=== PATIENT | female | born 1965 | race Caucasian/White ===

== ENCOUNTER 2020-09-15 15:57 | Outpatient (RCR) | payer OTHER, SELFPAY ==
[2015-06-03 16:15] VITALS: BMI 35.7
== END 2020-10-20 23:59 ==
LOC: IMMUN 15:57
PROVIDERS: PCP Internal Medicine; Visit Provider Family Medicine
DX: Z23 Encounter for immunization (principal)
CPT/HCPCS: 0001A; 0002A; 91300

== ENCOUNTER 2024-02-15 23:28 | Outpatient (CLI) | payer OTHER, SELFPAY ==
[2024-02-15 23:29] VITALS: BP 160/114; PULSE 80; RESP 16; TEMP 36.9; O2SAT 97; BMI 35.3
--- OUTSIDE RECORDS SUMMARY | 2024-02-16 00:12 | XMS RPT_ITS | CCD ---
Author Organization [facility] Care Team Providers Care Onsite Case Manager Name Role Phone Marcellus JORDAN, Fer Primary Care Provider GANTA, FER Primary Care Unavailable OLDER, ROCHELLE Referring Unavailable Fer Donohue MD Primary Care Provider SHAHEED ESTRADA Attending Unavailable GANTA, FER Primary Care Unavailable OLDER, ROCHELLE Referring Unavailable NATALIE, SHAHEED Attending Unavailable OLDER, ROCHELLE Referring Unavailable GANTA, FER Primary Care Unavailable GANTA, FER Primary Care Unavailable JENNIFER MURPHY Referring Unavailable GANTA, FER Primary Care Unavailable OLDER, ROCHELLE Referring Unavailable NATALIE, SHAHEED Attending Unavailable OLDER, ROCHELLE Referring Unavailable GANTA, FER Primary Care Unavailable NATALIE, SHAHEED Attending Unavailable GANTA, FER Primary Care Unavailable OLDER, ROCHELLE Referring Unavailable NATALIE, SHAHEED Attending Unavailable GANTA, FER Primary Care Unavailable OLDER, ROCHELLE Referring Unavailable GANTA, FER Primary Care Unavailable OLDER, ROCHELLE Attending Unavailable GANTA, FER Primary Care Unavailable OLDER, ROCHELLE Referring Unavailable GANTA, FER Primary Care Unavailable MARIANO HERNANDEZ Attending Unavailable GANTA, FER Primary Care Unavailable OLDER, ROCHELLE Attending Unavailable OLDER, ROCHELLE Attending Unavailable GANTA, FER Primary Care Unavailable GANTA, FER Primary Care Unavailable GANTA, FER Referring Unavailable GANTA, FER Primary Care Unavailable OLDER, ROCHELLE Referring Unavailable GANTA, FER Primary Care Unavailable OLDER, ROCHELLE Referring Unavailable GANTA, FER Primary Care Unavailable OLDER, ROCHELLE Attending Unavailable SELF Referring Unavailable MEHUL WORKMAN Attending Unavailable GANTA, FER Primary Care Unavailable MEHUL WORKMAN Referring Unavailable GANTA, FER Primary Care Unavailable NATALIE, SHAHEED Attending Unavailable GANTA, FER Primary Care Unavailable OLDER, ROCHELLE Referring Unavailable OLDER, ROCHELLE Referring Unavailable NATALIE, SHAHEED Attending Unavailable GANTA, FER Primary Care Unavailable Allergies Allergy Classification Reported Allergen(s) Allergy Type Date of Onset Reaction(s) Facility POISON ABIGAIL EXTRACT (1 source) POISON ABIGAIL EXTRACT Drug Allergy 0 Rash [facility] (20 sources) POISON ABIGAIL EXTRACT; Translations: [POISON ABIGAIL] Drug Allergy 0 Rash [facility] (20 sources) environmental [Other] Propensity to adverse reactions 6 [facility] Work Phone: (11 sources) Ethinyl Estradiol / Levonorgestrel; Translations: [LEVONORGESTREL-E THINYL ESTRAD] Drug Allergy 4 Intolerance [facility] (1 source) OTHER; Translations: [OTHER] Propensity to adverse reactions (disorder) 6 [place] Medications Current Medications Medication Drug Class(es) Dates Sig (Normalized) Sig (Original) acetaminophen 325 mg oral tablet (20 sources) take 2 tablets by mouth every four hours as needed acetaminophen (TYLENOL) 325 mg tablet Take 650 mg by mouth every 4 hours as needed. Active Comment on above: Take 650 mg by mouth every 4 hours as needed. cholecalciferol 1.25 mg oral capsule (20 sources) Vitamin D Start: 05-08-2021 End: 07-12-2023 take 1 capsule by mouth every week cholecalciferol, Vitamin D3, (VITAMIN D3) 1,250 mcg (50,000 unit) cap capsule Indications: Vitamin D deficiency Take 1 capsule by mouth one time a week. 12 capsule 3 07/12/2023 Active Comment on above: Take 1 capsule by [facility] one time a week. clobetasol propionate 0.0005 mg/mg topical ointment (12 sources) Corticosteroid Start: 12-03-2023 clobetasol (TEMOVATE) 0.05 % ointment APPLY TO AFFECTED AREA 2 TIMES WEEKLY FOR MAINTENANCE, CAN INCREASE USE UP TO DAILY WHEN FLARED 12/03/2023 Active diclofenac potassium 50 mg oral tablet (3 sources) Nonsteroidal Anti-inflammatory Drug Start: 02-12-2024 take 1 tablet by mouth twice daily at mealtime diclofenac potassium (CATAFLAM) 50 mg tablet Take 1 tablet by mouth two times a day. Take with food. 30 tablet 02/12/2024 Active fluconazole 200 mg oral tablet (12 sources) Azole Antifungal Start: 12-03-2023 take 2 tablets by mouth once daily, then take 2 tablets by mouth every week fluconazole (DIFLUCAN) 200 mg tablet TAKE 2 TABLETS BY MOUTH DAILY FOR 3 DAYS THEN TAKE 2 TABLETS ONCE A WEEK FOR 3 WEEKS. 12/03/2023 Active levothyroxine sodium 0.1 mg oral tablet (20 sources) l-Thyroxine Start: 01-09-2021 End: 11-13-2023 take 1 tablet by mouth once daily levothyroxine (SYNTHROID) 100 mcg tablet Indications: Acquired hypothyroidism Take 1 tablet by mouth once daily. 90 tablet 3 07/12/2023 Active Comment on above: Take 1 tablet by jose roberto th once daily. lidocaine 40 mg/ml / menthol 10 mg/ml topical solution (20 sources) Antiarrhythmic, Amide Local Anesthetic lidocaine-menthol 4-1 % lqro Apply to affected area. Active Comment on above: Apply to affected ar ea. losartan potassium 25 mg oral tablet (20 sources) Angiotensin 2 Receptor Dustin Start: 01-09-2021 End: 07-11-2024 take 1 tablet by mouth once daily losartan (COZAAR) 25 mg tablet Indications: Essential hypertension Take 1 tablet by mouth once daily. 90 tablet 3 07/12/2023 07/11/2024 Active Comment on above: Take 1 tablet by jose roberto once daily. omeprazole 20 mg delayed release oral capsule (19 sources) Proton Pump Inhibitor Start: 11-13-2023 End: 12-19-2023 take 1 capsule by mouth once daily before breakfast omeprazole (PRILOSEC) 20 mg capsule Take 1 capsule by mouth daily before breakfast. 1/2 hr before meal. 90 capsule 1 12/19/2023 Active triamcinolone acetonide 0.001 mg/mg topical ointment (20 sources) Corticosteroid Start: 10-07-2023 triamcinolone acetonide (KENALOG) 0.1 % ointment Apply to affected area 1-2 times per week. 80 g 2 10/07/2023 Active Start: 03-19-2023 End: 10-05-2023 triamcinolone acetonide (NGOC ALOG) 0.1 % ointment Apply to affected area 1-2 times per week. 80 g 2 06/25/2023 10/05/2023 Discontinued Start: 09-06-2022 triamcinolone acetonide (KENALOG) 0.1 % ointment Apply to affected area 1-2 times per week. 80 g 2 09/06/2022 Active Start: 09-14-2021 End: 09-06-2022 triamcinolone acetonide (NGOC ALOG) 0.1 % ointment Use every 1-2 days to affected area. Over the next month decreased to 2-3 times per week. 80 g 1 09/14/2021 09/06/2022 Discontinued Start: 08-08-2021 End: 09-14-2021 triamcinolone acetonide (NGOC ALOG) 0.1 % ointment Apply to affected area 2 times daily for 2 weeks. Then use daily. 80 g 1 08/08/2021 09/14/2021 Discontinued Comment on above: Apply to affected ar ea 2 times daily for 2 weeks. Then use daily. Use every 1-2 days t o affected area. Over the next month decreased to 2-3 times per week. Apply to affected ar ea 1-2 times per week. vitamin b12 1 mg oral tablet (19 sources) Vitamin B12 take 1 tablet by mouth once daily cyanocobalamin (VITAMIN B-12) 1,000 mcg tab Take 1,000 mcg by mouth once daily. Active Completed/Discontinued Medications Medication Drug Class(es) Dates Sig (Normalized) Sig (Original) hydrocortisone 10 mg/ml topical cream (12 sources) Corticosteroid End: 09-14-2021 hydrocortisone 1 % cream Apply to affected area twice daily. 09/14/2021 Discontinued Comment on above: Apply to affected ar ea twice daily. Lactobac no.41/Bifidobact no.7 (PROBIOTIC-10 ORAL) (20 sources) End: 11-13-2023 Lactobac no.41/Bifidobact no.7 (PROBIOTIC-10 ORAL) Take by mouth. 11/13/2023 Discontinued End: 11-13-2023 Lactobac no.41/Bifidobact no .7 (PROBIOTIC-10 ORAL) Take by mouth. 0 11/13/2023 Discontinued Lactobac no.41/B ifidobact no.7 (PROBIOTIC-10 ORAL) Take by mouth. 0 Active Comment on above: Take by mouth. lansoprazole 30 mg delayed release oral capsule (20 sources) Proton Pump Inhibitor Start: End: take 1 capsule by mouth once daily before breakfast lansoprazole (PREVACID) 30 mg capsule Indications: Gastroesophageal reflux disease without esophagitis Take 1 capsule by mouth daily before breakfast. 90 capsule 1 02/19/2018 07/12/2023 Discontinued Comment on above: Take 1 capsule by mo moh daily before breakfast. meloxicam 15 mg oral tablet (17 sources) Nonsteroidal Anti-inflammatory Drug Start: End: take 1 tablet by mouth once daily meloxicam (MOBIC) 15 mg tablet Take 1 tablet by mouth once daily. 30 tablet 1 09/04/2021 07/12/2023 Discontinued Comment on above: Take 1 tablet by jose roberto once daily. naproxen 500 mg oral tablet (7 sources) Nonsteroidal Anti-inflammatory Drug Start: End: take 1 tablet by mouth twice daily as needed for pain naproxen (NAPROSYN) 500 mg tablet Indications: DDD (degenerative disc disease), lumbar , Cervical spondylosis without myelopathy Take 1 tablet by mouth two times a day as needed (for pain/inflammation). Take with food. 15 tablet 1 11/13/2023 12/19/2023 Discontinued nystatin 100 unt/mg topical powder (9 sources) Polyene Antifungal Start: End: nystatin (MYCOSTATIN) powder Apply 1 application to affected area four times daily. For 10-14 days. 60 g 4 11/19/2022 11/13/2023 Discontinued Comment on above: Apply 1 application to affected area four times daily. For 10- 14 days. turmeric root extract 500 mg cap (8 sources) End: turmeric root extract 500 mg cap Take by mouth. 12/19/2023 Discontinued turmeric root ex tract 500 mg cap Take by mouth. 0 Active Problems Active Problems Problem Classification Problem Date Documented Date Episodic/Chronic Conditions associated with dizziness or vertigo (1 source) Disorder of inner ear; Translations: [Unspecified disorder of vestibular function, unspecified ear] 07-12-2023 Episodic Esophageal disorders (20 sources) Gastroesophageal reflux disease; Translations: [Gastro-esophageal reflux disease without esophagitis] Onset: 03-27-2007 Resolved: 02-19-2018 09-07-2015 Chronic Essential hypertension (20 sources) Essential hypertension; Translations: [Essential (primary) hypertension] Onset: 09-07-2015 Resolved: 09-16-2015 09-07-2015 Chronic Headache; including migraine (1 source) Headache; Translations: [Headaches] 11-13-2023 Episodic Nonmalignant breast conditions (1 source) Breast finding ; Translations: [Dense breasts] 10-04-2023 Episodic Nutritional deficiencies (20 sources) Vitamin D deficiency; Translations: [Vitamin D deficiency, unspecified] Onset: 02-19-2012 02-19-2012 Chronic Osteoarthritis (20 sources) Arthritis; Translations: [Unspecified osteoarthritis, unspecified site] Onset: 02-26-2016 02-26-2016 Chronic Other acquired deformities (1 source) Retrolisthesis; Translations: [Spondylolisthesis, site unspecified] Episodic Other connective tissue disease (1 source) Impingement syndrome of left shoulder region; Translations: [Impingement syndrome of left shoulder] Episodic Other connective tissue disease (1 source) Impingement syndrome of right shoulder region; Translations: [Impingement syndrome of right shoulder] Episodic Other female genital disorders (2 sources) Atrophic vulva; Translations: [Atrophy of vulva] Episodic Other inflammatory condition of skin (2 sources) Pruritus of vulva; Translations: [Pruritus vulvae] Episodic Other inflammatory condition of skin (1 source) Lichen planus; Translations: [Lichen planus, unspecified] Episodic Other inflammatory condition of skin (1 source) Erosive lichen planus of vulva; Translations: [Other lichen planus] 10-16-2023 Episodic Other lower respiratory disease (3 sources) Dyspnea on exertion; Translations: [Other forms of dyspnea] 11-13-2023 Episodic Other nervous system disorders (20 sources) Meralgia paresthetica of right leg; Translations: [Meralgia paresthetica, right lower limb] Onset: 11-16-2021 Chronic Other nervous system disorders (1 source) Numbness of lower limb ; Translations: [Anesthesia of skin] Episodic Other nervous system disorders (1 source) Paresthesia; Translations: [Paresthesia of skin] 07-12-2023 Episodic Other nervous system disorders (1 source) Tremor; Translations: [Tremor, unspecified] 07-12-2023 Episodic Other non-traumatic joint disorders (3 sources) Shoulder pain; Translations: [Pain in right shoulder] Episodic Other non-traumatic joint disorders (1 source) Chronic pain of left upper limb; Translations: [Pain in left shoulder] Episodic Other non-traumatic joint disorders (3 sources) Pain in left knee; Translations: [Pain in joint, lower leg] Onset: 02-12-2024 02-12-2024 Episodic Other screening for suspected conditions (not mental disorders or infectious disease) (19 sources) Patient encounter status; Translations: [Encounter for screening mammogram for malignant neoplasm of breast] Onset: 10-04-2023 Episodic Spondylosis; intervertebral disc disorders; other back problems (20 sources) Displacement of lumbar intervertebral disc without myelopathy; Translations: [Other intervertebral disc displacement, lumbar region] Onset: 11-16-2021 03-25-2006 Chronic Spondylosis; intervertebral disc disorders; other back problems (20 sources) Lumbago with sciatica; Translations: [Lumbago with sciatica, right side] Onset: 04-12-2010 Resolved: 02-19-2018 Episodic Thyroid disorders (20 sources) Sheryl thyroiditis; Translations: [Autoimmune thyroiditis] Onset: 03-27-2007 03-27-2007 Chronic Unclassified (1 source) Dense breasts; Translations: [Dense breasts] Onset: 10-04-2023 Past or Other Problems Problem Classification Problem Date Documented Da te Episodic/Chronic Nonspecific chest pain (20 sources) Chest pain; Translations: [Chest pain, unspecified] Onset: 03-27-2007 Resolved: 02-19-2018 02-19-2018 Episodic Other aftercare (1 source) Other skilled nursing (current) drug therapy; Translations: [Medication management] Onset: 07-09-2023 Episodic Other connective tissue disease (20 sources) Fibromyalgia; Translations: [Fibromyalgia] Onset: 07-24-2016 07-24-2016 Episodic Other connective tissue disease (20 sources) Bursitis; Translations: [Other bursitis, not elsewhere classified, unspecified site] Onset: 06-15-2014 Resolved: 02-19-2018 02-19-2018 Episodic Other lower respiratory disease (2 sources) Other forms of dyspnea; Translations: [Dyspnea on exertion] Onset: 11-13-2023 Episodic Other nervous system disorders (1 source) Paresthesia of skin; Translations: [Tingling] Onset: 07-17-2023 Episodic Other non-traumatic joint disorders (20 sources) Arthralgia of the pelvic region and thigh; Translations: [Pain in unspecified hip] Onset: 06-15-2014 Resolved: 02-19-2018 02-19-2018 Episodic Residual codes; unclassified (20 sources) Family history of ischemic heart disease; Translations: [Family history of ischemic heart disease and other diseases of the circulatory system] Onset: 07-09-2015 07-09-2015 Episodic Results Test Name Value Interpretation Reference Range Facility OV 02-12-2024 CNOV Office Visit (INTMWS ) JAMAAL MICHAEL ([id number]) 1965 F Date Time Provider Department 02/12/24 11:20 AM ROCHELLE ALCANTAR During your visit today, we recorded the following information about you: Pulse Respiration Blood pressure Weight 84/minute 16/minute 136/78 95.3 kg Rochelle Alcantar APRN.CNP 02/12/2024 12:08 PM Signed CC: Patient presents with: Knee Pain: L knee pain x several weeks HPI Jamaal Michael is a 58 year old female who presents today for left knee pain. Started with an ache 6 weeks ago suddenly after she fell asleep in a recliner with her feet elevated. When she tries to straighten and lift her left leg her knee and calf feel heavy. Over the last few weeks is having a tightness sensation to her LLE and the sensation like the calf muscle and thigh will cramp but doesn't happen. Once or twice while she was turning/twisting her knee felt weak but resolved once she straightened it out. Denies recent surgeries, long trips, edema, redness, injuries, point tenderness, or decreased ROM. Does have history of fibromyalgia and joint pain so experiences tenderness and pain generally throughout body. Also working with pain management on lower back and bilateral hip pain. 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 REVIEW OF SYSTEMS See HPI PAST MEDICAL HISTORY Diagnosis Date Chronic lymphocytic thyroiditis Hashimotos Displacement of lumbar intervertebral disc without myelopathy Environmental allergies Fibromyalgia Generalized osteoarthrosis, unspecified site GERD (gastroesophageal reflux disease) Hypertension Irregular menstrual cycle Irregular Periods Left shoulder pain 2013 past hx frozen shoulder Plantar fasciitis in Right Foot Tendinitis in Left Leg PAST SURGICAL HISTORY Procedure Laterality Date COLONOSCOPY FLX DX W/COLLJ SPEC WHEN PFRMD 10/12/2015 Colonoscopy mac ESOPHAGOGASTRODUODENOSCOPY TRANSORAL DIAGNOSTIC 10/12/2015 EGD mac PAST SURGICAL HISTORY OF Right 04/22/1975 manipulation dislocation arm, post sledding accident PAST SURGICAL HISTORY OF 04/22/1975 exploratory surgery for persistant UTI ALLERGIES Poison Abigail and Seasonale [Levonorgestrel-Ethinyl Estrad] MEDICATIONS clobetasol (TEMOVATE) 0.05 % ointment APPLY TO AFFECTED AREA 2 TIMES WEEKLY FOR MAINTENANCE, CAN INCREASE USE UP TO DAILY WHEN FLARED fluconazole (DIFLUCAN) 200 mg tablet TAKE 2 TABLETS BY MOUTH DAILY FOR 3 DAYS THEN TAKE 2 TABLETS ONCE A WEEK FOR 3 WEEKS. omeprazole (PRILOSEC) 20 mg capsule Take 1 capsule by mouth daily before breakfast. 1/2 hr before meal. cyanocobalamin (VITAMIN B-12) 1,000 mcg tab Take 1,000 mcg by mouth once daily. triamcinolone acetonide (KENALOG) 0.1 % ointment Apply to affected area 1-2 times per week. losartan (COZAAR) 25 mg tablet Take 1 tablet by mouth once daily. levothyroxine (SYNTHROID) 100 mcg tablet Take 1 tablet by mouth once daily. cholecalciferol, Vitamin D3, (VITAMIN D3) 1,250 mcg (50,000 unit) cap capsule Take 1 capsule by mouth one time a week. cholecalciferol, Vitamin D3, (VITAMIN D3) 1,250 mcg (50,000 unit) cap capsule Take 1 capsule by mouth one time a week. lidocaine-menthol 4-1 % lqro Apply to affected area. acetaminophen (TYLENOL) 325 mg tablet Take 650 mg by mouth every 4 hours as needed. FAMILY HISTORY Problem Relation Age of Onset Cancer Mother bladder, thyroid Heart Mother Two Cardiac Bypasses Kidney Disease Mother Hearing Loss Mother Osteoporosis Mother other (gout) Mother Diabetes Father Prostate cancer Prostate Cancer Father Cancer Father Skin Cancer Heart Father Breast Cancer Sister Diabetes Sister 2 sisters with diabetes type II and 2 sisters with hypertension Hypertension Sister Stroke Sister Heart Paternal Grandmother Hypertension Paternal Grandmother Cancer Paternal Grandfather prostate Diabetes Paternal Grandfather Thyroid Maternal Aunt Stroke Maternal Aunt other (bipolar) Other maternal great uncle other (other) Other Other Sleep Disorder No Family History Social History Tobacco Use Smoking status: Never Smokeless tobacco: Never Vaping Use Vaping status: Never Used Substance Use Topics Alcohol use: No Drug use: No PHYSICAL EXAM BP 136/78 Pulse 84 Resp 16 Wt 95.3 kg (210 lb) LMP 08/17/2016 (Approximate) SpO2 98% BMI 34.95 kg/m? General Appearance: well appearing, in no acute distress, alert Eyes: conjunctiva pink and moist, no icterus, sclera white, non-injected Musculoskeletal: Left knee- normal to inspection. Tenderness:none. Flexion:Limitation: neither knee flexes completely but at baseline, Pain:reports tightness; Extension:Limitation:No, Pain:No. Laxity: No Lower extremities: Muscle strength- 5/5 lower, bilaterally. Reflexes intact and equal bilaterally. Pul (more content not included)... [facility] CNTHERAPYon 02-05-2024 CNTHERAPY OT/PT/Speech Visit ( PTWS) JAMAAL MICHAEL ([id number]) 1965 F Date Time Provider Department 02/05/24 2:15 PM SHAHEED ESTRADA PTWS Date Time Provider Department Center 02/05/2024 2:15 PM [id number], COLIN PTWS Frankie Romo Reason for Visit: PT Discharge [752] Primary Visit Diagnosis:Cervical spondylosis without myelopathy [M47.812] Allergies As of Date: 02/05/2024 Noted Allergy Reaction POISON ABIGAIL 08/24/2009 2 - Rash SEAS[place]ALE (LEVONORGESTREL-ETHINYL*12/26 5 - Intolerance Date Reviewed: 12/27/2023 Reviewed by: Lakhwinder Parks OCCA - Fully Assessed Prescriptions as of 02/05/2024 - clobetasol (TEMOVATE) 0.05 % ointment APPLY TO AFFECTED AREA 2 TIMES WEEKLY FOR MAINTENANCE, CAN INCREASE USE UP TO DAILY WHEN FLARED - fluconazole (DIFLUCAN) 200 mg tablet TAKE 2 TABLETS BY MOUTH DAILY FOR 3 DAYS THEN TAKE 2 TABLETS ONCE A WEEK FOR 3 WEEKS. - omeprazole (PRILOSEC) 20 mg capsule Take 1 capsule by mouth daily before breakfast. 1/2 hr before meal. - cyanocobalamin (VITAMIN B-12) 1,000 mcg tab Take 1,000 mcg by mouth once daily. - triamcinolone acetonide (KENALOG) 0.1 % ointment Apply to affected area 1-2 times per week. - losartan (COZAAR) 25 mg tablet Take 1 tablet by mouth once daily. - levothyroxine (SYNTHROID) 100 mcg tablet Take 1 tablet by mouth once daily. - cholecalciferol, Vitamin D3, (VITAMIN D3) 1,250 mcg (50,000 unit) cap capsule Take 1 capsule by mouth one time a week. - cholecalciferol, Vitamin D3, (VITAMIN D3) 1,250 mcg (50,000 unit) cap capsule Take 1 capsule by mouth one time a week. - lidocaine-menthol 4-1 % lqro Apply to affected area. - acetaminophen (TYLENOL) 325 mg tablet Take 650 mg by mouth every 4 hours as needed. Normal [facility] CNTHERAPYon 01-29-2024 CNTHERAPY OT/PT/Speech Visit ( PTWS) JAMAAL MICHAEL ([id number]) 1965 F Date Time Provider Department 01/29/24 2:15 PM SHAHEED ESTRADA PTWS Date Time Provider Department Center 01/29/2024 2:15 PM [id number], COLIN PTWS Frankie Krish Reason for Visit: Physical Therapy [503] Primary Visit Diagnosis:Cervical spondylosis without myelopathy [M47.812] Allergies As of Date: 01/29/2024 Noted Allergy Reaction POISON ABIGAIL 08/24/2009 2 - Rash SE[place] (LEVONORGESTREL-ETHINYL*12/26 5 - Intolerance Date Reviewed: 12/27/2023 Reviewed by: Lakhwinder Parks OCCA - Fully Assessed Prescriptions as of 01/29/2024 - clobetasol (TEMOVATE) 0.05 % ointment APPLY TO AFFECTED AREA 2 TIMES WEEKLY FOR MAINTENANCE, CAN INCREASE USE UP TO DAILY WHEN FLARED - fluconazole (DIFLUCAN) 200 mg tablet TAKE 2 TABLETS BY MOUTH DAILY FOR 3 DAYS THEN TAKE 2 TABLETS ONCE A WEEK FOR 3 WEEKS. - omeprazole (PRILOSEC) 20 mg capsule Take 1 capsule by mouth daily before breakfast. 1/2 hr before meal. - cyanocobalamin (VITAMIN B-12) 1,000 mcg tab Take 1,000 mcg by mouth once daily. - triamcinolone acetonide (KENALOG) 0.1 % ointment Apply to affected area 1-2 times per week. - losartan (COZAAR) 25 mg tablet Take 1 tablet by mouth once daily. - levothyroxine (SYNTHROID) 100 mcg tablet Take 1 tablet by mouth once daily. - cholecalciferol, Vitamin D3, (VITAMIN D3) 1,250 mcg (50,000 unit) cap capsule Take 1 capsule by mouth one time a week. - cholecalciferol, Vitamin D3, (VITAMIN D3) 1,250 mcg (50,000 unit) cap capsule Take 1 capsule by mouth one time a week. - lidocaine-menthol 4-1 % lqro Apply to affected area. - acetaminophen (TYLENOL) 325 mg tablet Take 650 mg by mouth every 4 hours as needed. 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 Author Type: Physical Therapist Type: Therapy (PT/OT/Speech/Resp) Filed: 01/29/2024 14:34 Note Text: Program_ID:[id number] Access Code: [email or web address] URL: [email or web address] Date: 01-29-2024 Prepared By: Shaheed Estrada Program Notes Exercises - Supine Piriformis Stretch with Foot on Ground - 2-3 x daily - 5-7 x weekly - 2-3 sets - reps [facility] CNTHERAPYon 01-22-2024 CNTHERAPY OT/PT/Speech Visit ( PTWS) JAMAAL MICHAEL ([id number]) 1965 F Date Time Provider Department 01/22/24 2:15 PM SHAHEED ESTRADA PTWS Date Time Provider Department Center 01/22/2024 2:15 PM [id number], COLIN PTWS Frankie Romo Reason for Visit: Physical Therapy [503] Primary Visit Diagnosis:Degeneration of intervertebral disc of lumbar region, unspecified whether pain present [M51.369] Other Visit Diagnosis:Cervical spondylosis without myelopathy [M47.812] Allergies As of Date: 01/22/2024 Noted Allergy Reaction POISON ABIGAIL 08/24/2009 2 - Rash SEASONALE (LEVONORGESTREL-ETHINYL*12/26 5 - Intolerance Date Reviewed: 12/27/2023 Reviewed by: Lakhwinder Parks OCCA - Fully Assessed Prescriptions as of 01/29/2024 - clobetasol (TEMOVATE) 0.05 % ointment APPLY TO AFFECTED AREA 2 TIMES WEEKLY FOR MAINTENANCE, CAN INCREASE USE UP TO DAILY WHEN FLARED - fluconazole (DIFLUCAN) 200 mg tablet TAKE 2 TABLETS BY MOUTH DAILY FOR 3 DAYS THEN TAKE 2 TABLETS ONCE A WEEK FOR 3 WEEKS. - omeprazole (PRILOSEC) 20 mg capsule Take 1 capsule by mouth daily before breakfast. 1/2 hr before meal. - cyanocobalamin (VITAMIN B-12) 1,000 mcg tab Take 1,000 mcg by mouth once daily. - triamcinolone acetonide (KENALOG) 0.1 % ointment Apply to affected area 1-2 times per week. - losartan (COZAAR) 25 mg tablet Take 1 tablet by mouth once daily. - levothyroxine (SYNTHROID) 100 mcg tablet Take 1 tablet by mouth once daily. - cholecalciferol, Vitamin D3, (VITAMIN D3) 1,250 mcg (50,000 unit) cap capsule Take 1 capsule by mouth one time a week. - cholecalciferol, Vitamin D3, (VITAMIN D3) 1,250 mcg (50,000 unit) cap capsule Take 1 capsule by mouth one time a week. - lidocaine-menthol 4-1 % lqro Apply to affected area. - acetaminophen (TYLENOL) 325 mg tablet Take 650 mg by mouth every 4 hours as needed. [facility] CNTHERAPYon 01-15-2024 CNTHERAPY OT/PT/Speech Visit ( PTWS) JAMAAL MICHAEL ([id number]) 1965 F Date Time Provider Department 01/15/24 2:15 PM SHAHEED ESTRADA PTWS Date Time Provider Department Center 01/15/2024 2:15 PM [id number], COLIN PTWS Frankie Romo Reason for Visit: Physical Therapy [503] Primary Visit Diagnosis:DDD (degenerative disc disease), lumbar [M51.36] Other Visit Diagnosis:Cervical spondylosis without myelopathy [M47.812] Allergies As of Date: 01/15/2024 Noted Allergy Reaction POISON ABIGAIL 08/24/2009 2 - Rash SEASONALE (LEVONORGESTREL-ETHINYL*12/26 5 - Intolerance Date Reviewed: 12/27/2023 Reviewed by: Lakhwinder Parks OCCA - Fully Assessed Prescriptions as of 01/15/2024 - clobetasol (TEMOVATE) 0.05 % ointment APPLY TO AFFECTED AREA 2 TIMES WEEKLY FOR MAINTENANCE, CAN INCREASE USE UP TO DAILY WHEN FLARED - fluconazole (DIFLUCAN) 200 mg tablet TAKE 2 TABLETS BY MOUTH DAILY FOR 3 DAYS THEN TAKE 2 TABLETS ONCE A WEEK FOR 3 WEEKS. - omeprazole (PRILOSEC) 20 mg capsule Take 1 capsule by mouth daily before breakfast. 1/2 hr before meal. - cyanocobalamin (VITAMIN B-12) 1,000 mcg tab Take 1,000 mcg by mouth once daily. - triamcinolone acetonide (KENALOG) 0.1 % ointment Apply to affected area 1-2 times per week. - losartan (COZAAR) 25 mg tablet Take 1 tablet by mouth once daily. - levothyroxine (SYNTHROID) 100 mcg tablet Take 1 tablet by mouth once daily. - cholecalciferol, Vitamin D3, (VITAMIN D3) 1,250 mcg (50,000 unit) cap capsule Take 1 capsule by mouth one time a week. - cholecalciferol, Vitamin D3, (VITAMIN D3) 1,250 mcg (50,000 unit) cap capsule Take 1 capsule by mouth one time a week. - lidocaine-menthol 4-1 % lqro Apply to affected area. - acetaminophen (TYLENOL) 325 mg tablet Take 650 mg by mouth every 4 hours as needed. Billboard Poster Helper: Addendum Therapy (PT/OT/Speech/Resp) ID: [id number] 01/15/2024 2:34 PM Author: SHAHEED ESTRADA Signed by SHAHEED ESTRADA PT on 01/15/2024 at 2:34 PM * * * This document replaces document [id number] * * * Document text: Program_ID:[id number] Access Code: [email or web address] URL: [email or web address] Date: 01-15-2024 Prepared By: Shaheed Estrada Program Notes Exercises - Seated Passive Cervical Retraction - 2 x daily - 5-7 x weekly - 2 sets - 10 reps - Seated Scapular Retraction - 2 x daily - 5-7 x weekly - 2 sets - 10 reps - Shoulder External Rotation and Scapular Retraction - 2 x daily - 7 x weekly - 2 sets - 10 reps - Standing Cervical Rotation AROM with Overpressure - 2 x daily - 7 x weekly - 2-3 sets - 10 reps - Standing Cervical Sidebending AROM - 2 x daily - 7 x weekly - 2-3 sets - 10 reps - Shoulder External Rotation and Scapular Retraction with Resistance - 2 x daily - 7 x weekly - 2-3 sets - 8-10 reps - Standing Shoulder Row with Anchored Resistance - 2 x daily - 7 x weekly - 2-3 sets - 8-12 reps [facility] THERAPY NTon 01-15-2024 THERAPY NT HNO ID: [id number] Author: SHAHEED ESTRADA, PT Service: ? Author Type: Physical Therapist Type: Therapy (PT/OT/Speech/Resp) Filed: 01/15/2024 14:34 Note Text: Program_ID:[id number] Access Code: [email or web address] URL: [email or web address] Date: 01-15-2024 Prepared By: Shaheed Estrada Program Notes Exercises - Seated Passive Cervical Retraction - 2 x daily - 5-7 x weekly - 2 sets - 10 reps - Seated Scapular Retraction - 2 x daily - 5-7 x weekly - 2 sets - 10 reps - Shoulder External Rotation and Scapular Retraction - 2 x daily - 7 x weekly - 2 sets - 10 reps - Standing Cervical Rotation AROM with Overpressure - 2 x daily - 7 x weekly - 2-3 sets - 10 reps - Standing Cervical Sidebending AROM - 2 x daily - 7 x weekly - 2-3 sets - 10 reps - Shoulder External Rotation and Scapular Retraction with Resistance - 2 x daily - 7 x weekly - 2-3 sets - 8-10 reps - Standing Shoulder Row with Anchored Resistance - 2 x daily - 7 x weekly - 2-3 sets - 8-12 reps Normal [facility] CNTHERAPYon 12-30-2023 CNTHERAPY OT/PT/Speech Visit ( PTWS) JAMAAL MICHAEL ([id number]) 1965 F Date Time Provider Department 12/30/23 4:30 PM SHAHEED ESTRADA PTWS Date Time Provider Department Center 12/30/2023 4:30 PM [id number], COLIN PTWS Frankie Romo Reason for Visit: Physical Therapy [503] Primary Visit Diagnosis:DDD (degenerative disc disease), lumbar [M51.36] Other Visit Diagnosis:Cervical spondylosis without myelopathy [M47.812] Allergies As of Date: 12/30/2023 Noted Allergy Reaction POISON ABIGAIL 08/24/2009 2 - Rash SEASONALE (LEVONORGESTREL-ETHINYL*12/26 5 - Intolerance Date Reviewed: 12/27/2023 Reviewed by: Lakhwinder Parks OCCA - Fully Assessed Prescriptions as of 12/30/2023 - clobetasol (TEMOVATE) 0.05 % ointment APPLY TO AFFECTED AREA 2 TIMES WEEKLY FOR MAINTENANCE, CAN INCREASE USE UP TO DAILY WHEN FLARED - fluconazole (DIFLUCAN) 200 mg tablet TAKE 2 TABLETS BY MOUTH DAILY FOR 3 DAYS THEN TAKE 2 TABLETS ONCE A WEEK FOR 3 WEEKS. - omeprazole (PRILOSEC) 20 mg capsule Take 1 capsule by mouth daily before breakfast. 1/2 hr before meal. - cyanocobalamin (VITAMIN B-12) 1,000 mcg tab Take 1,000 mcg by mouth once daily. - triamcinolone acetonide (KENALOG) 0.1 % ointment Apply to affected area 1-2 times per week. - losartan (COZAAR) 25 mg tablet Take 1 tablet by mouth once daily. - levothyroxine (SYNTHROID) 100 mcg tablet Take 1 tablet by mouth once daily. - cholecalciferol, Vitamin D3, (VITAMIN D3) 1,250 mcg (50,000 unit) cap capsule Take 1 capsule by mouth one time a week. - cholecalciferol, Vitamin D3, (VITAMIN D3) 1,250 mcg (50,000 unit) cap capsule Take 1 capsule by mouth one time a week. - lidocaine-menthol 4-1 % lqro Apply to affected area. - acetaminophen (TYLENOL) 325 mg tablet Take 650 mg by mouth every 4 hours as needed. Billboard Poster Helper: Therapy (PT/OT/Speech/Resp) ID: [id number] 12/30/2023 5:09 PM Author: SHAHEED ESTRADA Signed by SHAHEED ESTRADA PT on 12/30/2023 at 5:09 PM Document text: Program_ID:[id number] Access Code: [email or web address] URL: [email or web address] Date: 12-30-2023 Prepared By: Shaheed Estrada Program Notes Exercises - Seated Passive Cervical Retraction - 2 x daily - 5-7 x weekly - 2 sets - 10 reps - Seated Scapular Retraction - 2 x daily - 5-7 x weekly - 2 sets - 10 reps - Shoulder External Rotation and Scapular Retraction - 2 x daily - 7 x weekly - 2 sets - 10 reps - Standing Cervical Rotation AROM with Overpressure - 2 x daily - 7 x weekly - 2-3 sets - 10 reps - Standing Cervical Sidebending AROM - 2 x daily - 7 x weekly - 2-3 sets - 10 reps Therapy (PT/OT/Speech/Resp) ID: [id number] 12/30/2023 5:07 PM Author: SHAHEED ESTRADA Signed by SHAHEED ESTRADA PT on 12/30/2023 at 5:07 PM Document text: Program_ID:[id number] Access Code: [email or web address] URL: [email or web address] Date: 12-30-2023 Prepared By: Shaheed Estrada Program Notes Exercises - Hooklying Single Knee to Chest Stretch - 2 x daily - 7 x weekly - 3 sets - reps - Supine Double Knee to Chest - 2 x daily - 7 x weekly - 3 sets - reps - Cat Cow - 2 x daily - 7 x weekly - 2 sets - 8-12 reps - Supine Bridge - 2 x daily - 7 x weekly - 2 sets - 8-12 reps [facility] THERAPY NTon 12-30-2023 THERAPY NT HNO ID: [id number] Author: SHAHEED ESTRADA PT Service: ? Author Type: Physical Therapist Type: Therapy (PT/OT/Speech/Resp) Filed: 12/30/2023 17:09 Note Text: Program_ID:[id number] Access Code: [email or web address] URL: [email or web address] Date: 12-30-2023 Prepared By: Shaheed Estrada Program Notes Exercises - Seated Passive Cervical Retraction - 2 x daily - 5-7 x weekly - 2 sets - 10 reps - Seated Scapular Retraction - 2 x daily - 5-7 x weekly - 2 sets - 10 reps - Shoulder External Rotation and Scapular Retraction - 2 x daily - 7 x weekly - 2 sets - 10 reps - Standing Cervical Rotation AROM with Overpressure - 2 x daily - 7 x weekly - 2-3 sets - 10 reps - Standing Cervical Sidebending AROM - 2 x daily - 7 x weekly - 2-3 sets - 10 reps [facility] THERAPY NT HNO ID: [id number] Author: SHAHEED ESTRADA PT Service: ? Author Type: Physical Therapist Type: Therapy (PT/OT/Speech/Resp) Filed: 12/30/2023 17:07 Note Text: Program_ID:[id number] Access Code: [email or web address] URL: [email or web address] Date: 12-30-2023 Prepared By: Shaheed Estrada Program Notes Exercises - Hooklying Single Knee to Chest Stretch - 2 x daily - 7 x weekly - 3 sets - reps - Supine Double Knee to Chest - 2 x daily - 7 x weekly - 3 sets - reps - Cat Cow - 2 x daily - 7 x weekly - 2 sets - 8-12 reps - Supine Bridge - 2 x daily - 7 x weekly - 2 sets - 8-12 reps Normal [facility] CNOVon 12-27-2023 CNOV Office Visit (SPMEST ) JAMAAL MICHAEL ([id number]) 1965 F Date Time Provider Department 12/27/23 9:40 AM MEHUL WORKMAN SPMEST During your visit today, we recorded the following information about you: Weight Height 94.8 kg 1.651 m Mehul Workman DO 12/27/2023 11:04 AM Signed Follow-up Visit [facility] December 27, 2023 CC: Cervicalgia, lumbar spine pain SUBJECTIVE: Patient returns today last being seen in October 2021. At that time was dealing with low back issues as well as some leg pain. Her belief was that she might have some symptoms consistent with coleman algia paresthetica. In general prior imaging without significant findings. Continues to deal with pain in the lumbar spine and neck. Sees rheumatology has been diagnosed with fibromyalgia. Does also have some underlying rheumatologic inflammatory disease without a clear diagnosis. Has dealt with visual changes potentially related to uveitis. Patient describes a multitude of symptoms. Popping cracking in her low back as one of her greater concerns. Wondering if this is concerning or dangerous or going to make her worse. Has recently started physical therapy has 4 more weeks of PT. Describes pain largely at the level of the belt line and below across both sides. Does deal with some vague leg symptoms, however, the majority of her symptoms are low back. This pain will radiate at about the sacral level also out to the level of the lateral hips. Cervical spine pain complaints and cracking as well denies any severe upper limb pain or paresthesias. Since last visit: She continues to deny bowel/bladder incontinence, denies fever, + night pain, denies unintentional weight loss, denies clumsiness of hands or dropping things but does experience some numbness and tingling in her fingers intermittently, denies clumsiness of feet, tripping or falling. Denies any constitutional or myelopathic symptomatology. No interval change in PMHX, PSHX, Allergies, FamHx or ROS. PMH:PAST MEDICAL HISTORY No date: Chronic lymphocytic thyroiditis Comment: Hashimotos No date: Displacement of lumbar intervertebral disc without myelopathy No date: Environmental allergies No date: Fibromyalgia No date: Generalized osteoarthrosis, unspecified site No date: GERD (gastroesophageal reflux disease) No date: Hypertension No date: Irregular menstrual cycle Comment: Irregular Periods 2013: Left shoulder pain Comment: past hx frozen shoulder No date: Plantar fasciitis Comment: in Right Foot No date: Tendinitis Comment: in Left Leg PSH:PAST SURGICAL HISTORY 10/12/2015: COLONOSCOPY FLX DX W/COLLJ SPEC WHEN PFRMD Comment: Colonoscopy mac 10/12/2015: ESOPHAGOGASTRODUODENOSCOPY TRANSORAL DIAGNOSTIC Comment: EGD mac 04/22/1975: PAST SURGICAL HISTORY OF; Right Comment: manipulation dislocation arm, post sledding accident 04/22/1975: PAST SURGICAL HISTORY OF Comment: exploratory surgery for persistant UTI Social history: Social History Tobacco Use Smoking status: Never Smokeless tobacco: Never Vaping Use Vaping status: Never Used Substance Use Topics Alcohol use: No Drug use: No Fam history: FAMILY HISTORY Problem Relation Age of Onset Cancer Mother bladder, thyroid Heart Mother Two Cardiac Bypasses Kidney Disease Mother Hearing Loss Mother Osteoporosis Mother other (gout) Mother Diabetes Father Prostate cancer Prostate Cancer Father Cancer Father Skin Cancer Heart Father Breast Cancer Sister Diabetes Sister 2 sisters with diabetes type II and 2 sisters with hypertension Hypertension Sister Stroke Sister Heart Paternal Grandmother Hypertension Paternal Grandmother Cancer Paternal Grandfather prostate Diabetes Paternal Grandfather Thyroid Maternal Aunt Stroke Maternal Aunt other (bipolar) Other maternal great uncle other (other) Other Other Sleep Disorder No Family History Reviewed and updated with patient. ALLERGIES: Poison Abigail and Seasonale [Levonorgestrel-Ethinyl Estrad] DATA REVIEW: I personally viewed patient's prior lumbar and cervical x-rays. Minimal degenerative disc changes and degenerative facet joint arthropathy and cervical spine straightening normal cervical lordosis. In the lumbar spine evidence of minimal degenerative disc changes well. MRI from many years ago degenerative disc changes and mild disc desiccation at the L4-L5 and L5-S1 levels. OBJECTIVE: Vital Signs: Ht 165.1 cm (5' 5 ) Wt 94.8 kg (209 lb) LMP 08/17/2016 (Approximate) BMI 34.78 kg/m? ASSESSMENT: General:Patient in no apparent distress, afebrile, well appearing Lungs:No labored breathing, symetric chest excursion, no tachypnia Heart:No lower limb edema, pulses palpable and symetric dorsalis pedis and radial, no cyanosis Abdominal:Non distended abdomen Neuro:Strength intact bilatera (more content not included)... [facility] XR CERVICAL 4V AP/LAT/OBLon 12-27-2023 XR CERVICAL 4V AP/LAT/OBL * * *Final Report* * * DATE OF EXAM: Dec 27 2023 11:08AM STX 5311 - XR CERVICAL 4V AP/LAT/OBL / PROCEDURE REASON: Cervical spondylosis without myelopathy * * * * Physician Interpretation * * * * PROCEDURE: Cervical spine INDICATION: Cervical spondylosis without myelopathy .chronic neck pain TECHNIQUE: XR CERVICAL 4V AP/LAT/OBL COMPARISON: 01/09/2021 FINDINGS: Normal alignment without acute fracture or subluxation. Stable mild C5-6 and C6-7 degenerative disc disease. No significant foraminal narrowing or facet arthrosis. Prevertebral soft tissues are within normal limits. IMPRESSION: Stable mild spondylosis. Rocket Engine Tester: [facility] Transcribe Date/Time: Dec 29 2023 9:11P Dictated by : JEFFREY LEBLANC MD This examination was interpreted and the report reviewed and electronically signed by: JEFFREY LEBLANC MD on Dec 29 2023 9:12PM EST [id number] [facility] XR PELVIS 1V APon 12-27-2023 XR PELVIS 1V AP * * *Final Report* * * DATE OF EXAM: Dec 27 2023 11:08AM STX 5239 - XR PELVIS 1V AP / PROCEDURE REASON: Inflammatory arthritis * * * * Physician Interpretation * * * * HISTORY: Inflammatory arthritis TECHNIQUE: XR PELVIS 1V AP FINDINGS/ IMPRESSION: Small metallic markers project over the sacroiliac joints. No concerning erosive changes are identified on this study or abnormal sclerosis. Pelvic enthesophytes. If there is ongoing concern for sacroiliitis an MRI would be more sensitive. Rocket Engine Tester: [facility] Transcribe Date/Time: Dec 29 2023 9:04P Dictated by : JOSE SWENSON MD This examination was interpreted and the report reviewed and electronically signed by: JOSE SWENSON MD on Dec 29 2023 9:06PM EST [id number] [facility] CNTHERAPYon 12-20-2023 CNTHERAPY OT/PT/Speech Visit ( PTWS) ALECJAMAAL L ([id number]) 1965 F Date Time Provider Department 12/20/23 10:00 AM SHAHEED ESTRADA PTWS Date Time Provider Department Center 12/20/2023 10:00 AM [id number], COLIN PTWS [place] Reason for Visit: Physical Therapy [503] Primary Visit Diagnosis:DDD (degenerative disc disease), lumbar [M51.36] Other Visit Diagnosis:Cervical spondylosis without myelopathy [M47.812] Allergies As of Date: 12/20/2023 Noted Allergy Reaction POISON ABIGAIL 08/24/2009 2 - Rash Date Reviewed: 12/19/2023 Reviewed by: Merlene Medina MA - Fully Assessed Prescriptions as of 12/20/2023 - clobetasol (TEMOVATE) 0.05 % ointment APPLY TO AFFECTED AREA 2 TIMES WEEKLY FOR MAINTENANCE, CAN INCREASE USE UP TO DAILY WHEN FLARED - fluconazole (DIFLUCAN) 200 mg tablet TAKE 2 TABLETS BY MOUTH DAILY FOR 3 DAYS THEN TAKE 2 TABLETS ONCE A WEEK FOR 3 WEEKS. - omeprazole (PRILOSEC) 20 mg capsule Take 1 capsule by mouth daily before breakfast. 1/2 hr before meal. - cyanocobalamin (VITAMIN B-12) 1,000 mcg tab Take 1,000 mcg by mouth once daily. - triamcinolone acetonide (KENALOG) 0.1 % ointment Apply to affected area 1-2 times per week. - losartan (COZAAR) 25 mg tablet Take 1 tablet by mouth once daily. - levothyroxine (SYNTHROID) 100 mcg tablet Take 1 tablet by mouth once daily. - cholecalciferol, Vitamin D3, (VITAMIN D3) 1,250 mcg (50,000 unit) cap capsule Take 1 capsule by mouth one time a week. - cholecalciferol, Vitamin D3, (VITAMIN D3) 1,250 mcg (50,000 unit) cap capsule Take 1 capsule by mouth one time a week. - lidocaine-menthol 4-1 % lqro Apply to affected area. - acetaminophen (TYLENOL) 325 mg tablet Take 650 mg by mouth every 4 hours as needed. [facility] CNOVon 12-19-2023 CNOV Office Visit (INTMWS ) JAMAAL MICHAEL ([id number]) 1965 F Date Time Provider Department 12/19/23 2:20 PM ROCHELLE ALCANTAR INTZOHAIB During your visit today, we recorded the following information about you: Pulse Respiration Blood pressure Weight 88/minute 16/minute 126/78 94.8 kg Rochelle Alcantar APRN.[facility] 12/19/2023 3:10 PM Signed CC: Patient presents with: Recheck: 4 week follow up HPI Jamaal Michael is a 58 year old female who presents today for chest ache: and shortness of breath with heavy exertion. ECHO unremarkable outside of grade 1 diastolic dysfunction. Stress test negative. Did have SOB during the test but per patient it was at the end with heavy exertion and was not so severe she was unable to talk. Blood work normal. Did see some improvement with the chest pain with starting the omeprazole but has this on hold right now due to taking diflucan as ordered by her hoop maker helper machine. EKG showed possible inferior [place] age undetermined which has been present on other EKGs years ago without concern. REVIEW OF SYSTEMS General: no fevers, no chills, no night sweats, no recurrent infections, no change in appetite, no change in energy, and no significant changes in weight Respiratory: no cough, no wheezing, no shortness of breath, no hemoptysis Cardiovascular: no chest pain, no chest pressure, no palpitations, and no swelling PAST MEDICAL HISTORY No date: Chronic lymphocytic thyroiditis Comment: Hashimotos No date: Displacement of lumbar intervertebral disc without myelopathy No date: Environmental allergies No date: Fibromyalgia No date: Generalized osteoarthrosis, unspecified site No date: GERD (gastroesophageal reflux disease) No date: Hypertension No date: Irregular menstrual cycle Comment: Irregular Periods 2013: Left shoulder pain Comment: past hx frozen shoulder No date: Plantar fasciitis Comment: in Right Foot No date: Tendinitis Comment: in Left Leg PAST SURGICAL HISTORY 10/12/2015: COLONOSCOPY FLX DX W/COLLJ SPEC WHEN PFRMD Comment: Colonoscopy mac 10/12/2015: ESOPHAGOGASTRODUODENOSCOPY TRANSORAL DIAG[place]IC [place] [facility] [place] PAST SURGICAL HISTORY OF; Right Comment: manipulation dislocation arm, post sledding accident 04/22/1975: PAST SURGICAL HISTORY OF Comment: exploratory surgery for persistant UTI ALLERGIES Poison Abigail MEDICATIONS clobetasol (TEMOVATE) 0.05 % ointment APPLY TO AFFECTED AREA 2 TIMES WEEKLY FOR MAINTENANCE, CAN INCREASE USE UP TO DAILY WHEN FLARED fluconazole (DIFLUCAN) 200 mg tablet TAKE 2 TABLETS BY MOUTH DAILY FOR 3 DAYS THEN TAKE 2 TABLETS ONCE A WEEK FOR 3 WEEKS. omeprazole (PRILOSEC) 20 mg capsule Take 1 capsule by mouth daily before breakfast. 1/2 hr before meal. naproxen (NAPROSYN) 500 mg tablet Take 1 tablet by mouth two times a day as needed (for pain/inflammation). Take with food. cyanocobalamin (VITAMIN B-12) 1,000 mcg tab Take 1,000 mcg by mouth once daily. turmeric root extract 500 mg cap Take by mouth. triamcinolone acetonide (KENALOG) 0.1 % ointment Apply to affected area 1-2 times per week. losartan (COZAAR) 25 mg tablet Take 1 tablet by mouth once daily. levothyroxine (SYNTHROID) 100 mcg tablet Take 1 tablet by mouth once daily. cholecalciferol, Vitamin D3, (VITAMIN D3) 1,250 mcg (50,000 unit) cap capsule Take 1 capsule by mouth one time a week. cholecalciferol, Vitamin D3, (VITAMIN D3) 1,250 mcg (50,000 unit) cap capsule Take 1 capsule by mouth one time a week. lidocaine-menthol 4-1 % lqro Apply to affected area. acetaminophen (TYLENOL) 325 mg tablet Take 650 mg by mouth every 4 hours as needed. FAMILY HISTORY Problem Relation Age of Onset Cancer Mother bladder, thyroid Heart Mother Two Cardiac Bypasses Kidney Disease Mother Hearing Loss Mother Osteoporosis Mother other (gout) Mother Diabetes Father Prostate cancer Prostate Cancer Father Cancer Father Skin Cancer Heart Father Breast Cancer Sister Diabetes Sister 2 sisters with diabetes type II and 2 sisters with hypertension Hypertension Sister Stroke Sister Heart Paternal Grandmother Hypertension Paternal Grandmother Cancer Paternal Grandfather prostate Diabetes Paternal Grandfather Thyroid Maternal Aunt Stroke Maternal Aunt other (bipolar) Other maternal great uncle other (other) Other Other Sleep Disorder No Family History Social History Tobacco Use Smoking status: Never Smokeless tobacco: Never Vaping Use Vaping status: Never Used Substance Use Topics Alcohol use: No Drug use: No PHYSICAL EXAM BP 126/78 Pulse 88 Resp 16 Wt 94.8 kg (209 lb) LMP 08/17/2016 (Approximate) SpO2 98% BMI 34.25 kg/m? General Appearance: well appearing, in no acute distress, alert Eyes: conjunctiva pink and moist, no icterus, sclera white, non-injected Lungs: Lungs clear to auscultation. No wheezing, r (more content not included)... [facility] ECHOon 12-10-2023 Echocardiography Echocardiography Rep ort: Transthoracic Echo [facility] Date of service: 12/10/2023 2:50:51 PM THERAPY TEACHER Ordering physician: ROCHELLE ALCANTAR Indication: Abnormal ECG Technologist: Paige Crawford [facility] Interpreting physician: Sabi Alex MD PATIENT: Name: MRS. JAMAAL MICHAEL : 1965 Age: 58 years Gender: F History of hypertension. Primary rhythm: sinus. Height: 166.40 cm BSA: 2.09 m Weight: 94.80 kg BMI: 34.2 kg/m Heart rate 81 bpm Technically difficult exam due to body habitus. Color Doppler was utilized to interrogate the cardiac valves assessed and spectral Doppler was utilized to determine the flow velocities and pressure gradients reported in this exam. Myocardial strain analysis was performed in this exam to aid in the assessment of cardiac function. MEASUREMENTS: Value Indexed Normal Max aortic dimension 3.5 cm Ao < 3.8 Left atrial volume 54 ml (biplane A-L) 26 ml/m Robin <= 34 LV ID (diastole) 4.7 cm (2D) 2.23 cm/m LV ID (systole) 3.0 cm (2D) 1.42 cm/m IVS, leaflet tips 0.9 cm (2D) Posterior wall thickness 1.1 cm (2D) Left ventricular mass 165 g (2D) 79 g/m Global peak long strain -18.8 % LV stroke volume 61 ml (2D 4-ch.) LV end diastolic volume 110 ml (2D 4-ch.) 52.5 ml/m 29<=EDVi<62 LV end systolic volume 49 ml (2D 4-ch.) 23.4 ml/m Ejection Fraction 55 % (2D 4-ch.) EF > 54 FINDINGS: LEFT VENTRICLE The left ventricle is normal in size. Left ventricular systolic function is normal. Global LV myocardial strain is normal. Grade I left ventricular diastolic dysfunction. Mitral annular lateral E/e': 5.5. Mitral annular septal E/e': 7.8. Wall Motion: All scored segments are normal. RIGHT VENTRICLE The right ventricle is normal in size. Right ventricular systolic function is normal. RV systolic tissue Doppler velocity is 11.0 cm/s. Tricuspid annular displacement is 2.0 cm. Estimated right atrial pressure is 3 mmHg (although IVC not seen). LEFT ATRIUM The left atrial cavity is normal in size. RIGHT ATRIUM The right atrial cavity is normal in size. Inferior Vena Cava: The inferior vena cava appears normal measuring 1.7 cm. MITRAL VALVE The mitral valve leaflets are structurally normal. There is no mitral valve regurgitation. The pressure half time is 61 msec. The peak mitral E/A ratio is 0.68. The average mitral E/e' ratio is 6.7. The mitral flow deceleration time is 210 msec. TRICUSPID VALVE The tricuspid valve leaflets are structurally normal. There is no tricuspid valve regurgitation. AORTIC VALVE The aortic valve cusps are structurally normal. There is no aortic valve regurgitation. Tricuspid aortic valve. The peak gradient is 5 mmHg (peak velocity = 113.9 cm/s). PULMONIC VALVE The pulmonic valve cusps are structurally normal. There is trace (trace - 1+) pulmonic valve regurgitation. AORTA The visualized aorta is normal in size. Measurements - Mid ascending aorta 3.5 cm. PERICARDIUM There is no pericardial effusion. There is an epicardial fat pad. CONCLUSIONS: - Technically difficult exam due to body habitus. - Exam indication: Abnormal ECG - The left ventricle is normal in size. Left ventricular systolic function is normal. EF = 55 5% (2D 4-ch.) Grade I left ventricular diastolic dysfunction. - The right ventricle is normal in size. Right ventricular systolic function is normal. - There are no significant valvular abnormalities. - Exam was compared with the prior CC echocardiographic exam performed on 07/04/2015 (Stress). There is no significant change. * * * Final * * * [facility] Image : [id number] oDynamicsSISUID Normal [facility] CNTHERAPYon 12-05-2023 CNTHERAPY OT/PT/Speech Visit ( PTWS) JAMAAL MICHAEL ([id number]) 1965 F Date Time Provider Department 12/05/23 3:45 PM SHAHEED ESTRADA PTWS Date Time Provider Department Center 12/05/2023 3:45 PM [id number], COL[facility] PTWS Frankie Romo Reason for Visit: PT Eval [747] Primary Visit Diagnosis:DDD (degenerative disc disease), lumbar [M51.36] Other Visit Diagnosis:Cervical spondylosis without myelopathy [M47.812] Allergies As of Date: 12/05/2023 Noted Allergy Reaction POISON ABIGAIL 08/24/2009 2 - Rash Date Reviewed: 11/13/2023 Reviewed by: Merlene Medina MA - Fully Assessed Prescriptions as of 12/06/2023 - omeprazole (PRILOSEC) 20 mg capsule Take 1 capsule by mouth daily before breakfast. 1/2 hr before meal. - naproxen (NAPROSYN) 500 mg tablet Take 1 tablet by mouth two times a day as needed (for pain/inflammation). Take with food. - cyanocobalamin (VITAMIN B-12) 1,000 mcg tab Take 1,000 mcg by mouth once daily. - turmeric root extract 500 mg cap Take by mouth. - triamcinolone acetonide (KENALOG) 0.1 % ointment Apply to affected area 1-2 times per week. - losartan (COZAAR) 25 mg tablet Take 1 tablet by mouth once daily. - levothyroxine (SYNTHROID) 100 mcg tablet Take 1 tablet by mouth once daily. - cholecalciferol, Vitamin D3, (VITAMIN D3) 1,250 mcg (50,000 unit) cap capsule Take 1 capsule by mouth one time a week. - cholecalciferol, Vitamin D3, (VITAMIN D3) 1,250 mcg (50,000 unit) cap capsule Take 1 capsule by mouth one time a week. - lidocaine-menthol 4-1 % lqro Apply to affected area. - acetaminophen (TYLENOL) 325 mg tablet Take 650 mg by mouth every 4 hours as needed. Billboard Poster Helper: Therapy (PT/OT/Speech/Resp) ID: [id number] 12/05/2023 4:29 PM Author: SHAHEED ESTRADA Signed by SHAHEED ESTRADA PT on 12/05/2023 at 4:29 PM Document text: Program_ID:[id number] Access Code: [email or web address] URL: [email or web address] Date: 12-05-2023 Prepared By: Shaheed Estrada Program Notes Exercises - Hooklying Single Knee to Chest Stretch - 2 x daily - 7 x weekly - 3 sets - reps - Supine Double Knee to Chest - 2 x daily - 7 x weekly - 3 sets - reps - Cat Cow - 2 x daily - 7 x weekly - 2 sets - 8-12 reps Therapy (PT/OT/Speech/Resp) ID: [id number] 12/05/2023 4:28 PM Author: SHAHEED ESTRADA Signed by SHAHEED ESTRADA PT on 12/05/2023 at 4:28 PM Document text: Program_ID:[id number] Access Code: [email or web address] URL: [email or web address] Date: 12-05-2023 Prepared By: Shaheed Estrada Program Notes Exercises - Seated Passive Cervical Retraction - 2 x daily - 5-7 x weekly - 2 sets - 10 reps - Seated Scapular Retraction - 2 x daily - 5-7 x weekly - 2 sets - 10 reps - Shoulder External Rotation and Scapular Retraction - 2 x daily - 7 x weekly - 2 sets - 10 reps Normal [facility] THERAPY NTon 12-05-2023 THERAPY NT HNO ID: [id number] Author: SHAHEED ESTRADA, PT Service: ? Author Type: Physical Therapist Type: Therapy (PT/OT/Speech/Resp) Filed: 12/05/2023 16:29 Note Text: Program_ID:[id number] Access Code: [email or web address] URL: [email or web address] Date: 12-05-2023 Prepared By: Shaheed Estrada Program Notes Exercises - Hooklying Single Knee to Chest Stretch - 2 x daily - 7 x weekly - 3 sets - reps - Supine Double Knee to Chest - 2 x daily - 7 x weekly - 3 sets - reps - Cat Cow - 2 x daily - 7 x weekly - 2 sets - 8-12 reps Normal [facility] THERAPY NT HNO ID: [id number] Author: SHAHEED ESTRADA, PT Service: ? Author Type: Physical Therapist Type: Therapy (PT/OT/Speech/Resp) Filed: 12/05/2023 16:28 Note Text: Program_ID:[id number] Access Code: [email or web address] URL: [email or web address] Date: 12-05-2023 Prepared By: Shaheed Estrada Program Notes Exercises - Seated Passive Cervical Retraction - 2 x daily - 5-7 x weekly - 2 sets - 10 reps - Seated Scapular Retraction - 2 x daily - 5-7 x weekly - 2 sets - 10 reps - Shoulder External Rotation and Scapular Retraction - 2 x daily - 7 x weekly - 2 sets - 10 reps Normal [facility] EXERCISE STRESS ECG (WITHOUT IMAGING)on 11-26-2023 Stress Hoop Expander Report: Exercise Stress ECG (without Imaging) [facility] Date of service: 11/26/2023 8:49:37 AM Supervising physician: Mira Walter MD PATIENT: Name: MRS. JAMAAL MICHAEL Age: 58 years Gender: F The supervising physician was in the department and immediately available. Final Stress ECG Report: Exercise Stress ECG (without Imaging) [facility] Date of service: 11/26/2023 8:49:37 AM Ordering physician: ROCHELLE ALCANTAR communications specialist: Marielos Pimentel Agile Project Manager: Gayla Lamar Interpreting physician: Shirley Aquino MD Patient name: MRS. JAMAAL MICHAEL Age: 58 years Gender: F Indication: Chest pressure / Chest tightness, Dyspnea on exertion and Abnormal resting ECG Stress ECG Conclusion: Conclusion: Normal Stress ECG Summary: The patient's resting heart rate was 68 bpm and blood pressure was 154/82 mmHg. The patient exercised according to the Kaveh protocol. The estimated end-exercise MET level achieved using the FRIEND equation was 7.9, which is within the 50th to 75th percentile for age and sex. The estimated end-exercise MET level achieved using the previous ACSM equation was 9.6. The test was terminated due to end of protocol and the total exercise time was 8 minutes and 30 seconds. Other symptoms during the test included SOB. The maximum heart rate was 150 bpm, which is 93% of the predicted heart rate for age. Peak blood pressure was 188/90 mmHg. The double product achieved was 8[address]. Medications: Last Used PRILOSEC NAPROXEN COZAAR LEVOTHYROXINE Resting ECG: Normal Sinus Rhythm Symptoms at rest: No symptoms Exercise Protocol: Kaveh Stress Exercise Table: +-----+ +--------+- ---------+---+---+---+----+-- --+ Stage Speed (MPH) Grade(%) Time (min) HR SYS BASSEM RPE METS +-----+ +--------+- ---------+---+---+---+----+-- --+ 1 1.7 10.0 3.0 127 172 86 13.0 4.2 +-----+ +--------+- ---------+---+---+---+----+-- --+ 2 2.5 12.0 6.0 130 180 92 14.0 6.1 +-----+ +--------+- ---------+---+---+---+----+-- --+ +-----+ +---------+ +---+---+---+----+- ---+ Speed (MPH) Grade (%) Time (min) HR SYS BASSEM RPE METS +-----+ +---------+ +---+---+---+----+- ---+ Final 3.4 14.0 8.50 150 188 90 17.0 7.9 +-----+ +---------+ +---+---+---+----+- ---+ Recovery Table: +------+ +---+---+-- -+ Stage Time (min) HR SYS BASSEM +------+ +---+---+-- -+ 1 1.0 129 178 86 +------+ +---+---+-- -+ 2 2.0 103 164 82 +------+ +---+---+-- -+ 3 3.0 97 152 84 +------+ +---+---+-- -+ 4 5.0 97 142 80 +------+ +---+---+-- -+ Stress Observations: Resting HR: 68 bpm Peak HR: 150 bpm (93% MPHR) Resting BP: 154 / 82 mmHg Peak BP: 188 / 90 mmHg Total Exercise Time: 8 minutes 30 seconds METS achieved: 10.10 Chronotropic response index (CRI): 0.88 Heart rate recovery (HRR): 21 bpm Rate Pressure Product (RPP): 15751 Ibrahim Treadmill Score: 8.5 Stress Exercise Observations: Reason for test termination: end of protocol, Symptoms during test: Other symptoms during the test included SOB, Heart rate response: Normal CRI (>0.8 Not on B Dustin) and Normal HRR (>12 or >[address]/EC), Blood pressure response: Normal BP response, ST segment and T wave changes: No ST changes, Ibrahim Treadmill Score: Normal Ibrahim Treadmill Score (>=5) and Arrhythmias: No arrhythmias IMPORTANT NOTE REGARDING ESTIMATED MET VALUES: Effective 02/07/2020, the reference equation for determining estimated MET values for [facility] stress tests changed. Comparison of test results before and after that date may show a change in estimated MET values for peak/max exercise despite a test duration that is similar in length. The validity of the new FRIEND equation for exercise METS is endorsed by the [place] [employer]. Carrillo P, Destiney LA, Jennifer R, Fabian J, Glen J. New Generalized Equation for Predicting Maximal Oxygen Uptake (from the Fitness Registry and the Importance of Exercise National Database). The [place] Journal of Cardiology. 2017;120(4):688-692). Final See Link below for Image [facility] EXERCISE STRESS ECG (WITHOUT IMAGING) Stress Hoop Expander Report: Exercise Stress ECG (without Imaging) [facility] Date of service: 11/26/2023 8:49:37 AM Supervising physician: Mira Walter MD PATIENT: Name: MRS. JAMAAL MICHAEL Age: 58 years Gender: F The supervising physician was in the department and immediately available. Final Stress ECG Report: Exercise Stress ECG (without Imaging) [facility] Date of service: 11/26/2023 8:49:37 AM Ordering physician: ROCHELLE ALCANTAR communications specialist: Marielos Pimentel Agile Project Manager: Gayla Lamar Interpreting physician: Shirley Aquino MD Patient name: MRS. JAMAAL MICHAEL Age: 58 years Gender: F Indication: Chest pressure / Chest tightness, Dyspnea on exertion and Abnormal resting ECG Stress ECG Conclusion: Conclusion: Normal Stress ECG Summary: The patient's resting heart rate was 68 bpm and blood pressure was 154/82 mmHg. The patient exercised according to the Kaveh protocol. The estimated end-exercise MET level achieved using the FRIEND equation was 7.9, which is within the 50th to 75th percentile for age and sex. The estimated end-exercise MET level achieved using the previous ACSM equation was 9.6. The test was terminated due to end of protocol and the total exercise time was 8 minutes and 30 seconds. Other symptoms during the test included SOB. The maximum heart rate was 150 bpm, which is 93% of the predicted heart rate for age. Peak blood pressure was 188/90 mmHg. The double product achieved was 62[address]. Medications: Last Used PRILOSEC NAPROXEN COZAAR LEVOTHYROXINE Resting ECG: Normal Sinus Rhythm Symptoms at rest: No symptoms Exercise Protocol: Kaveh Stress Exercise Table: +-----+ +--------+- ---------+---+---+---+----+-- --+ Stage Speed (MPH) Grade(%) Time (min) HR SYS BASSEM RPE METS +-----+ +--------+- ---------+---+---+---+----+-- --+ 1 1.7 10.0 3.0 127 172 86 13.0 4.2 +-----+ +--------+- ---------+---+---+---+----+-- --+ 2 2.5 12.0 6.0 130 180 92 14.0 6.1 +-----+ +--------+- ---------+---+---+---+----+-- --+ +-----+ +---------+ +---+---+---+----+- ---+ Speed (MPH) Grade (%) Time (min) HR SYS BASSEM RPE METS +-----+ +---------+ +---+---+---+----+- ---+ Final 3.4 14.0 8.50 150 188 90 17.0 7.9 +-----+ +---------+ +---+---+---+----+- ---+ Recovery Table: +------+ +---+---+-- -+ Stage Time (min) HR SYS BASSEM +------+ +---+---+-- -+ 1 1.0 129 178 86 +------+ +---+---+-- -+ 2 2.0 103 164 82 +------+ +---+---+-- -+ 3 3.0 97 152 84 +------+ +---+---+-- -+ 4 5.0 97 142 80 +------+ +---+---+-- -+ Stress Observations: Resting HR: 68 bpm Peak HR: 150 bpm (93% MPHR) Resting BP: 154 / 82 mmHg Peak BP: 188 / 90 mmHg Total Exercise Time: 8 minutes 30 seconds METS achieved: 10.10 Chronotropic response index (CRI): 0.88 Heart rate recovery (HRR): 21 bpm Rate Pressure Product (RPP): 60444 Ibrahim Treadmill Score: 8.5 Stress Exercise Observations: Reason for test termination: end of protocol, Symptoms during test: Other symptoms during the test included SOB, Heart rate response: Normal CRI (>0.8 Not on B Dustin) and Normal HRR (>12 or >[address]/EC), Blood pressure response: Normal BP response, ST segment and T wave changes: No ST changes, Ibrahim Treadmill Score: Normal Ibrahim Treadmill Score (>=5) and Arrhythmias: No arrhythmias IMPORTANT NOTE REGARDING ESTIMATED MET VALUES: Effective 02/07/2020, the reference equation for determining estimated MET values for [facility] stress tests changed. Comparison of test results before and after that date may show a change in estimated MET values for peak/max exercise despite a test duration that is similar in length. The validity of the new FRIEND equation for exercise METS is endorsed by the [place] [employer]. Carrillo P, Destiney LA, Jennifer R, Fabian J, Glen J. New Generalized Equation for Predicting Maximal Oxygen Uptake (from the Fitness Registry and the Importance of Exercise National Database). The [place] Journal of Cardiology. 2017;120(4):688-692). Final [facility] Image : [id number] [email or web address] See Link below for Image Normal [facility] 11-25-2023 [facility] Telephone (CDLBME) JAMAAL MICHAEL ([id number]) 1965 F Date Time Provider Department 11/25/23 GAYLA LAMAR During your visit today, we recorded the following information about you: Gayla Lamar RN 11/25/2023 1:38 PM Signed Left message regarding reminder for stress test tomorrow and given instructions. Allergies As of Date: 11/25/2023 Noted Allergy Reaction POISON ABIGAIL 08/24/2009 2 - Rash Date Reviewed: 11/13/2023 Reviewed by: Merlene Medina MA - Fully Assessed Reason for Visit: Reminder Call [[id number]] Prescriptions as of 11/25/2023 - omeprazole (PRILOSEC) 20 mg capsule Take 1 capsule by mouth daily before breakfast. 1/2 hr before meal. - naproxen (NAPROSYN) 500 mg tablet Take 1 tablet by mouth two times a day as needed (for pain/inflammation). Take with food. - cyanocobalamin (VITAMIN B-12) 1,000 mcg tab Take 1,000 mcg by mouth once daily. - turmeric root extract 500 mg cap Take by mouth. - triamcinolone acetonide (KENALOG) 0.1 % ointment Apply to affected area 1-2 times per week. - losartan (COZAAR) 25 mg tablet Take 1 tablet by mouth once daily. - levothyroxine (SYNTHROID) 100 mcg tablet Take 1 tablet by mouth once daily. - cholecalciferol, Vitamin D3, (VITAMIN D3) 1,250 mcg (50,000 unit) cap capsule Take 1 capsule by mouth one time a week. - cholecalciferol, Vitamin D3, (VITAMIN D3) 1,250 mcg (50,000 unit) cap capsule Take 1 capsule by mouth one time a week. - lidocaine-menthol 4-1 % lqro Apply to affected area. - acetaminophen (TYLENOL) 325 mg tablet Take 650 mg by mouth every 4 hours as needed. Problem List As Of Date 11/25/2023 Noted Resolved LUMBAR DISC DISPLACEMENT [M51.26] Chest pain, unspecified [R07.9] 03/27/2007 02/19/2018 CHR LYMPHOCYT THYROIDIT [E06.3] 03/27/2007 Esophageal reflux [K21.9] 03/27/2007 02/19/2018 Backache, unspecified [M54.9] 04/12/2010 02/19/2018 Hypothyroid [E03.9] 02/18/2012 Vitamin d deficiency [E55.9] 02/19/2012 Other bursitis disorders [M71.50] 06/15/2014 02/19/2018 Pain in joint, pelvic region and thigh [M25.559]06/15/2014 02/19/2018 Family history of ischemic heart disease (IHD) *07/09/2015 GERD (gastroesophageal reflux disease) [K21.9] Hypertension [I10] 09/16/2015 Essential hypertension [I10] 09/07/2015 Inflammatory arthritis [M19.90] 02/26/2016 Fibromyalgia [M79.7] 07/24/2016 DDD (degenerative disc disease), lumbar [M51.36]11/16/2021 Right-sided low back pain with right-sided scia*11/16/2021 Kissing spine of lumbar region [M48.26] 11/16/2021 Meralgia paresthetica of right side [G57.11] 11/16/2021 Cervical spondylosis without myelopathy [M47.81*11/16/2021 Encounter Status:Closed by GAYLA LAMAR on 11/25/23 [facility] Basic metabolic 2000 panelon 11-13-2023 Anion gap [Moles/Vol] 8 mmol/L Normal 8-15 [facility] Comment on above: Order Comment: Speci men Type: BLOOD SPECIMENOrdering Facility: [facility] Address: [address] [place] [id number] Performed By: #### 2 4321-2, 3015-06, ####[facility] LABIA [id number] [place] [address] [place] Calcium [Mass/Vol] 10.0 mg/dL Normal 8.5-10.2 [facility] Comment on above: Order Comment: Speci men Type: BLOOD SPECIMENOrdering Facility: [facility] Address: [address] [place] [address] Performed By: #### 2 4321-2, 3, ####[facility] LABCLIA [id number] [address] [address] [place] Chloride [Moles/Vol] 106 mmol/L Normal 98-107 [facility] Comment on above: Order Comment: Speci men Type: BLOOD SPECIMENOrdering Facility: [facility] Address: [address] [place] [address] Performed By: #### 2 4321-2, 3, ####[facility] LABCLIA [id number] [address] [address] [place] CO2 [Moles/Vol] 25 mmol/L Normal 22-30 [facility] Comment on above: Order Comment: Speci men Type: BLOOD SPECIMENOrdering Facility: [facility] Address: [address] [place] [address] Performed By: #### 2 4321-2, 3, ####[facility] LABCLIA [id number] [place] [address] [place] Creatinine [Mass/Vol] 0.87 mg/dL Normal 0.58-0.96 [facility] Comment on above: Order Comment: Speci men Type: BLOOD SPECIMENOrdering Facility: [facility] Address: [address] [place] [address] Performed By: #### 2 4321-2, 3, ####[facility] LABCLIA [id number] [place] [address] [place] Creatinine and Glomerular filtration rate.predicted panel (S/P/Bld) 77 mL/min/1.73m??? Normal >=60 [facility] Comment on above: Order Comment: Speci men Type: BLOOD SPECIMENOrdering Facility: [facility] Address: [address] [place] [address] Result Comment: Bethany mated Glomerular Filtration Rate (eGFR) is calculated using the 2020 CKD-EPI creatinine equation. This equation utilizes serum creatinine, sex, and age as parameters. The creatinine assay has traceable calibration to isotope dilution-mass spectrometry. Refer to KDIGO guidelines for clinical interpretation. In patients with unstable renal function, e.g. those with acute kidney injury, the eGFR may not accurately reflect actual GFR. Performed By: #### 2 4321-2, 6-3, ####[facility] LABCLIA [id number] [address] [address] [place] Glucose [Mass/Vol] 95 mg/dL Normal 74-99 [facility] Comment on above: Order Comment: Speci men Type: BLOOD SPECIMENOrdering Facility: [facility] Address: [address] [place], [place] [id number] Result Comment: The [place] Diabetes Association (ADA) provides guidance for cutoff values for fasting glucose and random glucose. The ADA defines fasting as no caloric intake for at least 8 hours. Fasting plasma glucose results between 100 to 125 mg/dL indicate increased risk for diabetes (prediabetes). Fasting plasma glucose results greater than or equal to 126 mg/dL meet the criteria for diagnosis of diabetes. In the absence of unequivocal hyperglycemia, results should be confirmed by repeat testing. In a patient with classic symptoms of hyperglycemia or hyperglycemic crisis, random plasma glucose results greater than or equal to 200 mg/dL meet the criteria for diagnosis of diabetes. Reference: Standards of Medical Care in Diabetes 2016, [place] Diabetes Association. Diabetes Care. 2016.39(Suppl 1). Performed By: #### 2 4321-2, 3015-3, ####[facility] LABCLIA [id number] [address] [address] [place] Potassium [Moles/Vol] 4.6 mmol/L Normal 3.7-5.1 [facility] Comment on above: Order Comment: Speci men Type: BLOOD SPECIMENOrdering Facility: [facility] Address: [address] [place] [address] Performed By: #### 2 4321-2, 3015-3, ####[facility] LABIA [id number] [address] [address] [place] Sodium [Moles/Vol] 139 mmol/L Normal 136-144 [facility] Comment on above: Order Comment: Speci men Type: BLOOD SPECIMENOrdering Facility: [facility] Address: [address] [place] [address] Performed By: #### 2 4321-2, 6-3, ####[facility] LABCLIA [id number] [address] [address] [place] Urea nitrogen [Mass/Vol] 15 mg/dL Normal 7-21 [facility] Comment on above: Order Comment: Speci men Type: BLOOD SPECIMENOrdering Facility: [facility] Address: [address] [place] [id number] Performed By: #### 2 4321-2, 6-3, ####[facility] LABCLIA [id number] [place] [id number] [place] CBC W Auto Differential pane l (Bld)on 11-13-2023 Basophils (Bld) [#/Vol] 0.06 10*3/uL [facility] Basophils/100 WBC (Bld) 0.8 % [facility] Differential cell count method Nom (Bld) Auto [facility] Eosinophils (Bld) [#/Vol] 0.21 10*3/uL [facility] Eosinophils/100 WBC (Bld) 2.7 % [facility] Erythrocyte distribution width (RBC) [Ratio] 12.1 % 11.5 - 15.0 % [facility] Hematocrit (Bld) [Volume fraction] 41.7 % 36.0 - 46.0 % [facility] Hemoglobin (Bld) [Mass/Vol] 14.6 g/dL 11.5 - 15.5 g/dL [facility] Immature granulocytes (Bld) [#/Vol] [facility] Immature granulocytes/100 WBC (Bld) 0.3 % [facility] Lymphocytes (Bld) [#/Vol] 1.74 10*3/uL [facility] [facility] Lymphocytes/100 WBC (Bld) 22.1 % [facility] MCH (RBC) [Entitic mass] 32.6 pg 26.0 - 34.0 pg [facility] MCHC (RBC) [Mass/Vol] 35.0 g/dL 30.5 - 36.0 g/dL [facility] MCV (RBC) [Entitic vol] 93.1 fL 80.0 - 100.0 fL [facility] Monocytes (Bld) [#/Vol] 0.72 10*3/uL NINF [facility] Monocytes/100 WBC (Bld) 9.1 % [facility] Neutrophils (Bld) [#/Vol] 5.13 10*3/uL [facility] Neutrophils/100 WBC (Bld) 65.0 % [facility] Nucleated RBC (Bld) [#/Vol] NINF [facility] Nucleated RBC/100 WBC (Bld) [Ratio] 0.0 % /100 WBC [facility] Platelet mean volume (Bld) [Entitic vol] 10.4 fL 9.0 - 12.7 fL [facility] Platelets (Bld) [#/Vol] 265 10*3/uL [facility] RBC (Bld) [#/Vol] 4.48 10*6/uL 3.90 - 5.2 0 m/uL [facility] WBC (Bld) [#/Vol] 7.88 10*3/uL [facility] Basophils (Bld) [#/Vol] 0.06 10*3/uL Normal <0.11 [facility] Comment on above: Order Comment: Speci men Type: BLOOD SPECIMENOrdering Facility: [facility] Address: [address] [place] [address] Performed By: #### 5 7021-8 ####[facility] LABIA [id number] [place] [address] [place] Basophils/100 WBC (Bld) 0.8 % Normal [facility] Comment on above: Order Comment: Speci men Type: BLOOD SPECIMENOrdering Facility: [facility] Address: [address] [place] [address] Performed By: #### 5 7021-8 ####[facility] LABIA [id number] [place] [address] [place] Differential cell count method Nom (Bld) Auto Normal [facility] Comment on above: Order Comment: Speci men Type: BLOOD SPECIMENOrdering Facility: [facility] Address: [address] [place] [address] Performed By: #### 5 7021-8 ####[facility] LABCLIA [id number] [place] [address] [place] Eosinophils (Bld) [#/Vol] 0.21 10*3/uL Normal <0.46 [facility] Comment on above: Order Comment: Speci men Type: BLOOD SPECIMENOrdering Facility: [facility] Address: [address] [place] [address] Performed By: #### 5 7021-8 ####[facility] LABCLIA [id number] [place] [address] [place] Eosinophils/100 WBC (Bld) 2.7 % Normal [facility] Comment on above: Order Comment: Speci men Type: BLOOD SPECIMENOrdering Facility: [facility] Address: [address] [place] [address] Performed By: #### 5 7021-8 ####[facility] LABCLIA [id number] [place] [address] [place] Erythrocyte distribution width (RBC) [Ratio] 12.1 % Normal 11.5-15.0 [facility] Comment on above: Order Comment: Speci men Type: BLOOD SPECIMENOrdering Facility: [facility] Address: [address] [place] [address] Performed By: #### 5 7021-8 ####[facility] LABCLIA [id number] [place] [address] [place] Hematocrit (Bld) [Volume fraction] 41.7 % Normal 36.0-46.0 [facility] Comment on above: Order Comment: Speci men Type: BLOOD SPECIMENOrdering Facility: [facility] Address: [address] [place] [address] Performed By: #### 5 7021-8 ####[facility] LABCLIA [id number] [place] [address] [place] Hemoglobin (Bld) [Mass/Vol] 14.6 g/dL Normal 11.5-15.5 [facility] Comment on above: Order Comment: Speci men Type: BLOOD SPECIMENOrdering Facility: [facility] Address: [address] [place] [address] Performed By: #### 5 7021-8 ####[facility] LABCLIA [id number] [place] [address] [place] Immature granulocytes (Bld) [#/Vol] 10*3/uL Normal <0.10 [facility] Comment on above: Order Comment: Speci men Type: BLOOD SPECIMENOrdering Facility: [facility] Address: [address] [place] [address] Performed By: #### 5 7021-8 ####[facility] LABCLIA [id number] [place] [address] [place] Immature granulocytes/100 WBC (Bld) 0.3 % Normal [facility] Comment on above: Order Comment: Speci men Type: BLOOD SPECIMENOrdering Facility: [facility] Address: [address] [place] [address] Performed By: #### 5 7021-8 ####[facility] LABCLIA [id number] [place] [address] [place] Lymphocytes (Bld) [#/Vol] 1.74 10*3/uL Normal 1.00-4.00 [facility] Comment on above: Order Comment: Speci men Type: BLOOD SPECIMENOrdering Facility: [facility] Address: [address] [place] [address] Performed By: #### 5 7021-8 ####[facility] LABCLIA [id number] [place] [address] [place] Lymphocytes/100 WBC (Bld) 22.1 % Normal [facility] Comment on above: Order Comment: Speci men Type: BLOOD SPECIMENOrdering Facility: [facility] Address: [address] [place] [address] Performed By: #### 5 7021-8 ####[facility] LABIA [id number] [place] [address] [place] MCH (RBC) [Entitic mass] 32.6 pg Normal 26.0-34.0 [facility] Comment on above: Order Comment: Speci men Type: BLOOD SPECIMENOrdering Facility: [facility] Address: [address] [place] [address] Performed By: #### 5 7021-8 ####[facility] LABIA [id number] [place] [address] [place] MCHC (RBC) [Mass/Vol] 35.0 g/dL Normal 30.5-36.0 [facility] Comment on above: Order Comment: Speci men Type: BLOOD SPECIMENOrdering Facility: [facility] Address: [address] [place] [address] Performed By: #### 5 7021-8 ####[facility] [id number] [place] [address] [place] MCV (RBC) [Entitic vol] 93.1 fL Normal 80.0-100.0 [facility] Comment on above: Order Comment: Speci men Type: BLOOD SPECIMENOrdering Facility: [facility] Address: [address] [place] [address] Performed By: #### 5 7021-8 ####[facility] LABIA [id number] [place] [address] [place] Monocytes (Bld) [#/Vol] 0.72 10*3/uL Normal <0.87 [facility] Comment on above: Order Comment: Speci men Type: BLOOD SPECIMENOrdering Facility: [facility] Address: [address] [place] [address] Performed By: #### 5 7021-8 ####[facility] [id number] [place] [address] [place] Monocytes/100 WBC (Bld) 9.1 % Normal [facility] Comment on above: Order Comment: Speci men Type: BLOOD SPECIMENOrdering Facility: [facility] Address: [address] [place] [address] Performed By: #### 5 7021-8 ####[facility] LABCLIA [id number] [place] [address] [place] Neutrophils (Bld) [#/Vol] 5.13 10*3/uL Normal 1.45-7.50 [facility] Comment on above: Order Comment: Speci men Type: BLOOD SPECIMENOrdering Facility: [facility] Address: [address] [place] [address] Performed By: #### 5 7021-8 ####[facility] LABCLIA [id number] [place] [address] [place] Neutrophils/100 WBC (Bld) 65.0 % Normal [facility] Comment on above: Order Comment: Speci men Type: BLOOD SPECIMENOrdering Facility: [facility] Address: [address] [place] [address] Performed By: #### 5 7021-8 ####[facility] LABCLIA [id number] [place] [address] [place] Nucleated RBC (Bld) [#/Vol] 10*3/uL Normal <0.01 [facility] Comment on above: Order Comment: Speci men Type: BLOOD SPECIMENOrdering Facility: [facility] Address: [address] [place] [address] Performed By: #### 5 7021-8 ####[facility] LABCLIA [id number] [place] [address] [place] Nucleated RBC/100 WBC (Bld) [Ratio] 0.0 /100 WBC Normal [facility] Comment on above: Order Comment: Speci men Type: BLOOD SPECIMENOrdering Facility: [facility] Address: [address] [place] [address] Performed By: #### 5 7021-8 ####[facility] LABCLIA [id number] [place] [address] [place] Platelet mean volume (Bld) [Entitic vol] 10.4 fL Normal 9.0-12.7 [facility] Comment on above: Order Comment: Speci men Type: BLOOD SPECIMENOrdering Facility: [facility] Address: [address] [place] [address] Performed By: #### 5 7021-8 ####[facility] LABCLIA [id number] [place] [address] [place] Platelets (Bld) [#/Vol] 265 10*3/uL Normal 150-400 [facility] Comment on above: Order Comment: Speci men Type: BLOOD SPECIMENOrdering Facility: [facility] Address: [address] [place] [address] Performed By: #### 5 7021-8 ####[facility] LABCLIA [id number] [place] [address] [place] RBC (Bld) [#/Vol] 4.48 10*6/uL Normal 3.90-5.20 [facility] Comment on above: Order Comment: Speci men Type: BLOOD SPECIMENOrdering Facility: [facility] Address: [address] [place] [address] Performed By: #### 5 7021-8 ####[facility] LABCLIA [id number] [place] [address] [place] WBC (Bld) [#/Vol] 7.88 10*3/uL Normal 3.70-11.00 [facility] Comment on above: Order Comment: Speci men Type: BLOOD SPECIMENOrdering Facility: [facility] Address: [address] [place] [address] Performed By: #### 5 7021-8 ####[facility] LABCLIA [id number] [address] [address] [place] CNOVon 11-13-2023 CNOV Office Visit (INTMWS ) JAMAAL MICHAEL ([id number]) 1965 F Date Time Provider Department 11/13/23 2:40 PM ROCHELLE ALCANTAR INTZOHAIB During your visit today, we recorded the following information about you: Pulse Respiration Blood pressure Weight 80/minute 16/minute 138/86 94.8 kg Rochelle Alcantar APRN.PRODUCTION COST ESTIMATOR 11/13/2023 3:14 PM Signed CC: Patient presents with: Recheck: 3 month follow up HPI Jamaal Michael is a 58 year old female who presents today for routine follow up but with concerns. HTN: Ms. Michael indicates that she is feeling well and denies any symptoms referable to elevated blood pressure. Specifically denies palpitations, and peripheral edema. Patient denies any side effects of her medication(s) and is compliant with their regimen. She does check BP's away from this office with average BP's in the 110s-120s/70s range. Jamaal works out in the yard regularly. She watches her diet for sodium, low fat and low cholesterol most of the time. Last 3 Encounter BP Readings: Date: BP: 11/13/2023 138/86 10/16/2023 138/82 07/12/2023 136/79[BP Adrianne[ Does get a chest ache that occurs randomly but has been noticed after exerting herself for hours. And has been short of breath with this as well. Denies any illnesses, fever, chills, cough, or wheezing. Has chronic neck and back pain from known degeneration and stenosis along with fibromyalgia and arthritis. Has noticed a grinding sensation to her lower back and popping noise along with an intermittent stiff sensation. Has noticed increase in her neck pain and trying to resolve with new pillows but noticing an increase in headaches as well. Headaches can be present even without the neck pain. Was seeing pain mgmt for the back and neck pain but not been seen in a few years. Would like to see pain mgmt again. Also has not done physical therapy in a few years as well. Can have intermittent numbness to arms with the neck pain and headaches. It flares up. Trying heat ice and home exercises without improvement. Sparingly uses aleve which helps but upsets her GERD. Deneis any weakness, falls, injuries, syncope, or confusion. REVIEW OF SYSTEMS See HPI PAST MEDICAL HISTORY Diagnosis Date Chronic lymphocytic thyroiditis Hashimotos Displacement of lumbar intervertebral disc without myelopathy Environmental allergies Fibromyalgia Generalized osteoarthrosis, unspecified site GERD (gastroesophageal reflux disease) Hypertension Irregular menstrual cycle Irregular Periods Left shoulder pain 2013 past hx frozen shoulder Plantar fasciitis in Right Foot Tendinitis in Left Leg PAST SURGICAL HISTORY Procedure Laterality Date COLONOSCOPY FLX DX W/COLLJ SPEC WHEN PFRMD 10/12/2015 Colonoscopy mac ESOPHAGOGASTRODUODENOSCOPY TRANSORAL DIAGNOSTIC 10/12/2015 EGD mac PAST SURGICAL HISTORY OF Right 04/22/1975 manipulation dislocation arm, post sledding accident PAST SURGICAL HISTORY OF 04/22/1975 exploratory surgery for persistant UTI ALLERGIES Poison Abigail MEDICATIONS cyanocobalamin (VITAMIN B-12) 1,000 mcg tab Take 1,000 mcg by mouth once daily. turmeric root extract 500 mg cap Take by mouth. triamcinolone acetonide (KENALOG) 0.1 % ointment Apply to affected area 1-2 times per week. losartan (COZAAR) 25 mg tablet Take 1 tablet by mouth once daily. levothyroxine (SYNTHROID) 100 mcg tablet Take 1 tablet by mouth once daily. cholecalciferol, Vitamin D3, (VITAMIN D3) 1,250 mcg (50,000 unit) cap capsule Take 1 capsule by mouth one time a week. cholecalciferol, Vitamin D3, (VITAMIN D3) 1,250 mcg (50,000 unit) cap capsule Take 1 capsule by mouth one time a week. lidocaine-menthol 4-1 % lqro Apply to affected area. acetaminophen (TYLENOL) 325 mg tablet Take 650 mg by mouth every 4 hours as needed. FAMILY HISTORY Problem Relation Age of Onset Cancer Mother bladder, thyroid Heart Mother Two Cardiac Bypasses Kidney Disease Mother Hearing Loss Mother Osteoporosis Mother other (gout) Mother Diabetes Father Prostate cancer Prostate Cancer Father Cancer Father Skin Cancer Heart Father Breast Cancer Sister Diabetes Sister 2 sisters with diabetes type II and 2 sisters with hypertension Hypertension Sister Stroke Sister Heart Paternal Grandmother Hypertension Paternal Grandmother Cancer Paternal Grandfather prostate Diabetes Paternal Grandfather Thyroid Maternal Aunt Stroke Maternal Aunt other (bipolar) Other maternal great uncle other (other) Other Other Sleep Disorder No Family History Social History Tobacco Use Smoking status: Never Smokeless tobacco: Never Vaping Use Vaping Use: Never used Substance Use Topics Alcohol use: No Drug use: No PHYSICAL EXAM BP 138/86 Pulse 80 Resp 16 Wt 94.8 kg (209 lb) LMP 08/17/2016 (Approximate) SpO2 98% BMI 34.25 kg/m? General Appearance: (more content not included)... Normal [facility] MUH24ly 11-13-2023 ECG01 Ventricular Rate : 8 1 BPM Atrial Rate : 81 BPM P-R Interval : 194 ms QRS Duration : 84 ms Q-T Interval : 400 ms QTC Calculation(Bazett) : 464 ms Calculated P [place] : 38 degrees Calculated R [place] : 19 degrees Calculated T [place] : 24 degrees NORMAL SINUS RHYTHM POSSIBLE INFERIOR MYOCARDIAL INFARCTION , AGE UNDETERMINED ABNORMAL ECG Confirmed by ANDRIY GUTIERREZ DO ([id number]) on 11/14/2023 5:17:14 PM NAME : JAMAAL MICHAEL PID : [id number] : 1965 Gender : Female Race : ORD : Procedure Date : Nov 13 2023 13:43:39 Edit Date : Nov 14 2023 17:17:20 Diagnosis: NORMAL SINUS RHYTHM POSSIBLE INFERIOR MYOCARDIAL INFARCTION , AGE UNDETERMINED ABNORMAL ECG Confirmed by ANDRIY GUTIERREZ DO ([id number]) on 11/14/2023 5:17:14 PM Test Reason : Location : [facility] : [facility] Overread By : ANDRIY GUTIERREZ DO Edited By : ANDRIY GUTIERREZ DO Referred By : ROCHELLE ALCANTAR Acquired by : , Normal [facility] ECG01 Ventricular Rate : 8 1 BPM Atrial Rate : 81 BPM P-R Interval : 194 ms QRS Duration : 84 ms Q-T Interval : 400 ms QTC Calculation(Bazett) : 464 ms Calculated P [place] : 38 degrees Calculated R [place] : 19 degrees Calculated T [place] : 24 degrees NORMAL SINUS RHYTHM POSSIBLE INFERIOR MYOCARDIAL INFARCTION , AGE UNDETERMINED ABNORMAL ECG Confirmed by ANDRIY GUTIERREZ DO ([id number]) on 11/14/2023 5:17:10 PM NAME : JAMAAL MICHAEL PID : [id number] : 1965 Gender : Female Race : ORD : Procedure Date : Nov 13 2023 13:43:39 Edit Date : Nov 14 2023 17:17:12 Diagnosis: NORMAL SINUS RHYTHM POSSIBLE INFERIOR MYOCARDIAL INFARCTION , AGE UNDETERMINED ABNORMAL ECG Confirmed by ANDRIY GUTIERREZ DO ([id number]) on 11/14/2023 5:17:10 PM Test Reason : Location : 185 : [facility] Overread By : NADRIY GUTIERREZ DO Edited By : ANDRIY GUTIERREZ DO Referred By : ROCHELLE LACANTAR Acquired by : , Normal [facility] Magnesium SerPl-mCncon 11-12 Magnesium [Mass/Vol] 2.1 mg/dL Normal 1.7-2.3 [facility] Comment on above: Order Comment: Hudson doherty Type: BLOOD SPECIMENOrdering Facility: [facility] Address: [address] [place] [address] Performed By: #### 2 4321-2, 3016-3, 13719-7 ####[facility] LABIA [id number] [place] [address] [place] TSH SerPl-aCncon 11-13-2023 TSH Qn 1.220 m[IU]/L Normal 0.270-4.200 [facility] Comment on above: Order Comment: Hudson doherty Type: BLOOD SPECIMENOrdering Facility: [facility] Address: [address] [place] [address] Performed By: #### 2 4321-2, 3016-3, ####[facility] LABIA [id number] [place] [id number] [place] CNOVon 10-16-2023 CNOV Office Visit (OBGYWM ) JAMAAL MICHAEL ([id number]) 1965 F Date Time Provider Department 10/16/23 10:30 AM MARIANO HERNANDEZ During your visit today, we recorded the following information about you: Blood pressure Weight Height 138/82 96.2 kg 1.664 m Mariano Hernandez MD 10/16/2023 11:37 AM Signed Fixing Machine Operator offered: Patient accepts, visit chaperoned by Jamaal is a 58 year old who presents for an annual gynecologic exam with complaints of vulvar lesions/lichen planus?. Postmenopausal: Yes since age 52 HRT use: No. Last Pap: 08/08/2021 abnormal, ASCUS HPV: 08/03/2021 negative History of abnormal pap: Yes Last mammogram: 2023 normal History of abnormal mammogram: No Sexually active: Yes Last sexual contact: 2 weeks Pain with intercourse: No OB History T1 L1 SAB2 IAB0 Ectopic0 Multiple0 Live Births0 Comment: 1 adopted son and 1 biological daughter Resource Manager History LMP: 08/17/2016 (Approximate), Postmenopausal Age at Menarche: Age at First : Age at Menopause: Resource Manager History Comments: Sexual Activity: Yes; Male Contraception: Vasectomy PAST MEDICAL HISTORY Diagnosis Date Chronic lymphocytic thyroiditis Hashimotos Displacement of lumbar intervertebral disc without myelopathy Environmental allergies Fibromyalgia Generalized osteoarthrosis, unspecified site GERD (gastroesophageal reflux disease) Hypertension Irregular menstrual cycle Irregular Periods Left shoulder pain 2014 past hx frozen shoulder Plantar fasciitis in Right Foot Tendinitis in Left Leg PAST SURGICAL HISTORY Procedure Laterality Date COLONOSCOPY FLX DX W/COLLJ SPEC WHEN PFRMD 10/12/2015 Colonoscopy mac ESOPHAGOGASTRODUODENOSCOPY TRANSORAL DIAGNOSTIC 10/12/2015 EGD mac PAST SURGICAL HISTORY OF Right 04/22/1975 manipulation dislocation arm, post sledding accident PAST SURGICAL HISTORY OF 04/22/1975 exploratory surgery for persistant UTI FAMILY HISTORY Problem Relation Age of Onset Cancer Mother bladder, thyroid Heart Mother Two Cardiac Bypasses Kidney Disease Mother Hearing Loss Mother Osteoporosis Mother other (gout) Mother Diabetes Father Prostate cancer Prostate Cancer Father Cancer Father Skin Cancer Heart Father Breast Cancer Sister Diabetes Sister 2 sisters with diabetes type II and 2 sisters with hypertension Hypertension Sister Stroke Sister Heart Paternal Grandmother Hypertension Paternal Grandmother Cancer Paternal Grandfather prostate Diabetes Paternal Grandfather Thyroid Maternal Aunt Stroke Maternal Aunt other (bipolar) Other maternal great uncle other (other) Other Other Sleep Disorder No Family History SOCIAL HISTORY Social History Tobacco Use Smoking status: Never Smokeless tobacco: Never Vaping Use Vaping Use: Never used Substance Use Topics Alcohol use: No Drug use: No REVIEW OF SYSTEMS Abdomen: No abdominal pain, nausea, vomiting, diarrhea, or constipation. No bloating, early satiety, indigestion, or increased flatulence. Bladder: No dysuria, gross hematuria, urinary frequency, urinary urgency, or incontinence Breast: No breast lumps, nipple d/c, overlying skin changes, redness or skin retraction Allergies and current medication updated:Yes EXAM: Ht 5' 5.5 (1.66m) Wt 212 lb (96.2kg) LMP 08/17/2016 BMI 34.73 kg/(m2). GENERAL: pleasant, female in no apparent distress HEENT: Normocephalic, atraumatic, mucus membranes moist, and no lesions NECK: Supple, full range of motion, no adenopathy, and thyroid normal DERMATOLOGY: Normal, without lesions, non-icteric, and non-hirsute BREAST: soft, non-tender, symmetric, no dominant mass, normal nipple-areolar complex, no lymphadenopathy, and no nipple discharge CHEST: Normal inspiratory effort ABDOMEN: soft, non-tender, and no masses PELVIC: normal Bartholin's glands, urethra, [place]'s glands, no cervical lesions, good vaginal support, physiologic discharge present, normal appearing perineal body and perianal region, vulvar lesion covering vulva, mons and inner thighs BIMANUAL: uterus normal size, shape and consistency, no adnexal masses, and non-tender RECTOVAGINAL: deferred. NEURO: alert and oriented x3,exam grossly non-focal EXTREMITIES: normal ASSESSMENT/PLAN: 1) Health maintenance: Pap done with HPV. 2) Lichen planus?? resonds to topical steroids ; needs derm referral to Dr. Giovanny Hernandez MD Allergies As of Date: 10/16/2023 Noted Allergy Reaction POISON ABIGAIL 08/24/2009 2 - Rash Date Reviewed: 10/16/2023 Reviewed by: Chica Tobias MA - Fully Assessed Reason for Visit: Yearly Exam [187] Primary Visit Diagnosis:Encounter for gynecological examination (general) (routine) without abnormal findings [Z01.419] Other Visit Diagnoses:Encounter for screening for brandon (more content not included)... Normal [facility] HIGH RISK HUMAN PAPILLOMA JER (HPV), PCR FOR DETECTION AND GENOTYPINGon 10-16-2023 HPV 16 Ag Ql (Unsp spec) Not detected Normal Not detected [facility] Comment on above: Order Comment: Speci men Type: FLUID SPECIMENOrdering Facility: [facility] Address: [address] [place] [address] Performed By: #### H PVHRT, [id number] ####[facility] LABCLIA [id number] [place] [address] [place] HPV 18 Ag Ql (Unsp spec) Not detected Normal Not detected [facility] Comment on above: Order Comment: Speci men Type: FLUID SPECIMENOrdering Facility: [facility] Address: [address] [place] [address] Performed By: #### H PVHRT, [id number] ####[facility] LABCLIA [id number] [place] [address] [place] HPV 31+33+35+39+45+51+5 2+56+58+59+66+68 DNA FELICITAS+probe Ql (Cvx) Not detected Normal Not detected [facility] Comment on above: Order Comment: Speci men Type: FLUID SPECIMENOrdering Facility: [facility] Address: [address] [place] [address] Result Comment: High Risk HPV Other Type includes HPV types 31, 33, 35, 39, 45, 51, 52, 56, 58, 59, 66 and 68. Performed By: #### H PVHRT, [id number] ####[facility] LABCLIA [id number] [place] [address] [place] PAP TESTon 10-16-2023 [facility] Satisfactory for interpretation. Normal [facility] Comment on above: Order Comment: Speci men Type: FLUID SPECIMENOrdering Facility: [facility] Address: [address] [place] [address] Performed By: #### H PVHRT, [id number] ####[facility] LABCLIA [id number] [place] [address] [place] CASE REPORT Normal [facility] Comment on above: Order Comment: Speci men Type: FLUID SPECIMENOrdering Facility: [facility] Address: [address] [place] [address] Result Comment: Gyne cologic Cytology Report Case: [id number] Authorizing Provider: Mariano Hernandez MD Collected: 10/16/2023 11:58 AM Ordering Location: OB/Gynecology Received: 10/16/2023 12:55 PM First Screen: Gmitro, Lalo, CT, ASCP Rescreen: Clapacs, Bernadette Specimen: Pap Test, ThinPrep, Cervix Performed By: #### H PVHRT, [id number] ####[facility] LABCLIA [id number] [place] [address] [place] CLINICAL HISTORY, CYTOLOGY, FIBER OPTIC ASSEMBLY WORKER Routine Exam Normal [facility] Comment on above: Order Comment: Speci men Type: FLUID SPECIMENOrdering Facility: [facility] Address: [address] [place] [address] Result Comment: Prev ious ASCUS No Menses, Other (Specify) postmenopausal Performed By: #### H PVHRT, [id number] ####[facility] LABCLIA [id number] [place] [address] [place] FINAL PERFORMING LAB Normal [facility] Comment on above: Order Comment: Speci men Type: FLUID SPECIMENOrdering Facility: [facility] Address: [address] [place] [address] Result Comment: Tech nical component, box truck washer screening performed at [facility], [address] [place] [address] CLIA# [id number] Diagnostic interpretation performed at [facility], [address] [place] [address] CLIA# [id number] Manager Transmission: hBavin Quinteros M.D. Performed By: #### H PVHRT, [id number] ####[facility] LABCLIA [id number] [address] [address] [place] HPV REFLEX Yes HPV Normal [facility] Comment on above: Order Comment: Speci men Type: FLUID SPECIMENOrdering Facility: [facility] Address: [address] [place] [address] Performed By: #### H PVHRT, [id number] ####[facility] LABCLIA [id number] [address] [address] [place] INTERPRETATION, CYTOLOGY, FIBER OPTIC ASSEMBLY WORKER Normal [facility] Comment on above: Order Comment: Speci men Type: FLUID SPECIMENOrdering Facility: [facility] Address: [address] [place] [address] Result Comment: Nega tive for intraepithelial lesion or malignancy. Performed By: #### H PVHRT, [id number] ####[facility] LABCLIA [id number] [place] [address] [place] LMP Normal [facility] Comment on above: Order Comment: Speci men Type: FLUID SPECIMENOrdering Facility: [facility] Address: [address] [place] [address] Performed By: #### H PVHRT, [id number] ####[facility] LABCLIA [id number] [address] [address] [place] PAP DISCLAIMER COMMENT The Pap Smear is a screening test for cervical cancer. False negative results occur with all screening tests, emphasizing the need for rescreening at recommended intervals, and clinical correlation. Normal [facility] Comment on above: Order Comment: Speci men Type: FLUID SPECIMENOrdering Facility: [facility] Address: [address] [place] [address] Performed By: #### H PVHRT, [id number] ####[facility] LABCLIA [id number] [address] PAP DRIVER STARTING GATE COMMENT This specimen has be en analyzed by the ThinPrep Imaging System, an automated imaging and review system, which assists the laboratory in evaluating cells on ThinPrep Pap tests. Following automated imaging, selected qiu from every slide are reviewed by a box truck washer. Normal [facility] Comment on above: Order Comment: Speci men Type: FLUID SPECIMENOrdering Facility: [facility] Address: [address] [place] [address] [place] [address] Performed By: #### H PVHRT, [id number] ####[facility] LABCLIA [id number] [address] 10-07-2023 [facility] HNO ID: [id number] Author: COORDINATOR, MAMMOGRAPHY, ? Service: ? Author Type: Physician Type: Letter Filed: 10/07/2023 14:05 Note Text: October 07, 2023 PID: [id number] Jamaal Michael [address] [place] [address] Dear Ms. Michael, We are pleased to inform you that the results of your recent breast imaging exam on 10/04/2023 are normal. Early detection of cancer is very important. We also understand recommendations regarding breast cancer screening are controversial. Please discuss with your primary care provider which strategy is best for you and whether a mammogram is right for you. Your imaging studies and report will be kept on file at [facility] as part of your permanent medical record and are available for your continuing care. Thank you for allowing us to help in meeting your health care needs. Sincerely, Dr. Gonzalez Interpreting Radiologist [facility] (Normal over 40) Normal [facility] ANA SCREENING W TOMOon 10-03 ANA SCREENING W GUNNER * * *Final Report* * * DATE OF EXAM: Oct 04 2023 2:44PM [id number] - ANA SCREENING W GUNNER / PROCEDURE REASON: multiple diagnoses * * * * Physician Interpretation * * * * RESULT: #[id number] - ANA SCREENING W GUNNER BILATERAL DIGITAL SCREENING MAMMOGRAM TOMOSYNTHESIS WITH CAD: 10/04/2023 HISTORY: Multiple Diagnoses / Screening Mammogram-Patient reports NO symptoms. /priors available for comparison. RESULT: TECHNIQUE: The study was acquired using full field digital technology and interpreted from soft copy. Digital Breast Tomosynthesis (DBT) images were obtained and used to assist in the interpretation of this examination. Current study was also evaluated with a Computer Aided Detection (CAD). Comparison is made to exams dated: 09/04/2022 mammogram, 07/21/2021 mammogram, 04/10/2019 mammogram, and 02/28/2018 mammogram - [facility]. There are scattered areas of fibroglandular density. No significant masses, calcifications, or other findings are seen in either breast. There has been no significant interval change. IMPRESSION: NEGATIVE There is no mammographic evidence of malignancy. A 1 year screening mammogram is recommended. Libra soria/lea:10/07/2023 14:05:58 Motor Vehicle Salesperson(s): Rocío Abraham, [facility] letter sent: Normal over 40 Mammogram BI-RADS: 1 Negative Multiple national specialty organizations have released breast cancer screening guidelines for women at average risk for developing breast cancer - guidelines that are based on both evidence and opinion, yet differ on when to start and how often to screen for breast cancer. With representation from Breast Imaging, Internal Medicine, Women's Health, Family Medicine, and Medical/Surgical Oncology, the [facility] has carefully reviewed the data and reached the following consensus: 1) All women should engage in shared decision-making with their providers to decide when to start and how often to screen; 2) All women should have the opportunity to start screening mammography at age 40; 3) For women ages 45-55, we recommend annual screening mammograms; 4) For women ages 55 and over, we support both the transition from an annual to a biennial interval if this aligns more with patient's values and preferences, or continuation with annual screening; 5) All women should discuss with their providers when to stop screening mammograms. Rocket Engine Tester: Lea Transcribe Date/Time: Oct 04 2023 2:25P Dictated by: LIBRA GONZALEZ MD This examination was interpreted and the report reviewed and electronically signed by: LIBRA GONZALEZ MD on Oct 07 2023 2:05PM EST [id number] Normal [facility] 25(OH)D3 [facility] 25-hydroxyvitamin D3 [Mass/Vol] 70.8 ng/mL Normal 31.0-80.0 [facility] Comment on above: Order Comment: Speci men Type: BLOOD SPECIMENOrdering Facility: [facility] Address: [address] [place] [address] Result Comment: Clas sification of 25 [place] Vitamin D status: Deficiency/Insufficiency: < or = 30 ng/ml. Sufficiency/Optimal Levels: 31-80 ng/mL Toxicity: > 100 ng/mL. Test performed by chemiluminescent immunoassay. Performed By: #### 1 989-3 ####[facility] LABCLIA [id number] [place] [address] [place] Hepatic function 2000 panelo n 07-17-2023 Albumin [Mass/Vol] 4.4 g/dL Normal 3.9-4.9 [facility] Comment on above: Order Comment: Speci men Type: BLOOD SPECIMENOrdering Facility: [facility] Address: [address] [place] [address] Performed By: #### 2 4325-3 ####[facility] [id number] [place] [address] [place] [facility] LABCLIA [id number] [place] [address] [place] ALP [Catalytic activity/Vol] 75 U/L Normal 34-123 [facility] Comment on above: Order Comment: Speci men Type: BLOOD SPECIMENOrdering Facility: [facility] Address: [address] [place] [address] Performed By: #### 2 4325-3 ####[facility] [id number] [place] [address] [place] [facility] LAB[facility] [id number] [place] [address] [place] ALT [Catalytic activity/Vol] 33 U/L Normal 7-38 [facility] Comment on above: Order Comment: Speci men Type: BLOOD SPECIMENOrdering Facility: [facility] Address: [address] [place] [address] Performed By: #### 2 4325-3 ####[facility] MILLTOWNCLIA [id number] [address] OF [facility] LABCLIA [id number] [place] [address] [place] AST [Catalytic activity/Vol] 18 U/L Normal 13-35 [facility] Comment on above: Order Comment: Speci men Type: BLOOD SPECIMENOrdering Facility: [facility] Address: [address] [place] [address] Performed By: #### 2 4325-3 ####[facility] [id number] [address] STATES OF [facility] LABCLIA [id number] [place] [address] [place] Bilirubin [Mass/Vol] 0.6 mg/dL Normal 0.2-1.3 [facility] Comment on above: Order Comment: Speci men Type: BLOOD SPECIMENOrdering Facility: [facility] Address: [address] [place] [address] Performed By: #### 2 4325-3 ####[facility]IA [id number] [address] STATES OF [facility] LABCLIA [id number] [place] [address] [place] Bilirubin.conjugate d [Mass/Vol] mg/dL Normal <0.2 [facility] Comment on above: Order Comment: Speci men Type: BLOOD SPECIMENOrdering Facility: [facility] Address: [address] [place] [address] Performed By: #### 2 4325-3 ####[facility] MILLTOWNCLIA [id number] [address] LABCLIA [id number] [place] [address] [place] Protein [Mass/Vol] 8.0 g/dL Normal 6.3-8.0 [facility] Comment on above: Order Comment: Speci men Type: BLOOD SPECIMENOrdering Facility: [facility] Address: [address] [place] [address] Performed By: #### 2 4325-3 ####[facility] [id number] [address] LABCLIA [id number] [place] [address] [place] Lipid 1996 panelon 4 Cholesterol [Mass/Vol] 179 mg/dL Normal <200 [facility] Comment on above: Order Comment: Speci men Type: BLOOD SPECIMENOrdering Facility: [facility] Address: [address] [place] [address] Result Comment: <200 mg/dL, Desirable 200-239 mg/dL, Borderline high >239 mg/dL, High Performed By: #### 2 132-9 ####[facility] LABCLIA [id number] [place] [address] [place]#### 62213-0 ####[facility] LABCLIA [id number] [address] [id number] [address] [place] Cholesterol in HDL [Mass/Vol] 52 mg/dL Normal >39 [facility] Comment on above: Order Comment: Speci men Type: BLOOD SPECIMENOrdering Facility: [facility] Address: [address] [place] [address] Result Comment: 40-5 9 mg/dL, Acceptable >59 mg/dL, High: Negative risk factor for coronary heart disease <40 mg/dL, Low: Positive risk factor for coronary heart disease Performed By: #### 2 132-9 ####[facility] LABCLIA [id number] [place] [address] [place]#### 93392-4 ####[facility] LABCLIA [id number] [place] [address] [place] [facility] [id number] [place] [address] [place] Cholesterol in LDL [Mass/Vol] 106 mg/dL High <100 [facility] Comment on above: Order Comment: Speci men Type: BLOOD SPECIMENOrdering Facility: [facility] Address: [address] [place] [address] Result Comment: <100 mg/dL, Optimal 100-129 mg/dL, Near optimal/above optimal 130-159 mg/dL, Borderline high 160-189 mg/dL, High >189 mg/dL, Very high Secondary prevention optimal LDL Cholesterol levels are recommended to be < 70 mg/dL Performed By: #### 2 132-9 ####[facility] LABCLIA [id number] [place] [address] [place]#### 66436-0 ####[facility] LABCLIA [id number] [place] [id number] [place] [facility] [id number] [place] [address] [place] Cholesterol in LDL/Cholesterol in HDL [Mass ratio] 2.04 {ratio} Normal <2.54 [facility] Comment on above: Order Comment: Speci men Type: BLOOD SPECIMENOrdering Facility: [facility] Address: [address] [place] [address] Result Comment: Refe rence: 1. National Cholesterol Education Program ATP III Guideline At-A-Glance Quick Desk Reference: National Heart, Lung, and Blood Esko. National Institutes of Health. 2001: NIH Publication No. 01-3305. 2. An International Atherosclerosis Society position paper: global recommendations for the management of dyslipidemia: executive summary, Atherosclerosis. 2014: 232(2):410-413. Performed By: #### 2 132-9 ####[facility] LABCLIA [id number] [address] [place]#### 35874-9 ####[facility] LABCLIA [id number] [address] [id number] [place] [address] [place] Cholesterol in VLDL [Mass/Vol] 21 mg/dL Normal <30 [facility] Comment on above: Order Comment: Speci men Type: BLOOD SPECIMENOrdering Facility: [facility] Address: [address] [place] [address] Performed By: #### 2 132-9 ####[facility] LABCLIA [id number] [address] [place]#### 19157-1 ####[facility] LABCLIA [id number] [address] [id number] [address] [place] Cholesterol non HDL [Mass/Vol] 127 mg/dL Normal <130 [facility] Comment on above: Order Comment: Speci men Type: BLOOD SPECIMENOrdering Facility: [facility] Address: [address] [place] [address] Result Comment: <130 mg/dL, Optimal 130-159 mg/dL, Near optimal/above optimal 160-189 mg/dL, Borderline high 190-219 mg/dL, High >219 mg/dL, Very high Secondary prevention optimal non HDL Cholesterol levels are recommended to be <100 mg/dL Performed By: #### 2 132-9 ####[facility] LABCLIA [id number] [place] [address] [place]#### 41772-4 ####[facility] LABCLIA [id number] [place] [id number] [facility] [id number] [place] [address] [place] Cholesterol.total/C holesterol in HDL [Mass ratio] 3.44 {ratio} Normal <5.10 [facility] Comment on above: Order Comment: Speci men Type: BLOOD SPECIMENOrdering Facility: [facility] Address: [address] [place] [address] Performed By: #### 2 132-9 ####[facility] LABCLIA [id number] [place] [address] [place]#### 42331-5 ####[facility] LABCLIA [id number] [id number] [place] [address] [place] FASTING TIME 12 hrs Normal [facility] Comment on above: Order Comment: Speci men Type: BLOOD SPECIMENOrdering Facility: [facility] Address: [address] [place], [place] [address] Performed By: #### 2 132-9 ####[facility] LABCLIA [id number] [place] [address] [place]#### 46435-6 ####[facility] LABCLIA [id number] [place] [address] [place] [facility] [id number] [place] [address] [place] Triglyceride [Mass/Vol] 107 mg/dL Normal <150 [facility] Comment on above: Order Comment: Speci men Type: BLOOD SPECIMENOrdering Facility: [facility] Address: [address] [place] [address] Result Comment: <150 mg/dL, Normal 150-199 mg/dL, Borderline high 200-499 mg/dL, High >499 mg/dL, Very high Performed By: #### 2 132-9 ####[facility] LABCLIA [id number] [place] [address] [place]#### 28777-9 ####[facility] LABCLIA [id number] [address] [id number] [place] [address] [place] Vit B12 [facility] 024 Cobalamin (Vitamin B12) [Mass/Vol] 375 pg/mL Normal 232-1245 [facility] Comment on above: Order Comment: Speci men Type: BLOOD SPECIMENOrdering Facility: [facility] Address: [address] [place] [address] Performed By: #### 2 132-9 ####[facility] LABCLIA [id number] [place] [address] [place]#### 04528-8 ####[facility] LABCLIA [id number] [address] [id number] [address] [place] CNOVon 07-12-2023 CNOV Office Visit (INTMWS ) JAMAAL MICHAEL ([id number]) 1965 F Date Time Provider Department 07/12/23 7:40 AM ROCHELLE ALCANTAR During your visit today, we recorded the following information about you: Pulse Respiration Blood pressure Weight 74/minute 16/minute 136/79 98 kg Height 1.643 m Rochelle Alcantar APRN.[facility] 07/12/2023 11:21 AM Signed CC: Patient presents with: Physical: Annual Physical HPI Jamaal Michael is a 58 year old female who presents today for annual physical exam. Exercise: stays active with walking and getting 8-10,000 steps. Diet: Watches diet for salt (salty snacks, added salt, processed frozen/canned foods), sugary/sweet snacks, unhealthy fats: Yes Caffeine: 1 cup a day Water intake: 50-65 ounces HTN: Ms. Michael indicates that she is feeling well and denies any symptoms referable to elevated blood pressure. Specifically denies headache, chest pain, palpitations, dyspnea, and peripheral edema. Patient denies any side effects of her medication(s) and is compliant with their regimen. She does not check BP's generally. Last 3 Encounter BP Readings: Date: BP: 07/12/2023 142/90 - 136/79 09/06/2022 110/74 03/16/2022 112/62 Hypothyroidism: Takes medication as ordered. Denies any abnormal changes in weight or energy. Random sensations like she is on a wave or gliding. Last episode was last year and got nauseated. Lasts for 1-3 days. Occasional right hand tremor when using her right arm. 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 No longer doing her neck exercises regularly. Denies syncope, edema, numbness, or known injury. REVIEW OF SYSTEMS General: no fevers, no chills, no night sweats, no recurrent infections, no change in appetite, no change in energy, and no significant changes in weight Respiratory: no cough, no wheezing, no shortness of breath, no hemoptysis Cardiovascular: no chest pain, no chest pressure, no palpitations, and no swelling GI: No nausea, vomiting, or diarrhea Endocrine: no fatigue, no polyuria, no polyphagia, and no polydipsia Neurologic: No headache, numbness, memory loss, syncope. PAST MEDICAL HISTORY Diagnosis Date Chronic lymphocytic thyroiditis Hashimotos Displacement of lumbar intervertebral disc without myelopathy Environmental allergies Fibromyalgia Generalized osteoarthrosis, unspecified site GERD (gastroesophageal reflux disease) Hypertension Irregular menstrual cycle Irregular Periods Left shoulder pain 2013 past hx frozen shoulder Plantar fasciitis in Right Foot Tendinitis in Left Leg PAST SURGICAL HISTORY Procedure Laterality Date COLONOSCOPY FLX DX W/COLLJ SPEC WHEN PFRMD 10/12/2015 Colonoscopy mac ESOPHAGOGASTRODUODENOSCOPY TRANSORAL DIAGNOSTIC 10/12/2015 EGD mac PAST SURGICAL HISTORY OF Right 04/22/1975 manipulation dislocation arm, post sledding accident PAST SURGICAL HISTORY OF 04/22/1975 exploratory surgery for persistant UTI ALLERGIES Poison Abigail MEDICATIONS triamcinolone acetonide (KENALOG) 0.1 % ointment Apply to affected area 1-2 times per week. levothyroxine (SYNTHROID) 100 mcg tablet Take 1 tablet by mouth once daily. losartan (COZAAR) 25 mg tablet Take 1 tablet by mouth once daily. cholecalciferol, Vitamin D3, (VITAMIN D3) 1,250 mcg (50,000 unit) cap capsule Take 1 capsule by mouth one time a week. losartan (COZAAR) 25 mg tablet Take 1 tablet by mouth once daily. levothyroxine (SYNTHROID) 100 mcg tablet Take 1 tablet by mouth once daily. cholecalciferol, Vitamin D3, (VITAMIN D3) 1,250 mcg (50,000 unit) cap capsule Take 1 capsule by mouth one time a week. nystatin (MYCOSTATIN) powder Apply 1 application to affected area four times daily. For 10-14 days. Lactobac no.41/Bifidobact no.7 (PROBIOTIC-10 ORAL) Take by mouth. lidocaine-menthol 4-1 % lqro Apply to affected area. acetaminophen (TYLENOL) 325 mg tablet Take 650 mg by mouth every 4 hours as needed. FAMILY HISTORY Problem Relation Age of Onset Cancer Mother bladder, thyroid Heart Mother Two Cardiac Bypasses Kidney Disease Mother Hearing Loss Mother Osteoporosis Mother other (gout) Mother Diabetes Father Prostate cancer Prostate Cancer Father Cancer Father Skin Cancer Heart Father Breast Cancer Sister Diabetes Sister 2 sisters with diabetes type II and 2 sisters with hypertension Hypertension Sister Stroke Sister Heart Paternal Grandmother Hypertension Paternal Grandmother Cancer Paternal Grandfather prostate Diabetes Paternal Grandfather Thyroid Maternal Aunt Stroke Maternal Aunt other (bipolar) Other maternal great uncle other (other) Other Other Sleep Disorder No Family History Social History Tobacco Use Smoking status: Never Smokeless tobacco: Never Vaping Use Vaping Use: Never used Substance Use (more content not included)... Normal [facility] Basic metabolic 2000 panelon 07-09-2023 Anion gap [Moles/Vol] 8 mmol/L Low -18 [facility] Comment on above: Order Comment: Speci men Type: BLOOD SPECIMENOrdering Facility: [facility] Address: [address] [place] [address] Performed By: #### 2 4321-2 ####[facility] [id number] [place] [address] [place] Calcium [Mass/Vol] 9.7 mg/dL Normal 8.5-10.2 [facility] Comment on above: Order Comment: Speci men Type: BLOOD SPECIMENOrdering Facility: [facility] Address: [address] [place] [address] Performed By: #### 2 4321-2 ####[facility] [id number] [place] [address] [place] Chloride [Moles/Vol] 108 mmol/L High 97-105 [facility] Comment on above: Order Comment: Speci men Type: BLOOD SPECIMENOrdering Facility: [facility] Address: [address] [place] [address] Performed By: #### 2 4321-2 ####[facility] [id number] [place] [address] [place] CO2 [Moles/Vol] 25 mmol/L Normal 22-30 [facility] Comment on above: Order Comment: Speci men Type: BLOOD SPECIMENOrdering Facility: [facility] Address: [address] [place] [address] Performed By: #### 2 4321-2 ####[facility] [id number] [place] [address] [place] Creatinine [Mass/Vol] 0.74 mg/dL Normal 0.58-0.96 [facility] Comment on above: Order Comment: Spectobi men Type: BLOOD SPECIMENOrdering Facility: [facility] Address: [address] [place], [place] [address] [address] Performed By: #### 2 4321-2 ####[facility] [id number] [place] [address] [place] Creatinine and Glomerular filtration rate.predicted panel (S/P/Bld) 94 mL/min/1.73m??? Normal >=60 [facility] Comment on above: Order Comment: Hudson doherty Type: BLOOD SPECIMENOrdering Facility: [facility] Address: [address] [place] [address] Result Comment: Bethany mated Glomerular Filtration Rate (eGFR) is calculated using the 2020 CKD-EPI creatinine equation. This equation utilizes serum creatinine, sex, and age as parameters. The creatinine assay has traceable calibration to isotope dilution-mass spectrometry. Refer to KDIGO guidelines for clinical interpretation. In patients with unstable renal function, e.g. those with acute kidney injury, the eGFR may not accurately reflect actual GFR. Performed By: #### 2 4321-2 ####[facility] [id number] [place] [address] [place] Glucose [Mass/Vol] 97 mg/dL Normal 74-99 [facility] Comment on above: Order Comment: Hudson doherty Type: BLOOD SPECIMENOrdering Facility: [facility] Address: [address] [place] [address] Result Comment: The [place] Diabetes Association (ADA) provides guidance for cutoff values for fasting glucose and random glucose. The ADA defines fasting as no caloric intake for at least 8 hours. Fasting plasma glucose results between 100 to 125 mg/dL indicate increased risk for diabetes (prediabetes). Fasting plasma glucose results greater than or equal to 126 mg/dL meet the criteria for diagnosis of diabetes. In the absence of unequivocal hyperglycemia, results should be confirmed by repeat testing. In a patient with classic symptoms of hyperglycemia or hyperglycemic crisis, random plasma glucose results greater than or equal to 200 mg/dL meet the criteria for diagnosis of diabetes. Reference: Standards of Medical Care in Diabetes 2016, [place] Diabetes Association. Diabetes Care. 2016.39(Suppl 1). Performed By: #### 2 4321-2 ####[facility] [id number] [place] [address] [place] Potassium [Moles/Vol] 3.9 mmol/L Normal 3.7-5.1 [facility] Comment on above: Order Comment: Hudson doherty Type: BLOOD SPECIMENOrdering Facility: [facility] Address: [address] [place] [address] Performed By: #### 2 4321-2 ####[facility] Manuel [id number] [place] [address] [place] Sodium [Moles/Vol] 141 mmol/L Normal 136-144 [facility] Comment on above: Order Comment: Hudson doherty Type: BLOOD SPECIMENOrdering Facility: [facility] Address: [address] [place] [address] Performed By: #### 2 4321-2 ####[facility] Manuel [id number] [place] [address] [place] Urea nitrogen [Mass/Vol] 14 mg/dL Normal 7-21 [facility] Comment on above: Order Comment: Hudson men Type: BLOOD SPECIMENOrdering Facility: [facility] Address: [address] [place] [address] Performed By: #### 2 4321-2 ####[facility] [id number] [place] [address] [place] HbA1c (Bld)on 07-09-2023 Average glucose Estimated from glycated hemoglobin (Bld) [Mass/Vol] 103 mg/dL Normal [facility] Comment on above: Order Comment: Hudson doherty Type: BLOOD SPECIMENOrdering Facility: [facility] Address: [address] [place] [address] Result Comment: eAG: (Estimated average glucose) is a calculated value from HgbA1c and is energy conservation representative of the average blood glucose level in the last 2-3 month period. Performed By: #### 5 5454-3 ####[facility] LABCLIA [id number] [place] [address] [place] [facility] HbA1c (Bld) [Mass fraction] 5.2 % Normal 4.3-5.6 [facility] Comment on above: Order Comment: Hudson doherty Type: BLOOD SPECIMENOrdering Facility: [facility] Address: [address] [place] [address] Result Comment: [place] Diabetes Association guidelines indicate that patients with HgbA1c in the range 5.7-6.4% are at increased risk for development of diabetes, and intervention by lifestyle modification may be beneficial. HgbA1c greater or equal to 6.5% is considered diagnostic of diabetes. Performed By: #### 5 5454-3 ####[facility] LABIA [id number] [place] [address] [place] TSH SerPl-aCncon 07-09-2023 TSH Qn 2.070 m[IU]/L Normal 0.270-4.200 [facility] Comment on above: Order Comment: Hudson doherty Type: BLOOD SPECIMENOrdering Facility: [facility] Address: [address] [place] [address] Performed By: #### 3 016-3 ####[facility] LABIA [id number] [place] [address] [place] ANA SCREENING W TOMOon 09-04 [facility] No Panel Informationon 09-04 [facility] ANA SCREENING W TOMOon 07-21 [facility] No Panel Informationon 09-20 -2021 Radiology Study observation (narrative) [facility] XR Cervical spine AP and Lat eralon 01-09-2021 IMPRESSION: No acute osseous abnormality. Mild degenerative changes, as described. Rocket Engine Tester: [facility] Transcribe Date/Time: Jan 09 2021 2:45P Dictated by : GAGAN MA MD This examination was interpreted and the report reviewed and electronically signed by: GAGAN MA MD on Jan 09 2021 2:47PM [facility] [[email or web address]] DIVISION OF RADIOLOGY * * *Final Report* * * DATE OF EXAM: Jan 09 2021 2:43PM WOX 5308 - XR CERVICAL 2V AP/LAT / PROCEDURE REASON: Cervicalgia * * * * Physician Interpretation * * * * EXAMINATION / TECHNIQUE: XR CERVICAL 2V AP/LAT PATIENT/TECHNOLOGIST PROVIDED HISTORY: pain for years in both lumbar and cervical, notice a lump right side C7 area about 9 months ago, no inj pain all across lower lumbar into upper buttocks on both sides no inj CLINICAL INFORMATION ( PROVIDED BY ORDERING CLINICIAN) : Cervicalgia COMPARISON: None RESULT: Counting reference: Craniocervical junction. Anatomic Variants: None. No acute cervical spine fracture or traumatic subluxation. C1-C2 articulation is intact. Cervical vertebrae demonstrate normal height and alignment. Mild degenerative changes in the cervical spine with mild disc height loss at C5-C6 and C6-C7 with small osteophytes along the disc margins and endplate degenerative changes. Minimal uncovertebral arthropathy at C5-C6 and C6-C7 and mild altered level facet arthropathy. Prevertebral soft tissues are within normal limits. DIVISION OF RADIOLOGY Provider, Jimmie mcgregor Esko - 01/09/2021 * * *Final Report* * * DATE OF EXAM: Jan 09 2021 2:43PM WOX 5308 - XR CERVICAL 2V AP/LAT / PROCEDURE REASON: Cervicalgia * * * * Physician Interpretation * * * * EXAMINATION / TECHNIQUE: XR CERVICAL 2V AP/LAT PATIENT/TECHNOLOGIST PROVIDED HISTORY: pain for years in both lumbar and cervical, notice a lump right side C7 area about 9 months ago, no inj pain all across lower lumbar into upper buttocks on both sides no inj CLINICAL INFORMATION ( PROVIDED BY ORDERING CLINICIAN) : Cervicalgia COMPARISON: None RESULT: Counting reference: Craniocervical junction. Anatomic Variants: None. No acute cervical spine fracture or traumatic subluxation. C1-C2 articulation is intact. Cervical vertebrae demonstrate normal height and alignment. Mild degenerative changes in the cervical spine with mild disc height loss at C5-C6 and C6-C7 with small osteophytes along the disc margins and endplate degenerative changes. Minimal uncovertebral arthropathy at C5-C6 and C6-C7 and mild altered level facet arthropathy. Prevertebral soft tissues are within normal limits. IMPRESSION IMPRESSION: No acute osseous abnormality. Mild degenerative changes, as described. Rocket Engine Tester: [facility] Transcribe Date/Time: Jan 09 2021 2:45P Dictated by : GAGAN MA MD This examination was interpreted and the report reviewed and electronically signed by: GAGAN MA MD on Jan 09 2021 2:47PM EST [facility] XR Cervical spine AP and Lat eralOrdered By: [facility] Provider on 01-09-2021 [facility] XR Lumbar spine 3 Viewson IMPRESSION: Lumbar s pine degenerative changes as described above. Rocket Engine Tester: [facility] Transcribe Date/Time: Jan 09 2021 2:48P Dictated by : RUBEN PIMENTEL MD This examination was interpreted and the report reviewed and electronically signed by: RUBEN PIMENTEL MD on Jan 09 2021 2:50PM [facility] [[email or web address]] DIVISION OF RADIOLOGY * * *Final Report* * * DATE OF EXAM: Jan 09 2021 2:43PM WOX 5228 - XR LUMBAR 3V AP/LAT/L5-S1 / PROCEDURE REASON: multiple diagnoses * * * * Physician Interpretation * * * * EXAM TITLE: XR LUMBAR 3V AP/LAT/L5-S1 EXAM DATE/TIME: 01/09/2021 2:43 PM COMPARISON: None. CLINICAL INDICATION/HISTORY: Low back pain. TECHNIQUE: AP, lateral and cone down lateral views of the lumbar spine are presented. FINDINGS: There are five mhf-trh-pvvgndb lumbar vertebrae. No acute fractures seen. There appears be minimal L3 on L4 retrolisthesis. L1-2 and L2-3 mild disc space narrowing cannot be excluded. There is moderate osteophyte formation, with facet arthrosis in the lower lumbar spine. Kissing spine seen on lateral view. DIVISION OF RADIOLOGY Provider, Jimmie Roberts - 01/09/2021 * * *Final Report* * * DATE OF EXAM: Jan 09 2021 2:43PM WOX 5228 - XR LUMBAR 3V AP/LAT/L5-S1 / PROCEDURE REASON: multiple diagnoses * * * * Physician Interpretation * * * * EXAM TITLE: XR LUMBAR 3V AP/LAT/L5-S1 EXAM DATE/TIME: 01/09/2021 2:43 PM COMPARISON: None. CLINICAL INDICATION/HISTORY: Low back pain. TECHNIQUE: AP, lateral and cone down lateral views of the lumbar spine are presented. FINDINGS: There are five wmi-erb-lhijbih lumbar vertebrae. No acute fractures seen. There appears be minimal L3 on L4 retrolisthesis. L1-2 and L2-3 mild disc space narrowing cannot be excluded. There is moderate osteophyte formation, with facet arthrosis in the lower lumbar spine. Kissing spine seen on lateral view. IMPRESSION IMPRESSION: Lumbar spine degenerative changes as described above. Rocket Engine Tester: JOY Transcribe Date/Time: Jan 09 2021 2:48P Dictated by : RUBEN PIMENTEL MD This examination was interpreted and the report reviewed and electronically signed by: RUBEN PIMENTEL MD on Jan 09 2021 2:50PM [facility] Vital Signs Date Time Vital Sign Value Performing Clinician Teodora lowry 02-12-2024 11:15-0400 Body mass index (BMI) [Ratio] 34.95 kg/m2 JulN.PRODUCTION COST ESTIMATOR Work Phone: [facility] 02-12-2024 11:15-0400 Body weight 95.25 kg JulN.PRODUCTION COST ESTIMATOR Work Phone: [facility] 02-12-2024 11:15-0400 Diastolic blood pressure 78 mm[Hg] AIR CONDITIONING MECHANIC.PRODUCTION COST ESTIMATOR Work Phone: [facility] 02-12-2024 11:15-0400 Heart rate 84 /min AIR CONDITIONING MECHANIC.PRODUCTION COST ESTIMATOR Work Phone: [facility] 02-12-2024 11:15-0400 Respiratory rate 16 /min AIR CONDITIONING MECHANIC.PRODUCTION COST ESTIMATOR Work Phone: [facility] 02-12-2024 11:15-0400 SaO2% (BldA) [Mass fraction] 98 % Rochelle Older AIR CONDITIONING MECHANIC.PRODUCTION COST ESTIMATOR Work Phone: [facility] 02-12-2024 11:15-0400 Systolic blood pressure 136 mm[Hg] Rochelle Older AIR CONDITIONING MECHANIC.PRODUCTION COST ESTIMATOR Work Phone: [facility] 12-27-2023 09:59-0400 Body height 165.1 cm Mehul Workman DO Work Phone: [facility] 12-27-2023 09:59-0400 Body mass index (BMI) [Ratio] 34.78 kg/m2 Mehul Workman DO Work Phone: [facility] 12-27-2023 09:59-0400 Body weight 94.8 kg Mehul Workman DO Work Phone: [facility] 12-19-2023 14:13-0400 Body mass index (BMI) [Ratio] 34.25 kg/m2 Rochelle Older AIR CONDITIONING MECHANIC.PRODUCTION COST ESTIMATOR Work Phone: [facility] 12-19-2023 14:13-0400 Body weight 94.8 kg Rochelle Older AIR CONDITIONING MECHANIC.PRODUCTION COST ESTIMATOR Work Phone: [facility] 12-19-2023 14:13-0400 Diastolic blood pressure 78 mm[Hg] Rochelle Older AIR CONDITIONING MECHANIC.PRODUCTION COST ESTIMATOR Work Phone: [facility] 12-19-2023 14:13-0400 Heart rate 88 /min Rochelle Older AIR CONDITIONING MECHANIC.PRODUCTION COST ESTIMATOR Work Phone: [facility] 12-19-2023 14:13-0400 Respiratory rate 16 /min Rochelle Older AIR CONDITIONING MECHANIC.PRODUCTION COST ESTIMATOR Work Phone: [facility] 12-19-2023 14:13-0400 SaO2% (BldA) [Mass fraction] 98 % Rochelle Older AIR CONDITIONING MECHANIC.PRODUCTION COST ESTIMATOR Work Phone: [facility] 12-19-2023 14:13-0400 Systolic blood pressure 126 mm[Hg] Rochelle Older AIR CONDITIONING MECHANIC.PRODUCTION COST ESTIMATOR Work Phone: [facility] 11-13-2023 14:19-0400 Body mass index (BMI) [Ratio] 34.25 kg/m2 Rochelle Older AIR CONDITIONING MECHANIC.PRODUCTION COST ESTIMATOR Work Phone: [facility] 11-13-2023 14:19-0400 Body weight 94.8 kg Rochelle Older AIR CONDITIONING MECHANIC.PRODUCTION COST ESTIMATOR Work Phone: [facility] 11-13-2023 14:19-0400 Diastolic blood pressure 86 mm[Hg] Rochelle Older AIR CONDITIONING MECHANIC.PRODUCTION COST ESTIMATOR Work Phone: [facility] 11-13-2023 14:19-0400 Heart rate 80 /min Rochelle Older AIR CONDITIONING MECHANIC.PRODUCTION COST ESTIMATOR Work Phone: [facility] 11-13-2023 14:19-0400 Respiratory rate 16 /min Rochelle Older AIR CONDITIONING MECHANIC.PRODUCTION COST ESTIMATOR Work Phone: [facility] 11-13-2023 14:19-0400 SaO2% (BldA) [Mass fraction] 98 % Rochelle Older AIR CONDITIONING MECHANIC.PRODUCTION COST ESTIMATOR Work Phone: [facility] 11-13-2023 14:19-0400 Systolic blood pressure 138 mm[Hg] Rochelle Older AIR CONDITIONING MECHANIC.PRODUCTION COST ESTIMATOR Work Phone: [facility] 10-16-2023 [id number] Body height 166.4 cm Mariano Hernandez MD Work Phone: [facility] 10-16-2023 10:28-0400 Body mass index (BMI) [Ratio] 34.74 kg/m2 Mariano Hernandez MD Work Phone: [facility] 10-16-2023 [id number] Body weight 96.16 kg Mariano Hernandez MD Work Phone: [facility] 10-16-2023 10:28-0400 Diastolic blood pressure 82 mm[Hg] Mariano Hernandez MD Work Phone: [facility] 10-16-2023 10:28-0400 Systolic blood pressure 138 mm[Hg] Mairano Hernandez MD Work Phone: [facility] 07-12-2023 08:36-0400 Diastolic blood pressure 79 mm[Hg] Rochelle Older AIR CONDITIONING MECHANIC.PRODUCTION COST ESTIMATOR Work Phone: [facility] 07-12-2023 08:36-0400 Systolic blood pressure 136 mm[Hg] Rochelle Older AIR CONDITIONING MECHANIC.PRODUCTION COST ESTIMATOR Work Phone: [facility] 07-12-2023 07:47-0400 Body height 164.3 cm Rochelle Older AIR CONDITIONING MECHANIC.PRODUCTION COST ESTIMATOR Work Phone: [facility] 07-12-2023 07:47-0400 Body weight 97.98 kg Rochelle Older AIR CONDITIONING MECHANIC.PRODUCTION COST ESTIMATOR Work Phone: [facility] 07-12-2023 07:47-0400 Heart rate 74 /min Rochelle Older AIR CONDITIONING MECHANIC.PRODUCTION COST ESTIMATOR Work Phone: [facility] 07-12-2023 07:47-0400 Respiratory rate 16 /min Rochelle Older AIR CONDITIONING MECHANIC.PRODUCTION COST ESTIMATOR Work Phone: [facility] 07-12-2023 07:47-0400 SaO2% (BldA) [Mass fraction] 99 % Rochelle Older AIR CONDITIONING MECHANIC.PRODUCTION COST ESTIMATOR Work Phone: [facility] 03-16-2022 08:45-0500 Body height 165.1 cm Fer Donohue MD Work Phone: [facility] 03-16-2022 08:45-0500 Body temperature 97.59 [degF] Fer Donohue MD Work Phone: [facility] 03-16-2022 08:45-0500 Body weight 96.16 kg Fer Donohue MD Work Phone: [facility] 03-16-2022 08:45-0500 Diastolic blood pressure 62 mm[Hg] Fer Donohue MD Work Phone: [facility] 03-16-2022 08:45-0500 Heart rate 72 /min Fer Donohue MD Work Phone: [facility] 03-16-2022 08:45-0500 Respiratory rate 12 /min Fer Donohue MD Work Phone: [facility] 03-16-2022 08:45-0500 SaO2% (BldA) [Mass fraction] 98 % Fer Donohue MD Work Phone: [facility] 03-16-2022 08:45-0500 Systolic blood pressure 112 mm[Hg] Fer Donohue MD Work Phone: [facility] 10-27-2021 08:07-0400 Body height 165.1 cm Mehul Workman DO Work Phone: [facility] 10-27-2021 08:07-0400 Body weight 98.88 kg Mehul Francisry DO Work Phone: [facility] 10-27-2021 08:07-0400 Respiratory rate 12 /min Mehul Francisry DO Work Phone: [facility] 09-14-2021 10:38-0400 Body weight 99.7 kg Jennifer Murphy MD Work Phone: [facility] 09-14-2021 10:38-0400 Diastolic blood pressure 72 mm[Hg] Jennifer Murphy MD Work Phone: [facility] 09-14-2021 10:38-0400 Systolic blood pressure 104 mm[Hg] Jennifer Murphy MD Work Phone: [facility] 09-04-2021 09:03-0400 Body height 165.1 cm Rojas Degroot MD Work Phone: [facility] 09-04-2021 09:03-0400 Body weight 95.25 kg Rojas Degroot MD Work Phone: [facility] 08-03-2021 15:03-0400 Body weight 98.88 kg Jennifer Murphy MD Work Phone: [facility] 08-03-2021 15:03-0400 Diastolic blood pressure 80 mm[Hg] Jennifer Murphy MD Work Phone: [facility] 08-03-2021 15:03-0400 Systolic blood pressure 112 mm[Hg] Jennifer Murphy MD Work Phone: [facility] 07-27-2021 15:20-0400 Body height 165.1 cm Jennifer Murphy MD Work Phone: [facility] 07-27-2021 15:20-0400 Body weight 99.61 kg Jennifer Murphy MD Work Phone: [facility] 07-27-2021 15:20-0400 Diastolic blood pressure 80 mm[Hg] Jennifer Murphy MD Work Phone: [facility] 07-27-2021 15:20-0400 Systolic blood pressure 124 mm[Hg] Jennifer Murphy MD Work Phone: [facility] Encounters Encounter Date Encounter Type Care Provider Facility Start: 02-13-2024 End: 02-13-2024 Orders Only Mehul Dhara Nathanael DO Work Phone: [facility] Comment on above: Cervical spondylosis without myelopathy (Primary Dx); Degeneration of intervertebral disc of lumbar region with discogenic back pain and lower extremity pain; Cervicalgia; Low back pain with sciatica, sciatica laterality unspecified, unspecified back pain laterality, unspecified chronicity Start: 02-12-2024 End: 02-12-2024 Subsequent hospital visit by physician [facility] Frankie Work Phone: Radiology Comment on above: Acute pain of left k nee [M25.562] Start: 02-12-2024 End: 02-12-2024 ambulatory ROCHELLE ALCANTAR Facility:[facility] Start: 02-12-2024 End: 02-12-2024 Patient encounter procedure Rochelle Alcantar APRN.PRODUCTION COST ESTIMATOR Work Phone: Internal Medicine [place] Comment on above: Acute pain of left k nee (Primary Dx) Start: 02-05-2024 End: 02-05-2024 ambulatory Shaheed Natalie PT Work Phone: [facility] Comment on above: Cervical spondylosis without myelopathy (Primary Dx) Start: 01-29-2024 End: 01-29-2024 ambulatory Shaheed Natalie PT Work Phone: [facility] Comment on above: Cervical spondylosis without myelopathy (Primary Dx) Start: 01-22-2024 End: 01-22-2024 ambulatory Shaheed Naatlie PT Work Phone: [facility] Comment on above: Degeneration of inte rvertebral disc of lumbar region, unspecified whether pain present (Primary Dx); Cervical spondylosis without myelopathy Start: 01-15-2024 End: 01-15-2024 ambulatory Shaheed Estrada PT Work Phone: [facility] Comment on above: DDD (degenerative di sc disease), lumbar (Primary Dx); Cervical spondylosis without myelopathy Start: 12-30-2023 End: 12-30-2023 ambulatory Shaheed Estrada PT Work Phone: [facility] Comment on above: DDD (degenerative di sc disease), lumbar (Primary Dx); Cervical spondylosis without myelopathy Start: 12-27-2023 End: 12-27-2023 Subsequent hospital visit by physician [facility] Work Phone: Radiology Comment on above: Cervical spondylosis without myelopathy [M47.812] Start: 12-27-2023 End: 12-27-2023 ambulatory MEHUL WORKMAN Facility:[facility] Start: 12-27-2023 End: 12-27-2023 Patient encounter procedure Mehul Workman DO Work Phone: [facility] Comment on above: Kissing spine of lum bar region (Primary Dx); Inflammatory arthritis; Cervical spondylosis without myelopathy; Fibromyalgia Start: 12-20-2023 End: 12-20-2023 ambulatory Shaheed Estrada PT Work Phone: [facility] Comment on above: DDD (degenerative di sc disease), lumbar (Primary Dx); Cervical spondylosis without myelopathy Start: 12-19-2023 End: 12-19-2023 Patient encounter procedure Rochelle Alcantar APRN.PRODUCTION COST ESTIMATOR Work Phone: Internal Medicine [place] Comment on above: Chest pain, unspecif ied type (Primary Dx); Dyspnea on exertion; Gastroesophageal reflux disease without esophagitis Start: 12-19-2023 End: 12-19-2023 ambulatory [facility] Facility:[facility] Start: 12-10-2023 End: 12-10-2023 [facility] Start: 12-06-2023 Refill Rochelle Alcantar APRN, .CNP Work Phone: Internal Medicine [place] Comment on above: Med Change Request Start: 12-05-2023 End: 12-05-2023 ambulatory Shaheed Natalie PT Work Phone: [facility] Comment on above: DDD (degenerative di sc disease), lumbar (Primary Dx); Cervical spondylosis without myelopathy Start: 11-26-2023 [facility] Facility:[facility] Start: 11-26-2023 Patient encounter procedure Mariano Hernandez MD Work Phone: OB/Gynecology Comment on above: Referral to Dermatol ogist Start: 11-26-2023 End: 11-26-2023 Subsequent hospital visit by physician [facility] Work Phone: Cardiology Lab Comment on above: Chest pain, unspecif ied type [R07.9] Start: 11-25-2023 Telephone encounter Gayla sosa RN Cardiology Lab Comment on above: Reminder Call Start: 11-13-2023 End: 11-13-2023 [facility] Start: 11-13-2023 End: 11-13-2023 Patient encounter procedure Rochelle Alcantar APRN.CNP Work Phone: Internal Medicine [place] Comment on above: Chest pain, unspecif ied type (Primary Dx); Dyspnea on exertion; Abnormal EKG; DDD (degenerative disc disease), lumbar; Cervical spondylosis without myelopathy; Essential hypertension; Headaches Start: 10-16-2023 End: 10-16-2023 [facility] Start: 10-16-2023 End: 10-16-2023 Patient encounter procedure Mariano Hernandez MD Work Phone: OB/Gynecology Comment on above: Encounter for gyneco logical examination (general) (routine) without abnormal findings (Primary Dx); Encounter for screening for human papillomavirus (HPV); Pap smear for cervical cancer screening; Encounter for screening mammogram for breast cancer; Erosive lichen planus of vulva Start: 10-16-2023 End: 10-16-2023 Patient encounter status Mariano Hernandez MD Work Phone: [facility] Start: 10-07-2023 Documentation procedure Mammog frederic Coordinator [facility] Department Start: 10-07-2023 Letter encounter Mammography Coordinator [facility] Start: 10-05-2023 Refill Jennifer Hernandes Work Phone: OB/Gynecology Comment on above: Refill Request Start: 10-04-2023 End: 10-04-2023 ambulatory [facility] Facility:[facility] Start: 10-04-2023 End: 10-04-2023 Subsequent hospital visit by physician Screen Mammo [facility] Mammogram Comment on above: Encounter for screen ing mammogram for malignant neoplasm of breast [Z12.31] Start: 07-17-2023 End: 07-17-2023 [facility] Facility:[facility] Start: 07-17-2023 Patient encounter procedure SHAHEED ESTRADA [facility] Start: 07-12-2023 End: 07-12-2023 [facility] Facility:[facility] Start: 07-12-2023 End: 07-12-2023 Patient encounter procedure Rochelle Alcantar APRN.CNP Work Phone: [facility] [place] Comment on above: Annual physical exam (Primary Dx); Essential hypertension; Acquired hypothyroidism; Vitamin D deficiency; Tingling; Disorder of vestibular function, unspecified laterality; Tremor; Encounter for immunization Start: 07-09-2023 End: 07-09-2023 [facility] Facility:[facility] Start: 06-25-2023 Refill Fer Hernandes Work Phone: [facility] [place] Comment on above: Refill Request Start: 11-17-2022 Refill Jennifer Hernandes Work Phone: OB/Gynecology Comment on above: Refill Request Start: 09-04-2022 End: 09-04-2022 Subsequent hospital visit by physician Screen Mammo [facility] Mammogram Comment on above: Encounter for screen ing mammogram for breast cancer [Z12.31] Start: 08-22-2022 ambulatory Fer Hernandes Work Phone: Internal Medicine [facility] Start: 03-16-2022 End: 03-16-2022 Patient encounter procedure Fer Donohue MD Work Phone: [facility] Comment on above: Essential hypertensi on (Primary Dx); Acquired hypothyroidism; Vitamin D deficiency; Screening for HIV (human immunodeficiency virus); DDD (degenerative disc disease), lumbar Start: 02-06-2022 ambulatory Fer Hernandes Work Phone: Internal [facility] Start: 12-19-2021 End: 12-19-2021 ambulatory Vickgeraldine Lieberman [facility] Comment on above: DDD (degenerative di sc disease), lumbar (Primary Dx); Right-sided low back pain with right-sided sciatica, unspecified chronicity; Kissing spine of lumbar region; Meralgia paresthetica of right side; Cervical spondylosis without myelopathy Start: 11-30-2021 End: 11-30-2021 ambulatory Vickgeraldine Lieberman [facility] Comment on above: DDD (degenerative di sc disease), lumbar (Primary Dx); Right-sided low back pain with right-sided sciatica, unspecified chronicity; Kissing spine of lumbar region; Meralgia paresthetica of right side; Cervical spondylosis without myelopathy Start: 11-28-2021 End: 11-28-2021 ambulatory Vickgeraldine Lieberman [facility] Comment on above: DDD (degenerative di sc disease), lumbar (Primary Dx); Right-sided low back pain with right-sided sciatica, unspecified chronicity; Kissing spine of lumbar region; Meralgia paresthetica of right side; Cervical spondylosis without myelopathy Start: 11-24-2021 End: 11-24-2021 ambulatory Vickgeraldine Lieberman [facility] Comment on above: DDD (degenerative di sc disease), lumbar (Primary Dx); Right-sided low back pain with right-sided sciatica, unspecified chronicity; Kissing spine of lumbar region; Meralgia paresthetica of right side; Cervical spondylosis without myelopathy Start: 11-16-2021 End: 11-16-2021 ambulatory Vickgeraldine Lieberman [facility] Comment on above: DDD (degenerative di sc disease), lumbar; Right-sided low back pain with right-sided sciatica, unspecified chronicity; Kissing spine of lumbar region; Meralgia paresthetica of right side; Cervical spondylosis without myelopathy Start: 10-27-2021 End: 10-27-2021 Patient encounter procedure Mheul Workman DO Work Phone: [facility] Comment on above: Meralgia paresthetic a of right side (Primary Dx); Retrolisthesis of vertebrae; DDD (degenerative disc disease), lumbar; Thigh numbness; Right-sided low back pain with right-sided sciatica, unspecified chronicity; Kissing spine of lumbar region; Cervical spondylosis without myelopathy Start: 09-14-2021 End: 09-14-2021 Patient encounter procedure Jennifer Murphy MD Work Phone: OB/Gynecology Comment on above: Lichen planus (Prima ry Dx) Start: 09-04-2021 End: 09-04-2021 Patient encounter procedure Rojas Degroot MD Work Phone: Orthopaedics Comment on above: Impingement syndrome of left shoulder (Primary Dx); Chronic left shoulder pain; Impingement syndrome of right shoulder; Chronic pain of both shoulders Start: 09-04-2021 End: 09-04-2021 Subsequent hospital visit by physician Noé [facility] [place] Austin Work Phone: Radiology Comment on above: Bilateral shoulder p ain, unspecified chronicity [M25.511, M25.512] Start: 09-01-2021 ambulatory Fer Hernandes Work Phone: [facility] [place] Start: 09-01-2021 Patient encounter procedure Fer Donohue MD Work Phone: Internal [facility] [place] Comment on above: Referral for Spine [facility] Start: 08-29-2021 Orders Only Rojas Degroot MD Work Phone: Orthopaedics Comment on above: Bilateral shoulder p ain, unspecified chronicity (Primary Dx) Start: 08-08-2021 Telephone encounter Jennifer blake MD Work Phone: OB/Gynecology Comment on above: Results Start: 08-03-2021 End: 08-03-2021 Patient encounter procedure Jennifer Murphy MD Work Phone: OB/Gynecology Comment on above: Vulvar itching (Prim liss Dx); Vulvar atrophy Start: 07-27-2021 End: 07-27-2021 Patient encounter procedure Jennifer Murphy MD Work Phone: OB/Gynecology Comment on above: Encounter for gyneco logical examination without abnormal finding (Primary Dx); Encounter for screening mammogram for malignant neoplasm of breast; Dense breasts; Encounter for screening for malignant neoplasm of cervix; Special screening examination for human papillomavirus (HPV); Vulvar atrophy; Vulvar itching Start: 07-27-2021 End: 07-27-2021 Patient encounter status Jennifer Murphy MD Work Phone: OB/Gynecology Start: 07-26-2021 ambulatory No Pcp [employer] Start: 07-21-2021 Documentation procedure Mammog frederic Coordinator [facility] Start: 07-21-2021 Letter encounter Mammography Coordinator [facility] Department Start: 07-21-2021 End: 07-21-2021 Subsequent hospital visit by physician Screen Mammo [facility] Mamm[facility] Comment on above: Encounter for screen ing mammogram for breast cancer [Z12.31] Start: 01-09-2021 End: 01-09-2021 Subsequent hospital visit by physician Xr [facility] [place] Work Phone: Radiology Comment on above: Cervicalgia [M54.2] Procedures Date Procedure Procedure Detail Performing Clinician Start: 11-26-2023 Cv strs tst xers&/or rx cont ecg trcg only Rochelle Older AIR CONDITIONING MECHANIC.PRODUCTION COST ESTIMATOR Work Phone: Start: 07-17-2023 Lipid 1996 panel - S yancy or Plasma Screen Wstr Start: 09-04-2022 End: 09-04-2022 Mammography Bulk Order Provider Start: 10-21-2021 Adult depression scr eening assessment Mehul Workman DO Work Phone: Start: 09-04-2021 Radex shoulder compl ete minimum 2 views Rojsa Degroot MD Work Phone: Start: 07-21-2021 ANA SCREENING W [place] Bu lk Order Provider Start: 07-21-2021 Mammography Screen Wst r Start: 06-27-2021 Adult depression scr eening assessment Screen Wstr Start: 01-09-2021 Radex spine cervical 2 or 3 views Pat Yeung NICOLE.MILLWRIGHT HELPER Work Phone: Start: 01-07-2021 Lipid 1996 panel - S yancy or Plasma Screen Wstr Start: 10-12-2015 Colonoscopy Screen Wst r Plan of Treatment Date Care Activity Detail Author Start: 07-11-2033 Urine microalbumin profile DTaP,Tdap,Td Vaccine (3 - Td or Tdap) [facility] Start: 07-16-2028 Lipid panel Lipid Screening [facility] Start: 11-12-2026 Diabetes Screening Diabetes Screening [facility] Start: 07-27-2026 HPV TESTING HPV TESTING [facility] Start: 07-27-2026 PAP TESTING PAP TESTING [facility] Start: 07-27-2026 Screening for malignant neoplasm of cervix [facility] Start: 07-08-2026 Diabetes Screening Diabetes Screening [facility] Start: 01-07-2026 Lipid 1996 panel - Serum or Plasma Lipid Screening [facility] Start: 01-07-2026 Lipid panel Lipid Screening [facility] Start: 01-07-2026 LIPID SCREEN LIPID SCREEN [facility] Start: 10-11-2025 Colonoscopy COLONOSCOPY [facility] Start: 10-11-2025 COLORECTAL CANCER SCREENING COLORECTAL CANCER SCREENING [facility] Start: 10-11-2025 Screening for malignant neoplasm of colon [facility] Start: 03-07-2025 DIABETES SCREEN DIABETES SCREEN [facility] Start: 03-07-2025 Diabetes Screening Diabetes Screening [facility] Start: 02-11-2025 Annual PCP Team Chronic Disease Visit Annual PCP Team Chronic Disease Visit [facility] Start: 02-11-2025 Covid-19 Vaccine ( season) Covid-19 Vaccine () [facility] Comment on above: Postponed from 12/22/2023 (Declined at t his time) Start: 12-18-2024 Annual PCP Team Chronic Disease Visit Annual PCP Team Chronic Disease Visit [facility] Start: 12-18-2024 BP Controlled (<130/80) BP Controlled (<130/80) [facility] Start: 11-12-2024 Annual PCP Team Chronic Disease Visit Annual PCP Team Chronic Disease Visit [facility] Start: 10-19-2024 Influenza vaccination Influenza Vaccine (#1) [facility] Comment on above: Postponed from 12/22/2023 (Declined at t his time) Start: 10-19-2024 End: 10-19-2024 Patient encounter procedure 10/19/2024 10:30 AM EDT Office Visit OB/Gynecology [address] [place] [address] Mariano Hernandez MD [address] [place] [address] Annual OB/Gynecology Comment on above: Annual Start: 10-15-2024 Screening for malignant neoplasm of cervix Cervical Cancer Screening [facility] Start: 10-05-2024 End: 10-05-2024 Patient encounter procedure 10/05/2024 2:30 PM EDT Appointment Mammogram [address] [place] [address] Encounter for gynecological examination (general) (routine) without abnormal findings [Z01.419]; Encounter for screening mammogram for breast cancer [Z12.31] Mammogram Comment on above: Encounter for gynecological examination (general) (routine) without abnormal findings [Z01.419]; Encounter for screening mammogram for breast cancer [Z12.31] Start: 10-03-2024 Screening for malignant neoplasm of breast Mammogram Screening [facility] Start: 08-12-2024 End: 08-12-2024 Patient encounter procedure 08/12/2024 12:00 PM EDT Office Visit Rheumatology [address] [place] [address] [place] [address] [place] [address] [facility] Comment on above: [facility] Start: 07-11-2024 Annual PCP Team Chronic Disease Visit Annual PCP Team Chronic Disease Visit [facility] Start: 07-11-2024 Covid-19 Vaccine ( season) Covid-19 Vaccine ( season) [facility] Comment on above: Postponed from 12/21/2022 (Declined at t his time) Start: 07-11-2024 Hepatitis B Vaccine (1 of 3 - 19+ 3-dose series) Hepatitis B Vaccine (1 of 3 - 19+ 3-dose series) [facility] Comment on above: Postponed from 1984 (Declined at t his time) Start: 07-11-2024 Shingrix Vaccine (1 of 2) Shingrix Vaccine (1 of 2) [facility] Comment on above: Postponed from 2015 (Declined at t his time) Start: 06-19-2024 End: 06-19-2024 Patient encounter procedure 06/19/2024 1:20 PM EST Office Visit [facility] [place] [address] [place], [place] [id number] Rochelle Alcantar APRN.PRODUCTION COST ESTIMATOR [address] [place], [place] [id number] 6 month follow up [facility] [place] Comment on above: 6 month follow up Start: 02-05-2024 End: 02-05-2024 ambulatory 02/05/2024 2:15 PM EDT OT/PT/Speech Visit [facility] [address], [place] [id number] Shaheed Estrada, PT [address] [place], [place] [phone] DDD (degenerative disc disease), lumbar [M51.36 (ICD-10-CM)]; Cervical spondylosis without myelopathy [M47.812 (ICD-10-CM)] [facility] Comment on above: DDD (degenerative disc disease), lumbar [M51.36 (ICD-10-CM)]; Cervical spondylosis without myelopathy [M47.812 (ICD-10-CM)] Start: 01-29-2024 End: 01-29-2024 ambulatory 01/29/2024 2:15 PM EDT OT/PT/Speech Visit [facility] [address], [place] [phone] Shaheed Estrada, PT [address] [place], [place] [phone] DDD (degenerative disc disease), lumbar [M51.36 (ICD-10-CM)]; Cervical spondylosis without myelopathy [M47.812 (ICD-10-CM)] [facility] Comment on above: DDD (degenerative disc disease), lumbar [M51.36 (ICD-10-CM)]; Cervical spondylosis without myelopathy [M47.812 (ICD-10-CM)] Start: 01-22-2024 End: 01-22-2024 ambulatory 01/22/2024 2:15 PM EDT OT/PT/Speech Visit [facility] [address], [place] [phone] Shaheed Estrada, PT [address] [place], [place] [phone] DDD (degenerative disc disease), lumbar [M51.36 (ICD-10-CM)]; Cervical spondylosis without myelopathy [M47.812 (ICD-10-CM)] [facility] Comment on above: DDD (degenerative disc disease), lumbar [M51.36 (ICD-10-CM)]; Cervical spondylosis without myelopathy [M47.812 (ICD-10-CM)] Start: 01-15-2024 End: 01-15-2024 ambulatory 01/15/2024 2:15 PM EDT OT/PT/Speech Visit [facility] [address] [facility] [place] [phone] Shaheed Estrada, PT [address] [place], [place] [phone] DDD (degenerative disc disease), lumbar [M51.36 (ICD-10-CM)]; Cervical spondylosis without myelopathy [M47.812 (ICD-10-CM)] [facility] Comment on above: DDD (degenerative disc disease), lumbar [M51.36 (ICD-10-CM)]; Cervical spondylosis without myelopathy [M47.812 (ICD-10-CM)] Start: 01-08-2024 DIABETES SCREEN DIABETES SCREEN [facility] Start: 12-30-2023 End: 12-30-2023 ambulatory 12/30/2023 4:30 PM EDT OT/PT/Speech Visit [facility] [address] [place], [place] [address] Shaheed Estrada, PT [address] [place] [address] DDD (degenerative disc disease), lumbar [M51.36 (ICD-10-CM)]; Cervical spondylosis without myelopathy [M47.812 (ICD-10-CM)] [facility] Comment on above: DDD (degenerative disc disease), lumbar [M51.36 (ICD-10-CM)]; Cervical spondylosis without myelopathy [M47.812 (ICD-10-CM)] Start: 12-27-2023 End: 12-27-2023 Patient encounter procedure 12/27/2023 9:40 AM EDT Office Visit [facility] [address] [place] [id number] [place] [address] [place], [place] [phone] neck issues and lower back pain/weakness [facility] Comment on above: neck issues and lower back pain/weakness Start: 12-22-2023 Covid-19 Vaccine ( season) Covid-19 Vaccine ( season) [facility] Start: 12-22-2023 Covid-19 Vaccine ( season) Covid-19 Vaccine ( season) [facility] Start: 12-22-2023 Influenza vaccination [facility] Start: 12-20-2023 End: 12-20-2023 ambulatory 12/20/2023 10:00 AM EDT OT/PT/Speech Visit [facility] [address] [place] [address] Shaheed Estrada PT [address] [facility] [place] [address] DDD (degenerative disc disease), lumbar [M51.36 (ICD-10-CM)]; Cervical spondylosis without myelopathy [M47.812 (ICD-10-CM)] [facility] Comment on above: DDD (degenerative disc disease), lumbar [M51.36 (ICD-10-CM)]; Cervical spondylosis without myelopathy [M47.812 (ICD-10-CM)] Start: 12-19-2023 End: 12-19-2023 Patient encounter procedure 12/19/2023 2:20 PM EDT Office Visit [facility] [place] [address] [place] [address] Rochelle Alcantar APRN.PRODUCTION COST ESTIMATOR [address] [place] [address] 4 week follow up [facility] [place] Comment on above: 4 week follow up Start: 12-16-2023 End: 12-16-2023 Patient encounter procedure 12/16/2023 3:00 PM EDT Office Visit [facility] [place] [address] [place] [address] Rochelle Alcantar, AIR CONDITIONING MECHANIC.PRODUCTION COST ESTIMATOR [address] [facility] [place] [address] 4 week follow up [facility] [place] Comment on above: 4 week follow up Start: 12-10-2023 End: 12-10-2023 Patient encounter procedure 12/10/2023 2:40 PM EDT Office Visit Cardiology [address] [place] [facility] [place] [address] Chest pain, unspecified type [R07.9] Cardiology Comment on above: Chest pain, unspecified type [R07.9] Start: 12-05-2023 End: 12-05-2023 ambulatory 12/05/2023 3:45 PM EDT OT/PT/Speech Visit [facility] [address] [place] [address] Shaheed Estrada, PT [address] [place] [address] DDD (degenerative disc disease), lumbar [M51.36] [facility] Comment on above: DDD (degenerative disc disease), lumbar [M51.36] Start: 12-02-2023 End: 12-02-2023 Patient encounter procedure 12/02/2023 2:40 PM EDT Office Visit Cardiology [address] [place] [address] Chest pain, unspecified type [R07.9] Cardiology Comment on above: Chest pain, unspecified type [R07.9] Start: 11-26-2023 End: 11-26-2023 Patient encounter procedure 11/26/2023 8:00 AM EDT Appointment Cardiology Lab [address] [place] [address] Chest pain, unspecified type [R07.9] Cardiology Lab Comment on above: Chest pain, unspecified type [R07.9] Start: 11-26-2023 Subsequent hospital visit by physician 11/26/2023 8:00 AM EDT Hospital Encounter [facility] [address] [place] [address] Chest pain, unspecified type [R07.9] [facility]iology Lab Comment on above: Chest pain, unspecified type [R07.9] Start: 11-13-2023 End: 11-13-2023 Patient encounter procedure 11/13/2023 2:40 PM EDT Office Visit [facility] [place] [address] [place] [address] Rochelle Alcantar APRN.PRODUCTION COST ESTIMATOR [address] [place] [address] follow up visit [facility] [place] Comment on above: follow up visit Start: 11-13-2023 End: 02-12-2024 Basic metabolic 2000 panel - Serum or Plasma [facility] Comment on above: Expected: 11/13/2023, Expires: Start: 11-13-2023 End: 02-12-2024 Magnesium [Mass/volume] in Serum or Plasma [facility] Comment on above: Expected: 11/13/2023, Expires: Start: 11-13-2023 End: 02-12-2024 Thyrotropin [Units/volume] in Serum or Plasma [facility] Comment on above: Expected: 11/13/2023, Expires: Start: 10-20-2023 Influenza vaccination Influenza Vaccine (#1) [facility] Comment on above: Postponed from 12/21/2022 (Declined at t his time) Start: 10-16-2023 End: 10-16-2023 Patient encounter procedure 10/16/2023 10:30 AM EDT Office Visit OB/Gynecology [address] [place] [address] Mariano Hernandez MD [address] [place] [address] annual OB/Gynecology Comment on above: annual Start: 10-11-2023 End: 10-11-2023 Patient encounter procedure 10/11/2023 8:00 AM EDT Office Visit [facility] [place] [address] [place] [address] Rochelle Alcantar APRN.PRODUCTION COST ESTIMATOR [address] [place] [address] 3 month follow up [facility] [place] Comment on above: 3 month follow up Start: 09-07-2023 BP CONTROLLED (<130/80) BP CONTROLLED (<130/80) [facility] Start: 09-05-2023 Mammography [facility] Start: 09-05-2023 Screening for malignant neoplasm of breast Mammogram Screening [facility] Start: 07-12-2023 End: 10-11-2023 25-hydroxyvitamin D3 [Mass/volume] in Serum or Plasma VITAMIN D 25 HYDROXY Lab Routine Vitamin D deficiency Expected: 07/12/2023, Expires: 10/11/2023 [facility] Work Phone: Comment on above: Expected: 07/12/2023, Expires: Start: 07-12-2023 End: 10-11-2023 Cobalamin (Vitamin B12) [Mass/volume] in Serum or Plasma VITAMIN B12 BLOOD Lab Routine Tingling Expected: 07/12/2023, Expires: 10/11/2023 [facility] Work Phone: Comment on above: Expected: 07/12/2023, Expires: Start: 07-12-2023 End: 10-11-2023 Hepatic function 2000 panel - Serum or Plasma HEPATIC FUNCTION PNL Lab Routine Tingling Annual physical exam Expected: 07/12/2023, Expires: 10/11/2023 [facility] Work Phone: Comment on above: Expected: 07/12/2023, Expires: Start: 07-12-2023 End: 10-11-2023 Lipid 1996 panel - Serum or Plasma LIPID PANEL BASIC Lab Routine Annual physical exam Expected: 07/12/2023, Expires: 10/11/2023 [facility] Work Phone: Comment on above: Expected: 07/12/2023, Expires: Start: 06-25-2023 End: 09-24-2023 Basic metabolic 2000 panel - Serum or Plasma BASIC METABOLIC PNL Lab Routine Essential hypertension Expected: 06/25/2023, Expires: 09/24/2023 [facility] Work Phone: Comment on above: Expected: 06/25/2023, Expires: Start: 06-25-2023 End: 09-24-2023 Hemoglobin A1c in Blood HGB A1C Lab Routine Medication management Expected: 06/25/2023, Expires: 09/24/2023 [facility] Work Phone: Comment on above: Expected: 06/25/2023, Expires: Start: 06-25-2023 End: 09-24-2023 Thyrotropin [Units/volume] in Serum or Plasma TSH BLD Lab Routine Hypothyroid Expected: 06/25/2023, Expires: 09/24/2023 [facility] Work Phone: Comment on above: Expected: 06/25/2023, Expires: 4 Start: 04-22-2023 Depression Assessment Depression Assessment [facility] Start: 03-20-2023 HPV TESTING HPV TESTING [facility] Start: 03-20-2023 PAP TESTING PAP TESTING [facility] Start: 03-16-2023 ANNUAL PCP TEAM CHRONIC DISEASE VISIT ANNUAL PCP TEAM CHRONIC DISEASE VISIT [facility] Start: 03-16-2023 BP CONTROLLED (<130/80) BP CONTROLLED (<130/80) [facility] Start: 12-21-2022 Covid-19 Vaccine () Covid-19 Vaccine () [facility] Start: 12-21-2022 Influenza vaccination [facility] Start: 10-21-2022 Adult depression screening assessment DEPRESSION SCREENING [facility] Start: 09-14-2022 BP CONTROLLED (<130/80) BP CONTROLLED (<130/80) [facility] Start: 07-27-2022 Screening for malignant neoplasm of cervix Cervical Cancer Screening [facility] Start: 07-21-2022 Mammography MAMMOGRAM [facility] Start: 07-10-2022 ANNUAL PCP TEAM CHRONIC DISEASE VISIT ANNUAL PCP TEAM CHRONIC DISEASE VISIT [facility] Start: 07-10-2022 BP CONTROLLED (<130/80) BP CONTROLLED (<130/80) [facility] Start: 06-27-2022 Adult depression screening assessment DEPRESSION SCREENING [facility] Start: 04-22-2022 DEPRESSION ASSESSMENT DEPRESSION ASSESSMENT [facility] Start: 03-16-2022 End: 05-16-2022 HIV 1+2 Ab [Presence] in Serum or Plasma by Immunoassay HIV 1 2 COMBO(AG/AB),WITH REFLEX TO DIFFERENTIATION Lab Routine Screening for HIV (human immunodeficiency virus) Expected: 03/16/2022, Expires: 05/16/2022 [facility] Work Phone: Comment on above: Expected: 03/16/2022, Expires: 3 Start: 02-06-2022 End: 04-08-2022 Basic metabolic 2000 panel - Serum or Plasma BASIC METABOLIC PNL Lab Routine Essential hypertension Expected: 02/06/2022, Expires: 04/08/2022 [facility] Work Phone: Comment on above: Expected: 02/06/2022, Expires: 2 Start: 02-06-2022 End: 04-08-2022 SCHEDULE LAB TESTING SCHEDULE LAB TESTING Lab Routine Expected: 02/06/2022, Expires: 04/08/2022 [facility] Work Phone: Comment on above: Expected: 02/06/2022, Expires: 2 Start: 02-06-2022 End: 04-08-2022 Thyrotropin [Units/volume] in Serum or Plasma TSH BLD Lab Routine Hypothyroid Expected: 02/06/2022, Expires: 04/08/2022 [facility] Work Phone: Comment on above: Expected: 02/06/2022, Expires: 2 Start: 01-09-2022 BP CONTROLLED (<130/80) BP CONTROLLED (<130/80) [facility] Start: 12-21-2021 Influenza vaccination [facility] Start: 11-28-2021 End: 01-28-2022 Basic metabolic 2000 panel - Serum or Plasma BASIC METABOLIC PNL Lab Routine Essential hypertension Expected: 11/28/2021, Expires: 01/28/2022 [facility] Work Phone: Comment on above: Expected: 11/28/2021, Expires: 2 Start: 11-28-2021 End: 01-28-2022 SCHEDULE LAB TESTING SCHEDULE LAB TESTING Lab Routine Expected: 11/28/2021, Expires: 01/28/2022 [facility] Work Phone: Comment on above: Expected: 11/28/2021, Expires: 2 Start: 11-28-2021 End: 01-28-2022 Thyrotropin [Units/volume] in Serum or Plasma TSH BLD Lab Routine Hypothyroid Expected: 11/28/2021, Expires: 01/28/2022 [facility] Work Phone: Comment on above: Expected: 11/28/2021, Expires: Start: 04-22-2021 DEPRESSION ASSESSMENT DEPRESSION ASSESSMENT [facility] Start: 03-08-2021 COVID-19 VACCINE (3 - Booster for Pfizer series) COVID-19 VACCINE (3 - Booster for Pfizer series) [facility] Start: 12-01-2020 COVID-19 VACCINE (3 - Booster for Pfizer series) COVID-19 VACCINE (3 - Booster for Pfizer series) [facility] Start: 12-01-2020 COVID-19 VACCINE (3 - Pfizer series) COVID-19 VACCINE (3 - Pfizer series) [facility] Start: 03-27-2017 Urine microalbumin profile [facility] Start: 2015 SHINGRIX VACCINE (1 of 2) SHINGRIX VACCINE (1 of 2) [facility] Start: 2010 COLOGUARD (FIT-DNA) COLOGUARD (FIT-DNA) [facility] Start: [address] COLONOGRAPHY [facility] Start: 2010 FECAL OCCULT BLOOD FECAL OCCULT BLOOD [facility] Start: 2010 Screening for malignant neoplasm of colon [facility] Start: 2010 SIGMOIDOSCOPY SIGMOIDOSCOPY [facility] Start: 1983 Anxiety Screening Anxiety Screening [facility] Start: 1983 Depression Screening Depression Screening [facility] Start: 1983 HIV SCREENING HIV SCREENING [facility] Start: 1983 HIV screening HIV Screening [facility] Start: 1965 HEPATITIS B (1 of 3 - 3-dose series) HEPATITIS B (1 of 3 - 3-dose series) [facility] Start: 1965 Hepatitis B Vaccine (1 of 3 - 3-dose series) Hepatitis B Vaccine (1 of 3 - 3-dose series) [facility] DBT Breast - bilater al screening ANA SCREENING [facility] Radiology Routine Encounter for screening mammogram for malignant neoplasm of breast Dense breasts 10/04/2023 2:44 PM EDT [facility] Work Phone: End: 11-14-2024 DBT Breast - bilateral screening ANA SCREENING [facility] Radiology Routine Encounter for gynecological examination (general) (routine) without abnormal findings Encounter for screening mammogram for breast cancer 1 Occurrences starting 10/16/2023 until 11/14/2024 [facility] Work Phone: Comment on above: 1 Occurrences starting 10/16/2023 until 11/14/2024 End: 11-12-2024 Echocardiography ECHO Cardiology Routine Chest pain, unspecified type Dyspnea on exertion Abnormal EKG 1 Occurrences starting 11/13/2023 until 11/12/2024 [facility] Work Phone: Comment on above: 1 Occurrences starting 11/13/2023 until 11/12/2024 End: 11-12-2024 EXERCISE STRESS ECG (WITHOUT IMAGING) EXERCISE STRESS ECG (WITHOUT IMAGING) Cardiology Routine Chest pain, unspecified type Dyspnea on exertion Abnormal EKG 1 Occurrences starting 11/13/2023 until 11/12/2024 [facility] Comment on above: 1 Occurrences starting 11/13/2023 until 11/12/2024 End: 08-26-2022 ANA SCREENING [facility] ANA SCREENING [facility] Radiology Routine Encounter for screening mammogram for malignant neoplasm of breast Dense breasts 1 Occurrences starting 07/27/2021 until 08/26/2022 [facility] Work Phone: Comment on above: 1 Occurrences starting 07/27/2021 until 08/26/2022 End: 09-21-2023 ANA SCREENING [facility] ANA SCREENING [facility] Radiology Routine Encounter for screening mammogram for breast cancer 1 Occurrences starting 08/22/2022 until 09/21/2023 [facility] Work Phone: Comment on above: 1 Occurrences starting 08/22/2022 until 09/21/2023 End: 03-15-2025 MR Cervical spine WO contrast MRI CERVICAL SPINE WO IVCON Radiology Routine Cervical spondylosis without myelopathy Cervicalgia 1 Occurrences starting 02/13/2024 until 03/15/2025 [facility] Work Phone: Comment on above: 1 Occurrences starting 02/13/2024 until 03/15/2025 End: 03-14-2025 MR Lumbar spine WO contrast MRI LUMBAR SPINE WO IVCON Radiology Routine Degeneration of intervertebral disc of lumbar region with discogenic back pain and lower extremity pain Low back pain with sciatica, sciatica laterality unspecified, unspecified back pain laterality, unspecified chronicity 1 Occurrences starting 02/13/2024 until 03/14/2025 [facility] Comment on above: 1 Occurrences starting 02/13/2024 until 03/14/2025 PAP FLUID CERVICAL SCREENING PAP FLUID CERVICAL SCREENING Lab Routine Encounter for screening for malignant neoplasm of cervix Special screening examination for human papillomavirus (HPV) 07/27/2021 4:01 PM EDT [facility] Work Phone: PAP TEST PAP TEST Lab Rou gina Encounter for screening for human papillomavirus (HPV) Pap smear for cervical cancer screening 10/16/2023 11:58 AM EDT [facility] SURGICAL PATHOLOGY SURGICAL PATH OLOGY Lab Routine Vulvar itching 08/03/2021 3:56 PM EDT [facility] Work Phone: End: 01-25-2025 XR Cervical spine AP and Lateral and oblique XR CERV OTHER 4V AP/LAT/OBL Radiology Routine Cervical spondylosis without myelopathy 1 Occurrences starting 12/27/2023 until 01/25/2025 [facility] Work Phone: Comment on above: 1 Occurrences starting 12/27/2023 until 01/25/2025 XR Cervical spine AP and Lateral and oblique XR CERV OTHER 4V AP/LAT/OBL Radiology Routine Cervical spondylosis without myelopathy 12/27/2023 11:08 AM EDT [facility] End: 03-13-2025 XR Knee - left 4 Views XR KNEE GENERAL 4V AP BOTH/PA BOTH/LAT/MERC LEFT Radiology Routine Acute pain of left knee 1 Occurrences starting 02/12/2024 until 03/13/2025 [facility] Work Phone: Comment on above: 1 Occurrences starting 02/12/2024 until 03/13/2025 XR Knee - left 4 Views XR KNEE G ENERAL 4V AP BOTH/PA BOTH/LAT/MERC LEFT Radiology Routine Acute pain of left knee 02/12/2024 12:02 PM EDT [facility] End: 01-25-2025 XR Pelvis AP XR PELVIS 1V AP Radiology Routine Inflammatory arthritis 1 Occurrences starting 12/27/2023 until 01/25/2025 [facility] Comment on above: 1 Occurrences starting 12/27/2023 until 01/25/2025 XR Pelvis AP XR PELVIS 1V AP Radiology Routine Inflammatory arthritis 12/27/2023 11:08 AM EDT [facility] End: 09-28-2022 XR SHOULDER GENERAL 3V OR MORE AP/TRUE AP/OTHER LEFT XR SHOULDER GENERAL 3V OR MORE AP/TRUE AP/OTHER LEFT Radiology Routine Bilateral shoulder pain, unspecified chronicity 1 Occurrences starting 08/29/2021 until 09/28/2022 [facility] Work Phone: Comment on above: 1 Occurrences starting 08/29/2021 until 09/28/2022 End: 09-28-2022 XR SHOULDER GENERAL 3V OR MORE AP/TRUE AP/OTHER RIGHT XR SHOULDER GENERAL 3V OR MORE AP/TRUE AP/OTHER RIGHT Radiology Routine Bilateral shoulder pain, unspecified chronicity 1 Occurrences starting 08/29/2021 until 09/28/2022 [facility] Work Phone: Comment on above: 1 Occurrences starting 08/29/2021 until 09/28/2022 [facility] Immunizations Immunization Date Immunization Notes Care Provider Gisella morin 07-12-2023 tetanus toxoid, redu mae diphtheria toxoid, and acellular pertussis vaccine, adsorbed Rochelle Alcantar AIR CONDITIONING MECHANIC.PRODUCTION COST ESTIMATOR Work Phone: [facility] 01-09-2021 diphtheria, tetanus toxoids and acellular pertussis vaccine, unspecified formulation Xr Frankie Work Phone: [facility] 01-09-2021 zoster vaccine, recombinant, adjuvanted, (SHINGRIX, PF,) 50 mcg/0.5 mL injection Xr Hailey Work Phone: [facility] Work Phone: 02-19-2018 influenza virus vaccine, unspecified formulation Screen [facility] 03-25-2017 influenza, injectabl e, quadrivalent, contains preservative Screen [facility] 03-26-2011 influenza virus vaccine, unspecified formulation Screen [facility] 03-27-2007 influenza virus vaccine, unspecified formulation Screen [facility] Work Phone: 03-27-2007 tetanus toxoid, redu mae diphtheria toxoid, and acellular pertussis vaccine, adsorbed Screen [facility] Work Phone: 03-12-2006 influenza virus vaccine, unspecified formulation Screen [facility] Work Phone: Payers Date Payer Category Payer Private Health Insurance [employer] OAP [id number] 2021-Present [phone] [address] [place] [address] Open Access [id number] 2021 Private Health Insurance [id number] 2021 Private Health Insurance [id number] 2018 Unknown [employer] PPO [id number] 2018-2021 [address] [place] [address] PPO [id number] Social History Date Type Detail Facility Tobacco smoking stat [facility] Never smoked tobacco [facility] Work Phone: Start: 07-10-2021 End: 12-27-2023 Alcohol intake Current non-drinker of alcohol (finding) [facility] Start: 01-07-2021 End: 03-13-2022 History SDOH Alcohol Frequency 1 [facility] Start: 03-30-2019 End: 03-13-2022 History SDOH Alcohol Std Drinks 98 [facility] Start: 01-07-2021 End: 03-13-2022 History SDOH Social Connections Phone 4 [facility] Start: 01-07-2021 End: 03-13-2022 History SDOH Social Connections Get Together 2 [facility] Start: 01-07-2021 End: 03-13-2022 History SDOH Social Connections Living 3 [facility] Start: 01-07-2021 End: 03-13-2022 History SDOH Physical Activity DPW 5 [facility] Start: 03-30-2019 Education 18 [facility] Start: 1965 Sex Assigned At Female C [facility] Start: 12-10-2020 End: 03-16-2022 Exposure to SARS-CoV-2 (event) Not sure [facility] Start: 03-13-2022 History SDOH Alcohol Std Drinks 0 [facility] Start: 03-13-2022 End: 09-04-2022 History of Social function [facility] Start: 03-13-2022 End: 09-04-2022 Social connection and isolation panel [facility] How often do you att end yarsani or advent services? Patient refused [facility] Do you belong to any clubs or organizations such as yarsani groups, unions, [employer] or athletic groups, or school groups? No [facility] Are you now , , , , never or living with a partner? [facility] How often to you hav e a drink containing alcohol? Monthly or less [facility] How often do you hav e 6 or more drinks on 1 occasion? Never [facility] Do you feel stress - tense, restless, nervous, or anxious, or unable to sleep at night because your mind is troubled all the time - these days [OSQ] To some extent [facility] (I/We) worried wheth er (my/our) food would run out before (I/we) got money to buy more. Never true [facility] Start: 06-27-2021 Gender identity Identifies as female gender (finding) [facility] Start: 01-07-2021 Sexual orientation Choose not to dis close [facility] Do you feel stress - tense, restless, nervous, or anxious, or unable to sleep at night because your mind is troubled all the time - these days [OSQ] Only a little [facility] Clinical Notes 06-15-2014 to 02-12-2024 Elie Ulloa, RT(R) - 02/12/2024 11:50 AM Rochelle Lopez APRN.PRODUCTION COST ESTIMATOR - 02/12/2024 11:19 AM Shaheed Mejia, PT - 02/05/2024 2:02 PM Shaheed Mejia, PT - 01/29/2024 2:34 PM EDT Note Date & Type Note Facility 02-12-2024 History of Present illness Narrative Radiology Service Progress Note PATIENT NAME: Jamaal Michael DATE OF SERVICE: February 12, 2024 TIME: 11:47 AM PATIENT IDENTITY VERIFICATION COMPLETED USING TWO (2) IDENTIFIERS: Name and Date of confirmed by patient verbally. FALL SCREENING: Has the patient had 2 falls in the last year or 1 fall with injury or currently using an Ambulatory Assistive Device (Walker, Cane, Wheelchair, Crutches, etc.)? No PATIENT GENDER DATA: Female. status: : No status: NO. PATIENT RELEVANT IMPLANT DATA REVIEWED: Yes PATIENT PRESENTS WITH AN IMPLANTABLE OR ATTACHED EYEGLASS LENS CUTTER: No RADIOLOGY DEPARTMENT: General X-ray: Exam(s) Completed: Lower Extremity X-Ray(s): Knee, AP / Lat / Tunne / Merchant Left PERIPHERAL IV DATA: Not applicable SIGNED BY: RT Kirstie(R) February 12, 2024 11:47 AM documented in this encounter [facility] 02-12-2024 Note HNO ID: [id number] Author: ELIE ULLOA RT(Ad) Service: ? Author Type: Criminal Justice Faculty Type: Progress Notes Filed: 02/12/2024 12:01 Note Text: Radiology Service Progress Note PATIENT NAME: Jamaal Michael DATE OF SERVICE: February 12, 2024 TIME: 11:47 AM PATIENT IDENTITY VERIFICATION COMPLETED USING TWO (2) IDENTIFIERS: Name and Date of confirmed by patient verbally. FALL SCREENING: Has the patient had 2 falls in the last year or 1 fall with injury or currently using an Ambulatory Assistive Device (Walker, Cane, Wheelchair, Crutches, etc.)? No PATIENT GENDER DATA: Female. status: : No status: NO. PATIENT RELEVANT IMPLANT DATA REVIEWED: Yes PATIENT PRESENTS WITH AN IMPLANTABLE OR ATTACHED EYEGLASS LENS CUTTER: No RADIOLOGY DEPARTMENT: General X-ray: Exam(s) Completed: Lower Extremity X-Ray(s): Knee, AP / Lat / Tunne / Merchant Left PERIPHERAL IV DATA: Not applicable SIGNED BY: Elie Ulloa RT(R) February 12, 2024 11:47 AM [facility] 02-12-2024 Note HNO ID: [id number] Author: ROCHELLE ALCANTAR APRN.PRODUCTION COST ESTIMATOR Service: ? Author Type: Nurse Practitioner Type: Progress Notes Filed: 02/12/2024 12:08 Note Text: CC: Patient presents with: Knee Pain: L knee pain x several weeks HPI Jamaal Michael is a 58 year old female who presents today for left knee pain. Started with an ache 6 weeks ago suddenly after she fell asleep in a recliner with her feet elevated. When she tries to straighten and lift her left leg her knee and calf feel heavy. Over the last few weeks is having a tightness sensation to her LLE and the sensation like the calf muscle and thigh will cramp but doesn't happen. Once or twice while she was turning/twisting her knee felt weak but resolved once she straightened it out. Denies recent surgeries, long trips, edema, redness, injuries, point tenderness, or decreased ROM. Does have history of fibromyalgia and joint pain so experiences tenderness and pain generally throughout body. Also working with pain management on lower back and bilateral hip pain. 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 REVIEW OF SYSTEMS See HPI PAST MEDICAL HISTORY Diagnosis Date Chronic lymphocytic thyroiditis Hashimotos Displacement of lumbar intervertebral disc without myelopathy Environmental allergies Fibromyalgia Generalized osteoarthrosis, unspecified site GERD (gastroesophageal reflux disease) Hypertension Irregular menstrual cycle Irregular Periods Left shoulder pain 2013 past hx frozen shoulder Plantar fasciitis in Right Foot Tendinitis in Left Leg PAST SURGICAL HISTORY Procedure Laterality Date COLONOSCOPY FLX DX W/COLLJ SPEC WHEN PFRMD 10/12/2015 Colonoscopy mac ESOPHAGOGASTRODUODENOSCOPY TRANSORAL DIAGNOSTIC 10/12/2015 EGD mac PAST SURGICAL HISTORY OF Right 04/22/1975 manipulation dislocation arm, post sledding accident PAST SURGICAL HISTORY OF 04/22/1975 exploratory surgery for persistant UTI ALLERGIES Poison Abigail and Seasonale [Levonorgestrel-Ethinyl Estrad] MEDICATIONS clobetasol (TEMOVATE) 0.05 % ointment APPLY TO AFFECTED AREA 2 TIMES WEEKLY FOR MAINTENANCE, CAN INCREASE USE UP TO DAILY WHEN FLARED fluconazole (DIFLUCAN) 200 mg tablet TAKE 2 TABLETS BY MOUTH DAILY FOR 3 DAYS THEN TAKE 2 TABLETS ONCE A WEEK FOR 3 WEEKS. omeprazole (PRILOSEC) 20 mg capsule Take 1 capsule by mouth daily before breakfast. 1/2 hr before meal. cyanocobalamin (VITAMIN B-12) 1,000 mcg tab Take 1,000 mcg by mouth once daily. triamcinolone acetonide (KENALOG) 0.1 % ointment Apply to affected area 1-2 times per week. losartan (COZAAR) 25 mg tablet Take 1 tablet by mouth once daily. levothyroxine (SYNTHROID) 100 mcg tablet Take 1 tablet by mouth once daily. cholecalciferol, Vitamin D3, (VITAMIN D3) 1,250 mcg (50,000 unit) cap capsule Take 1 capsule by mouth one time a week. cholecalciferol, Vitamin D3, (VITAMIN D3) 1,250 mcg (50,000 unit) cap capsule Take 1 capsule by mouth one time a week. lidocaine-menthol 4-1 % lqro Apply to affected area. acetaminophen (TYLENOL) 325 mg tablet Take 650 mg by mouth every 4 hours as needed. FAMILY HISTORY Problem Relation Age of Onset Cancer Mother bladder, thyroid Heart Mother Two Cardiac Bypasses Kidney Disease Mother Hearing Loss Mother Osteoporosis Mother other (gout) Mother Diabetes Father Prostate cancer Prostate Cancer Father Cancer Father Skin Cancer Heart Father Breast Cancer Sister Diabetes Sister 2 sisters with diabetes type II and 2 sisters with hypertension Hypertension Sister Stroke Sister Heart Paternal Grandmother Hypertension Paternal Grandmother Cancer Paternal Grandfather prostate Diabetes Paternal Grandfather Thyroid Maternal Aunt Stroke Maternal Aunt other (bipolar) Other maternal great uncle other (other) Other Other Sleep Disorder No Family History Social History Tobacco Use Smoking status: Never Smokeless tobacco: Never Vaping Use Vaping status: Never Used Substance Use Topics Alcohol use: No Drug use: No PHYSICAL EXAM BP 136/78 Pulse 84 Resp 16 Wt 95.3 kg (210 lb) LMP 08/17/2016 (Approximate) SpO2 98% BMI 34.95 kg/m? General Appearance: well appearing, in no acute distress, alert Eyes: conjunctiva pink and moist, no icterus, sclera white, non-injected Musculoskeletal: Left knee- normal to inspection. Tenderness:none. Flexion:Limitation: neither knee flexes completely but at baseline, Pain:reports tightness; Extension:Limitation:No, Pain:No. Laxity: No Lower extremities: Muscle strength- 5/5 lower, bilaterally. Reflexes intact and equal bilaterally. Pulses palpable. No deformities, edema, or skin discoloration. Health maintenance reviewed with patient: Depression Screening Never done Anxiety Screening Never done HIV Screening Never done Influenza Vaccine(1) due on 12/22/2023 Covid-19 Vaccine(3 - (more content not included)... [facility] 02-12-2024 History of Present illness Narrative CC: Patient presents with: Knee Pain: L knee pain x several weeks HPI Jamaal Michael is a 58 year old female who presents today for left knee pain. Started with an ache 6 weeks ago suddenly after she fell asleep in a recliner with her feet elevated. When she tries to straighten and lift her left leg her knee and calf feel heavy. Over the last few weeks is having a tightness sensation to her LLE and the sensation like the calf muscle and thigh will cramp but doesn't happen. Once or twice while she was turning/twisting her knee felt weak but resolved once she straightened it out. Denies recent surgeries, long trips, edema, redness, injuries, point tenderness, or decreased ROM. Does have history of fibromyalgia and joint pain so experiences tenderness and pain generally throughout body. Also working with pain management on lower back and bilateral hip pain. 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 REVIEW OF SYSTEMS See HPI PAST MEDICAL HISTORY Diagnosis Date Chronic lymphocytic thyroiditis Hashimotos Displacement of lumbar intervertebral disc without myelopathy Environmental allergies Fibromyalgia Generalized osteoarthrosis, unspecified site GERD (gastroesophageal reflux disease) Hypertension Irregular menstrual cycle Irregular Periods Left shoulder pain 2013 past hx frozen shoulder Plantar fasciitis in Right Foot Tendinitis in Left Leg PAST SURGICAL HISTORY Procedure Laterality Date COLONOSCOPY FLX DX W/COLLJ SPEC WHEN PFRMD 10/12/2015 Colonoscopy mac ESOPHAGOGASTRODUODENOSCOPY TRANSORAL DIAGNOSTIC 10/12/2015 EGD mac PAST SURGICAL HISTORY OF Right 04/22/1975 manipulation dislocation arm, post sledding accident PAST SURGICAL HISTORY OF 04/22/1975 exploratory surgery for persistant UTI ALLERGIES Poison Abigail and Seasonale [Levonorgestrel-Ethinyl Estrad] MEDICATIONS clobetasol (TEMOVATE) 0.05 % ointment APPLY TO AFFECTED AREA 2 TIMES WEEKLY FOR MAINTENANCE, CAN INCREASE USE UP TO DAILY WHEN FLARED fluconazole (DIFLUCAN) 200 mg tablet TAKE 2 TABLETS BY MOUTH DAILY FOR 3 DAYS THEN TAKE 2 TABLETS ONCE A WEEK FOR 3 WEEKS. omeprazole (PRILOSEC) 20 mg capsule Take 1 capsule by mouth daily before breakfast. 1/2 hr before meal. cyanocobalamin (VITAMIN B-12) 1,000 mcg tab Take 1,000 mcg by mouth once daily. triamcinolone acetonide (KENALOG) 0.1 % ointment Apply to affected area 1-2 times per week. losartan (COZAAR) 25 mg tablet Take 1 tablet by mouth once daily. levothyroxine (SYNTHROID) 100 mcg tablet Take 1 tablet by mouth once daily. cholecalciferol, Vitamin D3, (VITAMIN D3) 1,250 mcg (50,000 unit) cap capsule Take 1 capsule by mouth one time a week. cholecalciferol, Vitamin D3, (VITAMIN D3) 1,250 mcg (50,000 unit) cap capsule Take 1 capsule by mouth one time a week. lidocaine-menthol 4-1 % lqro Apply to affected area. acetaminophen (TYLENOL) 325 mg tablet Take 650 mg by mouth every 4 hours as needed. FAMILY HISTORY Problem Relation Age of Onset Cancer Mother bladder, thyroid Heart Mother Two Cardiac Bypasses Kidney Disease Mother Hearing Loss Mother Osteoporosis Mother other (gout) Mother Diabetes Father Prostate cancer Prostate Cancer Father Cancer Father Skin Cancer Heart Father Breast Cancer Sister Diabetes Sister 2 sisters with diabetes type II and 2 sisters with hypertension Hypertension Sister Stroke Sister Heart Paternal Grandmother Hypertension Paternal Grandmother Cancer Paternal Grandfather prostate Diabetes Paternal Grandfather Thyroid Maternal Aunt Stroke Maternal Aunt other (bipolar) Other maternal great uncle other (other) Other Other Sleep Disorder No Family History Social History Tobacco Use Smoking status: Never Smokeless tobacco: Never Vaping Use Vaping status: Never Used Substance Use Topics Alcohol use: No Drug use: No PHYSICAL EXAM BP 136/78 Pulse 84 Resp 16 Wt 95.3 kg (210 lb) LMP 08/17/2016 (Approximate) SpO2 98% BMI 34.95 kg/m General Appearance: well appearing, in no acute distress, alert Eyes: conjunctiva pink and moist, no icterus, sclera white, non-injected Musculoskeletal: Left knee- normal to inspection. Tenderness:none. Flexion:Limitation: neither knee flexes completely but at baseline, Pain:reports tightness; Extension:Limitation:No, Pain:No. Laxity: No Lower extremities: Muscle strength- 5/5 lower, bilaterally. Reflexes intact and equal bilaterally. Pulses palpable. No deformities, edema, or skin discoloration. Health maintenance reviewed with patient: Depression Screening Never done Anxiety Screening Never done HIV Screening Never done Influenza Vaccine(1) due on 12/22/2023 Covid-19 Vaccine( season) due on 12/22/2023 Hepatitis B Vaccine(1 of 3 - 19+ 3-dose series) due on 07/11/2024 Shingrix Vaccine(1 of 2) due on 07/11/2024 Mammogram Screening due on 10/03/2024 Cervical Cancer Screening due on 10/15/2024 Annual PCP Team Chronic Disease Visit due on 12/18/2024 BP Controlled (<130/80) due on 12/18/2024 Colorectal Cancer Screening due on 10/11/2025 Diabetes Screening due on 11/12/2026 Lipid Screening due on 07/16/2028 DTaP,Tdap,Td Vaccine(3 - Td or Tdap) due on 07/11/2033 Hepatitis C Screening Completed DATA REVIEWED: No new labs ASSESSMENT/PLAN: 1. Acute pain of left knee - ICD9: 719.46, ICD10: M25.562 Assessment without concern. Possible strain but with ongoing for 6 weeks will xray. Patient without history of DVT but concerned with this. Explained with assessment at this time it was unlikely. Also with being unilateral without cause, patient instructed to call immediately for any edema, redness, or increased pain and we would do US to check for DVT. Diclofenac as ordered Ice as discussed Compression brace as discussed and continue with exercises Follow up if no improvement in the next few weeks or for any worsening symptoms. - XR KNEE GENERAL 4V AP BOTH/PA BOTH/LAT/MERC LEFT Prescription instructions reviewed with patient as applicable. Potential red flag symptoms discussed with the patient. Reviewed appropriate action plan to take if red flag symptoms occur. Patient agreeable to treatment plan. Rochelle Alcantar APRN.CNP Medical Decision Making: Problems: Moderate: New problem with uncertain prognosis Data: Unique test(s) ordered: 1 Risk: Low: Low risk from testing/treatment Moderate: Drug management Medical Decision Making Level: 4 - Moderate documented in this encounter [facility] 02-05-2024 Note HNO ID: [id number] Author: SHAHEED ESTRADA PT Service: ? Author Type: Physical Therapist Type: Progress Notes Filed: 02/05/2024 14:52 Note Text: Episode Visit Count: 7 Therapist That Will Accept/Oversee The Plan Of Care: Shaheed Estrada PT. Start of Care Date: 12/05/23 Onset Date: (7 years for LBP, 1-2 Years Neck.) Patient Identified by Name and Date of : Yes REHABILITATION AND SPORTS THERAPY PHYSICAL THERAPY DISCONTINUANCE OF CARE PLAN OF CARE UPDATE: Assessment: Jamaal Michael is discontinued from Physical Therapy services due to goal achievement. and Patient/Clinician mutual decision to discontinue current plan of care. Patient was seen for 7 visits from Start of Care Date: 12/05/23 to 02/05/2024 and treatment included: Therapeutic exercise, Manual therapy, and Self-assisted management. Updated 02/05/24. Goals for Episode of Care: created on 12/05/23 through 02/05/24 Patient reported outcome of physical function and self-efficacy will increase T-score by a minimum 5 points. (NOT MET) [place] in home exercise program. (Goal Met) Patient will decrease pain rating by 2 points to meet minimal clinical important difference for numeric pain rating scale. (Goal Met) Restore pain-free lumbar AND cervical ROM to WNL to allow for improved QOL. (Partially Met) Pt will report decreased frequency of radicular symptoms into the UE in 8 weeks or less (Goal Met) Sleep throughout the night without pain/symptoms. (Partially Met) Pt will report decreased MARTIN intensity AND severity by 50% or greater in 8 weeks or less for improved QOL (Goal Met) Patient will demo B Scapular Strength to 5/5 MMT to assist in improving posture.(Goal Met) Patient Goals: Manage symptoms SUBJECTIVE: Reports if focusing on neck AND periscap area, definetly much better . Reports When assessing the lower back, hips and knees , they are better however not as much significance in improvement than the neck/periscap. With PT patient feels 70%-80% improvement in neck/periscap, lower back/Hip/leg 50%. Pt would like to continue with the HEP independently to try and reach further improvement on her own. Pain: Pain Pain Level: 4 Pain Location: Hip - Left, Hip - Right Pain Level 2: 5 Pain Location 2: Knee - Left Post Treatment Pain Post Treatment Pain Level: Better Post Treatment Pain Location: Hip - Left, Hip - Right, Knee - Left PROMIS Scales 01/27/2024 12/30/2023 12/02/2023 Higher is Better Phys Func - Score 41 (mild dysfunction) 42 (mild dysfunction) 44 (mild dysfunction) Phys Func - Percentile 18 21 27 Self-Eff Symptom - Score 41 (Average) 41 (Average) 41 (Average) Self-Eff Symptom - Percentile 18 18 18 T-scores: mean of general population = 50. 5 points is clinically meaningfully difference Percentiles provide an indication of how the patient's score ranks in relation to the general population. Higher percentile rankings indicate better function/quality of life. 50th percentile is the average of the general population and indicates half of respondents had a worse score. OBJECTIVE MEASURES WITH LEVEL OF FUNCTION: Lumbar Spine AROM Lumbar Flexion: Normal Lumbar Extension: Minimal limitation Lumbar R Side-Bend: Normal Lumbar L Side-Bend: Normal Lumbar R Rotation: Normal Lumbar L Rotation: Normal Cervical Spine ROM Cervical Flexion AROM: Normal Cervical Extension AROM: Normal Cervical Side-Bend Right AROM: Normal Cervical Side-Bend Left AROM: Normal Cervical Rotation Right AROM: Normal Cervical Rotation Left AROM: Normal UE and Cervical Strength R UE Strength: Grossly 5/5 L UE Strength: Grossly 5/5 LE Strength R LE Strength: Grossly 5/5 L LE Strength: Grossly 5/5 Gait Gait Observation: WNL TREATMENT: Therapeutic Exercise: 1: *Re-Assessment and discussion/objectives collected per above; spent time discussing patient's progress. 2: *Sent email to patient for home to complete home self traction at hips and knees as well as for spouse/others to complete/assist her with. 3: *Discussed HEP; patient reports confidence with HEP and denies needing additional exercises. 4: *Discussed taking breaks from ADL's as needed trying to avoid flare-ups of symptoms Skilled Intervention: Patient was educated in proper exercise technique and purpose for exercises. Skilled judgment was used in selection of appropriate interventions. Patient education as noted. Billing Therapeutic Exercise Treatment Minutes: 30 Skilled Treatment Time Minutes (timed and untimed codes): 30 Total Session Time (minutes): 30 Session Start Time : 1413 Session Stop Time : 1443 Shaheed Estrada PT [facility] 02-05-2024 History of Present illness Narrative Images from the original note were not included. Episode Visit Count: 7 Therapist That Will Accept/Oversee The Plan Of Care: Shaheed Estrada PT. Start of Care Date: 12/05/23 Onset Date: (7 years for LBP, 1-2 Years Neck.) Patient Identified by Name and Date of : Yes REHABILITATION AND SPORTS THERAPY PHYSICAL THERAPY DISCONTINUANCE OF CARE PLAN OF CARE UPDATE: Assessment: Jamaal Apodaca Alec is discontinued from Physical Therapy services due to goal achievement. and Patient/Clinician mutual decision to discontinue current plan of care. Patient was seen for 7 visits from Start of Care Date: 12/05/23 to 02/05/2024 and treatment included: Therapeutic exercise, Manual therapy, and Self-assisted management. Updated 02/05/24. Goals for Episode of Care: created on 12/05/23 through 02/05/24 Patient reported outcome of physical function and self-efficacy will increase T-score by a minimum 5 points. (NOT MET) [place] in home exercise program. (Goal Met) Patient will decrease pain rating by 2 points to meet minimal clinical important difference for numeric pain rating scale. (Goal Met) Restore pain-free lumbar & cervical ROM to WNL to allow for improved QOL. (Partially Met) Pt will report decreased frequency of radicular symptoms into the UE in 8 weeks or less (Goal Met) Sleep throughout the night without pain/symptoms. (Partially Met) Pt will report decreased MARTIN intensity & severity by 50% or greater in 8 weeks or less for improved QOL (Goal Met) Patient will demo B Scapular Strength to 5/5 MMT to assist in improving posture.(Goal Met) Patient Goals: Manage symptoms SUBJECTIVE: Reports if focusing on neck & periscap area, definetly much better . Reports When assessing the lower back, hips and knees , they are better however not as much significance in improvement than the neck/periscap. With PT patient feels 70%-80% improvement in neck/periscap, lower back/Hip/leg 50%. Pt would like to continue with the HEP independently to try and reach further improvement on her own. Pain: Pain Pain Level: 4 Pain Location: Hip - Left, Hip - Right Pain Level 2: 5 Pain Location 2: Knee - Left Post Treatment Pain Post Treatment Pain Level: Better Post Treatment Pain Location: Hip - Left, Hip - Right, Knee - Left PROMIS Scales 01/27/2024 12/30/2023 12/02/2023 Higher is Better Phys Func - Score 41 (mild dysfunction) 42 (mild dysfunction) 44 (mild dysfunction) Phys Func - Percentile 18 21 27 Self-Eff Symptom - Score 41 (Average) 41 (Average) 41 (Average) Self-Eff Symptom - Percentile 18 18 18 T-scores: mean of general population = 50. 5 points is clinically meaningfully difference Percentiles provide an indication of how the patient's score ranks in relation to the general population. Higher percentile rankings indicate better function/quality of life. 50th percentile is the average of the general population and indicates half of respondents had a worse score. OBJECTIVE MEASURES WITH LEVEL OF FUNCTION: Lumbar Spine AROM Lumbar Flexion: Normal Lumbar Extension: Minimal limitation Lumbar R Side-Bend: Normal Lumbar L Side-Bend: Normal Lumbar R Rotation: Normal Lumbar L Rotation: Normal Cervical Spine ROM Cervical Flexion AROM: Normal Cervical Extension AROM: Normal Cervical Side-Bend Right AROM: Normal Cervical Side-Bend Left AROM: Normal Cervical Rotation Right AROM: Normal Cervical Rotation Left AROM: Normal UE and Cervical Strength R UE Strength: Grossly 5/5 L UE Strength: Grossly 5/5 LE Strength R LE Strength: Grossly 5/5 L LE Strength: Grossly 5/5 Gait Gait Observation: WNL TREATMENT: Therapeutic Exercise: 1: *Re-Assessment and discussion/objectives collected per above; spent time discussing patient's progress. 2: *Sent email to patient for home to complete home self traction at hips and knees as well as for spouse/others to complete/assist her with. 3: *Discussed HEP; patient reports confidence with HEP and denies needing additional exercises. 4: *Discussed taking breaks from ADL's as needed trying to avoid flare-ups of symptoms Skilled Intervention: Patient was educated in proper exercise technique and purpose for exercises. Skilled judgment was used in selection of appropriate interventions. Patient education as noted. Billing Therapeutic Exercise Treatment Minutes: 30 Skilled Treatment Time Minutes (timed and untimed codes): 30 Total Session Time (minutes): 30 Session Start Time : 1413 Session Stop Time : 1443 Shaheed Estrada PT documented in this encounter [facility] 01-29-2024 History of Present illness Narrative Program_ID:[id number] Access Code: [email or web address] URL: [email or web address] m/ Date: 01-29-2024 Prepared By: Shaheed Estrada Program Notes Exercises - Supine Piriformis Stretch with Foot on Ground - 2-3 x daily - 5-7 x weekly - 2-3 sets - reps Episode Visit Count: 6 Therapist That Will Accept/Oversee The Plan Of Care: Shaheed Estrada PT. Start of Care Date: 12/05/23 Onset Date: (7 years for LBP, 1-2 Years Neck.) Patient Identified by Name and Date of : Yes REHABILITATION AND SPORTS THERAPY PHYSICAL THERAPY TREATMENT NOTE ASSESSMENT: Jamaal Michael tolerated the session with decreased symptoms. She demonstrated improvements in sxs with MT & gentle stretching. The patient will continue to benefit from ongoing skilled physical therapy to progress toward set goals. PLAN FOR NEXT VISIT: Manual PRN; progress ther-ex as able. SUBJECTIVE: Neck is doing really well; continues to work on upper body posture. Lower back is not too bad. Times where hips feel better, then she pushing it too much and it acts up. MT felt good last session, had relief to next morning. Pain: Pain Pain Level: 5 Pain Location: Hip - Left, Hip - Right Pain Level 2: 4 Pain Location 2: Knee - Left Post Treatment Pain Post Treatment Pain Level: Better Post Treatment Pain Location: Hip - Left, Hip - Right, Knee - Left OBJECTIVE MEASURES WITH LEVEL OF FUNCTION: No objectives collected this date. TREATMENT: Therapeutic Exercise: 1: SKC: 4x30 ea. (Discussed opposite leg being in hooklying). 2: DKC: 4x30 . 3: Piriformis Stretch: 4x30 each. 4: [place] Stretch: 4x30 each. 5: HEP Handout Printed. Skilled Intervention: Patient was educated in proper exercise technique and purpose for exercises. Skilled judgment was used in selection of appropriate interventions. Manual Therapy: 1: Tibiofemoral Distraction: Completed Bilaterally, Pull to tolerance. 2: Long [place] Distraction: Completed Bilaterally, Pull to tolerance. 3: Indriect Distraction: Long [place] Distraction: Completed Bilaterally, Pull to tolerance. Skilled Intervention: Manual skills to improve joint mobility, ROM, and decrease pain. Utilized anatomy knowledge of the therapist, and assessment of patient's response to intervention. Billing Therapeutic Exercise Treatment Minutes: 25 Manual TherapyTreatment Minutes: 15 Skilled Treatment Time Minutes (timed and untimed codes): 40 Total Session Time (minutes): 40 Session Start Time : 1410 Session Stop Time : 1450 Shaheed Estrada PT documented in this encounter [facility] 01-29-2024 Note HNO ID: [id number] Author: SHAHEED ESTRADA PT Service: ? Author Type: Physical Therapist Type: Progress Notes Filed: 01/29/2024 14:56 Note Text: Episode Visit Count: 6 Therapist That Will Accept/Oversee The Plan Of Care: Shaheed Estrada PT. Start of Care Date: 12/05/23 Onset Date: (7 years for LBP, 1-2 Years Neck.) Patient Identified by Name and Date of : Yes REHABILITATION AND SPORTS THERAPY PHYSICAL THERAPY TREATMENT NOTE ASSESSMENT: Jamaal Michael tolerated the session with decreased symptoms. She demonstrated improvements in sxs with MT AND gentle stretching. The patient will continue to benefit from ongoing skilled physical therapy to progress toward set goals. PLAN FOR NEXT VISIT: Manual PRN; progress ther-ex as able. SUBJECTIVE: Neck is doing really well; continues to work on upper body posture. Lower back is not too bad. Times where hips feel better, then she pushing it too much and it acts up. MT felt good last session, had relief to next morning. Pain: Pain Pain Level: 5 Pain Location: Hip - Left, Hip - Right Pain Level 2: 4 Pain Location 2: Knee - Left Post Treatment Pain Post Treatment Pain Level: Better Post Treatment Pain Location: Hip - Left, Hip - Right, Knee - Left OBJECTIVE MEASURES WITH LEVEL OF FUNCTION: No objectives collected this date. TREATMENT: Therapeutic Exercise: 1: SKC: 4x30 ea. (Discussed opposite leg being in hooklying). 2: DKC: 4x30 . 3: Piriformis Stretch: 4x30 each. 4: [place] Stretch: 4x30 each. 5: HEP Handout Printed. Skilled Intervention: Patient was educated in proper exercise technique and purpose for exercises. Skilled judgment was used in selection of appropriate interventions. Manual Therapy: 1: Tibiofemoral Distraction: Completed Bilaterally, Pull to tolerance. 2: Long [place] Distraction: Completed Bilaterally, Pull to tolerance. 3: Indriect Distraction: Long [place] Distraction: Completed Bilaterally, Pull to tolerance. Skilled Intervention: Manual skills to improve joint mobility, ROM, and decrease pain. Utilized anatomy knowledge of the therapist, and assessment of patient's response to intervention. Billing Therapeutic Exercise Treatment Minutes: 25 Manual TherapyTreatment Minutes: 15 Skilled Treatment Time Minutes (timed and untimed codes): 40 Total Session Time (minutes): 40 Session Start Time : 1410 Session Stop Time : 1450 Shaheed Estrada PT [facility] 01-22-2024 Note HNO ID: [id number] Author: SHAHEED ESTRADA PT Service: ? Author Type: Physical Therapist Type: Progress Notes Filed: 01/29/2024 14:57 Note Text: Episode Visit Count: 5 Therapist That Will Accept/Oversee The Plan Of Care: Shaheed Estrada PT. Start of Care Date: 12/05/23 Onset Date: (7 years for LBP, 1-2 Years Neck.) Patient Identified by Name and Date of : Yes REHABILITATION AND SPORTS THERAPY PHYSICAL THERAPY TREATMENT NOTE ASSESSMENT: Jamaal Michael tolerated the session with decreased symptoms. She demonstrated improvements in Hip and Knee pain with different distractions completed this date. The patient will continue to benefit from ongoing skilled physical therapy to progress toward set goals. PLAN FOR NEXT VISIT: Progress NS Strength; B LE Strength. SUBJECTIVE: Reports the neck AND vj-scap exercises are going really well; mixing bodyweight with resistive (bands) in terms of the exercises. L Knee is still bothering her, Quad stretch feels really good. Pain: Pain Pain Level: 5 Pain Location: Hip - Left, Hip - Right Pain Level 2: 5 Pain Location 2: Knee - Left Post Treatment Pain Post Treatment Pain Level: Better Post Treatment Pain Location: Hip - Left, Hip - Right, Knee - Left OBJECTIVE MEASURES WITH LEVEL OF FUNCTION: TTP B Tib Ant. TREATMENT: Manual Therapy: 1: Tibiofemoral Distraction: Completed Bilaterally, Pull to tolerance. 2: Long [place] Distraction: Completed Bilaterally, Pull to tolerance. 3: Indriect Distraction: Long [place] Distraction: Completed Bilaterally, Pull to tolerance. 4: Tib-Anterior Manual Stretch: Pull to tolerance. 5: Discussed ways and options spouse can help complete distractions at home in combo with exercises for progression of relief; emailed options. Skilled Intervention: Manual skills to improve joint mobility, ROM, and decrease pain. Utilized anatomy knowledge of the therapist, and assessment of patient's response to intervention. Billing Manual TherapyTreatment Minutes: 39 Skilled Treatment Time Minutes (timed and untimed codes): 39 Total Session Time (minutes): 39 Session Start Time : 1413 Session Stop Time : 1452 Shaheed Estrada PT [facility] 01-22-2024 History of Present illness Narrative Episode Visit Count: 5 Therapist That Will Accept/Oversee The Plan Of Care: Shaheed Estrada PT. Start of Care Date: 12/05/23 Onset Date: (7 years for LBP, 1-2 Years Neck.) Patient Identified by Name and Date of : Yes REHABILITATION AND SPORTS THERAPY PHYSICAL THERAPY TREATMENT NOTE ASSESSMENT: Jamaal Michael tolerated the session with decreased symptoms. She demonstrated improvements in Hip and Knee pain with different distractions completed this date. The patient will continue to benefit from ongoing skilled physical therapy to progress toward set goals. PLAN FOR NEXT VISIT: Progress NS Strength; B LE Strength. SUBJECTIVE: Reports the neck & vj-scap exercises are going really well; mixing bodyweight with resistive (bands) in terms of the exercises. L Knee is still bothering her, Quad stretch feels really good. Pain: Pain Pain Level: 5 Pain Location: Hip - Left, Hip - Right Pain Level 2: 5 Pain Location 2: Knee - Left Post Treatment Pain Post Treatment Pain Level: Better Post Treatment Pain Location: Hip - Left, Hip - Right, Knee - Left OBJECTIVE MEASURES WITH LEVEL OF FUNCTION: TTP B Tib Ant. TREATMENT: Manual Therapy: 1: Tibiofemoral Distraction: Completed Bilaterally, Pull to tolerance. 2: Long [place] Distraction: Completed Bilaterally, Pull to tolerance. 3: Indriect Distraction: Long [place] Distraction: Completed Bilaterally, Pull to tolerance. 4: Tib-Anterior Manual Stretch: Pull to tolerance. 5: Discussed ways and options spouse can help complete distractions at home in combo with exercises for progression of relief; emailed options. Skilled Intervention: Manual skills to improve joint mobility, ROM, and decrease pain. Utilized anatomy knowledge of the therapist, and assessment of patient's response to intervention. Billing Therapeutic Exercise Treatment Minutes: 39 Skilled Treatment Time Minutes (timed and untimed codes): 39 Total Session Time (minutes): 39 Session Start Time : 1413 Session Stop Time : 1452 Shaheed Estrada PT documented in this encounter [facility] 01-15-2024 History of Present illness Narrative Program_ID:[id number] Access Code: [email or web address] URL: [email or web address] m/ Date: 01-15-2024 Prepared By: Shaheed Estrada Program Notes Exercises - Seated Passive Cervical Retraction - 2 x daily - 5-7 x weekly - 2 sets - 10 reps - Seated Scapular Retraction - 2 x daily - 5-7 x weekly - 2 sets - 10 reps - Shoulder External Rotation and Scapular Retraction - 2 x daily - 7 x weekly - 2 sets - 10 reps - Standing Cervical Rotation AROM with Overpressure - 2 x daily - 7 x weekly - 2-3 sets - 10 reps - Standing Cervical Sidebending AROM - 2 x daily - 7 x weekly - 2-3 sets - 10 reps - Shoulder External Rotation and Scapular Retraction with Resistance - 2 x daily - 7 x weekly - 2-3 sets - 8-10 reps - Standing Shoulder Row with Anchored Resistance - 2 x daily - 7 x weekly - 2-3 sets - 8-12 reps Episode Visit Count: 4 Therapist That Will Accept/Oversee The Plan Of Care: Shaheed Estrada PT. Start of Care Date: 12/05/23 Onset Date: (7 years for LBP, 1-2 Years Neck.) Patient Identified by Name and Date of : Yes REHABILITATION AND SPORTS THERAPY PHYSICAL THERAPY TREATMENT NOTE ASSESSMENT: Jamaal Michael tolerated the session with expected muscle soreness. She demonstrated improvements in Neck ROM. The patient will continue to benefit from ongoing skilled physical therapy to progress toward set goals. PLAN FOR NEXT VISIT: Progress NS Strength. SUBJECTIVE: Regarding neck and lowerback parts are better and parts aren't per patient. Static positioning generally ache is better, movements such as turning the neck when driving are slightly better. Liking new exercises. Pain: Pain Pain Level: 5 Pain Location: (General Soreness.) Post Treatment Pain Post Treatment Symptoms: No Report. OBJECTIVE MEASURES WITH LEVEL OF FUNCTION: Improvements in Rotation > Side Bend. TREATMENT: Therapeutic Exercise: 1: *B ER Pullaparts with OTB: 3x8, 1-2 hold. 2: *Rows: 2x10, 1-2 , PinkTB 3: Cervical Neck Rotation with Hand OP: 2x10, 1-2 . 4: Cervical Neck SB with Hand OP: 1x10, 1-2 . 5: Discussed HEP completion; time spent discussing multitude of symptoms and answering questions. Skilled Intervention: Patient was educated in proper exercise technique and purpose for exercises. Reviewed and educated patient on additions/changes for home exercise program as above (*). Skilled judgment was used in selection of appropriate interventions. Provided written instruction for home exercise program to facilitate proper performance and compliance. Correct performance of therapeutic exercises was facilitated with verbal, visual, and tactile cuing. Billing Therapeutic Exercise Treatment Minutes: 39 Skilled Treatment Time Minutes (timed and untimed codes): 39 Total Session Time (minutes): 39 Session Start Time : 1415 Session Stop Time : 1454 Shaheed Estrada PT documented in this encounter [facility] 01-15-2024 Note HNO ID: [id number] Author: SHAHEED ESTRADA PT Service: ? Author Type: Physical Therapist Type: Progress Notes Filed: 01/15/2024 14:55 Note Text: Episode Visit Count: 4 Therapist That Will Accept/Oversee The Plan Of Care: Shaheed Estrada PT. Start of Care Date: 12/05/23 Onset Date: (7 years for LBP, 1-2 Years Neck.) Patient Identified by Name and Date of : Yes REHABILITATION AND SPORTS THERAPY PHYSICAL THERAPY TREATMENT NOTE ASSESSMENT: Jamaal Michael tolerated the session with expected muscle soreness. She demonstrated improvements in Neck ROM. The patient will continue to benefit from ongoing skilled physical therapy to progress toward set goals. PLAN FOR NEXT VISIT: Progress NS Strength. SUBJECTIVE: Regarding neck and lowerback parts are better and parts aren't per patient. Static positioning generally ache is better, movements such as turning the neck when driving are slightly better. Liking new exercises. Pain: Pain Pain Level: 5 Pain Location: (General Soreness.) Post Treatment Pain Post Treatment Symptoms: No Report. OBJECTIVE MEASURES WITH LEVEL OF FUNCTION: Improvements in Rotation > Side Bend. TREATMENT: Therapeutic Exercise: 1: *B ER Pullaparts with OTB: 3x8, 1-2 hold. 2: *Rows: 2x10, 1-2 , PinkTB 3: Cervical Neck Rotation with Hand OP: 2x10, 1-2 . 4: Cervical Neck SB with Hand OP: 1x10, 1-2 . 5: Discussed HEP completion; time spent discussing multitude of symptoms and answering questions. Skilled Intervention: Patient was educated in proper exercise technique and purpose for exercises. Reviewed and educated patient on additions/changes for home exercise program as above (*). Skilled judgment was used in selection of appropriate interventions. Provided written instruction for home exercise program to facilitate proper performance and compliance. Correct performance of therapeutic exercises was facilitated with verbal, visual, and tactile cuing. Billing Therapeutic Exercise Treatment Minutes: 39 Skilled Treatment Time Minutes (timed and untimed codes): 39 Total Session Time (minutes): 39 Session Start Time : 1415 Session Stop Time : 1454 Shaheed Estrada, VIDA [facility] 12-30-2023 History of Present illness Narrative Program_ID:[id number] Access Code: [email or web address] URL: [email or web address] Date: 12-30-2023 Prepared By: Shaheed Estrada Program Notes Exercises - Seated Passive Cervical Retraction - 2 x daily - 5-7 x weekly - 2 sets - 10 reps - Seated Scapular Retraction - 2 x daily - 5-7 x weekly - 2 sets - 10 reps - Shoulder External Rotation and Scapular Retraction - 2 x daily - 7 x weekly - 2 sets - 10 reps - Standing Cervical Rotation AROM with Overpressure - 2 x daily - 7 x weekly - 2-3 sets - 10 reps - Standing Cervical Sidebending AROM - 2 x daily - 7 x weekly - 2-3 sets - 10 reps Program_ID:[id number] Access Code: [email or web address] URL: [email or web address] Date: 12-30-2023 Prepared By: Shaheed Estrada Program Notes Exercises - Hooklying Single Knee to Chest Stretch - 2 x daily - 7 x weekly - 3 sets - reps - Supine Double Knee to Chest - 2 x daily - 7 x weekly - 3 sets - reps - Cat Cow - 2 x daily - 7 x weekly - 2 sets - 8-12 reps - Supine Bridge - 2 x daily - 7 x weekly - 2 sets - 8-12 reps Episode Visit Count: 3 Therapist That Will Accept/Oversee The Plan Of Care: Shaheed Estrada, PT. Start of Care Date: 12/05/23 Onset Date: (7 years for LBP, 1-2 Years Neck.) Patient Identified by Name and Date of : Yes REHABILITATION AND SPORTS THERAPY PHYSICAL THERAPY TREATMENT NOTE ASSESSMENT: Jamaal Michael tolerated the session with no issues. She demonstrated decreased low back symptoms and relief with Manual low back traction. The patient will continue to benefit from ongoing skilled physical therapy to progress toward set goals. PLAN FOR NEXT VISIT: Progress ther-ex as tolerated; NS Strength; manual as needed. SUBJECTIVE: Patient reports feeling good overall, however did a lot of outside work recently and extra sore the past couple of days.; Dr. Workman ordered new x-rays for Neck and SI Joint. Exercises are seeming to help per patient. Pain: Pain Pain Level: 6 Pain Location: (Gross Soreness.) Description: Sore Post Treatment Pain Post Treatment Symptoms: Low Back Relief. OBJECTIVE MEASURES WITH LEVEL OF FUNCTION: Verbal cues for no shrug during neck rotation. TREATMENT: Therapeutic Exercise: 1: Cerivcal Rot Snags: 1x5 each way, bothersome on L Shoulder, better with exercise below. 2: *Cervical Neck Rotation with Hand OP: 2x10, 1-2 . 3: *Cervical Neck SB with Hand OP: 1x10, 1-2 . 4: Standing R Open the Book: 1x15. 5: S/L Left Open the Book: 1x15. 6: *Bridges: x10. Skilled Intervention: Patient was educated in proper exercise technique and purpose for exercises. Reviewed and educated patient on additions/changes for home exercise program as above (*). Skilled judgment was used in selection of appropriate interventions. Provided written instruction for home exercise program to facilitate proper performance and compliance. Correct performance of therapeutic exercises was facilitated with verbal cuing. Manual Therapy: 1: Manual L/S Traction: x10min, LEs propped on stool 90/90, pull to tolerance. (Provided Relief.) Skilled Intervention: Manual skills to improve joint mobility, ROM, and decrease pain. Utilized anatomy knowledge of the therapist, and assessment of patient's response to intervention. Billing Therapeutic Exercise Treatment Minutes: 30 Manual TherapyTreatment Minutes: 10 Skilled Treatment Time Minutes (timed and untimed codes): 40 Total Session Time (minutes): 40 Session Start Time : 1630 Session Stop Time : 1710 Shaheed Estrada PT documented in this encounter [facility] 12-30-2023 Note HNO ID: [id number] Author: SHHAEED ESTRADA PT Service: ? Author Type: Physical Therapist Type: Progress Notes Filed: 12/30/2023 17:14 Note Text: Episode Visit Count: 3 Therapist That Will Accept/Oversee The Plan Of Care: Shaheed Estrada PT. Start of Care Date: 12/05/23 Onset Date: (7 years for LBP, 1-2 Years Neck.) Patient Identified by Name and Date of : Yes REHABILITATION AND SPORTS THERAPY PHYSICAL THERAPY TREATMENT NOTE ASSESSMENT: Jamaal Michael tolerated the session with no issues. She demonstrated decreased low back symptoms and relief with Manual low back traction. The patient will continue to benefit from ongoing skilled physical therapy to progress toward set goals. PLAN FOR NEXT VISIT: Progress ther-ex as tolerated; NS Strength; manual as needed. SUBJECTIVE: Patient reports feeling good overall, however did a lot of outside work recently and extra sore the past couple of days.; Dr. Workman ordered new x-rays for Neck and SI Joint. Exercises are seeming to help per patient. Pain: Pain Pain Level: 6 Pain Location: (Gross Soreness.) Description: Sore Post Treatment Pain Post Treatment Symptoms: Low Back Relief. OBJECTIVE MEASURES WITH LEVEL OF FUNCTION: Verbal cues for no shrug during neck rotation. TREATMENT: Therapeutic Exercise: 1: Cerivcal Rot Snags: 1x5 each way, bothersome on L Shoulder, better with exercise below. 2: *Cervical Neck Rotation with Hand OP: 2x10, 1-2 . 3: *Cervical Neck SB with Hand OP: 1x10, 1-2 . 4: Standing R Open the Book: 1x15. 5: S/L Left Open the Book: 1x15. 6: *Bridges: x10. Skilled Intervention: Patient was educated in proper exercise technique and purpose for exercises. Reviewed and educated patient on additions/changes for home exercise program as above (*). Skilled judgment was used in selection of appropriate interventions. Provided written instruction for home exercise program to facilitate proper performance and compliance. Correct performance of therapeutic exercises was facilitated with verbal cuing. Manual Therapy: 1: Manual L/S Traction: x10min, LEs propped on stool 90/90, pull to tolerance. (Provided Relief.) Skilled Intervention: Manual skills to improve joint mobility, ROM, and decrease pain. Utilized anatomy knowledge of the therapist, and assessment of patient's response to intervention. Billing Therapeutic Exercise Treatment Minutes: 30 Manual TherapyTreatment Minutes: 10 Skilled Treatment Time Minutes (timed and untimed codes): 40 Total Session Time (minutes): 40 Session Start Time : 1630 Session Stop Time : 1710 Shaheed Estrada PT [facility] 12-27-2023 Note HNO ID: [id number] Author: MEHUL WORKMAN, DO Service: ? Author Type: Physician Type: Progress Notes Filed: 12/27/2023 11:04 Note Text: [facility] Visit [facility] 27, 2023 CC: Cervicalgia, lumbar spine pain SUBJECTIVE: Patient returns today last being seen in October 2021. At that time was dealing with low back issues as well as some leg pain. Her belief was that she might have some symptoms consistent with coleman algia paresthetica. In general prior imaging without significant findings. Continues to deal with pain in the lumbar spine and neck. Sees rheumatology has been diagnosed with fibromyalgia. Does also have some underlying rheumatologic inflammatory disease without a clear diagnosis. Has dealt with visual changes potentially related to uveitis. Patient describes a multitude of symptoms. Popping cracking in her low back as one of her greater concerns. Wondering if this is concerning or dangerous or going to make her worse. Has recently started physical therapy has 4 more weeks of PT. Describes pain largely at the level of the belt line and below across both sides. Does deal with some vague leg symptoms, however, the majority of her symptoms are low back. This pain will radiate at about the sacral level also out to the level of the lateral hips. Cervical spine pain complaints and cracking as well denies any severe upper limb pain or paresthesias. Since last visit: She continues to deny bowel/bladder incontinence, denies fever, + night pain, denies unintentional weight loss, denies clumsiness of hands or dropping things but does experience some numbness and tingling in her fingers intermittently, denies clumsiness of feet, tripping or falling. Denies any constitutional or myelopathic symptomatology. No interval change in PMHX, PSHX, Allergies, FamHx or ROS. PMH:PAST MEDICAL HISTORY No date: Chronic lymphocytic thyroiditis Comment: Hashimotos No date: Displacement of lumbar intervertebral disc without myelopathy No date: Environmental allergies No date: Fibromyalgia No date: Generalized osteoarthrosis, unspecified site No date: GERD (gastroesophageal reflux disease) No date: Hypertension No date: Irregular menstrual cycle Comment: Irregular Periods 2013: Left shoulder pain Comment: past hx frozen shoulder No date: Plantar fasciitis Comment: in Right Foot No date: Tendinitis Comment: in Left Leg PSH:PAST SURGICAL HISTORY 10/12/2015: COLONOSCOPY FLX DX W/COLLJ SPEC WHEN PFRMD Comment: Colonoscopy mac 10/12/2015: ESOPHAGOGASTRODUODENOSCOPY TRANSORAL DIAG[place]STIC [place] [facility] [place] PAST SURGICAL HISTORY OF; Right Comment: manipulation dislocation arm, post sledding accident 04/22/1975: PAST SURGICAL HISTORY OF Comment: exploratory surgery for persistant UTI Social history: Social History Tobacco Use Smoking status: Never Smokeless tobacco: Never Vaping Use Vaping status: Never Used Substance Use Topics Alcohol use: No Drug use: No Fam history: FAMILY HISTORY Problem Relation Age of Onset Cancer Mother bladder, thyroid Heart Mother Two Cardiac Bypasses Kidney Disease Mother Hearing Loss Mother Osteoporosis Mother other (gout) Mother Diabetes Father Prostate cancer Prostate Cancer Father Cancer Father Skin Cancer Heart Father Breast Cancer Sister Diabetes Sister 2 sisters with diabetes type II and 2 sisters with hypertension Hypertension Sister Stroke Sister Heart Paternal Grandmother Hypertension Paternal Grandmother Cancer Paternal Grandfather prostate Diabetes Paternal Grandfather Thyroid Maternal Aunt Stroke Maternal Aunt other (bipolar) Other maternal great uncle other (other) Other Other Sleep Disorder No Family History Reviewed and updated with patient. ALLERGIES: Poison Abigail and Seasonale [Levonorgestrel-Ethinyl Estrad] DATA REVIEW: I personally viewed patient's prior lumbar and cervical x-rays. Minimal degenerative disc changes and degenerative facet joint arthropathy and cervical spine straightening normal cervical lordosis. In the lumbar spine evidence of minimal degenerative disc changes well. MRI from many years ago degenerative disc changes and mild disc desiccation at the L4-L5 and L5-S1 levels. OBJECTIVE: Vital Signs: Ht 165.1 cm (5' 5 ) Wt 94.8 kg (209 lb) LMP 08/17/2016 (Approximate) BMI 34.78 kg/m? ASSESSMENT: General:Patient in no apparent distress, afebrile, well appearing Lungs:No labored breathing, symetric chest excursion, no tachypnia Heart:No lower limb edema, pulses palpable and symetric dorsalis pedis and radial, no cyanosis Abdominal:Non distended abdomen Neuro:Strength intact bilateral lower limbs Sensation intact bilateral lower limbs Strength intact in bilateral upper limbs Sensation intact in bilateral upper limbs Muscular:Tenderness to palpation of bilateral Lumbar paraspinal muscles Sacroiliac join (more content not included)... [facility] 12-27-2023 History of Present illness Narrative [facility] December 27, 2023 CC: Cervicalgia, lumbar spine pain SUBJECTIVE: Patient returns today last being seen in October 2021. At that time was dealing with low back issues as well as some leg pain. Her belief was that she might have some symptoms consistent with coleman algia paresthetica. In general prior imaging without significant findings. Continues to deal with pain in the lumbar spine and neck. Sees rheumatology has been diagnosed with fibromyalgia. Does also have some underlying rheumatologic inflammatory disease without a clear diagnosis. Has dealt with visual changes potentially related to uveitis. Patient describes a multitude of symptoms. Popping cracking in her low back as one of her greater concerns. Wondering if this is concerning or dangerous or going to make her worse. Has recently started physical therapy has 4 more weeks of PT. Describes pain largely at the level of the belt line and below across both sides. Does deal with some vague leg symptoms, however, the majority of her symptoms are low back. This pain will radiate at about the sacral level also out to the level of the lateral hips. Cervical spine pain complaints and cracking as well denies any severe upper limb pain or paresthesias. Since last visit: She continues to deny bowel/bladder incontinence, denies fever, + night pain, denies unintentional weight loss, denies clumsiness of hands or dropping things but does experience some numbness and tingling in her fingers intermittently, denies clumsiness of feet, tripping or falling. Denies any constitutional or myelopathic symptomatology. No interval change in PMHX, PSHX, Allergies, FamHx or ROS. PMH:PAST MEDICAL HISTORY No date: Chronic lymphocytic thyroiditis Comment: Hashimotos No date: Displacement of lumbar intervertebral disc without myelopathy No date: Environmental allergies No date: Fibromyalgia No date: Generalized osteoarthrosis, unspecified site No date: GERD (gastroesophageal reflux disease) No date: Hypertension No date: Irregular menstrual cycle Comment: Irregular Periods 2013: Left shoulder pain Comment: past hx frozen shoulder No date: Plantar fasciitis Comment: in Right Foot No date: Tendinitis Comment: in Left Leg PSH:PAST SURGICAL HISTORY 10/12/2015: COLONOSCOPY FLX DX W/COLLJ SPEC WHEN PFRMD Comment: Colonoscopy mac 10/12/2015: ESOPHAGOGASTRODUODENOSCOPY TRANSORAL DIAGNOSTIC [place] [facility] [place] PAST SURGICAL HISTORY OF; Right Comment: manipulation dislocation arm, post sledding accident 04/22/1975: PAST SURGICAL HISTORY OF Comment: exploratory surgery for persistant UTI Social history: Social History Tobacco Use Smoking status: Never Smokeless tobacco: Never Vaping Use Vaping status: Never Used Substance Use Topics Alcohol use: No Drug use: No Fam history: FAMILY HISTORY Problem Relation Age of Onset Cancer Mother bladder, thyroid Heart Mother Two Cardiac Bypasses Kidney Disease Mother Hearing Loss Mother Osteoporosis Mother other (gout) Mother Diabetes Father Prostate cancer Prostate Cancer Father Cancer Father Skin Cancer Heart Father Breast Cancer Sister Diabetes Sister 2 sisters with diabetes type II and 2 sisters with hypertension Hypertension Sister Stroke Sister Heart Paternal Grandmother Hypertension Paternal Grandmother Cancer Paternal Grandfather prostate Diabetes Paternal Grandfather Thyroid Maternal Aunt Stroke Maternal Aunt other (bipolar) Other maternal great uncle other (other) Other Other Sleep Disorder No Family History Reviewed and updated with patient. ALLERGIES: Poison Abigail and Seasonale [Levonorgestrel-Ethinyl Estrad] DATA REVIEW: I personally viewed patient's prior lumbar and cervical x-rays. Minimal degenerative disc changes and degenerative facet joint arthropathy and cervical spine straightening normal cervical lordosis. In the lumbar spine evidence of minimal degenerative disc changes well. MRI from many years ago degenerative disc changes and mild disc desiccation at the L4-L5 and L5-S1 levels. OBJECTIVE: Vital Signs: Ht 165.1 cm (5' 5 ) Wt 94.8 kg (209 lb) LMP 08/17/2016 (Approximate) BMI 34.78 kg/m ASSESSMENT: General:Patient in no apparent distress, afebrile, well appearing Lungs:No labored breathing, symetric chest excursion, no tachypnia Heart:No lower limb edema, pulses palpable and symetric dorsalis pedis and radial, no cyanosis Abdominal:Non distended abdomen Neuro:Strength intact bilateral lower limbs Sensation intact bilateral lower limbs Strength intact in bilateral upper limbs Sensation intact in bilateral upper limbs Muscular:Tenderness to palpation of bilateral Lumbar paraspinal muscles Sacroiliac joint: +1 leg standing extension test bilaterally. Positive John finger test, positive Anna Marie's test bilaterally. Positive Emory's test bilaterally, overall diminished range of motion in the lumbar spine in extension and bilateral sidebending Skin:Head, neck, trunk, and extremities dry, intact and without lesions. 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 No significant findings on these images. Patient does have concerns regarding finding kissing spinous processes. In light of her good normal lumbar lordosis there is approximation of the spinous processes. Majority of patient's pain at this time appears to be situated over the bilateral sacroiliac joint. Positive provocative maneuvers for bilateral sacroiliac joint discomfort. Discussed possibility of pursuing sacroiliac joint injection if pain should persist or worsen. In light of her underlying inflammatory processes would not be highly unlikely. Beekley markers were placed over the area of greatest pain on her lumbar spine schedule patient for an AP pelvis x-ray and consideration further interventions 2) Patient cervical spine pain likely related to mechanical myofascial issues. Straightening of normal cervical lordosis minimal facet joint arthropathy on prior cervical x-rays. Will schedule patient for updated cervical imaging. 3) On exam no significant motor deficits. Reflexes normal in the bilateral lower limbs if not somewhat brisk at the patella There are any concerning findings on cervical x-ray or she should develop any worsening neurologic symptoms may pursuing advanced imaging the cervical spine in the future 4) Patient currently in a course of physical therapy if her symptoms should persist or worsen after she is completed physical therapy may consider advanced imaging Mehul Workman DO, MPH Staff Physician [facility] This document has been created with the use of voice recognition technology. It may contain inaccuracies: misspellings, inaccurate syntax or word sense that escaped review. documented in this encounter [facility] 12-20-2023 Note HNO ID: [id number] Author: SHAHEED ESTRADA, PT Service: ? Author Type: Physical Therapist Type: Progress Notes Filed: 12/20/2023 11:00 Note Text: Episode Visit Count: 2 Therapist That Will Accept/Oversee The Plan Of Care: Shaheed Estrada PT. Start of Care Date: 12/05/23 Onset Date: (7 years for LBP, 1-2 Years Neck.) Patient Identified by Name and Date of : Yes REHABILITATION AND SPORTS THERAPY PHYSICAL THERAPY TREATMENT NOTE ASSESSMENT: Jamaal Michael tolerated the session with decreased symptoms. She demonstrated understanding of traction rationale and increased neck motion following MT. The patient will continue to benefit from ongoing skilled physical therapy to progress toward set goals. PLAN FOR NEXT VISIT: Progress ther-ex; snags for cervical. SUBJECTIVE: Patient reports the neck and back have been a little better; neck improved more than lower back/hip. Reports more motion with c/s rotation. Popping AND catching is a little bit less in the low back. Pain: Pain Pain Level: 5 Pain Location: Neck, Shoulder - Right, Shoulder - Left Description: Aching Frequency: Continuous Additional Pain Information : Location 2 Pain Level 2: 6 Pain Location 2: Low Back/Lumbar Spine - Left, Leg - Left Description 2: Aching Frequency 2: Continuous Post Treatment Pain Post Treatment Pain Level: Better Post Treatment Pain Location: Neck OBJECTIVE MEASURES WITH LEVEL OF FUNCTION: Increased restriction in R UT vs. Left. TREATMENT: Therapeutic Exercise: 1: *Discussed HEP completion and rationale for exercises. Skilled Intervention: Patient was educated in proper exercise technique and purpose for exercises. Manual Therapy: 1: Manual C/S Traction: Pull to tolerance. 2: STM AND TPR to BUT, majority time spent with increased push to R UT: Push to tolerance. Skilled Intervention: Manual skills to improve joint mobility, ROM, and decrease pain. Utilized anatomy knowledge of the therapist, and assessment of patient's response to intervention. Self-Longterm Management: 1: Discussed the purpose of STM using lacrosse ball vs wall for irritated soft tissue. Explained how to perform STM properly and parameters for. 2: Discussed sleeping positions and pillow use 3: Discussed traction rationale. Skilled Intervention: Skilled judgment in the selection of proper modification for activity of daily living/home management based on clinical presentation, deficits, and needs. Billing Therapeutic Exercise Treatment Minutes: 5 Manual TherapyTreatment Minutes: 25 Self-Care/Home Management Treatment Minutes: 12 Skilled Treatment Time Minutes (timed and untimed codes): 42 Total Session Time (minutes): 45 Session Start Time : 1000 Session Stop Time : 1045 Shaheed Estrada PT [facility] 12-20-2023 History of Present illness Narrative Episode Visit Count: 2 Therapist That Will Accept/Oversee The Plan Of Care: Shaheed Estrada PT. Start of Care Date: 12/05/23 Onset Date: (7 years for LBP, 1-2 Years Neck.) Patient Identified by Name and Date of : Yes REHABILITATION AND SPORTS THERAPY PHYSICAL THERAPY TREATMENT NOTE ASSESSMENT: Jamaal Michael tolerated the session with decreased symptoms. She demonstrated understanding of traction rationale and increased neck motion following MT. The patient will continue to benefit from ongoing skilled physical therapy to progress toward set goals. PLAN FOR NEXT VISIT: Progress ther-ex; snags for cervical. SUBJECTIVE: Patient reports the neck and back have been a little better; neck improved more than lower back/hip. Reports more motion with c/s rotation. Popping & catching is a little bit less in the low back. Pain: Pain Pain Level: 5 Pain Location: Neck, Shoulder - Right, Shoulder - Left Description: Aching Frequency: Continuous Additional Pain Information : Location 2 Pain Level 2: 6 Pain Location 2: Low Back/Lumbar Spine - Left, Leg - Left Description 2: Aching Frequency 2: Continuous Post Treatment Pain Post Treatment Pain Level: Better Post Treatment Pain Location: Neck OBJECTIVE MEASURES WITH LEVEL OF FUNCTION: Increased restriction in R UT vs. Left. TREATMENT: Therapeutic Exercise: 1: *Discussed HEP completion and rationale for exercises. Skilled Intervention: Patient was educated in proper exercise technique and purpose for exercises. Manual Therapy: 1: Manual C/S Traction: Pull to tolerance. 2: STM & TPR to BUT, majority time spent with increased push to R UT: Push to tolerance. Skilled Intervention: Manual skills to improve joint mobility, ROM, and decrease pain. Utilized anatomy knowledge of the therapist, and assessment of patient's response to intervention. Self-Longterm Management: 1: Discussed the purpose of STM using lacrosse ball vs wall for irritated soft tissue. Explained how to perform STM properly and parameters for. 2: Discussed sleeping positions and pillow use 3: Discussed traction rationale. Skilled Intervention: Skilled judgment in the selection of proper modification for activity of daily living/home management based on clinical presentation, deficits, and needs. Billing Therapeutic Exercise Treatment Minutes: 5 Manual TherapyTreatment Minutes: 25 Self-Care/Home Management Treatment Minutes: 12 Skilled Treatment Time Minutes (timed and untimed codes): 42 Total Session Time (minutes): 45 Session Start Time : 1000 Session Stop Time : 1045 Shaheed Estrada PT documented in this encounter [facility] 12-19-2023 Note HNO ID: [id number] Author: ROCHELLE ALCANTAR APRN.PRODUCTION COST ESTIMATOR Service: ? Author Type: Nurse Practitioner Type: Progress Notes Filed: 12/19/2023 15:10 Note Text: CC: Patient presents with: Recheck: 4 week follow up HPI Jamaal Michael is a 58 year old female who presents today for chest ache: and shortness of breath with heavy exertion. ECHO unremarkable outside of grade 1 diastolic dysfunction. Stress test negative. Did have SOB during the test but per patient it was at the end with heavy exertion and was not so severe she was unable to talk. Blood work normal. Did see some improvement with the chest pain with starting the omeprazole but has this on hold right now due to taking diflucan as ordered by her hoop maker helper machine. EKG showed possible inferior [place] age undetermined which has been present on other EKGs years ago without concern. REVIEW OF SYSTEMS General: no fevers, no chills, no night sweats, no recurrent infections, no change in appetite, no change in energy, and no significant changes in weight Respiratory: no cough, no wheezing, no shortness of breath, no hemoptysis Cardiovascular: no chest pain, no chest pressure, no palpitations, and no swelling PAST MEDICAL HISTORY No date: Chronic lymphocytic thyroiditis Comment: Hashimotos No date: Displacement of lumbar intervertebral disc without myelopathy No date: Environmental allergies No date: Fibromyalgia No date: Generalized osteoarthrosis, unspecified site No date: GERD (gastroesophageal reflux disease) No date: Hypertension No date: Irregular menstrual cycle Comment: Irregular Periods 2013: Left shoulder pain Comment: past hx frozen shoulder No date: Plantar fasciitis Comment: in Right Foot No date: Tendinitis Comment: in Left Leg PAST SURGICAL HISTORY 10/12/2015: COLONOSCOPY FLX DX W/COLLJ SPEC WHEN PFRMD Comment: Colonoscopy mac 10/12/2015: ESOPHAGOGASTRODUODENOSCOPY TRANSORAL DIAGNOSTIC Comment: EGD mac 04/22/1975: PAST SURGICAL HISTORY OF; Right Comment: manipulation dislocation arm, post sledding accident 04/22/1975: PAST SURGICAL HISTORY OF Comment: exploratory surgery for persistant UTI ALLERGIES Poison Abigail MEDICATIONS clobetasol (TEMOVATE) 0.05 % ointment APPLY TO AFFECTED AREA 2 TIMES WEEKLY FOR MAINTENANCE, CAN INCREASE USE UP TO DAILY WHEN FLARED fluconazole (DIFLUCAN) 200 mg tablet TAKE 2 TABLETS BY MOUTH DAILY FOR 3 DAYS THEN TAKE 2 TABLETS ONCE A WEEK FOR 3 WEEKS. omeprazole (PRILOSEC) 20 mg capsule Take 1 capsule by mouth daily before breakfast. 1/2 hr before meal. naproxen (NAPROSYN) 500 mg tablet Take 1 tablet by mouth two times a day as needed (for pain/inflammation). Take with food. cyanocobalamin (VITAMIN B-12) 1,000 mcg tab Take 1,000 mcg by mouth once daily. turmeric root extract 500 mg cap Take by mouth. triamcinolone acetonide (KENALOG) 0.1 % ointment Apply to affected area 1-2 times per week. losartan (COZAAR) 25 mg tablet Take 1 tablet by mouth once daily. levothyroxine (SYNTHROID) 100 mcg tablet Take 1 tablet by mouth once daily. cholecalciferol, Vitamin D3, (VITAMIN D3) 1,250 mcg (50,000 unit) cap capsule Take 1 capsule by mouth one time a week. cholecalciferol, Vitamin D3, (VITAMIN D3) 1,250 mcg (50,000 unit) cap capsule Take 1 capsule by mouth one time a week. lidocaine-menthol 4-1 % lqro Apply to affected area. acetaminophen (TYLENOL) 325 mg tablet Take 650 mg by mouth every 4 hours as needed. FAMILY HISTORY Problem Relation Age of Onset Cancer Mother bladder, thyroid Heart Mother Two Cardiac Bypasses Kidney Disease Mother Hearing Loss Mother Osteoporosis Mother other (gout) Mother Diabetes Father Prostate cancer Prostate Cancer Father Cancer Father Skin Cancer Heart Father Breast Cancer Sister Diabetes Sister 2 sisters with diabetes type II and 2 sisters with hypertension Hypertension Sister Stroke Sister Heart Paternal Grandmother Hypertension Paternal Grandmother Cancer Paternal Grandfather prostate Diabetes Paternal Grandfather Thyroid Maternal Aunt Stroke Maternal Aunt other (bipolar) Other maternal great uncle other (other) Other Other Sleep Disorder No Family History Social History Tobacco Use Smoking status: Never Smokeless tobacco: Never Vaping Use Vaping status: Never Used Substance Use Topics Alcohol use: No Drug use: No PHYSICAL EXAM BP 126/78 Pulse 88 Resp 16 Wt 94.8 kg (209 lb) LMP 08/17/2016 (Approximate) SpO2 98% BMI 34.25 kg/m? General Appearance: well appearing, in no acute distress, alert Eyes: conjunctiva pink and moist, no icterus, sclera white, non-injected Lungs: Lungs clear to auscultation. No wheezing, rhonchi, rales. Heart: RRR without murmur, gallop, or rubs. No ectopy Health maintenance reviewed with patient: Depression Screening Never done Anxiety Screening Never done HIV Screening Never done BP Controlled (<130/80) due on 01/09/2022 Hepatiti (more content not included)... [facility] 12-19-2023 History of Present illness Narrative CC: Patient presents with: Recheck: 4 week follow up HPI Jamaal Michael is a 58 year old female who presents today for chest ache: and shortness of breath with heavy exertion. ECHO unremarkable outside of grade 1 diastolic dysfunction. Stress test negative. Did have SOB during the test but per patient it was at the end with heavy exertion and was not so severe she was unable to talk. Blood work normal. Did see some improvement with the chest pain with starting the omeprazole but has this on hold right now due to taking diflucan as ordered by her hoop maker helper machine. EKG showed possible inferior [place] age undetermined which has been present on other EKGs years ago without concern. REVIEW OF SYSTEMS General: no fevers, no chills, no night sweats, no recurrent infections, no change in appetite, no change in energy, and no significant changes in weight Respiratory: no cough, no wheezing, no shortness of breath, no hemoptysis Cardiovascular: no chest pain, no chest pressure, no palpitations, and no swelling PAST MEDICAL HISTORY No date: Chronic lymphocytic thyroiditis Comment: Hashimotos No date: Displacement of lumbar intervertebral disc without myelopathy No date: Environmental allergies No date: Fibromyalgia No date: Generalized osteoarthrosis, unspecified site No date: GERD (gastroesophageal reflux disease) No date: Hypertension No date: Irregular menstrual cycle Comment: Irregular Periods 2013: Left shoulder pain Comment: past hx frozen shoulder No date: Plantar fasciitis Comment: in Right Foot No date: Tendinitis Comment: in Left Leg PAST SURGICAL HISTORY 10/12/2015: COLONOSCOPY FLX DX W/COLLJ SPEC WHEN PFRMD Comment: Colonoscopy mac 10/12/2015: ESOPHAGOGASTRODUODENOSCOPY TRANSORAL DIAGNOSTIC Comment: EGD mac 04/22/1975: PAST SURGICAL HISTORY OF; Right Comment: manipulation dislocation arm, post sledding accident 04/22/1975: PAST SURGICAL HISTORY OF Comment: exploratory surgery for persistant UTI ALLERGIES Poison Abgiail MEDICATIONS clobetasol (TEMOVATE) 0.05 % ointment APPLY TO AFFECTED AREA 2 TIMES WEEKLY FOR MAINTENANCE, CAN INCREASE USE UP TO DAILY WHEN FLARED fluconazole (DIFLUCAN) 200 mg tablet TAKE 2 TABLETS BY MOUTH DAILY FOR 3 DAYS THEN TAKE 2 TABLETS ONCE A WEEK FOR 3 WEEKS. omeprazole (PRILOSEC) 20 mg capsule Take 1 capsule by mouth daily before breakfast. 1/2 hr before meal. naproxen (NAPROSYN) 500 mg tablet Take 1 tablet by mouth two times a day as needed (for pain/inflammation). Take with food. cyanocobalamin (VITAMIN B-12) 1,000 mcg tab Take 1,000 mcg by mouth once daily. turmeric root extract 500 mg cap Take by mouth. triamcinolone acetonide (KENALOG) 0.1 % ointment Apply to affected area 1-2 times per week. losartan (COZAAR) 25 mg tablet Take 1 tablet by mouth once daily. levothyroxine (SYNTHROID) 100 mcg tablet Take 1 tablet by mouth once daily. cholecalciferol, Vitamin D3, (VITAMIN D3) 1,250 mcg (50,000 unit) cap capsule Take 1 capsule by mouth one time a week. cholecalciferol, Vitamin D3, (VITAMIN D3) 1,250 mcg (50,000 unit) cap capsule Take 1 capsule by mouth one time a week. lidocaine-menthol 4-1 % lqro Apply to affected area. acetaminophen (TYLENOL) 325 mg tablet Take 650 mg by mouth every 4 hours as needed. FAMILY HISTORY Problem Relation Age of Onset Cancer Mother bladder, thyroid Heart Mother Two Cardiac Bypasses Kidney Disease Mother Hearing Loss Mother Osteoporosis Mother other (gout) Mother Diabetes Father Prostate cancer Prostate Cancer Father Cancer Father Skin Cancer Heart Father Breast Cancer Sister Diabetes Sister 2 sisters with diabetes type II and 2 sisters with hypertension Hypertension Sister Stroke Sister Heart Paternal Grandmother Hypertension Paternal Grandmother Cancer Paternal Grandfather prostate Diabetes Paternal Grandfather Thyroid Maternal Aunt Stroke Maternal Aunt other (bipolar) Other maternal great uncle other (other) Other Other Sleep Disorder No Family History Social History Tobacco Use Smoking status: Never Smokeless tobacco: Never Vaping Use Vaping status: Never Used Substance Use Topics Alcohol use: No Drug use: No PHYSICAL EXAM BP 126/78 Pulse 88 Resp 16 Wt 94.8 kg (209 lb) LMP 08/17/2016 (Approximate) SpO2 98% BMI 34.25 kg/m General Appearance: well appearing, in no acute distress, alert Eyes: conjunctiva pink and moist, no icterus, sclera white, non-injected Lungs: Lungs clear to auscultation. No wheezing, rhonchi, rales. Heart: RRR without murmur, gallop, or rubs. No ectopy Health maintenance reviewed with patient: Depression Screening Never done Anxiety Screening Never done HIV Screening Never done BP Controlled (<130/80) due on 01/09/2022 Hepatitis B Vaccine(1 of 3 - 19+ 3-dose series) due on 07/11/2024 Shingrix Vaccine(1 of 2) due on 07/11/2024 Covid-19 Vaccine(3 - season) due on 07/11/2024 Influenza Vaccine(1) due on 12/22/2023 Mammogram Screening due on 10/03/2024 Cervical Cancer Screening due on 10/15/2024 Annual PCP Team Chronic Disease Visit due on 11/12/2024 Colorectal Cancer Screening due on 10/11/2025 Diabetes Screening due on 11/12/2026 Lipid Screening due on 07/16/2028 DTaP,Tdap,Td Vaccine(3 - Td or Tdap) due on 07/11/2033 Hepatitis C Screening Completed DATA REVIEWED: Most recent labs and imaging results. ASSESSMENT/PLAN: 1. Chest pain, unspecified type - ICD9: 786.50, ICD10: R07.9 (primary diagnosis) Improved with the PPI. Cardiac work up unremarkable. If this continues or for any further concerns, recommend she sees cardiology 2. Dyspnea on exertion - ICD9: 786.09, ICD10: R06.09 Cardiac workup unremarkable. Not severe and no wheezing or coughing. At this time this may be a result of deconditioning, patient to start aerobic exercise as tolerated and recommended by PT or pain mgmt to avoid worsening her chronic pain. 3. Gastroesophageal reflux disease without esophagitis - ICD9: 530.81, ICD10: K21.9 - Discussed lifestyle modifications including losing weight, limiting caffeine, no meals three hours before sleep, and head of bed elevation - continue PPI at this time as symptoms are controlled and improved with usage. Prescription instructions reviewed with patient as applicable. Potential red flag symptoms discussed with the patient. Reviewed appropriate action plan to take if red flag symptoms occur. Patient agreeable to treatment plan. Rochelle Alcantar APRN.CNP documented in this encounter [facility] 12-05-2023 History of Present illness Narrative Program_ID:[id number] Access Code: [email or web address] URL: [email or web address] m/ Date: 12-05-2023 Prepared By: Shaheed Estrada Program Notes Exercises - Hooklying Single Knee to Chest Stretch - 2 x daily - 7 x weekly - 3 sets - reps - Supine Double Knee to Chest - 2 x daily - 7 x weekly - 3 sets - reps - Cat Cow - 2 x daily - 7 x weekly - 2 sets - 8-12 reps Program_ID:[id number] Access Code: [email or web address] URL: [email or web address]/ Date: 12-05-2023 Prepared By: Shaheed Estrada Program Notes Exercises - Seated Passive Cervical Retraction - 2 x daily - 5-7 x weekly - 2 sets - 10 reps - Seated Scapular Retraction - 2 x daily - 5-7 x weekly - 2 sets - 10 reps - Shoulder External Rotation and Scapular Retraction - 2 x daily - 7 x weekly - 2 sets - 10 reps Images from the original note were not included. Episode Visit Count: 1 Therapist That Will Accept/Oversee The Plan Of Care: Shaheed Estrada PT. Start of Care Date: 12/05/23 Onset Date: (7 years for LBP, 1-2 Years Neck.) Patient Identified by Name and Date of : Yes REHABILITATION AND SPORTS THERAPY PHYSICAL THERAPY EVALUATION PLAN OF CARE: Assessment: Jamaal Michael presents with chief complaint of Neck, B posterior Shoulders (R>L), and B low back pain with bilat upper extremity radiating symptoms, as well as headaches and intermittent dizziness. All of which interferes with sleeping, physical activities, rising from a chair, lifting (General Endurance.) . She also presents with R Lateral thigh continued numbness (chronic). She presents with impairments in ADL's, flexibility, independence in exercise, overall function, posture, soft tissue healing, strength, symptom management, and tissue tenderness. PROMIS (Patient-Reported Outcomes Measurement Information System) scores were reviewed and identified as a rehabilitation concern. Prognosis for therapy is Good due to: current objective clinical presentation, positive past response to therapy, Prognosis may be limited due to chronic nature of impairments .She will benefit from skilled therapy services to meet the goals established for this plan of care as noted below. Goals for Episode of Care: created on 12/05/23 through 01/30/24 Patient reported outcome of physical function and self-efficacy will increase T-score by a minimum 5 points. [place] in home exercise program. Patient will decrease pain rating by 2 points to meet minimal clinical important difference for numeric pain rating scale. Restore pain-free lumbar & cervical ROM to WNL to allow for improved QOL. Pt will report decreased frequency of radicular symptoms into the UE in 8 weeks or less Sleep throughout the night without pain/symptoms. Pt will report decreased MARTIN intensity & severity by 50% or greater in 8 weeks or less for improved QOL Patient will demo B Scapular Strength to 5/5 MMT to assist in improving posture. Patient Goals: Manage symptoms Planned Interventions, Frequency, and Duration: Current Frequency: 1x/week Duration: 6 weeks Total Number of Visits Planned: 6 Planned Treatment Interventions: Therapeutic exercise (62447), Neuromuscular re-education (78555), Manual therapy (82627), Self-assisted management (18103), Patient/Family/Caregiver Education, Therapeutic activities (53145) PLAN FOR NEXT VISIT: Assess response to HEP; C/S manual traction and flexibility; low back traction. Progress ther-ex as tolerated. Patient demonstrates good understanding of plan of care and treatment. The above goals and plan of care were discussed and agreed upon by patient/family. SUBJECTIVE: Patient with more than her usual pain. Specifically, the L Low Back and Hip area. Has pain with sharp movements and audible noises with regular daily movements. Notes B Neck & Shoulder pain (R > L)- increased pain with motion. Notes MARTIN onset recently (4-6mos). 75% of the time she has the MARTIN when the neck is worse. MARTIN 50-60% of time feels the whole head, no wrapping. Dizziness is not spinning round/round, feels like she is on a boat/inwaves (1 year ago onset). Scheduled to see Dr. Workman for pain mgmt. 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 Cancer Red Flags: Age >50 or <20 Cancer Clinical Reasoning: No identified risk factors. Infection Clinical Reasoning: No identified risk factors. Cauda Equina Syndrome Clinical Reasoning: No identified risk factors. Cervical Arterial Dysfunction: Dizziness Cervical Arterial Dysfunction Clinical Reasoning: Recommend referral Cervical Myelopathy: Age > 45 yo Cervical Myelopathy Diagnostic Rule: Proceed with caution Red Flags - Cervical Cancer Red Flags: Age >50 or <20 Cancer Clinical Reasoning: No identified risk factors. Infection Clinical Reasoning: No identified risk factors. Cervical Arterial Dysfunction: Dizziness Cervical Arterial Dysfunction Clinical Reasoning: Recommend referral Cervical Myelopathy: Age > 45 yo Cervical Myelopathy Diagnostic Rule: Proceed with caution Spine History Symptoms Location at Onset: Neck, Back Symptoms Since Onset: Worsening Pain: Pain Pain Level: 6 Pain Location: Neck, Shoulder - Right, Shoulder - Left Description: Aching Frequency: Continuous Additional Pain Information : Location 2 Pain Location 2: Low Back/Lumbar Spine - Left, Leg - Left Description 2: Aching Frequency 2: Continuous Post Treatment Pain Post Treatment Pain Level: No Change PROMIS Scales 12/02/2023 11/13/2021 10/21/2021 Higher is Better Phys Func - Score 44 (mild dysfunction) 42 (mild dysfunction) Phys Func - Percentile 27 21 Self-Eff Symptom - Score 41 (Average) 44 (Average) Self-Eff Symptom - Percentile 18 27 T-scores: mean of general population = 50. 5 points is clinically meaningfully difference Percentiles provide an indication of how the patient's score ranks in relation to the general population. Higher percentile rankings indicate better function/quality of life. 50th percentile is the average of the general population and indicates half of respondents had a worse score. OBJECTIVE MEASURES WITH LEVEL OF FUNCTION: Posture / Alignment Posture: Forward head, Rounded shoulders, Increased lumbar lordosis (Flattened C-Spine; Kissing L-Spine.) Spine Observations R Cervical Spine Palpation Tenderness: Paraspinals, Upper trapezius, Levator scapulae L Cervical Spine Palpation Tenderness: Upper trapezius, Paraspinals, Levator scapulae R Lumbar Spine Palpation Tenderness: Paraspinals, PSIS (posterior superior iliac spine), Gluteals, Spinous process L Lumbar Spine Palpation Tenderness: Paraspinals, PSIS (posterior superior iliac spine), Spinous process, Gluteals Lumbar Spine AROM Lumbar Flexion: Minimal limitation (Patient crawls down the B LEs during flexion, pausing at several ranges.) Lumbar Extension: Minimal limitation Lumbar R Side-Bend: Normal, Increased pain Lumbar L Side-Bend: Normal, Increased pain Lumbar R Rotation: Normal, Increased pain Lumbar L Rotation: Normal, Increased pain Cervical Spine ROM Cervical ROM : Limitation AROM Cervical Flexion AROM: Minimal limitation Cervical Extension AROM: Minimal limitation Cervical Side-Bend Right AROM: Minimal limitation Cervical Side-Bend Left AROM: Minimal limitation Cervical Rotation Right AROM: Minimal limitation Cervical Rotation Left AROM: Minimal limitation UE and Cervical Strength Strength Tested: Shoulder All R UE Strength: Grossly 5/5 L UE Strength: Grossly 5/5 R Shoulder External Rotation: 4+/5 R Middle Trapezius: 4+/5 R Lower Trapezius: 4+/5 R Rhomboid: 4+/5 L Shoulder External Rotation: 4+/5 L Middle Trapezius: 4+/5 L Lower Trapezius: 4+/5 L Rhomboid: 4+/5 LE Strength R LE Strength: Grossly 5/5 L LE Strength: Grossly 5/5 Gait Gait Observation: WNL Education: Education Learning Preferences: Demonstration, Explanation Barriers: None Learning/educational needs: Home exercise program, Plan of Care Education Provided: Yes, see treatment interventions for education provided Education Provided To: Patient Education Mode/Type: Demonstration, Literature/Printed Materials, Explanation/Discussion Response to Education/Teach Back: States/Identifies TREATMENT: PT Treatment Interventions: Therapeutic Exercise, Self-Longterm Management Evaluation Therapeutic Exercise: 1: SKC: 1x30 ea. (Discussed opposite leg being in hooklying). 2: DKC: 1x30 , (discussed how to complete with hands above or below legs or with a sheet). 3: Cat to Neutral/Flat: x10. (Discussed rationale behind now cow position). 4: C/S Retraction with use of fingers at chin: x10, 3sec holds. 5: Scap Squeezes: x10, 1-2 hold (discussed elbows back, no shrug). 6: ER + Retraction squeezes: x10, 1-2sec hold. (discussed technique). 7: Discussed purpose of the HEP and the HEP handout was provided to the pt. HEP discussed in detail with how to safely and properly perform each therapeutic exercise. Skilled Intervention: Patient was educated in proper exercise technique and purpose for exercises. Reviewed and educated patient on additions/changes for home exercise program as above (*). Skilled judgment was used in selection of appropriate interventions. Provided written instruction for home exercise program to facilitate proper performance and compliance. Self-Longterm Management: 1: *Education and explanation of previous radiograph findings; education of anatomy of the low back and the cervical spine; discussed headaches, discussed upper crossed syndrome and posturing. 2: *Discussed exam findings, POC, rehabilitation process, treatment options. Discussed discomfort/ kissing the pain > sharp/severe pain, Pt was advised to stop any exercise or activity that causes increased pain. Skilled Intervention: Skilled judgment in the selection of proper modification for activity of daily living/home management based on clinical presentation, deficits, and needs. Reviewed patient specific diagnosis in relation to activities of daily living/home management. Activity progression based on professional judgement. Billing * Evaluation Low Complexity: 1 Unit Therapeutic Exercise Treatment Minutes: 10 Self-Care/Home Management Treatment Minutes: 14 Skilled Treatment Time Minutes (timed and untimed codes): 48 Total Session Time (minutes): 50 Session Start Time : 1545 Session Stop Time : 1635 Shaheed Estrada PT, DPT. documented in this encounter [facility] 12-05-2023 Note HNO ID: [id number] Author: SHAHEED ESTRADA PT Service: ? Author Type: Physical Therapist Type: Progress Notes Filed: 12/06/2023 06:53 Note Text: Episode Visit Count: 1 Therapist That Will Accept/Oversee The Plan Of Care: Shaheed Estrada, PT. Start of Care Date: 12/05/23 Onset Date: (7 years for LBP, 1-2 Years Neck.) Patient Identified by Name and Date of : Yes REHABILITATION AND SPORTS THERAPY PHYSICAL THERAPY EVALUATION PLAN OF CARE: Assessment: Jamaal Michael presents with chief complaint of Neck, B posterior Shoulders (R>L), and B low back pain with bilat upper extremity radiating symptoms, as well as headaches and intermittent dizziness. All of which interferes with sleeping, physical activities, rising from a chair, lifting (General Endurance.) . She also presents with R Lateral thigh continued numbness (chronic). She presents with impairments in ADL's, flexibility, independence in exercise, overall function, posture, soft tissue healing, strength, symptom management, and tissue tenderness. PROMIS? (Patient-Reported Outcomes Measurement Information System) scores were reviewed and identified as a rehabilitation concern. Prognosis for therapy is Good due to: current objective clinical presentation, positive past response to therapy, Prognosis may be limited due to chronic nature of impairments .She will benefit from skilled therapy services to meet the goals established for this plan of care as noted below. Goals for Episode of Care: created on 12/05/23 through 01/30/24 Patient reported outcome of physical function and self-efficacy will increase T-score by a minimum 5 points. [place] in home exercise program. Patient will decrease pain rating by 2 points to meet minimal clinical important difference for numeric pain rating scale. Restore pain-free lumbar AND cervical ROM to WNL to allow for improved QOL. Pt will report decreased frequency of radicular symptoms into the UE in 8 weeks or less Sleep throughout the night without pain/symptoms. Pt will report decreased MARTIN intensity AND severity by 50% or greater in 8 weeks or less for improved QOL Patient will demo B Scapular Strength to 5/5 MMT to assist in improving posture. Patient Goals: Manage symptoms Planned Interventions, Frequency, and Duration: Current Frequency: 1x/week Duration: 6 weeks Total Number of Visits Planned: 6 Planned Treatment Interventions: Therapeutic exercise (39065), Neuromuscular re-education (18989), Manual therapy (55842), Self-assisted management (35594), Patient/Family/Caregiver Education, Therapeutic activities (19528) PLAN FOR NEXT VISIT: Assess response to HEP; C/S manual traction and flexibility; low back traction. Progress ther-ex as tolerated. Patient demonstrates good understanding of plan of care and treatment. The above goals and plan of care were discussed and agreed upon by patient/family. SUBJECTIVE: Patient with more than her usual pain. Specifically, the L Low Back and Hip area. Has pain with sharp movements and audible noises with regular daily movements. Notes B Neck AND Shoulder pain (R > L)- increased pain with motion. Notes MARTIN onset recently (4-6mos). 75% of the time she has the MARTIN when the neck is worse. MARTIN 50-60% of time feels the whole head, no wrapping. Dizziness is not spinning round/round, feels like she is on a boat/inwaves (1 year ago onset). Scheduled to see Dr. Workman for pain mgmt. 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 Cancer Red Flags: Age >50 or <20 Cancer Clinical Reasoning: No identified risk factors. Infection Clinical Reasoning: No identified risk factors. Cauda Equina Syndrome Clinical Reasoning: No identified risk factors. Cervical Arterial Dysfunction: Dizziness Cervical Arterial Dysfunction Clinical Reasoning: Recommend referral Cervical Myelopathy: Age > 45 yo Cervical Myelopathy Diagnostic Rule: Proceed with caution Red Flags - Cervical Cancer Red Flags: Age >50 or <20 Cancer Clinical Reasoning: No identified risk factors. Infection Clinical Reasoning: No identified risk factors. Cervical Arterial Dysfunction: Dizziness Cervical Arterial Dysfunction Clinical Reasoning: Recommend referral Cervical Myelopathy: Age > 45 yo Cervical Myelopathy Diagnostic Rule: Proceed with caution Spine History Symptoms Location at Onset: Neck, Back Sym (more content not included)... [facility] 11-26-2023 Telephone encounter Note Consult order and most recent OV faxed to [facility] at [phone]. Jazlyn Medina RN [facility] 11-26-2023 Miscellaneous Notes Consult order and most recent OV faxed to [facility] at [phone]. Jazlyn Medina RN documented in this encounter [facility] 11-25-2023 Telephone encounter Note Left message regarding reminder for stress test tomorrow and given instructions. [facility] 11-25-2023 Miscellaneous Notes Left message regarding reminder for stress test tomorrow and given instructions. documented in this encounter [facility] 11-13-2023 Note HNO ID: [id number] Author: ROCHELLE ALCANTAR APRN.PRODUCTION COST ESTIMATOR Service: ? Author Type: Nurse Practitioner Type: Progress Notes Filed: 11/13/2023 15:14 Note Text: CC: Patient presents with: Recheck: 3 month follow up HPI Jamaal Michael is a 58 year old female who presents today for routine follow up but with concerns. HTN: Ms. Michael indicates that she is feeling well and denies any symptoms referable to elevated blood pressure. Specifically denies palpitations, and peripheral edema. Patient denies any side effects of her medication(s) and is compliant with their regimen. She does check BP's away from this office with average BP's in the 110s-120s/70s range. Jamaal works out in the yard regularly. She watches her diet for sodium, low fat and low cholesterol most of the time. Last 3 Encounter BP Readings: Date: BP: 11/13/2023 138/86 10/16/2023 138/82 07/12/2023 136/79[BP Adrianne[ Does get a chest ache that occurs randomly but has been noticed after exerting herself for hours. And has been short of breath with this as well. Denies any illnesses, fever, chills, cough, or wheezing. Has chronic neck and back pain from known degeneration and stenosis along with fibromyalgia and arthritis. Has noticed a grinding sensation to her lower back and popping noise along with an intermittent stiff sensation. Has noticed increase in her neck pain and trying to resolve with new pillows but noticing an increase in headaches as well. Headaches can be present even without the neck pain. Was seeing pain mgmt for the back and neck pain but not been seen in a few years. Would like to see pain mgmt again. Also has not done physical therapy in a few years as well. Can have intermittent numbness to arms with the neck pain and headaches. It flares up. Trying heat ice and home exercises without improvement. Sparingly uses aleve which helps but upsets her GERD. Deneis any weakness, falls, injuries, syncope, or confusion. REVIEW OF SYSTEMS See HPI PAST MEDICAL HISTORY Diagnosis Date Chronic lymphocytic thyroiditis Hashimotos Displacement of lumbar intervertebral disc without myelopathy Environmental allergies Fibromyalgia Generalized osteoarthrosis, unspecified site GERD (gastroesophageal reflux disease) Hypertension Irregular menstrual cycle Irregular Periods Left shoulder pain 2013 past hx frozen shoulder Plantar fasciitis in Right Foot Tendinitis in Left Leg PAST SURGICAL HISTORY Procedure Laterality Date COLONOSCOPY FLX DX W/COLLJ SPEC WHEN PFRMD 10/12/2015 Colonoscopy mac ESOPHAGOGASTRODUODENOSCOPY TRANSORAL DIAGNOSTIC 10/12/2015 EGD mac PAST SURGICAL HISTORY OF Right 04/22/1975 manipulation dislocation arm, post sledding accident PAST SURGICAL HISTORY OF 04/22/1975 exploratory surgery for persistant UTI ALLERGIES Poison Abigail MEDICATIONS cyanocobalamin (VITAMIN B-12) 1,000 mcg tab Take 1,000 mcg by mouth once daily. turmeric root extract 500 mg cap Take by mouth. triamcinolone acetonide (KENALOG) 0.1 % ointment Apply to affected area 1-2 times per week. losartan (COZAAR) 25 mg tablet Take 1 tablet by mouth once daily. levothyroxine (SYNTHROID) 100 mcg tablet Take 1 tablet by mouth once daily. cholecalciferol, Vitamin D3, (VITAMIN D3) 1,250 mcg (50,000 unit) cap capsule Take 1 capsule by mouth one time a week. cholecalciferol, Vitamin D3, (VITAMIN D3) 1,250 mcg (50,000 unit) cap capsule Take 1 capsule by mouth one time a week. lidocaine-menthol 4-1 % lqro Apply to affected area. acetaminophen (TYLENOL) 325 mg tablet Take 650 mg by mouth every 4 hours as needed. FAMILY HISTORY Problem Relation Age of Onset Cancer Mother bladder, thyroid Heart Mother Two Cardiac Bypasses Kidney Disease Mother Hearing Loss Mother Osteoporosis Mother other (gout) Mother Diabetes Father Prostate cancer Prostate Cancer Father Cancer Father Skin Cancer Heart Father Breast Cancer Sister Diabetes Sister 2 sisters with diabetes type II and 2 sisters with hypertension Hypertension Sister Stroke Sister Heart Paternal Grandmother Hypertension Paternal Grandmother Cancer Paternal Grandfather prostate Diabetes Paternal Grandfather Thyroid Maternal Aunt Stroke Maternal Aunt other (bipolar) Other maternal great uncle other (other) Other Other Sleep Disorder No Family History Social History Tobacco Use Smoking status: Never Smokeless tobacco: Never Vaping Use Vaping Use: Never used Substance Use Topics Alcohol use: No Drug use: No PHYSICAL EXAM BP 138/86 Pulse 80 Resp 16 Wt 94.8 kg (209 lb) LMP 08/17/2016 (Approximate) SpO2 98% BMI 34.25 kg/m? General Appearance: well appearing, in no acute distress, alert Skin: Skin color, texture, turgor normal for age; Eyes: EOMs intact, PERRLA, conjunctiva pink and moist, no icterus, sclera white, non-injected Neck: Thyroid normal size and symmetric without palpable nodules (more content not included)... [facility] 11-13-2023 History of Present illness Narrative CC: Patient presents with: Recheck: 3 month follow up HPI Jamaal Michael is a 58 year old female who presents today for routine follow up but with concerns. HTN: Ms. Michael indicates that she is feeling well and denies any symptoms referable to elevated blood pressure. Specifically denies palpitations, and peripheral edema. Patient denies any side effects of her medication(s) and is compliant with their regimen. She does check BP's away from this office with average BP's in the 110s-120s/70s range. Jamaal works out in the yard regularly. She watches her diet for sodium, low fat and low cholesterol most of the time. Last 3 Encounter BP Readings: Date: BP: 11/13/2023 138/86 10/16/2023 138/82 07/12/2023 136/79[BP Adrianne[ Does get a chest ache that occurs randomly but has been noticed after exerting herself for hours. And has been short of breath with this as well. Denies any illnesses, fever, chills, cough, or wheezing. Has chronic neck and back pain from known degeneration and stenosis along with fibromyalgia and arthritis. Has noticed a grinding sensation to her lower back and popping noise along with an intermittent stiff sensation. Has noticed increase in her neck pain and trying to resolve with new pillows but noticing an increase in headaches as well. Headaches can be present even without the neck pain. Was seeing pain mgmt for the back and neck pain but not been seen in a few years. Would like to see pain mgmt again. Also has not done physical therapy in a few years as well. Can have intermittent numbness to arms with the neck pain and headaches. It flares up. Trying heat ice and home exercises without improvement. Sparingly uses aleve which helps but upsets her GERD. Deneis any weakness, falls, injuries, syncope, or confusion. REVIEW OF SYSTEMS See HPI PAST MEDICAL HISTORY Diagnosis Date Chronic lymphocytic thyroiditis Hashimotos Displacement of lumbar intervertebral disc without myelopathy Environmental allergies Fibromyalgia Generalized osteoarthrosis, unspecified site GERD (gastroesophageal reflux disease) Hypertension Irregular menstrual cycle Irregular Periods Left shoulder pain 2013 past hx frozen shoulder Plantar fasciitis in Right Foot Tendinitis in Left Leg PAST SURGICAL HISTORY Procedure Laterality Date COLONOSCOPY FLX DX W/COLLJ SPEC WHEN PFRMD 10/12/2015 Colonoscopy mac ESOPHAGOGASTRODUODENOSCOPY TRANSORAL DIAGNOSTIC 10/12/2015 EGD mac PAST SURGICAL HISTORY OF Right 04/22/1975 manipulation dislocation arm, post sledding accident PAST SURGICAL HISTORY OF 04/22/1975 exploratory surgery for persistant UTI ALLERGIES Poison Abigail MEDICATIONS cyanocobalamin (VITAMIN B-12) 1,000 mcg tab Take 1,000 mcg by mouth once daily. turmeric root extract 500 mg cap Take by mouth. triamcinolone acetonide (KENALOG) 0.1 % ointment Apply to affected area 1-2 times per week. losartan (COZAAR) 25 mg tablet Take 1 tablet by mouth once daily. levothyroxine (SYNTHROID) 100 mcg tablet Take 1 tablet by mouth once daily. cholecalciferol, Vitamin D3, (VITAMIN D3) 1,250 mcg (50,000 unit) cap capsule Take 1 capsule by mouth one time a week. cholecalciferol, Vitamin D3, (VITAMIN D3) 1,250 mcg (50,000 unit) cap capsule Take 1 capsule by mouth one time a week. lidocaine-menthol 4-1 % lqro Apply to affected area. acetaminophen (TYLENOL) 325 mg tablet Take 650 mg by mouth every 4 hours as needed. FAMILY HISTORY Problem Relation Age of Onset Cancer Mother bladder, thyroid Heart Mother Two Cardiac Bypasses Kidney Disease Mother Hearing Loss Mother Osteoporosis Mother other (gout) Mother Diabetes Father Prostate cancer Prostate Cancer Father Cancer Father Skin Cancer Heart Father Breast Cancer Sister Diabetes Sister 2 sisters with diabetes type II and 2 sisters with hypertension Hypertension Sister Stroke Sister Heart Paternal Grandmother Hypertension Paternal Grandmother Cancer Paternal Grandfather prostate Diabetes Paternal Grandfather Thyroid Maternal Aunt Stroke Maternal Aunt other (bipolar) Other maternal great uncle other (other) Other Other Sleep Disorder No Family History Social History Tobacco Use Smoking status: Never Smokeless tobacco: Never Vaping Use Vaping Use: Never used Substance Use Topics Alcohol use: No Drug use: No PHYSICAL EXAM BP 138/86 Pulse 80 Resp 16 Wt 94.8 kg (209 lb) LMP 08/17/2016 (Approximate) SpO2 98% BMI 34.25 kg/m General Appearance: well appearing, in no acute distress, alert Skin: Skin color, texture, turgor normal for age; Eyes: EOMs intact, PERRLA, conjunctiva pink and moist, no icterus, sclera white, non-injected Neck: Thyroid normal size and symmetric without palpable nodules, Neck supple, No adenopathy Lymph nodes: No cervical lymphadenopathy and No supraclavicular lymphadenopathy Back: Reflexes 2+ and symmetric reports of aching sensation when palpating the entire spine and spinal muscles. Lungs: Lungs clear to auscultation. No wheezing, rhonchi, rales. Heart: RRR without murmur, gallop, or rubs. No ectopy Neurological: Gait normal. Reflexes normal and symmetric. Sensation intact., speech normal, mental status intact, muscle tone normal, muscle strength normal Health maintenance reviewed with patient: Depression Screening Never done Anxiety Screening Never done HIV Screening Never done BP Controlled (<130/80) due on 01/09/2022 Hepatitis B Vaccine(1 of 3 - 19+ 3-dose series) due on 07/11/2024 Shingrix Vaccine(1 of 2) due on 07/11/2024 Covid-19 Vaccine(3 - season) due on 07/11/2024 Influenza Vaccine(1) due on 12/22/2023 Annual PCP Team Chronic Disease Visit due on 07/11/2024 Mammogram Screening due on 10/03/2024 Cervical Cancer Screening due on 10/15/2024 Colorectal Cancer Screening due on 10/11/2025 Diabetes Screening due on 07/08/2026 Lipid Screening due on 07/16/2028 DTaP,Tdap,Td Vaccine(3 - Td or Tdap) due on 07/11/2033 Hepatitis C Screening Completed DATA REVIEWED: No new labs EKG Interpretation: RHYTHM: Normal sinus rhythm at 81 beats per minute with possible inferior infarct, age undetermined AXIS: Normal axis INTERVALS: Normal [place] interval QRS COMPLEX: Normal QT INTERVAL: Normal COMPARED WITH PRIOR: changed previous reported possible anterior infarct. ASSESSMENT/PLAN: 1. Chest pain, unspecified type - ICD9: 786.50, ICD10: R07.9 (primary diagnosis) Chest pain of unclear etiology, patient with significant risk factor(s) of family history of early coronary heart disease and Hypertension - go to ER for increased chest pain, shortness of breath, or any urgent concern - ECHO - PERFLUTREN LIPID MICROSPHERES 1.1 MG/ML INJECTION IN NS 10 ML - SODIUM CHLORIDE 0.9 % (FLUSH) INJECTION SYRINGE - EXERCISE STRESS ECG (WITHOUT IMAGING) - COMPLETE BLOOD COUNT AND DIFFERENTIAL - BASIC METABOLIC PANEL - THYROID STIMULATING HORMONE - MAGNESIUM 2. Dyspnea on exertion - ICD9: 786.09, ICD10: R06.09 As above - ECHO - PERFLUTREN LIPID MICROSPHERES 1.1 MG/ML INJECTION IN NS 10 ML - SODIUM CHLORIDE 0.9 % (FLUSH) INJECTION SYRINGE - EXERCISE STRESS ECG (WITHOUT IMAGING) - COMPLETE BLOOD COUNT AND DIFFERENTIAL - BASIC METABOLIC PANEL - THYROID STIMULATING HORMONE 3. Abnormal EKG - ICD9: 794.31, ICD10: R94.31 See #1 - ECHO - PERFLUTREN LIPID MICROSPHERES 1.1 MG/ML INJECTION IN NS 10 ML - SODIUM CHLORIDE 0.9 % (FLUSH) INJECTION SYRINGE - EXERCISE STRESS ECG (WITHOUT IMAGING) 4. DDD (degenerative disc disease), lumbar - ICD9: 722.52, ICD10: M51.36 Keep appointment with pain mgmt. Will treat with omeprazole while taking naproxen for 3-5 days consistently - OMEPRAZOLE 20 MG CAPSULE,DELAYED RELEASE - NAPROXEN 500 MG TABLET - CONSULT TO PHYSICAL THERAPY 5. Cervical spondylosis without myelopathy - ICD9: 721.0, ICD10: M47.812 As above - OMEPRAZOLE 20 MG CAPSULE,DELAYED RELEASE - NAPROXEN 500 MG TABLET - CONSULT TO PHYSICAL THERAPY 6. Essential hypertension - ICD9: 401.9, ICD10: I10 Sub-optimal control - home BP cuff with SBP average of 10 points lower then in office - Continue current medications - Recommend home blood pressure monitoring, to bring results to next visit - Encouraged sodium restriction, DASH or Mediterranean diet - Recommend regular aerobic exercise 7. Headaches - ICD9: 784.0, ICD10: R51.9 Possibly from neck. Will treat neck pain and then follow up. If no improvement may need brain imaging No red flag symptoms on exam Go to ER for increased/sudden pain, confusion, weakness, new numbness or any new concerns. Prescription instructions reviewed with patient as applicable. Potential red flag symptoms discussed with the patient. Reviewed appropriate action plan to take if red flag symptoms occur. Patient agreeable to treatment plan. Rochelle Alcantar APRN.CNP documented in this encounter [facility] 10-16-2023 Note HNO ID: [id number] Author: MARIANO HERNANDEZ MD Service: ? 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 Postmenopausal: Yes since age 52 HRT use: No. Last Pap: 08/08/2021 abnormal, ASCUS HPV: 08/03/2021 negative History of abnormal pap: Yes Last mammogram: 2023 normal History of abnormal mammogram: No Sexually active: Yes Last sexual contact: 2 weeks Pain with intercourse: No OB History T1 L1 SAB2 IAB0 Ectopic0 Multiple0 Live Births0 Comment: 1 adopted son and 1 biological daughter Resource Manager History LMP: 08/17/2016 (Approximate), Postmenopausal Age at Menarche: Age at First : Age at Menopause: Resource Manager History Comments: Sexual Activity: Yes; Male Contraception: Vasectomy PAST MEDICAL HISTORY Diagnosis Date Chronic lymphocytic thyroiditis Hashimotos Displacement of lumbar intervertebral disc without myelopathy Environmental allergies Fibromyalgia Generalized osteoarthrosis, unspecified site GERD (gastroesophageal reflux disease) Hypertension Irregular menstrual cycle Irregular Periods Left shoulder pain 2014 past hx frozen shoulder Plantar fasciitis in Right Foot Tendinitis in Left Leg PAST SURGICAL HISTORY Procedure Laterality Date COLONOSCOPY FLX DX W/COLLJ SPEC WHEN PFRMD 10/12/2015 Colonoscopy mac ESOPHAGOGASTRODUODENOSCOPY TRANSORAL DIAGNOSTIC 10/12/2015 EGD mac PAST SURGICAL HISTORY OF Right 04/22/1975 manipulation dislocation arm, post sledding accident PAST SURGICAL HISTORY OF 04/22/1975 exploratory surgery for persistant UTI FAMILY HISTORY Problem Relation Age of Onset Cancer Mother bladder, thyroid Heart Mother Two Cardiac Bypasses Kidney Disease Mother Hearing Loss Mother Osteoporosis Mother other (gout) Mother Diabetes Father Prostate cancer Prostate Cancer Father Cancer Father Skin Cancer Heart Father Breast Cancer Sister Diabetes Sister 2 sisters with diabetes type II and 2 sisters with hypertension Hypertension Sister Stroke Sister Heart Paternal Grandmother Hypertension Paternal Grandmother Cancer Paternal Grandfather prostate Diabetes Paternal Grandfather Thyroid Maternal Aunt Stroke Maternal Aunt other (bipolar) Other maternal great uncle other (other) Other Other Sleep Disorder No Family History SOCIAL HISTORY Social History Tobacco Use Smoking status: Never Smokeless tobacco: Never Vaping Use Vaping Use: Never used Substance Use Topics Alcohol use: No Drug use: No REVIEW OF SYSTEMS Abdomen: No abdominal pain, nausea, vomiting, diarrhea, or constipation. No bloating, early satiety, indigestion, or increased flatulence. Bladder: No dysuria, gross hematuria, urinary frequency, urinary urgency, or incontinence Breast: No breast lumps, nipple d/c, overlying skin changes, redness or skin retraction Allergies and current medication updated:Yes EXAM: Ht 5' 5.5 (1.66m) Wt 212 lb (96.2kg) LMP 08/17/2016 BMI 34.73 kg/(m2). GENERAL: pleasant, female in no apparent distress HEENT: Normocephalic, atraumatic, mucus membranes moist, and no lesions NECK: Supple, full range of motion, no adenopathy, and thyroid normal DERMATOLOGY: Normal, without lesions, non-icteric, and non-hirsute BREAST: soft, non-tender, symmetric, no dominant mass, normal nipple-areolar complex, no lymphadenopathy, and no nipple discharge CHEST: Normal inspiratory effort ABDOMEN: soft, non-tender, and no masses PELVIC: normal Bartholin's glands, urethra, [place]'s glands, no cervical lesions, good vaginal support, physiologic discharge present, normal appearing perineal body and perianal region, vulvar lesion covering vulva, mons and inner thighs BIMANUAL: uterus normal size, shape and consistency, no adnexal masses, and non-tender RECTOVAGINAL: deferred. NEURO: alert and oriented x3,exam grossly non-focal EXTREMITIES: normal ASSESSMENT/PLAN: 1) Health maintenance: Pap done with HPV. 2) Lichen planus?? resonds to topical steroids ; needs derm referral to Dr. Giovanny Hernandez MD [facility] 10-16-2023 History of Present illness Narrative Fixing Machine Operator offered: Patient accepts, visit chaperoned by ma. Carrizales is a 58 year old who presents for an annual gynecologic exam with complaints of vulvar lesions/lichen planus?. Postmenopausal: Yes since age 52 HRT use: No. Last Pap: 08/08/2021 abnormal, ASCUS HPV: 08/03/2021 negative History of abnormal pap: Yes Last mammogram: 2023 normal History of abnormal mammogram: No Sexually active: Yes Last sexual contact: 2 weeks Pain with intercourse: No OB History T1 L1 SAB2 IAB0 Ectopic0 Multiple0 Live Births0 Comment: 1 adopted son and 1 biological daughter Resource Manager History LMP: 08/17/2016 (Approximate), Postmenopausal Age at Menarche: Age at First : Age at Menopause: Resource Manager History Comments: Sexual Activity: Yes; Male Contraception: Vasectomy PAST MEDICAL HISTORY Diagnosis Date Chronic lymphocytic thyroiditis Hashimotos Displacement of lumbar intervertebral disc without myelopathy Environmental allergies Fibromyalgia Generalized osteoarthrosis, unspecified site GERD (gastroesophageal reflux disease) Hypertension Irregular menstrual cycle Irregular Periods Left shoulder pain 2013 past hx frozen shoulder Plantar fasciitis in Right Foot Tendinitis in Left Leg PAST SURGICAL HISTORY Procedure Laterality Date COLONOSCOPY FLX DX W/COLLJ SPEC WHEN PFRMD 10/12/2015 Colonoscopy mac ESOPHAGOGASTRODUODENOSCOPY TRANSORAL DIAGNOSTIC 10/12/2015 EGD mac PAST SURGICAL HISTORY OF Right 04/22/1975 manipulation dislocation arm, post sledding accident PAST SURGICAL HISTORY OF 04/22/1975 exploratory surgery for persistant UTI FAMILY HISTORY Problem Relation Age of Onset Cancer Mother bladder, thyroid Heart Mother Two Cardiac Bypasses Kidney Disease Mother Hearing Loss Mother Osteoporosis Mother other (gout) Mother Diabetes Father Prostate cancer Prostate Cancer Father Cancer Father Skin Cancer Heart Father Breast Cancer Sister Diabetes Sister 2 sisters with diabetes type II and 2 sisters with hypertension Hypertension Sister Stroke Sister Heart Paternal Grandmother Hypertension Paternal Grandmother Cancer Paternal Grandfather prostate Diabetes Paternal Grandfather Thyroid Maternal Aunt Stroke Maternal Aunt other (bipolar) Other maternal great uncle other (other) Other Other Sleep Disorder No Family History SOCIAL HISTORY Social History Tobacco Use Smoking status: Never Smokeless tobacco: Never Vaping Use Vaping Use: Never used Substance Use Topics Alcohol use: No Drug use: No REVIEW OF SYSTEMS Abdomen: No abdominal pain, nausea, vomiting, diarrhea, or constipation. No bloating, early satiety, indigestion, or increased flatulence. Bladder: No dysuria, gross hematuria, urinary frequency, urinary urgency, or incontinence Breast: No breast lumps, nipple d/c, overlying skin changes, redness or skin retraction Allergies and current medication updated:Yes EXAM: Ht 5' 5.5 (1.66m) Wt 212 lb (96.2kg) LMP 08/17/2016 BMI 34.73 kg/(m^2). GENERAL: pleasant, female in no apparent distress HEENT: Normocephalic, atraumatic, mucus membranes moist, and no lesions NECK: Supple, full range of motion, no adenopathy, and thyroid normal DERMATOLOGY: Normal, without lesions, non-icteric, and non-hirsute BREAST: soft, non-tender, symmetric, no dominant mass, normal nipple-areolar complex, no lymphadenopathy, and no nipple discharge CHEST: Normal inspiratory effort ABDOMEN: soft, non-tender, and no masses PELVIC: normal Bartholin's glands, urethra, [place]'s glands, no cervical lesions, good vaginal support, physiologic discharge present, normal appearing perineal body and perianal region, vulvar lesion covering vulva, mons and inner thighs BIMANUAL: uterus normal size, shape and consistency, no adnexal masses, and non-tender RECTOVAGINAL: deferred. NEURO: alert and oriented x3,exam grossly non-focal EXTREMITIES: normal ASSESSMENT/PLAN: 1) Health maintenance: Pap done with HPV. 2) Lichen planus?? resonds to topical steroids ; needs derm referral to Dr. Giovanny Hernandez MD documented in this encounter [facility] 10-07-2023 Note Formatting of this n ote might be different from the original. October 07, 2023 PID: [id number] Jamaal Michael [address] [facility] [place]], [place] [address] Dear Ms. Michael, We are pleased to inform you that the results of your recent breast imaging exam on 10/04/2023 are normal. Early detection of cancer is very important. We also understand recommendations regarding breast cancer screening are controversial. Please discuss with your primary care provider which strategy is best for you and whether a mammogram is right for you. Your imaging studies and report will be kept on file at [facility] as part of your permanent medical record and are available for your continuing care. Thank you for allowing us to help in meeting your health care needs. Sincerely, Dr. Gonzalez Interpreting Radiologist [facility] (Normal over 40) [facility] 10-07-2023 Miscellaneous Notes October 07, 2023 PID: [id number] Jamaal [facility] [address] [place] [address] Dear Ms. Michael, We are pleased to inform you that the results of your recent breast imaging exam on 10/04/2023 are normal. Early detection of cancer is very important. We also understand recommendations regarding breast cancer screening are controversial. Please discuss with your primary care provider which strategy is best for you and whether a mammogram is right for you. Your imaging studies and report will be kept on file at [facility] as part of your permanent medical record and are available for your continuing care. Thank you for allowing us to help in meeting your health care needs. Sincerely, Dr. Gonzalez Interpreting Radiologist [facility] (Normal over 40) documented in this encounter [facility] 10-07-2023 Telephone encounter Note I called patient and let her know that she was due for annual exam. She states she will make appointment through MyChart as she need to check family schedule. Please file extension if in agreement of triamcinolone [facility] 10-07-2023 Miscellaneous Notes I called patient and let her know that she was due for annual exam. She states she will make appointment through MyChart as she need to check family schedule. Please file extension if in agreement of triamcinolone documented in this encounter [facility] 10-04-2023 History of Present illness Narrative Radiology Service Progress Note PATIENT NAME: Jamaal Michael DATE OF SERVICE: October 04, 2023 TIME: 2:25 PM PATIENT IDENTITY VERIFICATION COMPLETED USING TWO (2) IDENTIFIERS: Name and Date of confirmed by patient verbally. FALL SCREENING: Has the patient had 2 falls in the last year or 1 fall with injury or currently using an Ambulatory Assistive Device (Walker, Cane, Wheelchair, Crutches, etc.)? No PATIENT GENDER DATA: Female. status: : No status: NO. PATIENT RELEVANT IMPLANT DATA REVIEWED: Not Applicable PATIENT PRESENTS WITH AN IMPLANTABLE OR ATTACHED EYEGLASS LENS CUTTER: No RADIOLOGY DEPARTMENT: Mammography PERIPHERAL IV DATA: Not applicable SIGNED BY: RT Cam(Ad) October 04, 2023 2:25 PM documented in this encounter [facility] 10-04-2023 Note HNO ID: [id number] Author: ROCÍO ABRAHAM RT(R) Service: ? Author Type: Technologist Type: Progress Notes Filed: 10/04/2023 14:25 Note Text: Radiology Service Progress Note PATIENT NAME: Jamaal Michael DATE OF SERVICE: October 04, 2023 TIME: 2:25 PM PATIENT IDENTITY VERIFICATION COMPLETED USING TWO (2) IDENTIFIERS: Name and Date of confirmed by patient verbally. FALL SCREENING: Has the patient had 2 falls in the last year or 1 fall with injury or currently using an Ambulatory Assistive Device (Walker, Cane, Wheelchair, Crutches, etc.)? No PATIENT GENDER DATA: Female. status: : No status: NO. PATIENT RELEVANT IMPLANT DATA REVIEWED: Not Applicable PATIENT PRESENTS WITH AN IMPLANTABLE OR ATTACHED EYEGLASS LENS CUTTER: No RADIOLOGY DEPARTMENT: Mammography PERIPHERAL IV DATA: Not applicable SIGNED BY: RT Cam(R) October 04, 2023 2:25 PM [facility] 07-12-2023 Instructions Rochelle Alcantar APRN.CNP - 07/12/2023 8:23 AM EDT Wave gliding feeling: ladders, activity, sinus issues, supplements, water Tremor: start neck and shoulder exercise documented in this encounter [facility] 07-12-2023 Note HNO ID: [id number] Author: ROCHELLE ALCANTAR APRN.CNP Service: ? Author Type: Nurse Practitioner Type: Progress Notes Filed: 07/12/2023 11:21 Note Text: CC: Patient presents with: Physical: Annual Physical HPI Jamaal Michael is a 58 year old female who presents today for annual physical exam. Exercise: stays active with walking and getting 8-10,000 steps. Diet: Watches diet for salt (salty snacks, added salt, processed frozen/canned foods), sugary/sweet snacks, unhealthy fats: Yes Caffeine: 1 cup a day Water intake: 50-65 ounces HTN: Ms. Michael indicates that she is feeling well and denies any symptoms referable to elevated blood pressure. Specifically denies headache, chest pain, palpitations, dyspnea, and peripheral edema. Patient denies any side effects of her medication(s) and is compliant with their regimen. She does not check BP's generally. Last 3 Encounter BP Readings: Date: BP: 07/12/2023 142/90 - 136/79 09/06/2022 110/74 03/16/2022 112/62 Hypothyroidism: Takes medication as ordered. Denies any abnormal changes in weight or energy. Random sensations like she is on a wave or gliding. Last episode was last year and got nauseated. Lasts for 1-3 days. Occasional right hand tremor when using her right arm. 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 No longer doing her neck exercises regularly. Denies syncope, edema, numbness, or known injury. REVIEW OF SYSTEMS General: no fevers, no chills, no night sweats, no recurrent infections, no change in appetite, no change in energy, and no significant changes in weight Respiratory: no cough, no wheezing, no shortness of breath, no hemoptysis Cardiovascular: no chest pain, no chest pressure, no palpitations, and no swelling GI: No nausea, vomiting, or diarrhea Endocrine: no fatigue, no polyuria, no polyphagia, and no polydipsia Neurologic: No headache, numbness, memory loss, syncope. PAST MEDICAL HISTORY Diagnosis Date Chronic lymphocytic thyroiditis Hashimotos Displacement of lumbar intervertebral disc without myelopathy Environmental allergies Fibromyalgia Generalized osteoarthrosis, unspecified site GERD (gastroesophageal reflux disease) Hypertension Irregular menstrual cycle Irregular Periods Left shoulder pain 2013 past hx frozen shoulder Plantar fasciitis in Right Foot Tendinitis in Left Leg PAST SURGICAL HISTORY Procedure Laterality Date COLONOSCOPY FLX DX W/COLLJ SPEC WHEN PFRMD 10/12/2015 Colonoscopy mac ESOPHAGOGASTRODUODENOSCOPY TRANSORAL DIAGNOSTIC 10/12/2015 EGD mac PAST SURGICAL HISTORY OF Right 04/22/1975 manipulation dislocation arm, post sledding accident PAST SURGICAL HISTORY OF 04/22/1975 exploratory surgery for persistant UTI ALLERGIES Poison Abigail MEDICATIONS triamcinolone acetonide (KENALOG) 0.1 % ointment Apply to affected area 1-2 times per week. levothyroxine (SYNTHROID) 100 mcg tablet Take 1 tablet by mouth once daily. losartan (COZAAR) 25 mg tablet Take 1 tablet by mouth once daily. cholecalciferol, Vitamin D3, (VITAMIN D3) 1,250 mcg (50,000 unit) cap capsule Take 1 capsule by mouth one time a week. losartan (COZAAR) 25 mg tablet Take 1 tablet by mouth once daily. levothyroxine (SYNTHROID) 100 mcg tablet Take 1 tablet by mouth once daily. cholecalciferol, Vitamin D3, (VITAMIN D3) 1,250 mcg (50,000 unit) cap capsule Take 1 capsule by mouth one time a week. nystatin (MYCOSTATIN) powder Apply 1 application to affected area four times daily. For 10-14 days. Lactobac no.41/Bifidobact no.7 (PROBIOTIC-10 ORAL) Take by mouth. lidocaine-menthol 4-1 % lqro Apply to affected area. acetaminophen (TYLENOL) 325 mg tablet Take 650 mg by mouth every 4 hours as needed. FAMILY HISTORY Problem Relation Age of Onset Cancer Mother bladder, thyroid Heart Mother Two Cardiac Bypasses Kidney Disease Mother Hearing Loss Mother Osteoporosis Mother other (gout) Mother Diabetes Father Prostate cancer Prostate Cancer Father Cancer Father Skin Cancer Heart Father Breast Cancer Sister Diabetes Sister 2 sisters with diabetes type II and 2 sisters with hypertension Hypertension Sister Stroke Sister Heart Paternal Grandmother Hypertension Paternal Grandmother Cancer Paternal Grandfather prostate Diabetes Paternal Grandfather Thyroid Maternal Aunt Stroke Maternal Aunt other (bipolar) Other maternal great uncle other (other) Other Other Sleep Disorder No Family History Social History Tobacco Use Smoking status: Never Smokeless tobacco: Never Vaping Use Vaping Use: Never used Substance Use Topics Alcohol use: No Drug use: No PHYSICAL EXAM BP 136/79 Pulse 74 Resp 16 Ht 164.3 cm (5' 4.69 ) Wt 98 kg (216 lb) LMP 08/17/2016 (Approximate) SpO2 99% BMI 36.30 kg/m? General Appearance: well appearing, in no acute distress, alert Pysch: mood (more content not included)... [facility] 07-12-2023 History of Present illness Narrative CC: Patient presents with: Physical: Annual Physical HPI Jamaal Michael is a 58 year old female who presents today for annual physical exam. Exercise: stays active with walking and getting 8-10,000 steps. Diet: Watches diet for salt (salty snacks, added salt, processed frozen/canned foods), sugary/sweet snacks, unhealthy fats: Yes Caffeine: 1 cup a day Water intake: 50-65 ounces HTN: Ms. Michael indicates that she is feeling well and denies any symptoms referable to elevated blood pressure. Specifically denies headache, chest pain, palpitations, dyspnea, and peripheral edema. Patient denies any side effects of her medication(s) and is compliant with their regimen. She does not check BP's generally. Last 3 Encounter BP Readings: Date: BP: 07/12/2023 142/90 - 136/79 09/06/2022 110/74 03/16/2022 112/62 Hypothyroidism: Takes medication as ordered. Denies any abnormal changes in weight or energy. Random sensations like she is on a wave or gliding. Last episode was last year and got nauseated. Lasts for 1-3 days. Occasional right hand tremor when using her right arm. 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 No longer doing her neck exercises regularly. Denies syncope, edema, numbness, or known injury. REVIEW OF SYSTEMS General: no fevers, no chills, no night sweats, no recurrent infections, no change in appetite, no change in energy, and no significant changes in weight Respiratory: no cough, no wheezing, no shortness of breath, no hemoptysis Cardiovascular: no chest pain, no chest pressure, no palpitations, and no swelling GI: No nausea, vomiting, or diarrhea Endocrine: no fatigue, no polyuria, no polyphagia, and no polydipsia Neurologic: No headache, numbness, memory loss, syncope. PAST MEDICAL HISTORY Diagnosis Date Chronic lymphocytic thyroiditis Hashimotos Displacement of lumbar intervertebral disc without myelopathy Environmental allergies Fibromyalgia Generalized osteoarthrosis, unspecified site GERD (gastroesophageal reflux disease) Hypertension Irregular menstrual cycle Irregular Periods Left shoulder pain 2013 past hx frozen shoulder Plantar fasciitis in Right Foot Tendinitis in Left Leg PAST SURGICAL HISTORY Procedure Laterality Date COLONOSCOPY FLX DX W/COLLJ SPEC WHEN PFRMD 10/12/2015 Colonoscopy mac ESOPHAGOGASTRODUODENOSCOPY TRANSORAL DIAGNOSTIC 10/12/2015 EGD mac PAST SURGICAL HISTORY OF Right 04/22/1975 manipulation dislocation arm, post sledding accident PAST SURGICAL HISTORY OF 04/22/1975 exploratory surgery for persistant UTI ALLERGIES Poison Abigail MEDICATIONS triamcinolone acetonide (KENALOG) 0.1 % ointment Apply to affected area 1-2 times per week. levothyroxine (SYNTHROID) 100 mcg tablet Take 1 tablet by mouth once daily. losartan (COZAAR) 25 mg tablet Take 1 tablet by mouth once daily. cholecalciferol, Vitamin D3, (VITAMIN D3) 1,250 mcg (50,000 unit) cap capsule Take 1 capsule by mouth one time a week. losartan (COZAAR) 25 mg tablet Take 1 tablet by mouth once daily. levothyroxine (SYNTHROID) 100 mcg tablet Take 1 tablet by mouth once daily. cholecalciferol, Vitamin D3, (VITAMIN D3) 1,250 mcg (50,000 unit) cap capsule Take 1 capsule by mouth one time a week. nystatin (MYCOSTATIN) powder Apply 1 application to affected area four times daily. For 10-14 days. Lactobac no.41/Bifidobact no.7 (PROBIOTIC-10 ORAL) Take by mouth. lidocaine-menthol 4-1 % lqro Apply to affected area. acetaminophen (TYLENOL) 325 mg tablet Take 650 mg by mouth every 4 hours as needed. FAMILY HISTORY Problem Relation Age of Onset Cancer Mother bladder, thyroid Heart Mother Two Cardiac Bypasses Kidney Disease Mother Hearing Loss Mother Osteoporosis Mother other (gout) Mother Diabetes Father Prostate cancer Prostate Cancer Father Cancer Father Skin Cancer Heart Father Breast Cancer Sister Diabetes Sister 2 sisters with diabetes type II and 2 sisters with hypertension Hypertension Sister Stroke Sister Heart Paternal Grandmother Hypertension Paternal Grandmother Cancer Paternal Grandfather prostate Diabetes Paternal Grandfather Thyroid Maternal Aunt Stroke Maternal Aunt other (bipolar) Other maternal great uncle other (other) Other Other Sleep Disorder No Family History Social History Tobacco Use Smoking status: Never Smokeless tobacco: Never Vaping Use Vaping Use: Never used Substance Use Topics Alcohol use: No Drug use: No PHYSICAL EXAM BP 136/79 Pulse 74 Resp 16 Ht 164.3 cm (5' 4.69 ) Wt 98 kg (216 lb) LMP 08/17/2016 (Approximate) SpO2 99% BMI 36.30 kg/m General Appearance: well appearing, in no acute distress, alert Pysch: mood and affect broad and appropriate Skin: Skin color, texture, turgor normal for age; Eyes: conjunctiva pink and moist, no icterus, sclera white, non-injected, EOMs intact Neck: Thyroid normal size and symmetric without palpable nodules, No bruits, Neck supple, No adenopathy Lymph nodes: No cervical lymphadenopathy and No supraclavicular lymphadenopathy Lungs: Lungs clear to auscultation. No wheezing, rhonchi, rales. Heart: RRR without murmur, gallop, or rubs. No ectopy Abdomen: Abdomen soft, non-tender. Bowel sounds normal. No masses, organomegaly BUE Extremities: No deformities, edema, skin discoloration, clubbing or cyanosis. Good capillary refill. Neurological: Gait normal. Reflexes normal and symmetric. Sensation intact., speech normal, mental status intact, muscle tone normal, muscle strength normal HIV Screening Never done DTaP,Tdap,Td Vaccine(2 - Td or Tdap) due on 03/27/2017 BP Controlled (<130/80) due on 01/09/2022 Depression Assessment due on 04/22/2023 Mammogram Screening due on 09/05/2023 Influenza Vaccine(1) due on 10/20/2023 Hepatitis B Vaccine(1 of 3 - 19+ 3-dose series) due on 07/11/2024 Shingrix Vaccine(1 of 2) due on 07/11/2024 Covid-19 Vaccine( season) due on 07/11/2024 Annual PCP Team Chronic Disease Visit due on 07/11/2024 Colorectal Cancer Screening due on 10/11/2025 Lipid Screening due on 01/07/2026 Diabetes Screening due on 07/08/2026 Pap Testing due on 07/27/2026 HPV Testing due on 07/27/2026 Hepatitis C Screening Completed ASSESSMENT/PLAN: 1. Annual physical exam - ICD9: V70.0, ICD10: Z00.00 (primary diagnosis) - Counseled on healthy diet and regular exercise - Calcium intake with supplements or by diet of 1000 mg/day for under 50, 0872-6246 mg/day for 50+ - Discussed need and benefit for weight loss. BMI 36.30 kg/(m^2) - Follow up for annual exam in one year - LIPID PANEL BASIC - HEPATIC FUNCTION PNL 2. Essential hypertension - ICD9: 401.9, ICD10: I10 - Controlled - Continue current medications - Recommend home blood pressure monitoring, to bring results to next visit - Encouraged sodium restriction, DASH or Mediterranean diet - Recommend regular aerobic exercise - LOSARTAN 25 MG TABLET 3. Acquired hypothyroidism - ICD9: 244.9, ICD10: E03.9 - Instructed patient on importance of taking on an empty stomach either first thing in the morning or at bedtime. - LEVOTHYROXINE 100 MCG TABLET 4. Vitamin D deficiency - ICD9: 268.9, ICD10: E55.9 - CHOLECALCIFEROL (VITAMIN D3) 1,250 MCG (50,000 UNIT) CAPSULE - VITAMIN D 25 HYDROXY 5. Tingling - ICD9: 782.0, ICD10: R20.2 - assessment normal, possibly from neck. Patient unsure how often this occurs and any preceding events. Is going to start doing her neck exercises regularly and start to monitor sensations. - HEPATIC FUNCTION PNL - VITAMIN B12 BLOOD 6. Disorder of vestibular function, unspecified laterality - ICD9: 386.50, ICD10: H81.90 Possibly vestibular/vertigo versus other cause. Patient to monitor at home to see how often this occurs as she feels she hasn't paid attention enough to this. 7. Tremor - ICD9: 781.0, ICD10: R25.1 - assessment normal Only occurs when lifted up and held still and then resolves. Discuss possibly weak and to start her neck and shoulder exercises then monitor if this continues at home. Patient to monitor at home to see how often this occurs as she feels she hasn't paid attention enough to this. 8. Encounter for immunization - ICD9: V03.89, ICD10: Z23 - TDAP VACCINE, AGE 7+ YR (ADACEL, BOOSTRIX) Prescription instructions reviewed with patient as applicable. Potential red flag symptoms discussed with the patient. Reviewed appropriate action plan to take if red flag symptoms occur. Patient agreeable to treatment plan. Rochelle Alcantar APRN.CNP documented in this encounter [facility] 06-25-2023 Miscellaneous Notes Patient has an appt with Rochelle Alcantar on 07/12/23. She needs refills, but isn't sure if the scripts will remain the same after her visit. Therefore, she is asking for short term refills to be sent to [facility] to get her to her appt. Patient has been identified by name and date of : Yes, Provider Marcellus Patient phones for refill(s): Requested Prescriptions Pending Prescriptions Disp Refills cholecalciferol, Vitamin D3, (VITAMIN D3) 1,250 mcg (50,000 unit) cap capsule Sig: Take 1 capsule by mouth one time a week. losartan (COZAAR) 25 mg tablet Sig: Take 1 tablet by mouth once daily. levothyroxine (SYNTHROID) 100 mcg tablet Sig: Take 1 tablet by mouth once daily. Date of last office visit in primary care: 03/16/2022 Date of next office visit in primary care: 07/12/2023 Please advise. Thank you. Jamaal Lemos. documented in this encounter [facility] 06-25-2023 Note Patient Outreach (IN [facility]) ---- JAMAAL MICHAEL ([id number]) 1965 F Date Time Provider Department 06/25/23 [facility] DONOHUE During your visit today, we recorded the following information about you: Allergies As of Date: 06/25/2023 Noted Allergy Reaction environmental [Other] 03/12/2006 Comments: seasonal allergies POISON ABIGAIL 08/24/2009 2 - Rash Date Reviewed: 09/06/2022 Reviewed by: Jennifer Murphy MD - Fully Assessed Visit Diagnoses:Essential hypertension [I10] Medication management [Z79.899] Hypothyroid [E03.9] Order(s):BASIC METABOLIC PNL [SQBMP] Order #: [id number] FUTURE HGB A1C [FLATJ6A] Order #: [id number] FUTURE TSH BLD [SQTSH] Order #: [id number] FUTURE Prescriptions as of 06/28/2023 - triamcinolone acetonide (KENALOG) 0.1 % ointment Apply to affected area 1-2 times per week. - cholecalciferol, Vitamin D3, (VITAMIN D3) 1,250 mcg (50,000 unit) cap capsule Take 1 capsule by mouth one time a week. - losartan (COZAAR) 25 mg tablet Take 1 tablet by mouth once daily. - levothyroxine (SYNTHROID) 100 mcg tablet Take 1 tablet by mouth once daily. - nystatin (MYCOSTATIN) powder Apply 1 application to affected area four times daily. For 10-14 days. - levothyroxine (SYNTHROID) 100 mcg tablet Take 1 tablet by mouth once daily. - losartan (COZAAR) 25 mg tablet Take 1 tablet by mouth once daily. - cholecalciferol, Vitamin D3, (VITAMIN D3) 1,250 mcg (50,000 unit) cap capsule Take 1 capsule by mouth one time a week. - meloxicam (MOBIC) 15 mg tablet Take 1 tablet by mouth once daily. - Lactobac no.41/Bifidobact no.7 (PROBIOTIC-10 ORAL) Take by mouth. - lidocaine-menthol 4-1 % lqro Apply to affected area. - lansoprazole (PREVACID) 30 mg capsule Take 1 capsule by mouth daily before breakfast. - acetaminophen (TYLENOL) 325 mg tablet Take 650 mg by mouth every 4 hours as needed. Problem List As Of Date 06/25/2023 Noted Resolved LUMBAR DISC DISPLACEMENT [M51.26] Chest pain, unspecified [R07.9] 03/27/2007 02/19/2018 [facility] LYMPHOCYT THYROIDIT [E06.3] 03/27/2007 Esophageal reflux [K21.9] 03/27/2007 02/19/2018 Backache, unspecified [M54.9] 04/12/2010 02/19/2018 Hypothyroid [E03.9] 02/18/2012 Vitamin d deficiency [E55.9] 02/19/2012 Other bursitis disorders [M71.50] 06/15/2014 02/19/2018 Pain in joint, pelvic region and thigh [M25.559]06/15/2014 02/19/2018 Family history of ischemic heart disease (IHD) *07/09/2015 GERD (gastroesophageal reflux disease) [K21.9] Hypertension [I10] 09/16/2015 Essential hypertension [I10] 09/07/2015 Inflammatory arthritis [M19.90] 02/26/2016 Fibromyalgia [M79.7] 07/24/2016 DDD (degenerative disc disease), lumbar [M51.36]11/16/2021 Right-sided low back pain with right-sided scia*11/16/2021 Kissing spine of lumbar region [M48.26] 11/16/2021 Meralgia paresthetica of right side [G57.11] 11/16/2021 Cervical spondylosis without myelopathy [M47.81*11/16/2021 Encounter Status:Closed by EPIC, PRODUSER on 06/28/23 [facility] 09-04-2022 History of Present illness Narrative Radiology Service Progress Note PATIENT NAME: Jamaal Michael DATE OF SERVICE: September 04, 2022 TIME: 1:55 PM PATIENT IDENTITY VERIFICATION COMPLETED USING TWO (2) IDENTIFIERS: Name and Date of confirmed by patient verbally. FALL SCREENING: Has the patient had 2 falls in the last year or 1 fall with injury or currently using an Ambulatory Assistive Device (Walker, Cane, Wheelchair, Crutches, etc.)? No PATIENT GENDER DATA: Female. status: : No status: NO. PATIENT RELEVANT IMPLANT DATA REVIEWED: Not Applicable RADIOLOGY DEPARTMENT: Mammography PERIPHERAL IV DATA: Not applicable SIGNED BY: RT Coleen(R) September 04, 2022 1:55 PM documented in this encounter [facility] 03-16-2022 History of Present illness Narrative Reason for Visit Patient presents with: Follow Up: refills and questions Jamaal Michael is a 57 year old female who presents here today for Above Complaints.. 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 She may need an updated mri. With Physical Therapy for back she notices some help. She has to do exercise daily to keep pain off and meloxicam We discussed meloxicam and elevated bp, to keep a watch on the bp if she is going to try the medication. Gfr is normal Hypothyroidism. She is doing well on her current dose of Synthroid. Denies fatigue, cold intolerance and swelling in feet. TSH recently checked and normal. She has some eye complaints from some types of flares. No problem-specific Assessment & Plan notes found for this encounter. PAST MEDICAL HISTORY Diagnosis Date Chronic lymphocytic thyroiditis Hashimotos Displacement of lumbar intervertebral disc without myelopathy Environmental allergies Fibromyalgia Generalized osteoarthrosis, unspecified site GERD (gastroesophageal reflux disease) Hypertension Irregular menstrual cycle Irregular Periods Left shoulder pain 2013 past hx frozen shoulder Plantar fasciitis in Right Foot Tendinitis in Left Leg PAST SURGICAL HISTORY Procedure Laterality Date COLONOSCOPY FLX DX W/COLLJ SPEC WHEN PFRMD 10/12/2015 Colonoscopy mac ESOPHAGOGASTRODUODENOSCOPY TRANSORAL DIAGNOSTIC 10/12/2015 EGD mac PAST SURGICAL HISTORY OF Right 04/22/1975 manipulation dislocation arm, post sledding accident PAST SURGICAL HISTORY OF 04/22/1975 exploratory surgery for persistant UTI FAMILY HISTORY Problem Relation Age of Onset Cancer Mother bladder, thyroid Heart Mother Two Cardiac Bypasses Kidney Disease Mother Hearing Loss Mother Osteoporosis Mother other (gout) Mother Diabetes Father Prostate cancer Prostate Cancer Father Cancer Father Skin Cancer Heart Father Breast Cancer Sister Diabetes Sister 2 sisters with diabetes type II and 2 sisters with hypertension Hypertension Sister Stroke Sister Heart Paternal Grandmother Hypertension Paternal Grandmother Cancer Paternal Grandfather prostate Diabetes Paternal Grandfather Thyroid Maternal Aunt Stroke Maternal Aunt other (bipolar) Other maternal great uncle other (other) Other Other Sleep Disorder No Family History Social History Tobacco Use Smoking status: Never Smokeless tobacco: Never Vaping Use Vaping Use: Never used Substance Use Topics Alcohol use: No Drug use: No Past medical history, appointments, medications, allergies reviewed. Pertinent Lab/Diagnostic Studies are reviewed and discussed today Current Outpatient Medications: triamcinolone acetonide (KENALOG) 0.1 % ointment meloxicam (MOBIC) 15 mg tablet cholecalciferol, Vitamin D3, (VITAMIN D3) 1,250 mcg (50,000 unit) cap capsule levothyroxine (SYNTHROID) 100 mcg tablet losartan (COZAAR) 25 mg tablet Lactobac no.41/Bifidobact no.7 (PROBIOTIC-10 ORAL) lidocaine-menthol 4-1 % lqro lansoprazole (PREVACID) 30 mg capsule acetaminophen (TYLENOL) 325 mg tablet Review of Systems CONSTITUTIONAL: No fevers, chills night sweats, unintended weight loss CARDIOVASCULAR: No chest pain, dyspnea, palpitations, orthopnea, PND, ankle edema. PULM: No dyspnea, unexplained cough. GI: No dysphagia/odynophagia, problematic reflux, constipation, diarrhea, changes in stool habits, hematochezia, melena. : No new urinary complaints, including dysuria, gross hematuria or pyuria. NEURO: No new balance problems, peripheral weakness/paresthesias or numbness of concern. Physical Exam BP 112/62 (BP Site: Left Arm, BP Position: Sitting, BP Cuff Size: Large Adult) Pulse 72 Temp 36.4 C (97.6 F) Resp 12 Ht 165.1 cm (5' 5 ) Wt 96.2 kg (212 lb) LMP 08/17/2016 (Approximate) SpO2 98% BMI 35.28 kg/m General appearance: Well appearing, alert, in no acute distress, well nourished. Skin: Skin color, texture, turgor normal, no suspicious rashes or lesions Head: Normocephalic, no masses, lesions, tenderness or abnormalities Eyes: Anicteric sclera. Pupils are equally round and reactive to light. Extraocular movements are intact. Lungs: Lungs clear to auscultation. No wheezing, rhonchi, rales Heart: RRR without murmur, gallop, or rubs. Extremities: No deformities, edema, skin discoloration, clubbing or cyanosis. Good capillary refill. ASSESSMENT/PLAN: 1. Essential hypertension - ICD9: 401.9, ICD10: I10 (primary diagnosis) - good control - Recommended regular aerobic exercise. - Recommend home blood pressure monitoring, to bring results in on next visit - Goal of BP <130/80 - LOSARTAN 25 MG TABLET 2. Acquired hypothyroidism - ICD9: 244.9, ICD10: E03.9 - Instructed patient on importance of taking on an empty stomach either first thing in the morning or at bedtime. Stable - Continue current medications - LEVOTHYROXINE 100 MCG TABLET 3. Vitamin D deficiency - ICD9: 268.9, ICD10: E55.9 - CHOLECALCIFEROL (VITAMIN D3) 1,250 MCG (50,000 UNIT) CAPSULE 4. Screening for HIV (human immunodeficiency virus) - ICD9: V73.89, ICD10: Z11.4 - HIV 1 2 COMBO(AG/AB),WITH REFLEX TO DIFFERENTIATION 5. DDD (degenerative disc disease), lumbar - ICD9: 722.52, ICD10: M51.36 Lumbosacral sprain Fer Donohue MD documented in this encounter [facility] 12-19-2021 History of Present illness Narrative Episode Visit Count: 6 Therapist That Will Oversee The Plan Of Care: Vick Lieberman Start of Care Date: 11/16/21 Onset Date: 05/19/21 (Cervical issues for years . LBP for many years that have come and gone) Patient Identified by Name and Date of : Yes REHABILITATION AND SPORTS THERAPY PHYSICAL THERAPY DISCONTINUANCE OF CARE PLAN OF CARE UPDATE: Assessment: Jamaal Michael is discontinued from Physical Therapy services due to Patient/Clinician mutual decision to discontinue current plan of care.. Patient was seen for 6 visits from Start of Care Date: 11/16/21 to 12/19/2021 and treatment included: Therapeutic exercise. Goals updated 12/19/2021 Goals for Episode of Care: created on 11/16/21 through 01/11/22 Pt will be able to sit for prolonged periods of time without increased Pain - Progressed Pt will demonstrates decreased pain with active lumbar ROM by 50% or greater in 8 weeks or less for improved QOL - MET Pt will report decreased neck pain intensity by 50% or greater in 8 weeks or less for improved QOL - Progressed Pt will report decreased frequency of radicular symptoms into the UE in 8 weeks or less - Progressed Pt will report decreased frequency of radiating symptoms into bilat LEs in 8 weeks or less - Progressed [place] in home exercise program.- MET Patient Goals: Manage symptoms SUBJECTIVE: Patient Reason for Visit: Pt has been feeling up and down in terms of how her body feels. The recovery from soreness may be faster than before therapy. Pt feels 40-70% of imporvment in symptoms overall so far. Pt would like to continue with the HEP independently to try and reach further improvement over the next 4-6 weeks. If the symptoms plateue and feels she needs to reach out to her referrign provider then she will. Pain: Pain Pain Location: Neck Pain Location 2: Low Back/Lumbar Spine - Left PROMIS Scales Higher is Better 06/27/2021 10/21/2021 11/13/2021 Phys Func - Score - 42 (mild dysfunction) - Phys Func - Percentile - 21 % - Social Roles - Score 45 (within normal limits) 45 (within normal limits) - Social Role - Percentile 31 % 31 % - GH Physical - Score 39.8 (Fair) 39.8 (Fair) - GH Physical - Percentile 15 % 15 % - GH Mental - Score 38.8 (Fair) 41.1 (Good) - GH Mental - Percentile 13 % 19 % - Self-Eff Symptom - Score 42 (Average) - 44 (Average) Self-Eff Symptom - Percentile 21 % - 27 % T-scores: mean of general population = 50. 5 points is clinically meaningfully difference Percentiles provide an indication of how the patient's score ranks in relation to the general population. Higher percentile rankings indicate better function/quality of life. 50th percentile is the average of the general population and indicates half of respondents had a worse score. Lower is Better 06/27/2021 10/21/2021 Fatigue - Score 64 (moderate) 57 (mild) Fatigue - Percentile 8 % 24 % T-scores: mean of general population = 50. 5 points is clinically meaningfully difference Percentiles provide an indication of how the patient's score ranks in relation to the general population. Higher percentile rankings indicate better function/quality of life. 50th percentile is the average of the general population and indicates half of respondents had a worse score. OBJECTIVE MEASURES WITH LEVEL OF FUNCTION: Lumbar Spine AROM Lumbar Flexion: Normal (relief) Lumbar Extension: Minimal limitation Lumbar R Side-Bend: Normal Lumbar L Side-Bend: Normal UE AROM R UE AROM: WNL L UE AROM: WNL LE AROM R LE AROM: WNL L LE AROM: WNL LE Flexibility R Hip Flexor Flexibility: WNL L Hip Flexor Flexibility: WNL R Quadriceps Flexibility: WNL L Quadriceps Flexibility: WNL UE and Cervical Strength Strength Tested: Shoulder Functional Strength R UE Strength: Grossly 5/5 L UE Strength: Grossly 5/5 L Shoulder Abduction (C5): 4/5 LE Strength R LE Strength: Grossly 5/5 L LE Strength: Grossly 5/5 L Hip Flexion (L2): 4/5 (Pain in the L side of the back) Gait Gait Observation: WNL TREATMENT: Therapeutic Exercise: 1: All objective measures taken this session 2: Discussed modifications to the HEP. Discussed progression of therapeutic exercises and discussed current plan of care moving forward post formal PT. Skilled Intervention: Patient was educated in proper exercise technique and purpose for exercises. Correct performance of therapeutic exercises was facilitated with verbal and visual cuing. Self-Longterm Management: 1: Discussed ways to improve pain and stiffness of the low back while sitting in the car for prolonged periods of time. Discussed PPT and crunches on a reclined seat. Discussed taking breaks from ADL's as needed trying to avoid flare-ups of symptoms Skilled Intervention: Skilled judgment in the selection of proper modification for activity of daily living/home management based on clinical presentation, deficits, and needs. Billing Therapeutic Exercise Treatment Minutes: 28 Self-Care/Home Management Treatment Minutes: 10 Total Treatment Time Minutes (timed/untimed): 38 Vick Lieberman PT documented in this encounter [facility] 11-30-2021 History of Present illness Narrative Episode Visit Count: 5 Therapist That Will Oversee The Plan Of Care: Vick Lieberman Start of Care Date: 11/16/21 Onset Date: 05/19/21 (Cervical issues for years . LBP for many years that have come and gone) Patient Identified by Name and Date of : Yes REHABILITATION AND SPORTS THERAPY PHYSICAL THERAPY TREATMENT NOTE ASSESSMENT: Jamaal Michael tolerated the session with no issues. She demonstrated good tolerance to all therapeutic exercises. The patient will continue to benefit from ongoing skilled physical therapy to progress toward set goals. PLAN FOR NEXT VISIT: Core stabilization SUBJECTIVE: Patient Reason for Visit: Pt slept hard through the night on the L side which is why the L side of the body is sore. Pain: Pain Pain Location: Neck Pain Location 2: Low Back/Lumbar Spine - Left OBJECTIVE MEASURES WITH LEVEL OF FUNCTION: TREATMENT: Therapeutic Exercise: 1: SciFit x 5 min 2: Standing plank with hip ext alternate 3 x 10 3: Standing scalene stretch (anterior) with towel 3 x 30 sec each side 4: Standing MB press 7# 2 x 12 reps 5: Discussed possible core strengthening on a physioball Skilled Intervention: Patient was educated in proper exercise technique and purpose for exercises. Correct performance of therapeutic exercises was facilitated with verbal and visual cuing. Billing Therapeutic Exercise Treatment Minutes: 38 Total Treatment Time Minutes (timed/untimed): 38 Vick Lieberman PT documented in this encounter [facility] 11-28-2021 History of Present illness Narrative Episode Visit Count: 4 Therapist That Will Oversee The Plan Of Care: Vick Lieberman Start of Care Date: 11/16/21 Onset Date: 05/19/21 (Cervical issues for years . LBP for many years that have come and gone) Patient Identified by Name and Date of : Yes REHABILITATION AND SPORTS THERAPY PHYSICAL THERAPY TREATMENT NOTE ASSESSMENT: Jamaal Michael tolerated the session with no issues. She demonstrated pain at the upper traps bilat and pain at the L low back. The patient will continue to benefit from ongoing skilled physical therapy to progress toward set goals. PLAN FOR NEXT VISIT: Core stabilization SUBJECTIVE: Patient Reason for Visit: The R leg numbness is about the same. Pain: Pain Pain Level: (Not rated) Pain Location: Neck Additional Pain Information : Location 2 Pain Level 2: (Not rated) Pain Location 2: Low Back/Lumbar Spine - Left OBJECTIVE MEASURES WITH LEVEL OF FUNCTION: Cervical flexion WNL Cervical WNL Lumbar flexion some pain during movement Lumbar ext WNL Hip flexion RLE and LLE 4-/5 TREATMENT: Therapeutic Exercise: 1: Forward leaning plank with hip ext alternating 3 x 10 2: Standing lumbar ext x 15 3: Standing lumbar flexion holds 3 x 10 4: Discussed modification to the HEP. Discussed proper form of standing plank Skilled Intervention: Patient was educated in proper exercise technique and purpose for exercises. Billing Therapeutic Exercise Treatment Minutes: 40 Total Treatment Time Minutes (timed/untimed): 40 Vick Lieberman PT documented in this encounter [facility] 11-24-2021 History of Present illness Narrative Episode Visit Count: 3 Therapist That Will Oversee The Plan Of Care: Vick Lieberman Start of Care Date: 11/16/21 Onset Date: 05/19/21 (Cervical issues for years . LBP for many years that have come and gone) Patient Identified by Name and Date of : Yes REHABILITATION AND SPORTS THERAPY PHYSICAL THERAPY TREATMENT NOTE ASSESSMENT: Jamaal Michael tolerated the session with possible decrease in R thigh symptoms post manual therapy but will assess for permanent improvement next visit. She demonstrated good form with newly added ther-ex. The patient will continue to benefit from ongoing skilled physical therapy to progress toward set goals. PLAN FOR NEXT VISIT: Assess reaction to self massage SUBJECTIVE: Patient Reason for Visit: Pt states that she realized her legs in general feel less tired and achey. Still feeling the numbness and tingling in the R lateral thigh. But in general the legs are feeling less achey or tired. Pain: OBJECTIVE MEASURES WITH LEVEL OF FUNCTION: Leg length WNL Slightly lower R ASIS on palpation of pelvic alignment Trigger point and taught R proximal quadriceps vs L quadriceps Negative femoral nerve testing TREATMENT: Therapeutic Exercise: 1: Standing lumbar ext x 10 reps Skilled Intervention: Patient was educated in proper exercise technique and purpose for exercises. Manual Therapy: 1: Resisted hip ext x 8 reps x 2 holding 8 sec 2: Firm pressure through R quadriceps using index knobbler (Proximal muscle belly was targeted) 3: Discussed self massage over the R quad with use of a tennis ball after using a hot pack on the area for 5-10 minutes Skilled Intervention: Manual skills to improve joint mobility, ROM, and decrease pain. Utilized anatomy knowledge of the therapist, and assessment of patient's response to intervention. Billing Therapeutic Exercise Treatment Minutes: 4 Manual TherapyTreatment Minutes: 38 Vick Lieberman PT documented in this encounter [facility] 11-16-2021 History of Present illness Narrative Episode Visit Count: 1 Therapist That Will Oversee The Plan Of Care: Vick Lieberman Start of Care Date: 11/16/21 Onset Date: 05/19/21 (Cervical issues for years . LBP for many years that have come and gone) Patient Identified by Name and Date of : Yes REHABILITATION AND SPORTS THERAPY PHYSICAL THERAPY EVALUATION PLAN OF CARE: Assessment: Jamaal Michael presents with chief complaint of Neck and low back pain with bilat UE and LE radiating symptoms that interferes with nothing . She presents with impairments in independence in exercise, strength , symptom management and tissue tenderness. PROMIS (Patient-Reported Outcomes Measurement Information System) scores were reviewed and fatigue domain identified as a rehabilitation concern. Prognosis for therapy is Good due to: current objective clinical presentation . Pt demonstrates signs of central sensitivity including allodynia and non-anatomical distribution of pain at times. She will benefit from skilled therapy services to meet the goals established for this plan of care as noted below. Classification Low Back Pain Subgroup Classification: Graded activity subgroup: recommended visits 12. Goals for Episode of Care: created on 11/16/21 through 01/11/22 Pt will be able to sit for prolonged periods of time without increased pain Pt will demonstrates decreased pain with active lumbar ROM by 50% or greater in 8 weeks or less for improved QOL Pt will report decreased neck pain intensity by 50% or greater in 8 weeks or less for improved QOL Pt will report decreased frequency of radicular symptoms into the UE in 8 weeks or less Pt will report decreased frequency of radiating symptoms into bilat LEs in 8 weeks or less [place] in home exercise program. Patient Goals: Manage symptoms Planned Interventions, Frequency, and Duration: Current Frequency: 2x/week Duration: 4 weeks Total Number of Visits Planned: 8 Planned Treatment Interventions: Therapeutic exercise (61406);Neuromuscular re-education (49927);Manual therapy ([id number]);Self-assisted management ([id number]);Patient/Family/Caregiver Education PLAN FOR NEXT VISIT: Graded exercise. Possible PNE cards. Assess cervical ROM. Assess LE and UE strength. Patient demonstrates good understanding of plan of care and treatment. The above goals and plan of care were discussed and agreed upon by patient/family. SUBJECTIVE: Jamaal Michael is a 56 year old female seen today for Cervical and lumbar pain. Pain in the neck for years and worse radicular symptoms for the past 6-9 months. Coldness in the L upper extremity. Past 3 months sleeping on one side then that side will go numb. The numbness is not always there. Hx of frozen shoulder on the L. Can get relieving popping in the neck. Does get popping in the back. Patient Goals: Manage symptoms Functional Limitations: nothing Prior Level of Function: Independent without limitations Relevant History Preferred Language: Ukrainian Intake Information: Prescription present Previous Treatment: Physical Therapy Falls Interview: No positive findings with falls interview Red Flags Vertebral Fracture Red Flags: Female Vertebral Fracture Clinical Reasoning: No identified risk factors Abdominal Aortic Aneurysm Clinical Reasoning: No identified risk factors. Cancer Red Flags: Age >50 or <20 Cancer Clinical Reasoning: No identified risk factors. Infection Clinical Reasoning: No identified risk factors. Cauda Equina Syndrome Clinical Reasoning: No identified risk factors. Cervical Arterial Dysfunction Clinical Reasoning: No identified risk factors Cervical Myelopathy: Age > 45 yo Cervical Myelopathy Diagnostic Rule: No identified risk factors. Red Flags - Cervical Cancer Red Flags: Age >50 or <20 Cancer Clinical Reasoning: No identified risk factors. Infection Clinical Reasoning: No identified risk factors. Cervical Arterial Dysfunction Clinical Reasoning: No identified risk factors Cervical Myelopathy: Age > 45 yo Cervical Myelopathy Diagnostic Rule: No identified risk factors. Spine History Symptoms Location at Onset: Neck;Back Symptoms Since Onset: Worsening Pain: Pain Pain Level: 3 Pain Location: Neck Additional Pain Information : Location 2 Pain Level 2: 3 Pain Location 2: Back Description 2: Aching Post Treatment Pain Post Treatment Pain Level: (neck and back not rated at end of session) PROMIS Scales Higher is Better 06/27/2021 10/21/2021 11/13/2021 Phys Func - Score - 42 (mild dysfunction) - Phys Func - Percentile - 21 % - Social Roles - Score 45 (within normal limits) 45 (within normal limits) - Social Role - Percentile 31 % 31 % - GH Physical - Score 39.8 (Fair) 39.8 (Fair) - GH Physical - Percentile 15 % 15 % - GH Mental - Score 38.8 (Fair) 41.1 (Good) - GH Mental - Percentile 13 % 19 % - Self-Eff Symptom - Score 42 (Average) - 44 (Average) Self-Eff Symptom - Percentile 21 % - 27 % T-scores: mean of general population = 50. 5 points is clinically meaningfully difference Percentiles provide an indication of how the patient's score ranks in relation to the general population. Higher percentile rankings indicate better function/quality of life. 50th percentile is the average of the general population and indicates half of respondents had a worse score. Lower is Better 06/27/2021 10/21/2021 Fatigue - Score 64 (moderate) 57 (mild) Fatigue - Percentile 8 % 24 % T-scores: mean of general population = 50. 5 points is clinically meaningfully difference Percentiles provide an indication of how the patient's score ranks in relation to the general population. Higher percentile rankings indicate better function/quality of life. 50th percentile is the average of the general population and indicates half of respondents had a worse score. OBJECTIVE MEASURES WITH LEVEL OF FUNCTION: Spine Observations R Cervical Spine Palpation Tenderness: Paraspinals;Upper trapezius L Cervical Spine Palpation Tenderness: Upper trapezius;Paraspinals R Lumbar Spine Palpation Tenderness: Paraspinals;PSIS (posterior superior iliac spine);Gluteals;Spinous process L Lumbar Spine Palpation Tenderness: Paraspinals;PSIS (posterior superior iliac spine);Spinous process;Gluteals Lumbar Spine AROM Lumbar Flexion: Normal (Increased ache) Lumbar Extension: Increased pain;Minimal limitation Lumbar R Side-Bend: Normal;Peripheralizing Lumbar L Side-Bend: Normal;Increased pain Lumbar R Rotation: Normal;Increased pain Lumbar L Rotation: Normal;Increased pain LE AROM Tested?: Yes UE AROM R UE AROM: WFL L UE AROM: WFL LE Flexibility Flexibility: Quadriceps Flexibility;Hip Flexor Flexibility R Hip Flexor Flexibility: WNL L Hip Flexor Flexibility: WNL R Quadriceps Flexibility: WNL L Quadriceps Flexibility: WNL Spine Joint Mobility Spine Joint Mobility : Cervical/Thoracic Joint Mobility - C2: WNL Joint Mobility - C3: WNL Joint Mobility - C4: WNL Joint Mobility - C5: WNL Joint Mobility - C6: WNL Joint Mobility - C7: WNL Joint Mobility - T1: WNL LE Strength R Hip Extension: 3+/5 L Hip Extension: 3+/5 Education: Education Learning Preferences: Demonstration;Explanation;Performance; Printed Materials Barriers: None Learning/educational needs: Home exercise program;Plan of Care Education Provided: Yes, see treatment interventions for education provided Education Provided To: Patient Education Mode/Type: Demonstration;Explanation/Discussion;L iterature/Printed Materials;Performance Response to Education/Teach Back: States/Identifies;Return Demonstration TREATMENT: PT Treatment Interventions: Therapeutic Exercise;Self-Longterm Management Evaluation Therapeutic Exercise: 1: Discussed therapy goals, exam findings, and purpose of the HEP. Written handout provided. 2: PPU x 10 reps (Discussed doing sets of 5 at home to ease stress on the arms) 3: DNF x 15 seconds (Discussed proper form and duration for home) Skilled Intervention: Patient was educated in proper exercise technique and purpose for exercises. Provided written instruction for home exercise program to facilitate proper performance and compliance. Correct performance of therapeutic exercises was facilitated with verbal and visual cuing. Self-Longterm Management: 1: Discussed stress management and proper breathing techniques. Dicussed symptoms management and the idea behind central sensitivity. Explained the difference between the sympathetic and parasympathetic nervous system and how an imbalance in these symptoms can influence the body. Referred how the body works video for home viewing. Skilled Intervention: Skilled judgment in the selection of proper modification for activity of daily living/home management based on clinical presentation, deficits, and needs. Billing * Evaluation Moderate Complexity: 1 Unit Therapeutic Exercise Treatment Minutes: 20 Self-Care/Home Management Treatment Minutes: 15 Total Treatment Time Minutes (timed/untimed): 66 Vick Lieberman PT documented in this encounter [facility] 10-27-2021 Instructions Mehul Workman, - 10/27/2021 8:35 AM EDT Images from the original note were not included. Chronic Lumbar Radiculopathy (Leg Pain) Overview: Symptoms of a pinched nerve in the leg (lumbar radiculopathy) include numbness, tingling and even weakness. Leg pain is usually worse than back pain. The cause of nerve impingement may include a protruding (herniated) disc, bony or joint overgrowth or both. Lumbar spinal stenosis is a condition which results from narrowing of the spinal canal which contains the lower spinal nerves. This condition typically produces leg symptoms when standing or walking which are relieved by sitting. The prognosis for a full recovery with conservative (non-surgical) treatment is good in most persons. X-rays or scans (MRI or CT) are not required in most patients before starting treatment but may be performed if symptoms aren't improving after about 6 weeks despite medical treatment. Treatment: Pain-relieving anti-inflammatory medications such as ibuprofen or naproxen are recommended. Acetaminophen (Tylenol) is recommended if you cannot take anti-inflammatory medications. Medications effective for nerve pain such as gabapentin (Neurontin), pregabalin (Lyrica) or some antidepressants may be helpful for leg pain. A short course of oral steroids (prednisone or Medrol) may help alleviate severe, acute inflammation. For persistent pain despite oral medications and physical therapy, an epidural corticosteroid injection ( block ) may be recommended if an MRI or CT scan confirms nerve impingement ( pinched nerve ). Remaining as active as possible and resuming normal activities are recommended to speed recovery. Physical therapy is recommended for development of an active exercise program. If weakness is developing in the affected leg or if pain is severe despite medical treatment, a surgical consultation may be recommended if an MRI or CT scan confirms nerve impingement. Follow Up See your health care provider if: The pain doesn't improve or worsens You notice increasing weakness in the leg(s) You experience problems with balance or walking You notice difficulty passing urine or controlling your bowels These are warning signs or red flags that require prompt, urgent medical attention. SIGNATURE: Mehul Workman DO PATIENT NAME: Jamaal Michael DATE: October 27, 2021 TIME: 8:35 AM documented in this encounter [facility] 10-27-2021 History of Present illness Narrative Spine Care Path Radicular Leg Pain - Chronic (> 12 weeks) Initial Exam SUBJECTIVE HISTORY OF PRESENT ILLNESS: Jamaal Michael is a 56 year old female who presents with a chief complaint of low back and leg pain and is seen in consultation requested by Dr. Fer Donohue for an opinion regarding low back and leg pain. . My final recommendations will be communicated back to the requesting physician by way of shared medical record or letter via [place] mail. Patient presents today with complaints of low back and bilateral leg pain. Reports for many years has dealt with generalized low back pain and intermittent leg symptoms which she reports in the past seemed more significant, however, now the level of pain and her interpretation of pain have stabilized to a lower level in general. But now reports pain in the lumbar spine intermittent paresthesias and pain radiating down the right lateral thigh. Describes left sided upper buttock and low back pain which seems to have been worsening. Describes shooting pains into the bilateral lower limbs which she reports 50-50 right and left. Has undergone lumbar MRI back in 2005 or 2006 reports for approximately the last year has been developing progressively worsening right anterior lateral thigh pain paresthesias numbness. Reports does notice weakness in the lower limbs. Feels left is more affected than the right. Does also describe paresthesias which radiate past the knees and aching in the right anterior lateral hayes as well as on the left. Patient here today to get a second opinion regarding her low back and leg symptoms and further treatment or diagnostic options. Patient deals with other medical conditions such as hypothyroidism and Sheryl's. Is not a diabetic however. Has not undergone EMG in the past. Also deals with intermittent paresthesias and dense coldness into the first 3 digits in the left hand. Other Issues Addressed at the Visit Today: Also dealing with paresthesias into the bilateral upper limbs. Dealing with rib pain throughout the thoracic spine wondering whether this is related to her lumbar spine issues. Precipitating Event: None PAIN EVALUATION 10/27/2021 0806 Pain Level: 5 Pain Location: Back-Lower Description: Aching;Throbbing Duration Units: Years Frequency: Continuous Pain Radiation: down the right thigh Aggravating Factors: Driving (riding in a car), Lying sitting (walking not worse) Bending Alleviating Factors: Heat application, Cold application, biofreeze, PT, Lidocaine , Prednisone Pain Ratio: 50 % back pain, 50 % leg pain Prior Therapy: Medications: tylenol, occasion NSAID PT years ago Litigation: No Workers' Compensation: No YELLOW & BLUE FLAGS No-Neg Attitude; Back Pain is Disabling No-Avoiding Activity (for Fear of Pain) No-Depression or Anxiety Disorders No-Social Problems No-Substance Use Disorder No-Job Dissatisfaction No-Financial Disincentives Patient Entered Questionnaires Spine Questions 10/21/2021 Pain Location: Lower back Pain Duration: More than 5 years Pain over last 6 months: Every day or nearly every day in the past 6 months Symptoms from neck/cervical spine: Yes 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 Involved in law suit/legal claim: No Spine Red Flags 04/05/2021 10/21/2021 Any type of cancer: No No Unexplained fever: No No Bowel or bladder disfunction: No No Unintentional weight loss: No - Osteoporosis: No No Neck Questionnaires 10/21/2021 Benzel Modified AUNDREA Score 16 (A lower score indicates increased pain and issues.) PROMIS Score Percentiles Physical Health 04/05/2021 06/27/2021 10/21/2021 Physical Function Percentile 21* - 21* Sleep Percentile 34 24* 34 Fatigue Percentile - 8 24* Pain Interference Percentile 12 12 12 PROMIS SOCIAL ROLE SCORE 06/27/2021 10/21/2021 Social Role Satisfaction Percentile 31 31 PROMIS Global Health Scale 04/05/2021 06/27/2021 10/21/2021 Physical Health Percentile 15 15 15 Mental Health Percentile 13 13 19* Percentiles provide an indication of how the patient's score ranks in relation to the general population. Higher percentile rankings indicate better function/quality of life. 50th percentile is the average of the general population and indicates half of respondents had a worse score. Depression Screening: PHQ-9 07/25/2010 06/27/2021 10/21/2021 Score 3 8 8 PHQ-9 Self Harm 06/27/2021 10/21/2021 Question 9 Not at all Not at all PHQ-9 Self-Harm (Item 9) response options: 0 Not at all 1 Several days 2 More than half the days 3 Nearly every day PHQ-9 Levels: 0-4 No - mild depression 5-9 Mild depression 10-14 Moderate depression 15-19 Moderately severe depression 20-27 Severe depression ACTIVE PROBLEM LIST Displacement of Lumbar Intervertebral Disc Without Myelopathy Chronic Lymphocytic Thyroiditis Hypothyroid Vitamin D Deficiency Family History of Ischemic Heart Disease (Ihd) Gerd (Gastroesophageal Reflux Disease) Essential Hypertension Inflammatory Arthritis Fibromyalgia PAST MEDICAL HISTORY Diagnosis Date Chronic lymphocytic thyroiditis Hashimotos Displacement of lumbar intervertebral disc without myelopathy Environmental allergies Fibromyalgia Generalized osteoarthrosis, unspecified site GERD (gastroesophageal reflux disease) Hypertension Irregular menstrual cycle Irregular Periods Left shoulder pain 2014 past hx frozen shoulder Plantar fasciitis in Right Foot Tendinitis in Left Leg PAST SURGICAL HISTORY Procedure Laterality Date COLONOSCOPY FLX DX W/COLLJ SPEC WHEN PFRMD 10/12/2015 Colonoscopy mac ESOPHAGOGASTRODUODENOSCOPY TRANSORAL DIAGNOSTIC 10/12/2015 EGD mac PAST SURGICAL HISTORY OF Right 04/22/1975 manipulation dislocation arm, post sledding accident PAST SURGICAL HISTORY OF 04/22/1975 exploratory surgery for persistant UTI Social History Tobacco Use Smoking status: Never Smoker Smokeless tobacco: Never Used Vaping Use Vaping Use: Never used Substance Use Topics Alcohol use: No Drug use: No FAMILY HISTORY Problem Relation Age of Onset Cancer Mother bladder, thyroid Heart Mother Two Cardiac Bypasses Kidney Disease Mother Hearing Loss Mother Osteoporosis Mother other (gout) Mother Diabetes Father Prostate cancer Prostate Cancer Father Cancer Father Skin Cancer Heart Father Breast Cancer Sister Diabetes Sister 2 sisters with diabetes type II and 2 sisters with hypertension Hypertension Sister Stroke Sister Heart Paternal Grandmother Hypertension Paternal Grandmother Cancer Paternal Grandfather prostate Diabetes Paternal Grandfather Thyroid Maternal Aunt Stroke Maternal Aunt other (bipolar) Other maternal great uncle other (other) Other Other Sleep Disorder No Family History ALLERGIES Allergen Reactions Environmental [Othe* seasonal allergies Poison Abigail Rash CURRENT MEDICATIONS: triamcinolone acetonide (KENALOG) 0.1 % ointment Use every 1-2 days to affected area. Over the next month decreased to 2-3 times per week. cholecalciferol, Vitamin D3, (VITAMIN D3) 1,250 mcg (50,000 unit) cap capsule Take 1 capsule by mouth one time a week. levothyroxine (SYNTHROID) 100 mcg tablet Take 1 tablet by mouth once daily. losartan (COZAAR) 25 mg tablet Take 1 tablet by mouth once daily. Lactobac no.41/Bifidobact no.7 (PROBIOTIC-10 ORAL) Take by mouth. lidocaine-menthol 4-1 % lqro Apply to affected area. acetaminophen (TYLENOL) 325 mg tablet Take 650 mg by mouth every 4 hours as needed. meloxicam (MOBIC) 15 mg tablet Take 1 tablet by mouth once daily. lansoprazole (PREVACID) 30 mg capsule Take 1 capsule by mouth daily before breakfast. REVIEW OF SYSTEMS: Review of Systems Constitutional: Negative Eyes: Negative Hent: Negative Cardiovascular: Negative Respiratory: Negative GI: Negative : Negative Endocrine: Negative Musculoskeletal Positive for Back Pain and Muscle Pain Integumentary: Negative Allergy/Immunologic: Negative Neurologic Positive for Numbness/Tingling Psychiatric: Negative Patient's Review of Systems has been reviewed with the patient and updated as appropriate. OBJECTIVE: PHYSICAL EXAM Resp 12 Ht 165.1 cm (5' 5 ) Wt 98.9 kg (218 lb) LMP 08/17/2016 (Approximate) BMI 36.28 kg/m GENERAL APPEARANCE: Well appearing, well-hydrated, well nourished and alert SKIN: Head, neck, trunk, and extremities dry, intact and without lesions HEART: Peripheral pulses: normal, 2+ bilaterally and symmetric, Edema: No LUNGS: even and non-labored breathing, normal chest excursion LYMPHATICS: No palpable lymphadenopathy in the neck, axilla, or groin NEURO/PSYCH: oriented to time, place, and person, speech normal, mental status intact GAIT: normal, toe walking normal, heel walking normal, slight tandem gait difficulty POSTURE: Posture and spinal curves are normal PALPATION: paraspinal tenderness; lumbar, Left SI joint area MUSCULOSKELETAL: Extended Low Back & Leg Exam Lumbar Range of Motion Flexion 6 inches from floor Extension Restricted RIGHT LEFT Lateral Bending Limited Limited Oblique Extension Decreased Decreased Leg Raise Straight Leg Raise Negative Negative Contralateral Straight Leg Raise Negative Negative DTRs Knee Normal Normal Ankle Normal Normal Medial Hamstring Normal Hypo-reflexive Babinski normal normal Strength of Lower Extremities Extensor Hallux Longus 5/5 5/5 Ankle Dorsiflexion 5/5 5/5 Ankle Plantarflexion 5/5 5/5 Knee Extension 5/5 5/5 Sarah Beth's Exam: Deferred Hip Range of Motion RIGHT LEFT Flexion Normal Normal Extension Normal Normal Abduction Normal Normal Adduction Normal Normal Internal Rotation Normal Normal External Rotation Normal Normal Hip Exam RIGHT LEFT ANNA MARIE Exam Normal Abnormal Trochanteric Bursa Tenderness Normal Normal Gaenslen's Maneuver Normal Normal Greyson's Test (IT-Band Pathology) Normal Normal Cervical Range of Motion Flexion Normal Extension Normal RIGHT LEFT Rotation Full ROM without pain Full ROM without pain Lateral Bend Full ROM without pain Full ROM without pain Upper Body Reflex Exam RIGHT LEFT Reflex Status Reflex Status Biceps 2+ Normal 2+ Normal Triceps 2+ Normal 2+ Normal Brachioradialis 2+ Normal 2+ Normal Inverted Radial 2+ Normal 2+ Normal White's Sign absent absent Upper Extremity Strength RIGHT LEFT Strength (MMT) Strength (MMT) Shoulder Abduction 5/5 5/5 Biceps 5/5 5/5 Triceps 5/5 5/5 Resisted Suppination 5/5 5/5 Wrist Extension 5/5 5/5 Interossei 5/5 5/5 Shoulder Range of Motion RIGHT LEFT Flexion Normal Normal Extension Normal Normal Abduction Normal Normal Adduction Normal Normal Internal Rotation Normal Mildly Restricted External Rotation Normal Mildly Restricted Shoulder Tests Empty Can Test - Positive left NEUROSENSORY: In general patient with appearance of mild hemisensory changes left to right. Interestingly diminished sensation on the left in the lower limb and arm, however, increased to pinprick on the left compared to right. In the lumbar dermatomes L4 is the only level which appears symmetrical. In addition patient with dense sensory changes and allodynia as hyperpathia to pinprick in the distribution of the right lateral femoral cutaneous nerve. Neuro Tests: None Data Review: Prior lumbar MRI with good lumbar lordosis. Imaging performed in 2010. No evidence of severe central canal stenosis. No evidence of severe foraminal narrowing. Recent lumbar x-rays show evidence of some mild degenerative disc change and lowest disc level as well as some mild spondylolisthesis at the what appears to be L4-L5 level. Evidence of facet joint arthropathy at multiple levels more so at the L5-S1 and L4-L5 levels. Due to her lordosis there is evidence of kissing spinous processes at multiple levels. This was also seen on her prior lumbar MRI in 2010 where several levels had inflammatory changes between the spinous processes. ASSESSMENT/PLAN (G57.11) Meralgia paresthetica of right side (primary encounter diagnosis) Comment: Had long discussion regarding the right lateral anterior thigh pain. I do believe she has a component of underlying radiculitis as her symptoms do also seem to radiate past the knee, however, at this time I believe the majority of her right sided lateral thigh symptoms are related to meralgia paresthetica affecting the lateral femoral cutaneous nerve. Discussed several treatment options and avoidance of certain positions wearing tight close or gaining weight. At this time we will continue to monitor this pain. Advised her there is option of topical medications as well as option for systemic medication such as gabapentin or Lyrica, however, will need to tolerate the side effects these medications for benefits from this medication. Discussed the option of pursuing EMG for the upper or lower limbs for further delineation regarding her neurologic deficits mostly related to sensation as well as allodynia. Unfortunately EMG not very effective in definitive diagnosis of meralgia paresthetica. Could pursue EMG in the upper limbs in light of her left greater than right hand paresthesias and dense numbness into the first second and third digits. May have component of underlying carpal tunnel syndrome, however, on exam today no evidence of motor deficits of APB in the left hand. Discussed option of pursuing course of physical therapy for both lumbar and cervical spine in the future could consider pursuing repeat imaging. Discussed the option of pursuing additional interventional procedures once such procedure is left-sided sacroiliac joint injection. On exam today patient with several positive test for sacroiliac joint being a component of her pain complaints. (M43.10) Retrolisthesis of vertebrae (M51.36) DDD (degenerative disc disease), lumba (R20.0) Thigh numbness (M54.41) Right-sided low back pain with right-sided sciatica, unspecified chronic (M48.26) Kissing spine of lumbar region (M47.812) Cervical spondylosis without myelopat Imaging Ordered: None SIGNATURE: Mehul Workman DO PATIENT NAME: Jamaal Michael DATE: October 27, 2021 TIME: 8:35 AM CC: Sent electronically Fer Donohue [id number] [facility] [address] documented in this encounter [facility] 09-14-2021 Instructions Jennifer Murphy MD - 09/14/2021 10:56 AM EDT Vitamin A&D ointment - barrier documented in this encounter [facility] 09-14-2021 History of Present illness Narrative Jamaal Michael is a 56 year old female who presents for lichen planus. HPI: Patient is feeling much better and vulvar symptoms resolved on kenalog ointment. OB History T1 L1 SAB2 IAB0 Ectopic0 Multiple0 Live Births0 Comment: 1 adopted son and 1 biological daughter Resource Manager History LMP: 08/17/2016 (Approximate), Postmenopausal Age at Menarche: Age at First : Age at Menopause: Resource Manager History Comments: Sexual Activity: Yes; Male Contraception: Vasectomy PAST MEDICAL HISTORY Diagnosis Date Chronic lymphocytic thyroiditis Hashimotos Displacement of lumbar intervertebral disc without myelopathy Environmental allergies Fibromyalgia Generalized osteoarthrosis, unspecified site GERD (gastroesophageal reflux disease) Hypertension Irregular menstrual cycle Irregular Periods Left shoulder pain 2014 past hx frozen shoulder Plantar fasciitis in Right Foot Tendinitis in Left Leg PAST SURGICAL HISTORY Procedure Laterality Date COLONOSCOPY FLX DX W/COLLJ SPEC WHEN PFRMD 10/12/2015 Colonoscopy mac ESOPHAGOGASTRODUODENOSCOPY TRANSORAL DIAGNOSTIC 10/12/2015 EGD mac PAST SURGICAL HISTORY OF Right 04/22/1975 manipulation dislocation arm, post sledding accident PAST SURGICAL HISTORY OF 04/22/1975 exploratory surgery for persistant UTI FAMILY HISTORY Problem Relation Age of Onset Cancer Mother bladder, thyroid Heart Mother Two Cardiac Bypasses Kidney Disease Mother Hearing Loss Mother Osteoporosis Mother other (gout) Mother Diabetes Father Prostate cancer Prostate Cancer Father Cancer Father Skin Cancer Heart Father Breast Cancer Sister Diabetes Sister 2 sisters with diabetes type II and 2 sisters with hypertension Hypertension Sister Stroke Sister Heart Paternal Grandmother Hypertension Paternal Grandmother Cancer Paternal Grandfather prostate Diabetes Paternal Grandfather Thyroid Maternal Aunt Stroke Maternal Aunt other (bipolar) Other maternal great uncle other (other) Other Other Sleep Disorder No Family History Social History Tobacco Use Smoking status: Never Smoker Smokeless tobacco: Never Used Vaping Use Vaping Use: Never used Substance Use Topics Alcohol use: No Drug use: No Current Outpatient Medications Medication Sig triamcinolone acetonide (KENALOG) 0.1 % ointment Apply to affected area 2 times daily for 2 weeks. Then use daily. cholecalciferol, Vitamin D3, (VITAMIN D3) 1,250 mcg (50,000 unit) cap capsule Take 1 capsule by mouth one time a week. levothyroxine (SYNTHROID) 100 mcg tablet Take 1 tablet by mouth once daily. losartan (COZAAR) 25 mg tablet Take 1 tablet by mouth once daily. Lactobac no.41/Bifidobact no.7 (PROBIOTIC-10 ORAL) Take by mouth. hydrocortisone 1 % cream Apply to affected area twice daily. lidocaine-menthol 4-1 % lqro Apply to affected area. acetaminophen (TYLENOL) 325 mg tablet Take 650 mg by mouth every 4 hours as needed. meloxicam (MOBIC) 15 mg tablet Take 1 tablet by mouth once daily. (Patient not taking: Reported on 09/14/2021 ) lansoprazole (PREVACID) 30 mg capsule Take 1 capsule by mouth daily before breakfast. (Patient taking differently: Take 15 mg by mouth daily before breakfast. ) No current facility-administered medications for this visit. 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 Patient will slowly decrease topical steroid use with the goal being 2-3 times per week. Also recommend A&D barrier ointment on days she doesn't use the kenalog. Patient may need to increase topical steroid use at times & will message/call me if this happens. All questions answered & patient agrees with plan. Medical Decision Making: Problems: Low: Stable chronic illness Risk: Moderate: Drug management Medical Decision Making Level: 3 - Low Jennifer Murphy MD documented in this encounter [facility] 09-04-2021 History of Present illness Narrative Rojas Degroot MD Department of Orthopaedics Orthopaedics [address] [facility] [address] Dept: [phone] Dept September 04, 2021 Consultation requested by Brittaney Newsome CNP for an opinion regarding bilateral shoulder pain. My final recommendations will be communicated back to the requesting physician by way of shared Medical record or letter to requesting physician via [place] mail. CHIEF COMPLAINT: New and Pain of the Right Shoulder, New and Pain of the Left Shoulder, and Xray Results HPI Pt. presents with 8 year hx of bilateral shoulder pain, left worse than right. She is right hand dominant and does not work outside the home. She mentions past hx of left frozen shoulder which was treated in urgent care 8 years ago with oral steroids and exercises. She continues to manage pain with Biofreeze, lidocaine or tylenol as needed as she has GERD. She does have neck pain. She c/o numbness and tingling down both hands bilaterally. She has had neck and spine films, but not EMG/NCV. AMB ROOMING INTAKE FLOWSHEET DATA Risk Screening Do you have concerns about personal safety or safety in the home?: No Pain Pain Level: (left shoulder 3-6 and right shoulder 0-4) Pain Location: (bilateral shoulders) Description: Aching, Numbness, Tingling, Sharp Duration Amount of Time: 8 Duration Units: Years Frequency: Continuous Intervention/Comfort measure: Medication, Cold, Exercise, Heat Comments: Biofreeze, lidocaine topical, tylenol at HS ASSESSMENT: M75.42 Impingement syndrome of left shoulder (primary encounter diagnosis) M25.512, G89.29 Chronic left shoulder pain M75.41 Impingement syndrome of right shoulder M25.511, G89.29, M25.512 Chronic pain of both shoulders PLAN: History and exam is suggestive of some shoulder bursitis. We discussed multiple treatment options and at this time she would like to try an anti-inflammatory for now. She may consider cortisone injection at some point down the line. FOLLOW UP INSTRUCTIONS: As Needed Ms. Jamaal Michael was advised as to contrast therapies and/or to take analgesics/anti-inflammatories as needed and all contraindications were reviewed. OBJECTIVE: Ms. Jamaal Michael is a pleasant 56 year old in no apparent distress. Gen:Ht 5' 5 [stated[ (1.65m) Wt 210 lb (95.3kg) LMP 08/17/2016 BMI 34.95 kg/(m^2). nl development, obese, no deformities ENT: Normocephalic, normal hearing, moist mucosa CV: Pulses:Radial= 2+ and symmetric, capillary refill < 2 secs, no peripheral edema/varicosities Skin: no rash, bruising or lesions. Good turgor. Psych: cooperative and appropriate, alert and oriented x 3, good mood and affect. Musculoskeletal: Mild limitations with range of motion of the cervical spine without pain. Spurling signs are negative. No atrophy of the deltoid and shoulder musculature. Right and left shoulder is nontender to palpation over the SC joint, clavicle and AC joint. Minimal tenderness to palpation over the posterior shoulder, left greater than right. Mild tenderness palpation over the anterior lateral corner of the shoulder and greater tuberosity, bilaterally. Nonpainful at the bicipital groove and coracoid. Active range of motion is 160 degrees of forward elevation, 50 degrees external rotation, and internal rotation to the mid thoracic. Passive range of motion is symmetrical, limited by some pain, respectively. No laxity with anterior and posterior stress. Positive Neer and Omer impingement signs, bilaterally. 5/5 strength with supraspinatus, infraspinatus and subscapularis. Sensation is intact in the axillary, radial, median and ulnar nerve distribution IMAGING: IMPRESSION: Normal shoulder radiographs. Rocket Engine Tester: JOY Transcribe Date/Time: Sep 04 2021 10:04A Dictated by : DAVINA JEFFREY MD This examination was interpreted and the report reviewed and electronically signed by: DAVINA JEFFREY MD on Sep 04 2021 10:08AM EST Results-Findings * * *Final Report* * * DATE OF EXAM: Sep 04 2021 8:48AM [id number] - XR SHLDR >/=3V AP/ADRIANNE AP/OTHR RT / PROCEDURE REASON: multiple diagnoses * * * * Physician Interpretation * * * * EXAMINATION: XR SHLDR >/=3V AP/ADRIANNE AP/OTHR LT, XR SHLDR >/=3V AP/ADRIANNE AP/OTHR RT HISTORY: chronic bilateral shoulder pain Bilateral shoulder pain, unspecified chronicity.. TECHNIQUE: XR SHLDR >/=3V AP/ADRIANNE AP/OTHR LT, XR SHLDR >/=3V AP/ADRIANNE AP/OTHR RT Laterality: LEFT Number of different views (projections): 3 M: XB_1 COMPARISON: Radiographs 11/11/2019 RESULT: Right shoulder: No acute fracture or dislocation. Glenohumeral and acromioclavicular joint spaces are maintained. Acromiohumeral interval is preserved. Probable bone island within the humeral head. Included right hemithorax is unremarkable. Left shoulder: No acute fracture or dislocation. Glenohumeral and acromioclavicular joint spaces are maintained. Acromiohumeral interval is preserved. Included left hemithorax is unremarkable. Supporting Subjective Information Below: Past Medical History: PAST MEDICAL HISTORY Diagnosis Date Chronic lymphocytic thyroiditis Hashimotos Displacement of lumbar intervertebral disc without myelopathy Environmental allergies Fibromyalgia Generalized osteoarthrosis, unspecified site GERD (gastroesophageal reflux disease) Hypertension Irregular menstrual cycle Irregular Periods Left shoulder pain 2014 past hx frozen shoulder Plantar fasciitis in Right Foot Tendinitis in Left Leg Past Surgical History: PAST SURGICAL HISTORY Procedure Laterality Date COLONOSCOPY FLX DX W/COLLJ SPEC WHEN PFRMD 10/12/2015 Colonoscopy mac ESOPHAGOGASTRODUODENOSCOPY TRANSORAL DIAGNOSTIC 10/12/2015 EGD mac PAST SURGICAL HISTORY OF Right 04/22/1975 manipulation dislocation arm, post sledding accident PAST SURGICAL HISTORY OF 04/22/1975 exploratory surgery for persistant UTI Family History: FAMILY HISTORY Problem Relation Age of Onset Cancer Mother bladder, thyroid Heart Mother Two Cardiac Bypasses Kidney Disease Mother Hearing Loss Mother Osteoporosis Mother other (gout) Mother Diabetes Father Prostate cancer Prostate Cancer Father Cancer Father Skin Cancer Heart Father Breast Cancer Sister Diabetes Sister 2 sisters with diabetes type II and 2 sisters with hypertension Hypertension Sister Stroke Sister Heart Paternal Grandmother Hypertension Paternal Grandmother Cancer Paternal Grandfather prostate Diabetes Paternal Grandfather Thyroid Maternal Aunt Stroke Maternal Aunt other (bipolar) Other maternal great uncle other (other) Other Other Sleep Disorder No Family History Social History: Social History Tobacco Use Smoking status: Never Smoker Smokeless tobacco: Never Used Vaping Use Vaping Use: Never used Substance Use Topics Alcohol use: No Drug use: No Medications: Current Outpatient Medications Medication Sig triamcinolone acetonide (KENALOG) 0.1 % ointment Apply to affected area 2 times daily for 2 weeks. Then use daily. cholecalciferol, Vitamin D3, (VITAMIN D3) 1,250 mcg (50,000 unit) cap capsule Take 1 capsule by mouth one time a week. levothyroxine (SYNTHROID) 100 mcg tablet Take 1 tablet by mouth once daily. Lactobac no.41/Bifidobact no.7 (PROBIOTIC-10 ORAL) Take by mouth. hydrocortisone 1 % cream Apply to affected area twice daily. lidocaine-menthol 4-1 % lqro Apply to affected area. lansoprazole (PREVACID) 30 mg capsule Take 1 capsule by mouth daily before breakfast. (Patient taking differently: Take 15 mg by mouth daily before breakfast. ) acetaminophen (TYLENOL) 325 mg tablet Take 650 mg by mouth every 4 hours as needed. losartan (COZAAR) 25 mg tablet Take 1 tablet by mouth once daily. No current facility-administered medications for this visit. Allergies: Environmental [Other] and Poison Abigail ROS: General (negative for fatigue, malaise, weight loss/gain) HEENT (negative for headache, earache, recent vision changes, sinus pain, sore throat) Respiratory (no recent shortness of breath, hemoptysis) CV (negative for chest tightness, palpitations) Musculoskeletal (see HPI) Psych (no depression, anxiety) REFERRING PHYSICIAN: Ms. Jamaal Michael was referred to me for consultation by the following physician. This consultation note will be sent to the following physician by either mail or electronic medical record. Brittaney Newsome [id number] [facility] [id number] Fer Donohue MD [id number] [facility] [id number] Rojas Degroot MD documented in this encounter [facility] 09-04-2021 History of Present illness Narrative Radiology Service Progress Note PATIENT NAME: Jamaal Michael DATE OF SERVICE: September 04, 2021 TIME: 8:35 AM PATIENT IDENTITY VERIFICATION COMPLETED USING TWO (2) IDENTIFIERS: Name and Date of confirmed by patient verbally. FALL SCREENING: Has the patient had 2 falls in the last year or 1 fall with injury or currently using an Ambulatory Assistive Device (Walker, Cane, Wheelchair, Crutches, etc.)? No PATIENT GENDER DATA: Female. status: : No status: NO. PATIENT RELEVANT IMPLANT DATA REVIEWED: Not Applicable RADIOLOGY DEPARTMENT: General X-ray: Exam(s) Completed: Upper Extremity X-Ray(s): Shoulder, AP / TRUE AP / AXILLARY bilateral PERIPHERAL IV DATA: Not applicable SIGNED BY: RT Oli(R) September 04, 2021 8:35 AM documented in this encounter [facility] 08-08-2021 Miscellaneous Notes Patient notified. Kyara Boudreaux RN The following approved medication requests have been transmitted electronically. Signed Prescriptions Disp Refills triamcinolone acetonide (KENALOG) 0.1 % ointment 80 g 1 Sig: Apply to affected area 2 times daily for 2 weeks. Then use daily. Authorizing Provider: JENNIFER MURPHY Pharmacy Information Pharmacy Address Telephone [facility]/pharmacy #[id number] [place], [place] [id number] Please make sure she doesn't use any other medications to the vulvar area. Jennifer Murphy MD Please file medication and we will contact patient to notify. Kyara Boudreaux RN ----- Message from Jennifer Murphy MD sent at 08/08/2021 4:22 PM EDT ----- Biopsy shows lichen planus or possible evolving lichen sclerosus. As patient has h/o oral lichen planus that is most likely diagnosis. Both are treated with topical steroids. Will start with 2x per day steriods for 2 weeks & then daily for 2 weeks. Follow up with me in 4 weeks. Jennifer Murphy MD documented in this encounter [facility] 08-03-2021 History of Present illness Narrative Jamaal Michael is a 56 year old female who presents today for a vulvar biopsy. Indication: persistent pruritis. UNIVERSAL PROTOCOL / SAFETY CHECKLIST Procedure to be Performed: Vulvar Biopsy Sign In: A Moment of CARE was completed. Personnel directly involved with the procedure wore the appropriate PPE (Personal Protective Equipment). Patient/Surrogate Stated/Verified: PATIENT VERIFIED(optional for EMERGENT procedures): Patient name, Date of , Relevant allergies and The intended procedure Time Out Communication: Intended patient and procedure match the source documents. Consent documented and matches the intended procedure. Sign Out: SIGN OUT (optional for EMERGENT procedures): All specimen containers correctly labeled. All instruments, equipment, possible retained foreign bodies accounted for. Post-procedure follow-up management communicated and Plan of Care Visit completed when applicable. PROCEDURE NOTE: GROSS LESIONS: No BIOPSY: Area was cleansed with betadine and anesthetized with 2mL 1% lidocaine with 1:100,000 epi. 4mm [place] punch used to biopsy region. HEMOSTASIS: Obtained with silver nitrate and pressure Procedure Summary: Patient tolerated procedure well. ASSESSMENT: Vulvar itching PLAN: Specimens labeled and sent to Pathology. Post-procedure instructions reviewed and written material given to the patient. Fixing Machine Operator offered: Patient accepts, visit chaperoned by Venice Fajardo MA. Jennifer Murphy MD documented in this encounter [facility] 07-27-2021 Instructions Jennifer Murphy MD - 07/27/2021 3:40 PM EDT Minimizing irritation of the vulva (area around the vagina) Wear white cotton underwear. Avoid synthetic fabrics and tight clothing. Sleep wearing shorts or pajama bottoms without underwear. Shower as soon as possible after exercise. Avoid clothing detergents and soaps with perfumes or dyes. Use warm (not hot) water to wash the vulva and if you use soap use a product designed for sensitive skin (like Dove or Cetaphil). Do not douche or use creams/powders in the vulvar area unless instructed by your physician. If you must douche, use only plain warm water. Make sure the vulva is dry before dressing by patting dry with a towel. Avoid vigorous rubbing with the towel. You may want to use the blow dryer (on the cool setting only!) on the vulva. The most important way to let your body heal is by avoiding scratching. Many patients find it difficult to avoid scratching at night when they are most aware of the itchiness. You can try taking Benadryl just before bedtime. Some women find it helpful to wear cotton gloves to bed to avoid scratching at night. documented in this encounter [facility] 07-27-2021 History of Present illness Narrative Jamaal is a 56 year old who presents for an annual gynecologic exam. Patient reports vulvar itching. She is using hydrocortisone cream. Patient reports swelling & scratches it so much that it lozano. She reports h/o oral lichen planus. Postmenopausal: Yes - since age 52 HRT use: No. Last Pap: 03/27/2018 normal HPV: 03/24/2018 negative History of abnormal pap: No Last mammogram: 2021 normal OB History T1 L1 SAB2 IAB0 Ectopic0 Multiple0 Live Births0 Comment: One adopted 1 son Resource Manager History LMP: 08/17/2016 (Approximate), Postmenopausal Age at Menarche: Age at First : Age at Menopause: Resource Manager History Comments: Sexual Activity: Yes; Male Contraception: Vasectomy PAST MEDICAL HISTORY Diagnosis Date Chronic lymphocytic thyroiditis Displacement of lumbar intervertebral disc without myelopathy Environmental allergies Generalized osteoarthrosis, unspecified site GERD (gastroesophageal reflux disease) Hypertension Irregular menstrual cycle Irregular Periods Plantar fasciitis in Right Foot Tendinitis in Left Leg PAST SURGICAL HISTORY Procedure Laterality Date COLONOSCOPY FLX DX W/COLLJ SPEC WHEN PFRMD 10/12/15 Colonoscopy mac ESOPHAGOGASTRODUODENOSCOPY TRANSORAL DIAGNOSTIC 10/12/15 EGD mac PAST SURGICAL HISTORY OF 1975 manipulation dislocation arm PAST SURGICAL HISTORY OF 1975 exploratory surgery for persistant UTI FAMILY HISTORY Problem Relation Age of Onset Cancer Mother bladder, thyroid Heart Mother Two Cardiac Bypasses Kidney Disease Mother Hearing Loss Mother Osteoporosis Mother other (gout) Mother Diabetes Father Prostate cancer Prostate Cancer Father Cancer Father Skin Cancer Heart Father Breast Cancer Sister Diabetes Sister 2 sisters with diabetes type II and 2 sisters with hypertension Hypertension Sister Stroke Sister Heart Paternal Grandmother Hypertension Paternal Grandmother Cancer Paternal Grandfather prostate Diabetes Paternal Grandfather Thyroid Maternal Aunt Stroke Maternal Aunt other (bipolar) Other maternal great uncle other (other) Other Other Sleep Disorder No Family History SOCIAL HISTORY Social History Tobacco Use Smoking status: Never Smoker Smokeless tobacco: Never Used Vaping Use Vaping Use: Never used Substance Use Topics Alcohol use: No Drug use: No REVIEW OF SYSTEMS Abdomen: No abdominal pain, nausea, vomiting, diarrhea, or constipation. No bloating, early satiety, indigestion, or increased flatulence. Bladder: No dysuria, gross hematuria, urinary frequency, urinary urgency; positive JAS Breast: No breast lumps, nipple d/c, overlying skin changes, redness or skin retraction Allergies and current medication updated:Yes EXAM: BP 124/80 Ht 5' 5 (1.65m) Wt 219 lb 9.6 oz (99.6kg) LMP 08/17/2016 BMI 36.54 kg/(m^2). GENERAL: pleasant, female in no apparent distress BREAST: soft, non-tender, symmetric, no dominant mass, normal nipple-areolar complex, no lymphadenopathy and no nipple discharge CHEST: Normal inspiratory effort ABDOMEN: soft, non-tender and no masses PELVIC: external genitalia atrophic with lost of almost all of labia minora, no vulvar lesions, no cervical lesions, normal appearing perineal body and perianal region BIMANUAL: uterus normal size, shape and consistency, no adnexal masses and non-tender RECTOVAGINAL: rectovaginal exam negative for any masses or nodularity. NEURO: alert and oriented x3,exam grossly non-focal EXTREMITIES: normal ASSESSMENT/PLAN: 1) Health maintenance: Pap done with HPV. Mammogram up to date Nutrition, exercise and routine health maintenance exams reviewed. Colon cancer screening: up to date with screening 2) Follow up one year or sooner as needed 3) Persistent vulvar itching & atrophy - follow up for biopsy. Advised on perineal hygiene. Jennifer Murphy MD documented in this encounter [facility] 07-26-2021 History of Present illness Narrative POPULATION HEALTH NAVIGATION OUTREACH Action/FYI AI Consult order dated Pt identified by name and : NO Outreach Outcome/Action Unable to reach patient: Phone number not valid / voicemail full [employer] message sent Reason for Outreach Care Gap or Scheduling/Wellness visits Payer: Payor: CAROL / Plan: [employer] OAP / Product Type: Open Access / Care Gap Reviewed:: AI Reminder: Reminder note to check Health Maintenance for items below Health Maintenance items due: HIV SCREENING Never done SHINGRIX VACCINE(1 of 2) Never done DTAP,TDAP,TD(2 - Td or Tdap) due on 03/27/2017 COVID-19 VACCINE(3 - Booster for Pfizer series) due on 03/08/2021 Message Sent to Practice: No Navigation Signature: Court Shea July 26, 2021 9:10 AM documented in this encounter [facility] 07-21-2021 Miscellaneous Notes July 21, 2021 PID: [id number] Jamaal Michael [address] [place] [id number] Dear Ms. Michael, We are pleased to inform you that the results of your recent breast imaging exam on 07/21/2021 are normal. Early detection of cancer is very important. We also understand recommendations regarding breast cancer screening are controversial. Please discuss with your primary care provider which strategy is best for you and whether a mammogram is right for you. Your imaging studies and report will be kept on file at [facility] as part of your permanent medical record and are available for your continuing care. Thank you for allowing us to help in meeting your health care needs. Sincerely, Dr. Garcia Interpreting Radiologist [facility] (Normal over 40) documented in this encounter [facility] 01-09-2021 History of Present illness Narrative Radiology Service Progress Note PATIENT NAME: Jamaal Michael DATE OF SERVICE: January 09, 2021 TIME: 2:30 PM PATIENT IDENTITY VERIFICATION COMPLETED USING TWO (2) IDENTIFIERS: Name and Date of confirmed by patient verbally. FALL SCREENING: Has the patient had 2 falls in the last year or 1 fall with injury or currently using an Ambulatory Assistive Device (Walker, Cane, Wheelchair, Crutches, etc.)? No PATIENT GENDER DATA: Female. status: : No status: NO. PATIENT RELEVANT IMPLANT DATA REVIEWED: Not Applicable RADIOLOGY DEPARTMENT: General X-ray: Exam(s) Completed: Spine X-Ray(s): Cervical AP / LAT and Lumbar AP / LAT / L5-S1 PERIPHERAL IV DATA: Not applicable SIGNED BY: RT Jeferson(R) January 09, 2021 2:30 PM documented in this encounter [facility] 06-15-2014 History of Past i llness Narrative Problem Noted Date Resolved Date Other bursitis disorders 06/15/2014 018 Pain in joint, pelvic region and thigh 5 02/19/2018 Backache, unspecified 04/12/2010 02/19/2018 Chest pain, unspecified 03/27/2007 02/20/20 18 Esophageal reflux 03/27/2007 02/19/2018 Hypertension 09/16/2015 documented as of this encounter (statuses as of 07/22/2021) [facility] History of Past illness Narrative* Problem Noted Date Resolved Date Other bursitis disorders 06/15/2014 018 Pain in joint, pelvic region and thigh 5 02/19/2018 Backache, unspecified 04/12/2010 02/19/2018 Chest pain, unspecified 03/27/2007 02/20/20 18 Esophageal reflux 03/27/2007 02/19/2018 Hypertension 09/16/2015 documented as of this encounter (statuses as of 07/25/2021) [facility] History of Past illness Narrative* Problem Noted Date Resolved Date Other bursitis disorders 06/15/2014 018 Pain in joint, pelvic region and thigh 5 02/19/2018 Backache, unspecified 04/12/2010 02/19/2018 Chest pain, unspecified 03/27/2007 02/20/20 18 Esophageal reflux 03/27/2007 02/19/2018 Hypertension 09/16/2015 documented as of this encounter (statuses as of 07/26/2021) [facility] History of Past illness Narrative* Problem Noted Date Resolved Date Other bursitis disorders 06/15/2014 018 Pain in joint, pelvic region and thigh 5 02/19/2018 Backache, unspecified 04/12/2010 02/19/2018 Chest pain, unspecified 03/27/2007 02/20/20 18 Esophageal reflux 03/27/2007 02/19/2018 Hypertension 09/16/2015 documented as of this encounter (statuses as of 07/27/2021) [facility] History of Past illness Narrative* Problem Noted Date Resolved Date Other bursitis disorders 06/15/2014 018 Pain in joint, pelvic region and thigh 5 02/19/2018 Backache, unspecified 04/12/2010 02/19/2018 Chest pain, unspecified 03/27/2007 02/20/20 18 Esophageal reflux 03/27/2007 02/19/2018 Hypertension 09/16/2015 documented as of this encounter (statuses as of 08/03/2021) [facility] History of Past illness Narrative* Problem Noted Date Resolved Date Other bursitis disorders 06/15/2014 018 Pain in joint, pelvic region and thigh 5 02/19/2018 Backache, unspecified 04/12/2010 02/19/2018 Chest pain, unspecified 03/27/2007 02/20/20 18 Esophageal reflux 03/27/2007 02/19/2018 Hypertension 09/16/2015 documented as of this encounter (statuses as of 08/09/2021) [facility] History of Past illness Narrative* Problem Noted Date Resolved Date Other bursitis disorders 06/15/2014 018 Pain in joint, pelvic region and thigh 5 02/19/2018 Backache, unspecified 04/12/2010 02/19/2018 Chest pain, unspecified 03/27/2007 02/20/20 18 Esophageal reflux 03/27/2007 02/19/2018 Hypertension 09/16/2015 documented as of this encounter (statuses as of 08/29/2021) [facility] History of Past illness Narrative* Problem Noted Date Resolved Date Other bursitis disorders 06/15/2014 018 Pain in joint, pelvic region and thigh 5 02/19/2018 Backache, unspecified 04/12/2010 02/19/2018 Chest pain, unspecified 03/27/2007 02/20/20 18 Esophageal reflux 03/27/2007 02/19/2018 Hypertension 09/16/2015 documented as of this encounter (statuses as of 09/04/2021) [facility] History of Past illness Narrative* Problem Noted Date Resolved Date Other bursitis disorders 06/15/2014 018 Pain in joint, pelvic region and thigh 5 02/19/2018 Backache, unspecified 04/12/2010 02/19/2018 Chest pain, unspecified 03/27/2007 02/20/20 18 Esophageal reflux 03/27/2007 02/19/2018 Hypertension 09/16/2015 documented as of this encounter (statuses as of 09/05/2021) [facility] History of Past illness Narrative* Problem Noted Date Resolved Date Other bursitis disorders 06/15/2014 018 Pain in joint, pelvic region and thigh 5 02/19/2018 Backache, unspecified 04/12/2010 02/19/2018 Chest pain, unspecified 03/27/2007 02/20/20 18 Esophageal reflux 03/27/2007 02/19/2018 Hypertension 09/16/2015 documented as of this encounter (statuses as of 09/07/2021) [facility] History of Past illness Narrative* Problem Noted Date Resolved Date Other bursitis disorders 06/15/2014 018 Pain in joint, pelvic region and thigh 5 02/19/2018 Backache, unspecified 04/12/2010 02/19/2018 Chest pain, unspecified 03/27/2007 02/20/20 18 Esophageal reflux 03/27/2007 02/19/2018 Hypertension 09/16/2015 documented as of this encounter (statuses as of 09/14/2021) [facility] History of Past illness Narrative* Problem Noted Date Resolved Date Other bursitis disorders 06/15/2014 018 Pain in joint, pelvic region and thigh 5 02/19/2018 Backache, unspecified 04/12/2010 02/19/2018 Chest pain, unspecified 03/27/2007 02/20/20 18 Esophageal reflux 03/27/2007 02/19/2018 Hypertension 09/16/2015 documented as of this encounter (statuses as of 10/27/2021) [facility] History of Past illness Narrative* Problem Noted Date Resolved Date Other bursitis disorders 06/15/2014 018 Pain in joint, pelvic region and thigh 5 02/19/2018 Backache, unspecified 04/12/2010 02/19/2018 Chest pain, unspecified 03/27/2007 02/20/20 18 Esophageal reflux 03/27/2007 02/19/2018 Hypertension 09/16/2015 documented as of this encounter (statuses as of 11/16/2021) [facility] History of Past illness Narrative* Problem Noted Date Resolved Date Other bursitis disorders 06/15/2014 018 Pain in joint, pelvic region and thigh 5 02/19/2018 Backache, unspecified 04/12/2010 02/19/2018 Chest pain, unspecified 03/27/2007 02/20/20 18 Esophageal reflux 03/27/2007 02/19/2018 Hypertension 09/16/2015 documented as of this encounter (statuses as of 11/24/2021) [facility] History of Past illness Narrative* Problem Noted Date Resolved Date Other bursitis disorders 06/15/2014 018 Pain in joint, pelvic region and thigh 5 02/19/2018 Backache, unspecified 04/12/2010 02/19/2018 Chest pain, unspecified 03/27/2007 02/20/20 18 Esophageal reflux 03/27/2007 02/19/2018 Hypertension 09/16/2015 documented as of this encounter (statuses as of 11/28/2021) [facility] History of Past illness Narrative* Problem Noted Date Resolved Date Other bursitis disorders 06/15/2014 018 Pain in joint, pelvic region and thigh 5 02/19/2018 Backache, unspecified 04/12/2010 02/19/2018 Chest pain, unspecified 03/27/2007 02/20/20 18 Esophageal reflux 03/27/2007 02/19/2018 Hypertension 09/16/2015 documented as of this encounter (statuses as of 11/30/2021) [facility] History of Past illness Narrative* Problem Noted Date Resolved Date Other bursitis disorders 06/15/2014 018 Pain in joint, pelvic region and thigh 5 02/19/2018 Backache, unspecified 04/12/2010 02/19/2018 Chest pain, unspecified 03/27/2007 02/20/20 18 Esophageal reflux 03/27/2007 02/19/2018 Hypertension 09/16/2015 documented as of this encounter (statuses as of 12/01/2021) [facility] History of Past illness Narrative* Problem Noted Date Resolved Date Other bursitis disorders 06/15/2014 018 Pain in joint, pelvic region and thigh 5 02/19/2018 Backache, unspecified 04/12/2010 02/19/2018 Chest pain, unspecified 03/27/2007 02/20/20 18 Esophageal reflux 03/27/2007 02/19/2018 Hypertension 09/16/2015 documented as of this encounter (statuses as of 12/19/2021) [facility] History of Past illness Narrative* Problem Noted Date Resolved Date Other bursitis disorders 06/15/2014 018 Pain in joint, pelvic region and thigh 5 02/19/2018 Backache, unspecified 04/12/2010 02/19/2018 Chest pain, unspecified 03/27/2007 02/20/20 18 Esophageal reflux 03/27/2007 02/19/2018 Hypertension 09/16/2015 documented as of this encounter (statuses as of 02/09/2022) [address] History of Past illness Narrative* Problem Noted Date Resolved Date Other bursitis disorders 06/15/2014 018 Pain in joint, pelvic region and thigh 5 02/19/2018 Backache, unspecified 04/12/2010 02/19/2018 Chest pain, unspecified 03/27/2007 02/20/20 18 Esophageal reflux 03/27/2007 02/19/2018 Hypertension 09/16/2015 documented as of this encounter (statuses as of 03/16/2022) [facility] History of Past illness Narrative* Problem Noted Date Resolved Date Other bursitis disorders 06/15/2014 018 Pain in joint, pelvic region and thigh 5 02/19/2018 Backache, unspecified 04/12/2010 02/19/2018 Chest pain, unspecified 03/27/2007 02/20/20 18 Esophageal reflux 03/27/2007 02/19/2018 Hypertension 09/16/2015 documented as of this encounter (statuses as of 08/27/2022) [facility] History of Past illness Narrative* Problem Noted Date Diagnosed Date Resolved Date Other bursitis disorders 06/15/2014 Pain in joint, pelvic region and thigh 06/15/2014 02/19/2018 Backache, unspecified 04/12/20102017 Chest pain, unspecified 03/27/200701/22 Esophageal reflux 03/27/2007 02/19/2018 Hypertension 09/16/2015 documented as of this encounter (statuses as of 11/19/2022) [facility] History of Past illness Narrative* Problem Noted Date Diagnosed Date Resolved Date Other bursitis disorders 06/15/2014 Pain in joint, pelvic region and thigh 06/15/2014 02/19/2018 Backache, unspecified 04/12/20102017 Chest pain, unspecified 03/27/200701/22 Esophageal reflux 03/27/2007 02/19/2018 Hypertension 09/16/2015 documented as of this encounter (statuses as of 02/24/2023) [place] [address]-24-2015 History of Past illness Narrative* Problem Noted Date Diagnosed Date Resolved Date Other bursitis disorders 06/15/2014 Pain in joint, pelvic region and thigh 06/15/2014 02/19/2018 Backache, unspecified 04/12/20102017 Chest pain, unspecified 03/27/200701/22 Esophageal reflux 03/27/2007 02/19/2018 Hypertension 09/16/2015 documented as of this encounter (statuses as of 06/25/2023) [facility] History of Past illness Narrative* Problem Noted Date Diagnosed Date Resolved Date Other bursitis disorders 06/15/2014 Pain in joint, pelvic region and thigh 06/15/2014 02/19/2018 Backache, unspecified 04/12/20102017 Chest pain, unspecified 03/27/200701/22 Esophageal reflux 03/27/2007 02/19/2018 Hypertension 09/16/2015 documented as of this encounter (statuses as of 06/28/2023) [facility] History of Past illness Narrative* Problem Noted Date Diagnosed Date Resolved Date Other bursitis disorders 06/15/2014 Pain in joint, pelvic region and thigh 06/15/2014 02/19/2018 Backache, unspecified 04/12/20102017 Chest pain, unspecified 03/27/200701/22 Esophageal reflux 03/27/2007 02/19/2018 Hypertension 09/16/2015 documented as of this encounter (statuses as of 07/12/2023) [facility] Diagnosis [facility]counter for screening mammogram for breast cancer [facility] Diagnosis Encounter for gynecological examination without abnormal finding- Primary Routine gynecological examination Encounter for screening mammogram for malignant neoplasm of breast Other screening mammogram Dense breasts Inconclusive mammogram Encounter for screening for malignant neoplasm of cervix Screening for malignant neoplasm of the cervix Special screening examination for human papillomavirus (HPV) Vulvar atrophy Atrophy of vulva Vulvar itching Pruritus of genital organs [facility] Diagnosis Vulvar itching- Primary Pruritus of genital organs Vulvar atrophy Atrophy of vulva [facility] Diagnosis Bilateral shoulder pain, unspecified chronicity- Primary [facility] Diagnosis Impingement syndrome of left shoulder- Primary Other affections of shoulder region, not elsewhere classified Chronic left shoulder pain Pain in joint, shoulder region Impingement syndrome of right shoulder Other affections of shoulder region, not elsewhere classified Chronic pain of both shoulders Pain in joint, shoulder region [facility] Diagnosis Bilateral shoulder pain, unspecified chronicity [facility] Diagnosis Lichen planus- Primary [facility]* Diagnosis Meralgia paresthetica of right side- Primary Meralgia paresthetica Retrolisthesis of vertebrae Displacement of intervertebral disc, site unspecified, without myelopathy DDD (degenerative disc disease), lumbar Degeneration of lumbar or lumbosacral intervertebral disc Thigh numbness Disturbance of skin sensation Right-sided low back pain with right-sided sciatica, unspecified chronicity Kissing spine of lumbar region Kissing spine Cervical spondylosis without myelopathy [facility]* Diagnosis DDD (degenerative disc disease), lumbar Degeneration of lumbar or lumbosacral intervertebral disc Right-sided low back pain with right-sided sciatica, unspecified chronicity Kissing spine of lumbar region Kissing spine Meralgia paresthetica of right side Meralgia paresthetica Cervical spondylosis without myelopathy [facility] Diagnosis DDD (degenerative disc disease), lumbar- Primary Degeneration of lumbar or lumbosacral intervertebral disc Right-sided low back pain with right-sided sciatica, unspecified chronicity Kissing spine of lumbar region Kissing spine Meralgia paresthetica of right side Meralgia paresthetica Cervical spondylosis without myelopathy [facility] Diagnosis DDD (degenerative disc disease), lumbar- Primary Degeneration of lumbar or lumbosacral intervertebral disc Right-sided low back pain with right-sided sciatica, unspecified chronicity Kissing spine of lumbar region Kissing spine Meralgia paresthetica of right side Meralgia paresthetica Cervical spondylosis without myelopathy [facility] Diagnosis Essential hypertension Unspecified essential hypertension Hypothyroid Unspecified hypothyroidism documented [facility]* Diagnosis DDD (degenerative disc disease), lumbar- Primary Degeneration of lumbar or lumbosacral intervertebral disc Right-sided low back pain with right-sided sciatica, unspecified chronicity Kissing spine of lumbar region Kissing spine Meralgia paresthetica of right side Meralgia paresthetica Cervical spondylosis without myelopathy [facility] Diagnosis Essential hypertension Unspecified essential hypertension Hypothyroid Unspecified hypothyroidism documented [facility]* Diagnosis Essential hypertension- Primary Unspecified essential hypertension Acquired hypothyroidism Unspecified hypothyroidism Vitamin D deficiency Unspecified vitamin D deficiency Screening for HIV (human immunodeficiency virus) Special screening examination for other specified viral diseases DDD (degenerative disc disease), lumbar Degeneration of lumbar or lumbosacral intervertebral disc documented [facility]* Diagnosis Encounter for screening mammogram for breast cancer [facility]* Diagnosis Encounter for screening mammogram for breast cancer [facility]* Diagnosis Vitamin D deficiency Unspecified vitamin D deficiency Essential hypertension Unspecified essential hypertension Acquired hypothyroidism Unspecified hypothyroidism documented in this encounter [facility] note* Diagnosis Essential hypertension Unspecified essential hypertension Medication management Encounter for long-term (current) use of other medications Hypothyroid Unspecified hypothyroidism documented [facility]* Diagnosis Annual physical exam- Primary Routine general medical examination at a health care facility Essential hypertension Unspecified essential hypertension Acquired hypothyroidism Unspecified hypothyroidism Vitamin D deficiency Unspecified vitamin D deficiency Tingling Disturbance of skin sensation Disorder of vestibular function, unspecified laterality Tremor Abnormal involuntary movements Encounter for immunization Need for other specified prophylactic vaccination against single bacterial disease [facility]* Diagnosis Encounter for screening mammogram for malignant neoplasm of breast Other screening mammogram Dense breasts Inconclusive [facility]ogram [facility] Diagnosis Encounter for gynecological examination (general) (routine) without abnormal findings- Primary Encounter for screening for human papillomavirus (HPV) Special screening examination for human papillomavirus (HPV) Pap smear for cervical cancer screening Screening for malignant neoplasm of the cervix Encounter for screening mammogram for breast cancer Erosive lichen planus of vulva [facility]* Diagnosis Chest pain, unspecified type- Primary Dyspnea on exertion Other dyspnea and respiratory abnormality Abnormal EKG Nonspecific abnormal electrocardiogram (ECG) (EKG) DDD (degenerative disc disease), lumbar Degeneration of lumbar or lumbosacral intervertebral disc Cervical spondylosis without myelopathy Essential hypertension Unspecified essential hypertension Headaches [facility] Diagnosis Chest pain, unspecified type Dyspnea on exertion Other dyspnea and respiratory abnormality Abnormal EKG Nonspecific abnormal electrocardiogram (ECG) (EKG) [facility]* Diagnosis DDD (degenerative disc disease), lumbar- Primary Degeneration of lumbar or lumbosacral intervertebral disc Cervical spondylosis without myelopathy [facility]* Diagnosis DDD (degenerative disc disease), lumbar Degeneration of lumbar or lumbosacral intervertebral disc Cervical spondylosis without myelopathy [facility]* Diagnosis Chest pain, unspecified type- Primary Dyspnea on exertion Other dyspnea and respiratory abnormality Gastroesophageal reflux disease without esophagitis Esophageal reflux [facility]* Diagnosis DDD (degenerative disc disease), lumbar- Primary Degeneration of lumbar or lumbosacral intervertebral disc Cervical spondylosis without myelopathy [facility]* Diagnosis Kissing spine of lumbar region- Primary Kissing spine Inflammatory arthritis Unspecified inflammatory polyarthropathy Cervical spondylosis without myelopathy Fibromyalgia Mylagia and myositis, unspecified [facility]* Diagnosis Cervical spondylosis without myelopathy Inflammatory arthritis Unspecified inflammatory polyarthropathy [facility]* Diagnosis DDD (degenerative disc disease), lumbar- Primary Degeneration of lumbar or lumbosacral intervertebral disc Cervical spondylosis without myelopathy [facility]* Diagnosis DDD (degenerative disc disease), lumbar- Primary Degeneration of lumbar or lumbosacral intervertebral disc Cervical spondylosis without myelopathy [facility]* Diagnosis Degeneration of intervertebral disc of lumbar region, unspecified whether pain present- Primary Cervical spondylosis without myelopathy [facility]* Diagnosis Cervicalgia Chronic bilateral low back pain with right-sided sciatica documented in this encounter [facility] note* Diagnosis Cervical spondylosis without myelopathy- Primary documented in this encounter [facility] note* Diagnosis Cervical spondylosis without myelopathy- Primary documented in this encounter [facility] note* Diagnosis Acute pain of left knee- Primary documented in this encounter [facility] note* Diagnosis Acute pain of left knee [facility]* Diagnosis Cervical spondylosis without myelopathy- Primary Degeneration of intervertebral disc of lumbar region with discogenic back pain and lower extremity pain Cervicalgia Low back pain with sciatica, sciatica laterality unspecified, unspecified back pain laterality, unspecified chronicity documented in this encounter [facility] for referral (narrative)* Diagnostic Procedure Only (Routine) - Pending Review Specialty Diagnoses / Procedures Referred By Aruna marrero Referred To Contact [facility] Diagnoses Encounter for screening mammogram for malignant neoplasm of breast Dense breasts Procedures ANA SCREENING W GUNNER SCREENING DIGITAL BREAST TOMOSYNTHESIS BI SCREENING MAMMOGRAPHY BI 2-VIEW BREAST INC CAD Jennifer Murphy MD [address] [place] [address] [facility] [address] [facility] [place] [address] Referral ID Status Reason Start Date Expiration Date Visits Requested Visits Authorized [id number] Pending Review Auto-Generat ed Referral 07/27/2021 08/26/2022 1 1 [facility] for referral (narrative)* Diagnostic Procedure Only (Routine) - Pending Review Specialty Diagnoses / Procedures Referred By Aruna marrero Referred To Contact XR IMAGING Diagnoses Bilateral shoulder pain, unspecified chronicity Procedures XR SHOULDER GENERAL 3V OR MORE AP/TRUE AP/OTHER RIGHT RADEX SHOULDER COMPLETE MINIMUM 2 VIEWS Rojas Degroot MD [address] [place] [address] X[facility] Imaging Referral ID Status Reason Start Date Expiration Date Visits Requested Visits Authorized [id number] Pending Review Auto-Generat ed Referral 08/29/2021 09/28/2022 1 1 * Diagnostic Procedure Only (Routine) - Pending Review Specialty Diagnoses / Procedures Referred By Contac t Referred To Contact XR IMAGING Diagnoses Bilateral shoulder pain, unspecified chronicity Procedures XR SHOULDER GENERAL 3V OR MORE AP/TRUE AP/OTHER LEFT RADEX SHOULDER COMPLETE MINIMUM 2 VIEWS Rojas Degroot MD [address] [place] [address] X[facility] Imaging Referral ID Status Reason Start Date Expiration Date Visits Requested Visits Authorized [id number] Pending Review Auto-Generat ed Referral 08/29/2021 09/28/2022 1 1 [facility] for referral (narrative)* Diagnostic Procedure Only (Routine) - Closed Specialty Diagnoses / Procedures Referred By Contac t Referred To Contact XR IMAGING Diagnoses Bilateral shoulder pain, unspecified chronicity Procedures XR SHOULDER GENERAL 3V OR MORE AP/TRUE AP/OTHER RIGHT RADEX SHOULDER COMPLETE MINIMUM 2 VIEWS Rojas Degroot MD [address] [place] [address] Xr Imaging Referral ID Status Reason Start Date Expiration Date V isits Requested Visits Authorized [id number] Closed Auto-Generate d Referral 08/29/2021 09/28/2022 1 1 * Diagnostic Procedure Only (Routine) - Closed Specialty Diagnoses / Procedures Referred By Contac t Referred To Contact XR IMAGING Diagnoses Bilateral shoulder pain, unspecified chronicity Procedures XR SHOULDER GENERAL 3V OR MORE AP/TRUE AP/OTHER LEFT RADEX SHOULDER COMPLETE MINIMUM 2 VIEWS Rojas Degroot MD [address] [place] [address] Xr Imaging Referral ID Status Reason Start Date Expiration Date V isits Requested Visits Authorized [id number] Closed Auto-Generate d Referral 08/29/2021 09/28/2022 1 1 [facility] for referral (narrative)* - Pending Review Specialty Diagnoses / Procedures Referred By Aruna marrero Referred To Contact Diagnoses DDD (degenerative disc disease), lumbar Right-sided low back pain with right-sided sciatica, unspecified chronicity Kissing spine of lumbar region Meralgia paresthetica of right side Cervical spondylosis without myelopathy Procedures CONSULT TO PHYSICAL THERAPY Mehul Workman, [address] [place] [id number] Referral ID Status Reason Start Date Expiration Date V isits Requested Visits Authorized [id number] Pending Review 10/27/2021 01/25/2022 1 1 T [facility] for referral (narrative)* Diagnostic Procedure Only (Routine) - Pending Review Specialty Diagnoses / Procedures Referred By Aruna marrero Referred To Contact [facility] Diagnoses Encounter for screening mammogram for breast cancer Procedures ANA SCREENING W GUNNER SCREENING DIGITAL BREAST TOMOSYNTHESIS BI SCREENING MAMMOGRAPHY BI 2-VIEW BREAST INC Fer Okeefe MD [address] [place] [address] [facility] [address] [place] [address] Referral ID Status Reason Start Date Expiration Date Visits Requested Visits Authorized [id number] Pending Review Auto-Generat ed Referral 08/22/2022 09/21/2023 1 1 T [facility] for referral (narrative)* Diagnostic Procedure Only (Routine) - Closed Specialty Diagnoses / Procedures Referred By Aruna marrero Referred To Contact [facility] Diagnoses Encounter for screening mammogram for breast cancer Procedures ANA SCREENING W GUNNER SCREENING DIGITAL BREAST TOMOSYNTHESIS BI SCREENING MAMMOGRAPHY BI 2-VIEW BREAST INC Fer Okeefe MD [address] [place] [address] [facility] [address] [place] [address] Referral ID Status Reason Start Date Expiration Date V isits Requested Visits Authorized [id number] Closed Auto-Generate d Referral 08/22/2022 09/21/2023 1 1 [facility] for referral (narrative)* Outpatient Procedure (Routine) - Closed Specialty Diagnoses / Procedures Referred By Contac t Referred To Contact [facility] Diagnoses Chest pain, unspecified type Dyspnea on exertion Abnormal EKG Procedures EXERCISE STRESS ECG (WITHOUT IMAGING) Rochelle Alcantar APRN.PRODUCTION COST ESTIMATOR [address] [place] [address] [facility] [address] [facility] [place] [address] Referral ID Status Reason Start Date Expiration Date V isits Requested Visits Authorized [id number] Closed Auto-Generate d Referral 11/13/2023 11/12/2024 1 1 [facility] for referral (narrative)* Diagnostic Procedure Only (Routine) - Closed Specialty Diagnoses / Procedures Referred By Contac t Referred To Contact XR IMAGING Diagnoses Inflammatory arthritis Procedures XR PELVIS 1V AP RADIOLOGIC EXAMINATION PELVIS 1/[place] [address] [address] [address] [id number] [place] [address] Referral ID Status Reason Start Date Expiration Date V isits Requested Visits Authorized [id number] Closed Auto-Generate d Referral 12/27/2023 01/25/2025 1 1 * Diagnostic Procedure Only (Routine) - Closed Specialty Diagnoses / Procedures Referred By Contac t Referred To Contact XR IMAGING Diagnoses Cervical spondylosis without myelopathy Procedures XR CERV OTHER 4V AP/LAT/OBL RADEX SPINE CERVICAL 4 [place] [address] [place] [address] [place] [address] Referral ID Status Reason Start Date Expiration Date V isits Requested Visits Authorized [id number] Closed Auto-Generate d Referral 12/27/2023 01/25/2025 1 1 [facility] for referral (narrative)* Diagnostic Procedure Only (Routine) - Closed Specialty Diagnoses / Procedures Referred By Contac t Referred To Contact XR IMAGING Diagnoses Chronic bilateral low back pain with right-sided sciatica Procedures XR LUMBAR GENERAL 3V AP/LAT/L5-S1 X-RAY L-S SPINE AP/LATERAL Pat Yeung APRN.MILLWRIGHT HELPER [address] [place] [address] [place] [address] Referral ID Status Reason Start Date Expiration Date V isits Requested Visits Authorized Closed Auto-Generate d Referral 01/09/2021 02/08/2022 1 1 * Diagnostic Procedure Only (Routine) - Closed Specialty Diagnoses / Procedures Referred By Contac t Referred To Contact XR IMAGING Diagnoses Cervicalgia Procedures XR CERV GENERAL 2V AP/LAT CERVICAL AP/LAT + ODONTOID/A21 Pat Yeung APRN.MILLWRIGHT HELPER [address] [place] [address] [place] [address] Referral ID Status Reason Start Date Expiration Date V isits Requested Visits Authorized Closed Auto-Generate d Referral 01/09/2021 01/09/2022 99 99 [facility] for referral (narrative)* Diagnostic Procedure Only (Routine) - Closed Specialty Diagnoses / Procedures Referred By Contac t Referred To Contact XR IMAGING Diagnoses Acute pain of left knee Procedures XR KNEE GENERAL 4V AP BOTH/PA BOTH/LAT/MERC LEFT RADIOLOGIC EXAM KNEE COMPLETE 4/MORE VIEWS Rochelle Alcantar APRN.PRODUCTION COST ESTIMATOR [address] [place] [address] [place] [address] Referral ID Status Reason Start Date Expiration Date V isits Requested Visits Authorized [id number] Closed Auto-Generate d Referral 02/12/2024 03/13/2025 1 1 [facility] for visit Narrative* Diagnostic Procedure Only (Routine) - Closed Specialty Diagnoses / Procedures Referred By Contac t Referred To Contact XR IMAGING Diagnoses Bilateral shoulder pain, unspecified chronicity Procedures XR SHOULDER GENERAL 3V OR MORE AP/TRUE AP/OTHER RIGHT RADEX SHOULDER COMPLETE MINIMUM 2 VIEWS Rojas Degroot MD [address] [place] [address] Xr Imaging Referral ID Status Reason Start Date Expiration Date V isits Requested Visits Authorized [id number] Closed Auto-Generate d Referral 08/29/2021 09/28/2022 1 1 [facility] for visit Narrative* Diagnostic Procedure Only (Routine) - Closed Specialty Diagnoses / Procedures Referred By Contac t Referred To Contact [facility] Diagnoses Encounter for screening mammogram for breast cancer Procedures ANA SCREENING W GUNNER SCREENING DIGITAL BREAST TOMOSYNTHESIS BI SCREENING MAMMOGRAPHY BI 2-VIEW BREAST INC CAD Fer Donohue MD [address] [place] [address] [facility] [address] [place] [address] Referral ID Status Reason Start Date Expiration Date V isits Requested Visits Authorized [id number] Closed Auto-Generate d Referral 08/22/2022 09/21/2023 1 1 [facility] for visit Narrative* Diagnostic Procedure Only (Routine) - Closed Specialty Diagnoses / Procedures Referred By Contac t Referred To Contact [facility] Diagnoses Encounter for screening mammogram for malignant neoplasm of breast Dense breasts Procedures ANA SCREENING W GUNNER SCREENING DIGITAL BREAST TOMOSYNTHESIS BI SCREENING MAMMOGRAPHY BI 2-VIEW BREAST INC CAD Jennifer Murphy MD [address] [place] [address] [facility] [address] [place] [address] Referral ID Status Reason Start Date Expiration Date V isits Requested Visits Authorized [id number] Closed Auto-Generate d Referral 09/06/2022 10/06/2023 1 1 [facility] for visit Narrative* Outpatient Procedure (Routine) - Closed Specialty Diagnoses / Procedures Referred By Contac t Referred To Contact [facility] Diagnoses Chest pain, unspecified type Dyspnea on exertion Abnormal EKG Procedures EXERCISE STRESS ECG (WITHOUT IMAGING) Rochelle Alcantar APRN.PRODUCTION COST ESTIMATOR [address] [place] [address] [facility] [address] [place] [address] Referral ID Status Reason Start Date Expiration Date V isits Requested Visits Authorized [id number] Closed Auto-Generate d Referral 11/13/2023 11/12/2024 1 1 [facility] for visit Narrative* Diagnostic Procedure Only (Routine) - Closed Specialty Diagnoses / Procedures Referred By Contac t Referred To Contact XR IMAGING Diagnoses Cervicalgia Procedures XR CERV GENERAL 2V AP/LAT CERVICAL AP/LAT + ODONTOID/A21 Pat Yeung, AIR CONDITIONING MECHANIC.MILLWRIGHT HELPER [address] [place] [address] [place] [address] Referral ID Status Reason Start Date Expiration Date V isits Requested Visits Authorized [id number] Closed Auto-Generate d Referral 01/09/2021 01/09/2022 99 99 [facility] for visit Narrative* Diagnostic Procedure Only (Routine) - Closed Specialty Diagnoses / Procedures Referred By Contac t Referred To Contact XR IMAGING Diagnoses Acute pain of left knee Procedures XR KNEE GENERAL 4V AP BOTH/PA BOTH/LAT/MERC LEFT RADIOLOGIC EXAM KNEE COMPLETE 4/MORE VIEWS Rochelle Alcantar APRN.PRODUCTION COST ESTIMATOR [address] [place] [address] [place] [address] Referral ID Status Reason Start Date Expiration Date V isits Requested Visits Authorized [id number] Closed Auto-Generate d Referral 02/12/2024 03/13/2025 1 1 [facility] Advance Directives Documents on File Type Date Recorded Patient Assembler Crimper Expl anation Advance Directive(s) 10/12/2015 7:49 AM Documents on File Type Date Recorded Patient Assembler Crimper Expl anation Advance Directive(s) 10/12/2015 7:49 AM Reason for Referral Specialty Diagnoses / Procedures Referred By Contac t Referred To Contact Dermatology Diagnoses Erosive lichen planus of vulva Procedures CONSULT TO DERMATOLOGY Tizzano, Mariano P, MD [address] [place] [address] Referral ID Status Reason Start Date Expiration Date Visits Requested Visits Authorized [id number] Ref Not Required PCP Requested Referral 10/16/2023 10/15/2024 1 1 Specialty Diagnoses / Procedures Referred By Contac t Referred To Contact BR IMAGING Diagnoses Encounter for gynecological examination (general) (routine) without abnormal findings Encounter for screening mammogram for breast cancer Procedures ANA SCREENING W GUNNER SCREENING DIGITAL BREAST TOMOSYNTHESIS BI SCREENING MAMMOGRAPHY BI 2-VIEW BREAST INC CAD Mariano Hernandez MD [address] [place] [address] [facility] [address] [place] [address] Referral ID Status Reason Start Date Expiration Date Visits Requested Visits Authorized [id number] Authorized Auto-Generat ed Referral 10/16/2023 11/14/2024 1 1 Specialty Diagnoses / Procedures Referred By Contac t Referred To Contact [facility] Diagnoses DDD (degenerative disc disease), lumbar Cervical spondylosis without myelopathy Procedures CONSULT TO PHYSICAL THERAPY PHYSICAL THERAPY EVALUATION HIGH COMPLEX 45 MINS Rochelle Alcantar APRN.PRODUCTION COST ESTIMATOR [address] [place] [address] [facility] [address] [place] [id number] Referral ID Status Reason Start Date Expiration Date Visits Requested Visits Authorized [id number] Pending Review Auto-Generat ed Referral 11/13/2023 11/12/2024 1 1 Specialty Diagnoses / Procedures Referred By Contac t Referred To Contact [facility] Diagnoses Chest pain, unspecified type Dyspnea on exertion Abnormal EKG Procedures EXERCISE STRESS ECG (WITHOUT IMAGING) Rochelle Alcantar APRN.PRODUCTION COST ESTIMATOR [address] [place] [address] [facility] [address] [place] [id number] Referral ID Status Reason Start Date Expiration Date Visits Requested Visits Authorized [id number] Authorized Auto-Generat ed Referral 11/13/2023 11/12/2024 1 1 Specialty Diagnoses / Procedures Referred By Contac t Referred To Contact [facility] Diagnoses Chest pain, unspecified type Dyspnea on exertion Abnormal EKG Procedures ECHO ECHO TTHRC R-T 2D W/WOM-MODE COMPL SPEC&COLR D Older, Rochelle, AIR CONDITIONING MECHANIC.PRODUCTION COST ESTIMATOR [address] [place] [address] [facility] [address] [place] [address] Referral ID Status Reason Start Date Expiration Date Visits Requested Visits Authorized [id number] Authorized Auto-Generat ed Referral 11/13/2023 11/12/2024 1 1 Specialty Diagnoses / Procedures Referred By Contac t Referred To Contact MR IMAGING Diagnoses Degeneration of intervertebral disc of lumbar region with discogenic back pain and lower extremity pain Low back pain with sciatica, sciatica laterality unspecified, unspecified back pain laterality, unspecified chronicity Procedures MRI LUMBAR SPINE WO IVCON MRI SPINAL CANAL LUMBAR W/[place] [address] [place] [address] [id number] Referral ID Status Reason Start Date Expiration Date Visits Requested Visits Authorized [id number] New Request Auto-Generat ed Referral 03/14/2025 1 1 Specialty Diagnoses / Procedures Referred By Contac t Referred To Contact MR IMAGING Diagnoses Cervical spondylosis without myelopathy Cervicalgia Procedures MRI CERVICAL SPINE WO IVCON MRI SPINAL CANAL CERVICAL W/[place] [address] [place] [id number] [id number] Referral ID Status Reason Start Date Expiration Date Visits Requested Visits Authorized [id number] New Request Auto-Generat ed Referral 03/14/2025 1 1 Summary Purpose Family History No Family History Records FoundNo Family History Records Found Additional Source Comments Source Comments (unrecognize d section and content) In the event this informatio n is protected by the Federal Confidentiality of Alcohol and Drug Abuse Patient Records regulations: The Federal rules restrict any use of the information to criminally investigate or prosecute any alcohol or drug abuse patient.[facility] the event this information is protected by the Federal Confidentiality of Alcohol and Drug Abuse Patient Records regulations: The Federal rules restrict any use of the information to criminally investigate or prosecute any alcohol or drug abuse patient.[facility]In the event this information is protected by the Federal Confidentiality of Alcohol and Drug Abuse Patient Records regulations: The Federal rules restrict any use of the information to criminally investigate or prosecute any alcohol or drug abuse patient.[facility]In the event this information is protected by the Federal Confidentiality of Alcohol and Drug Abuse Patient Records regulations: The Federal rules restrict any use of the information to criminally investigate or prosecute any alcohol or drug abuse patient.[facility] HospitalIn the event this information is protected by the Federal Confidentiality of Alcohol and Drug Abuse Patient Records regulations: The Federal rules restrict any use of the information to criminally investigate or prosecute any alcohol or drug abuse patient.[facility] HospitalIn the event this information is protected by the Federal Confidentiality of Alcohol and Drug Abuse Patient Records regulations: The Federal rules restrict any use of the information to criminally investigate or prosecute any alcohol or drug abuse patient.[facility] HospitalIn the event this information is protected by the Federal Confidentiality of Alcohol and Drug Abuse Patient Records regulations: The Federal rules restrict any use of the information to criminally investigate or prosecute any alcohol or drug abuse patient.[facility] HospitalIn the event this information is protected by the Federal Confidentiality of Alcohol and Drug Abuse Patient Records regulations: The Federal rules restrict any use of the information to criminally investigate or prosecute any alcohol or drug abuse patient.[facility]In the event this information is protected by the Federal Confidentiality of Alcohol and Drug Abuse Patient Records regulations: The Federal rules restrict any use of the information to criminally investigate or prosecute any alcohol or drug abuse patient.[facility] HospitalIn the event this information is protected by the Federal Confidentiality of Alcohol and Drug Abuse Patient Records regulations: The Federal rules restrict any use of the information to criminally investigate or prosecute any alcohol or drug abuse patient.[facility] HospitalIn the event this information is protected by the Federal Confidentiality of Alcohol and Drug Abuse Patient Records regulations: The Federal rules restrict any use of the information to criminally investigate or prosecute any alcohol or drug abuse patient.[facility] HospitalIn the event this information is protected by the Federal Confidentiality of Alcohol and Drug Abuse Patient Records regulations: The Federal rules restrict any use of the information to criminally investigate or prosecute any alcohol or drug abuse patient.[facility] HospitalIn the event this information is protected by the Federal Confidentiality of Alcohol and Drug Abuse Patient Records regulations: The Federal rules restrict any use of the information to criminally investigate or prosecute any alcohol or drug abuse patient.[facility] HospitalIn the event this information is protected by the Federal Confidentiality of Alcohol and Drug Abuse Patient Records regulations: The Federal rules restrict any use of the information to criminally investigate or prosecute any alcohol or drug abuse patient.[facility] HospitalIn the event this information is protected by the Federal Confidentiality of Alcohol and Drug Abuse Patient Records regulations: The Federal rules restrict any use of the information to criminally investigate or prosecute any alcohol or drug abuse patient.[facility] HospitalIn the event this information is protected by the Federal Confidentiality of Alcohol and Drug Abuse Patient Records regulations: The Federal rules restrict any use of the information to criminally investigate or prosecute any alcohol or drug abuse patient.[facility] HospitalIn the event this information is protected by the Federal Confidentiality of Alcohol and Drug Abuse Patient Records regulations: The Federal rules restrict any use of the information to criminally investigate or prosecute any alcohol or drug abuse patient.[facility] HospitalIn the event this information is protected by the Federal Confidentiality of Alcohol and Drug Abuse Patient Records regulations: The Federal rules restrict any use of the information to criminally investigate or prosecute any alcohol or drug abuse patient.[facility] HospitalIn the event this information is protected by the Federal Confidentiality of Alcohol and Drug Abuse Patient Records regulations: The Federal rules restrict any use of the information to criminally investigate or prosecute any alcohol or drug abuse patient.[facility] HospitalIn the event this information is protected by the Federal Confidentiality of Alcohol and Drug Abuse Patient Records regulations: The Federal rules restrict any use of the information to criminally investigate or prosecute any alcohol or drug abuse patient.[facility] HospitalIn the event this information is protected by the Federal Confidentiality of Alcohol and Drug Abuse Patient Records regulations: The Federal rules restrict any use of the information to criminally investigate or prosecute any alcohol or drug abuse patient.[facility] HospitalIn the event this information is protected by the Federal Confidentiality of Alcohol and Drug Abuse Patient Records regulations: The Federal rules restrict any use of the information to criminally investigate or prosecute any alcohol or drug abuse patient.[facility] HospitalIn the event this information is protected by the Federal Confidentiality of Alcohol and Drug Abuse Patient Records regulations: The Federal rules restrict any use of the information to criminally investigate or prosecute any alcohol or drug abuse patient.[facility] HospitalIn the event this information is protected by the Federal Confidentiality of Alcohol and Drug Abuse Patient Records regulations: The Federal rules restrict any use of the information to criminally investigate or prosecute any alcohol or drug abuse patient.[facility] HospitalIn the event this information is protected by the Federal Confidentiality of Alcohol and Drug Abuse Patient Records regulations: The Federal rules restrict any use of the information to criminally investigate or prosecute any alcohol or drug abuse patient.[facility] HospitalIn the event this information is protected by the Federal Confidentiality of Alcohol and Drug Abuse Patient Records regulations: The Federal rules restrict any use of the information to criminally investigate or prosecute any alcohol or drug abuse patient.[facility] HospitalIn the event this information is protected by the Federal Confidentiality of Alcohol and Drug Abuse Patient Records regulations: The Federal rules restrict any use of the information to criminally investigate or prosecute any alcohol or drug abuse patient.[facility] HospitalIn the event this information is protected by the Federal Confidentiality of Alcohol and Drug Abuse Patient Records regulations: The Federal rules restrict any use of the information to criminally investigate or prosecute any alcohol or drug abuse patient.[facility] HospitalIn the event this information is protected by the Federal Confidentiality of Alcohol and Drug Abuse Patient Records regulations: The Federal rules restrict any use of the information to criminally investigate or prosecute any alcohol or drug abuse patient.[facility] HospitalIn the event this information is protected by the Federal Confidentiality of Alcohol and Drug Abuse Patient Records regulations: The Federal rules restrict any use of the information to criminally investigate or prosecute any alcohol or drug abuse patient.[facility] HospitalIn the event this information is protected by the Federal Confidentiality of Alcohol and Drug Abuse Patient Records regulations: The Federal rules restrict any use of the information to criminally investigate or prosecute any alcohol or drug abuse patient.[facility] HospitalIn the event this information is protected by the Federal Confidentiality of Alcohol and Drug Abuse Patient Records regulations: The Federal rules restrict any use of the information to criminally investigate or prosecute any alcohol or drug abuse patient.[facility] HospitalIn the event this information is protected by the Federal Confidentiality of Alcohol and Drug Abuse Patient Records regulations: The Federal rules restrict any use of the information to criminally investigate or prosecute any alcohol or drug abuse patient.[facility] HospitalIn the event this information is protected by the Federal Confidentiality of Alcohol and Drug Abuse Patient Records regulations: The Federal rules restrict any use of the information to criminally investigate or prosecute any alcohol or drug abuse patient.[facility] HospitalIn the event this information is protected by the Federal Confidentiality of Alcohol and Drug Abuse Patient Records regulations: The Federal rules restrict any use of the information to criminally investigate or prosecute any alcohol or drug abuse patient.[facility] HospitalIn the event this information is protected by the Federal Confidentiality of Alcohol and Drug Abuse Patient Records regulations: The Federal rules restrict any use of the information to criminally investigate or prosecute any alcohol or drug abuse patient.[facility] HospitalIn the event this information is protected by the Federal Confidentiality of Alcohol and Drug Abuse Patient Records regulations: The Federal rules restrict any use of the information to criminally investigate or prosecute any alcohol or drug abuse patient.[facility] HospitalIn the event this information is protected by the Federal Confidentiality of Alcohol and Drug Abuse Patient Records regulations: The Federal rules restrict any use of the information to criminally investigate or prosecute any alcohol or drug abuse patient.[facility] HospitalIn the event this information is protected by the Federal Confidentiality of Alcohol and Drug Abuse Patient Records regulations: The Federal rules restrict any use of the information to criminally investigate or prosecute any alcohol or drug abuse patient.[facility] HospitalIn the event this information is protected by the Federal Confidentiality of Alcohol and Drug Abuse Patient Records regulations: The Federal rules restrict any use of the information to criminally investigate or prosecute any alcohol or drug abuse patient.[facility] HospitalIn the event this information is protected by the Federal Confidentiality of Alcohol and Drug Abuse Patient Records regulations: The Federal rules restrict any use of the information to criminally investigate or prosecute any alcohol or drug abuse patient.[facility] HospitalIn the event this information is protected by the Federal Confidentiality of Alcohol and Drug Abuse Patient Records regulations: The Federal rules restrict any use of the information to criminally investigate or prosecute any alcohol or drug abuse patient.[facility] HospitalIn the event this information is protected by the Federal Confidentiality of Alcohol and Drug Abuse Patient Records regulations: The Federal rules restrict any use of the information to criminally investigate or prosecute any alcohol or drug abuse patient.[facility] HospitalIn the event this information is protected by the Federal Confidentiality of Alcohol and Drug Abuse Patient Records regulations: The Federal rules restrict any use of the information to criminally investigate or prosecute any alcohol or drug abuse patient.[facility] HospitalIn the event this information is protected by the Federal Confidentiality of Alcohol and Drug Abuse Patient Records regulations: The Federal rules restrict any use of the information to criminally investigate or prosecute any alcohol or drug abuse patient.[facility] HospitalIn the event this information is protected by the Federal Confidentiality of Alcohol and Drug Abuse Patient Records regulations: The Federal rules restrict any use of the information to criminally investigate or prosecute any alcohol or drug abuse patient.[facility] HospitalIn the event this information is protected by the Federal Confidentiality of Alcohol and Drug Abuse Patient Records regulations: The Federal rules restrict any use of the information to criminally investigate or prosecute any alcohol or drug abuse patient.[facility] HospitalIn the event this information is protected by the [facility] Confidentiality of Alcohol and Drug Abuse Patient Records regulations: The Federal rules restrict any use of the information to criminally investigate or prosecute any alcohol or drug abuse patient.[facility] HospitalIn the event this information is protected by the Federal Confidentiality of Alcohol and Drug Abuse Patient Records regulations: The Federal rules restrict any use of the information to criminally investigate or prosecute any alcohol or drug abuse patient.[facility] Care Teams (unrecognized sec tion and content) Onsite Case Manager Relationship Specialty Start Date End Date Fer Donohue MD [address], [place] [id number] PCP - General Internal Medicine 04/06/19 Onsite Case Manager Relationship Specialty Start Date End Date Fer Donohue MD [address], [place] [id number] PCP - General Internal Medicine 04/06/19 Onsite Case Manager Relationship Specialty Start Date End Date Fer Donohue MD [address], [place] [id number] PCP - General Internal Medicine 04/06/19 Onsite Case Manager Relationship Specialty Start Date End Date Fer Donohue MD [address] [place] [address] PCP - General Internal Medicine 04/06/19 Onsite Case Manager Relationship Specialty Start Date End Date Fer Donohue MD [address] [place] [address] PCP - General Internal Medicine 04/06/19 Onsite Case Manager Relationship Specialty Start Date End Date Fer Donohue MD [address] [place] [address] PCP - General Internal Medicine 04/06/19 Onsite Case Manager Relationship Specialty Start Date End Date Fer Donohue MD [address] [place] [address] PCP - General Internal Medicine 04/06/19 Onsite Case Manager Relationship Specialty Start Date End Date Fer Donohue MD [address] [place] [address] PCP - General Internal Medicine 04/06/19 Onsite Case Manager Relationship Specialty Start Date End Date Fer Donohue MD [address] [place] [address] PCP - General Internal Medicine 04/06/19 Onsite Case Manager Relationship Specialty Start Date End Date Fer Donohue MD [address] [place] [address] PCP - General Internal Medicine 04/06/19 Onsite Case Manager Relationship Specialty Start Date End Date Fer Donohue MD [address] [place] [address] PCP - General Internal Medicine 04/06/19 Onsite Case Manager Relationship Specialty Start Date End Date Fer Donohue MD [address] [place] [address] PCP - General Internal Medicine 04/06/19 Onsite Case Manager Relationship Specialty Start Date End Date Fer Donohue MD [address] [facility] [place] [address] PCP - General Internal Medicine 04/06/19 Onsite Case Manager Relationship Specialty Start Date End Date Fer Donohue MD [address] [facility] [place] [address] PCP - General Internal Medicine 04/06/19 Onsite Case Manager Relationship Specialty Start Date End Date Fer Donohue MD [address] [place] [address] PCP - General Internal Medicine 04/06/19 Onsite Case Manager Relationship Specialty Start Date End Date Fer Donohue MD [address] [place] [address] PCP - General Internal Medicine 04/06/19 Onsite Case Manager Relationship Specialty Start Date End Date Fer Donohue MD [address] [place] [address] PCP - General Internal Medicine 04/06/19 Onsite Case Manager Relationship Specialty Start Date End Date Fer Donohue MD [address] [place] [address] PCP - General Internal Medicine 04/06/19 Onsite Case Manager Relationship Specialty Start Date End Date Fer Donohue MD [address] [place] [address] PCP - General Internal Medicine 04/06/19 Onsite Case Manager Relationship Specialty Start Date End Date Fer Donohue MD [address] [place] [address] PCP - General Internal Medicine 04/06/19 Onsite Case Manager Relationship Specialty Start Date End Date Fer Donohue MD [address] [place] [address] PCP - General Internal Medicine 04/06/19 Onsite Case Manager Relationship Specialty Start Date End Date Fer Donohue MD [address] [place] [address] PCP - General Internal Medicine 04/06/19 Onsite Case Manager Relationship Specialty Start Date End Date Fer Donohue MD [address] [place] [address] PCP - General Internal Medicine 04/06/19 Onsite Case Manager Relationship Specialty Start Date End Date Fer Donohue MD [address] [place] [address] PCP - General Internal Medicine 04/06/19 Onsite Case Manager Relationship Specialty Start Date End Date Fer Donohue MD [address] [place] [address] PCP - General Internal Medicine 04/06/19 Onsite Case Manager Relationship Specialty Start Date End Date Fer Donohue MD [address] [place] [address] PCP - General Internal Medicine 04/06/19 Onsite Case Manager Relationship Specialty Start Date End Date Fer Donohue MD [address] [place] [address] PCP - General Internal Medicine 04/06/19 Onsite Case Manager Relationship Specialty Start Date End Date Fer Donohue MD [address] [place] [address] PCP - General Internal Medicine 04/06/19 Onsite Case Manager Relationship Specialty Start Date End Date Fer Donohue MD [address] [place] [address] PCP - General Internal Medicine 04/06/19 Onsite Case Manager Relationship Specialty Start Date End Date Fer Donohue MD [address] [place] [address] PCP - General Internal Medicine 04/06/19 Onsite Case Manager Relationship Specialty Start Date End Date Fer Donohue MD [address] [place] [address] PCP - General Internal Medicine 04/06/19 Onsite Case Manager Relationship Specialty Start Date End Date Fer Donohue MD [address] [place] [address] PCP - General Internal Medicine 04/06/19 Onsite Case Manager Relationship Specialty Start Date End Date Fer Donohue MD [address] [place] [address] PCP - General Internal Medicine 04/06/19 Onsite Case Manager Relationship Specialty Start Date End Date Fer Donohue MD [address] [place] [address] PCP - General Internal Medicine 04/06/19 Onsite Case Manager Relationship Specialty Start Date End Date Fer Donohue MD [address] [place] [address] PCP - General Internal Medicine 04/06/19 Onsite Case Manager Relationship Specialty Start Date End Date Fer Donohue MD [address] [place] [address] PCP - General Internal Medicine 04/06/19 Onsite Case Manager Relationship Specialty Start Date End Date Fer Donohue MD [address], [place] [address] PCP - General Internal Medicine 04/06/19 Onsite Case Manager Relationship Specialty Start Date End Date Fer Donohue MD [address], [place] [address] PCP - General Internal Medicine 04/06/19 Onsite Case Manager Relationship Specialty Start Date End Date Fer Donohue MD [address] [place] [address] PCP - General Internal Medicine 04/06/19 Onsite Case Manager Relationship Specialty Start Date End Date Fer Donohue MD [address] [place] [address] PCP - General Internal Medicine 04/06/19 Onsite Case Manager Relationship Specialty Start Date End Date Fer Donohue MD [address], [place] [id number] PCP - General Internal Medicine 04/06/19 Reason for Visit (unrecogniz ed section and content) Reason Comments PT Discharge Specialty Diagnoses / Procedures Referred By Aruna t Referred To Contact [facility] Diagnoses DDD (degenerative disc disease), lumbar Cervical spondylosis without myelopathy Procedures CONSULT TO PHYSICAL THERAPY PHYSICAL THERAPY EVALUATION HIGH COMPLEX 45 MINS Older, NICOLE Byrd.PRODUCTION COST ESTIMATOR [address] [place] [address] [facility] [address] [place] [address] Referral ID Status Reason Start Date Expiration Date Visits Requested Visits Authorized [id number] Authorized Auto-Generat ed Referral 04/22/2023 04/21/2024 60 60 Reason Comments Physical Therapy Reason Comments PT Eval Specialty Diagnoses / Procedures Referred By Contac t Referred To Contact PHYSICAL THERAPY Diagnoses DDD (degenerative disc disease), lumbar Right-sided low back pain with right-sided sciatica, unspecified chronicity Kissing spine of lumbar region Meralgia paresthetica of right side Cervical spondylosis without myelopathy Procedures CONSULT [place] [address] [place] [address] [facility] [address] [place] [address] Referral ID Status Reason Start Date Expiration Date V isits Requested Visits Authorized [id number] Authorized 04/22/2021 04/21/2022 60 60 Reason Onset Date Comments Yearly Exam 07/27/2021 Reason Comments Vulvar Biopsy Reason Comments Results Reason Comments Xray Results New Pain Specialty Diagnoses / Procedures Referred By Contac t Referred To Contact Orthopedics Diagnoses Chronic left shoulder pain Procedures CONSULT PANEL TO ORTHOPAEDICS OFFICE/OUTPATIENT [facility] 60-74 MINUTES Brittaney Newsome APRN.PRODUCTION COST ESTIMATOR, DNP [address] [place] [address] Referral ID Status Reason Start Date Expiration Date V isits Requested Visits Authorized [id number] Closed PCP Requested Referral 07/04/2021 07/04/2022 1 1 Reason Comments Follow Up Reason Comments New Patient Evaluation states low back p ain with right thigh numbness. 5/10 Low Back Pain Numbness/Tingling Specialty Diagnoses / Procedures Referred By Contac t Referred To Contact Diagnoses Retrolisthesis of vertebrae DDD (degenerative disc disease), lumbar Thigh numbness Right-sided low back pain with right-sided sciatica, unspecified chronicity Kissing spine of lumbar region Procedures CONSULT TO SPINE SURGERY OFFICE/OUTPATIENT [facility] 60-74 MINUTES Fer Donohue MD [address] [place] [address] Referral ID Status Reason Start Date Expiration Date V isits Requested Visits Authorized [id number] Closed PCP Requested Referral 07/10/2021 07/10/2022 1 1 Reason Comments Follow Up refills and question s Reason Comments Refill Request Reason Onset Date Comments Refill Request 06/25/2023 Reason Comments Physical Annual Physical Reason Onset Date Comments Refill Request 10/05/2023 Reason Comments Yearly Exam Reason Comments Recheck 3 month follow up Reason Comments Reminder Call Reason Comments Med Change Request Reason Comments Recheck 4 week follow up Reason Comments Follow Up Patient states low b ack pain popping and snapping. Numbness and tingling. Wrapping around hip. Back Pain Neck Pain Patient states neck pain pain, radiating down arms with numbness and tingling. Reason Comments Radio Gen [facility] Radiology Service Pr ogress NotePATIENT NAME: Jamaal MichaelMRN: [id number] OF SERVICE: December 27, 2023TIME: 11:09 AMPATIENT IDENTITY VERIFICATION COMPLETED USING TWO (2) IDENTIFIERS: Name and Date of confirmed by patient verbally.FALL SCREENING: Has the patient had 2 falls in the last year or 1 fall with injury or currently using an Ambulatory Assistive Device (Walker, Cane, Wheelchair, Crutches, etc.)? NoPATIENT GENDER DATA: Female. status: : No Specialty Diagnoses / Procedures Referred By Contac t Referred To Contact XR IMAGING Diagnoses Inflammatory arthritis Procedures XR PELVIS 1V AP RADIOLOGIC EXAMINATION PELVIS 1/2 VIEWS Mehul Workman, [address] [place] [address] Xr Imaging [id number] Referral ID Status Reason Start Date Expiration Date V isits Requested Visits Authorized [id number] Closed Auto-Generate d Referral 12/27/2023 01/25/2025 1 1 Reason Comments Knee Pain L knee pain x severa l weeks INFORMATION SOURCE (unrecogn ized section and content) DATE CREATED AUTHOR 11/27/2023 [facility] DATE CREATED AUTHOR AUTHOR'S ORGANIZ ATION 02/14/2024 [facility] FOR RECORDS PERTAINING TO PATIENTS WHO ARE OR HAVE BEEN ENROLLED IN A CHEMICAL DEPENDENCY/SUBSTANCEABUSE PROGRAM, SOME INFORMATION MAY BE OMITTED. This clinical summary was aggregated from multiple sources. Caution should be exercised in using it in the provision of clinical care. This summary normalizes information from multiple sources, and as a consequence, information in this document may materially change the coding, format and clinical context of patient data. In addition, data may be omitted in some cases. CLINICAL DECISIONS SHOULD BE BASED ON THE PRIMARY CLINICAL RECORDS. [facility]. provides no warranty or guarantee of the accuracy or completeness of information in this document.
--- NOTE | 2024-02-16 00:47 | ED.VIS.LOWEX ---
HPI History of Present Illness Chief Complaint: Lower Extremity Injury Informant: patient and spouse/S.O. Narrative Narrative: Presents with thinking of other for evaluation worsening nontraumatic left knee pain and left lower leg pain throughout the day. History of autoimmune arthralgias, fibromyalgia. Patient has been doing physical therapy for her neck and back followed by pain management Dr. Huffman. She is also been having knee issues. A week ago saw her PCP placed on diclofenac twice a day. She started taking it yesterday started helping her knee pains. She has outpatient x-rays of her knee performed with results pending. Today did a little gardening pain worsen. Worse with weightbearing. No fevers. Denies recent travel or surgeries no history of mobilizations. No history of PE or DVT. States mild discomfort in her calf, she has varicose veins without any problems with this. Prior similar symptoms: Yes PFSH PFS Medical History Oral lichen planus Lichen sclerosus HTN (hypertension) GERD (gastroesophageal reflux disease) Fibromyalgia Sheryl thyroiditis Home Medications ?Medication ?Instructions ?Recorded ?Last Taken ?Type cholecalciferol (vitamin D3) 250 10,000 unit PO DAILY 06/03/15 Unknown History mcg (10,000 unit) tablet levothyroxine 100 mcg tablet 100 mcg PO DAILY 06/03/15 Unknown History naproxen sodium 220 mg tablet 500 mg PO BID 06/03/15 Unknown History (Aleve) diclofenac potassium 50 mg tablet 50 mg PO BID 02/15/24 Unknown History losartan 25 mg tablet 25 mg PO DAILY 02/15/24 Unknown History omeprazole 20 mg capsule,delayed 20 mg PO DAILY 02/15/24 Unknown History release Allergy/AdvReac Type Severity Reaction Status Date / Time No Known Allergies Allergy Verified 06/03/15 16:13 Social History Smoking Status: Never smoker ROS ROS ED Constitutional Constitutional ED: Denies chills, fever(s) or sweats Eyes Eyes: Denies change in vision ENT ENT ED: Denies dysphagia or sore throat Cardiovascular Cardiovascular: Denies chest pain, leg edema, palpitations or racing heartbeat Respiratory/Chest Respiratory/Chest: Denies cough, dyspnea or dyspnea on exertion Gastrointestinal Gastrointestinal: Denies abdominal pain, diarrhea, nausea or vomiting Genitourinary Genitourinary ED: Denies dysuria, hematuria or urinary frequency Musculoskeletal Musculoskeletal: Reports extremity pain; Denies back pain or neck pain Integumentary Denies rash or wounds Neurologic Neurologic: Denies headache(s), paresthesias or weakness EXAM Physical Exam Const Vital Signs: 02/15/24 23:29 02/16/24 00:54 Temperature 98.5 F 98 F Temperature Source Oral Pulse Rate 80 72 Respiratory Rate 16 18 Blood Pressure 160/114 H 132/68 H Blood Pressure Mean 129 89 Pulse Ox 97 97 Oxygen Delivery Method Room Air Positive well nourished and well developed General Appearance ED: well developed and NAD HEENT Reports moist mucous membranes normocephalic and atraumatic Eyes EOMs intact bilaterally and conjunctivae normal General Eye ED: Yes normal appearance of both eyes Neck no lymphadenopathy and supple General: Negative for tenderness Chest Wall Chest: Negative for tenderness Resp normal respiratory effort and normal air movement Effort and Inspection: symmetric chest movement; Negative for respiratory distress Cardio regular rate, regular rhythm and no murmurs Peripheral Pulses: pulses 2+ throughout GI normal to inspection, nondistended, normoactive bowel sounds and non-tender Palpation: Negative for guarding or rebound tenderness present Back/Spine no CVA tenderness and no thoracic nor lumbar tenderness Extremity Extremity Narrative: Left lower extremity: No medial thigh tenderness there is minimal calf tenderness no swelling. Negative varus and valgus. Negative patellar grind. Knee extensor intact. No redness or warmth. No pain with short arc of motion. Mildly positive Brigida's. Soft compartments. Pulses intact distally. General Extremety ED: Yes tenderness; Negative for edema General Extremity: Negative for edema Neuro oriented x3 and no sensory deficits noted Sensorium / Orientation: awake and alert Skin no rashes or lesions noted and no wounds MDM MDM MDM Narrative Medical decision making narrative: Interventions / MDM: Differential diagnosis: Arthralgia of left knee, myalgias of the lower extremity Diagnosis considered but do not suspect: No clinical septic knee. Low suspicion for DVT as bedside ultrasound negative. My EKG interpretation: N/A Imaging independently reviewed and interpreted by myself: N/A External documents reviewed: N/A Test considered but not ordered:N/A ED course: Time in the evening and weekend no ultrasound available. 2 point ultrasound performed of her left lower extremity was normal. I do not feel anticoagulants are necessary secondary to this. She be ordered for ultrasound as an outpatient for formal evaluation. She is reassured. She has no clinical septic knee. Mild Brigida's, she reporting pain in her knee and laterally down her leg. She has varicose veins however ultrasound negative for any thrombus in this region. I offered joint injection in the ED however states would help with knee joint pain and that her myalgias. She thought about it. She declines. César wrap provided for support of the leg and knee. She is given follow-up with orthopedics as an outpatient. She is also being referred to back to rheumatology by her physicians. She will continue her diclofenac. All her questions were answered. Re-evaluation: stable Disposition discussed with patient/family/significant other: Patient and significant other Case discussed with consulting clinician: N/A This note was generated with Frameri dictation software. It may contain incorrect words, spelling, and punctuation that were not noted in checking the note before signing. Discharge Plan Triage Chief Complaint: Lower Extremity Injury ED Provider: Frandy Grimm Dx/Rx/DC Orders Clinical Impression: Arthralgia of knee, left, Left leg pain Instructions: ED Knee Pain of Uncertain Cause Prescriptions: No Action levothyroxine 100 MCG tablet 100 mcg PO DAILY naproxen sodium [Aleve] 220 MG tablet 500 mg PO BID cholecalciferol (vitamin D3) 10,000 UNIT tablet 10,000 unit PO DAILY losartan 25 mg tablet 25 mg PO DAILY diclofenac potassium 50 mg tablet 50 mg PO BID omeprazole 20 mg capsule,delayed release(DR/EC) 20 mg PO DAILY Other Ambulatory Orders: Venous Duplex US, Unilateral (Stat) Facility: [facility] - Location: [facility] Ordered By: Dr. Frandy Grimm Primary Care Provider: Feli Germain Referrals: Feli Germain MD [Primary Care Provider] - Edwin Matos DO [Med Staff - Active Staff] - 1 Week if not improving Activity Restrictions/Additional Instructions: Continue your diclofenac. Use the César wrap for support. Outpatient ultrasound on Saturday. Follow-up with orthopedics for outpatient evaluation. Print Language: Ukrainian Disposition Disposition: Home, Self Care Discharge Date/Time: 02/16/24 00:55
[2024-02-16 00:54] VITALS: BP 132/68; PULSE 72; RESP 18; TEMP 36.6; O2SAT 97
--- OUTSIDE RECORDS SUMMARY | 2024-02-16 11:58 | XMS RPT_ITS | CCD ---
Author Organization [facility] Care Team Providers Care Dining Room Captain Name Role Phone Marcellus JORDAN, Fer Primary [...] POISON ABIGAIL EXTRACT Drug Allergy 0 Rash [facility] (20 sources) POISON ABIGAIL EXTRACT; Translations: [POISON ABIGAIL] Drug Allergy 0 Rash [facility] (20 sources) environmental [Other] Propensity to adverse reactions 6 [facility] Work Phone: (11 sources) Ethinyl Estradiol / Levonorgestrel; Translations: [LEVONORGESTREL-E THINYL ESTRAD] Drug Allergy 4 Intolerance [facility] (1 source) OTHER; Translations: [OTHER] Propensity to adverse reactions (disorder) 6 [facility] Repository Medications Current Medications Medication Drug Class(es) [...] Comment on above: Take 1 capsule by [facility] one time a week. clobetasol propionate [...] on above: Take 1 capsule by mo vth daily before breakfast. meloxicam 15 mg oral [...] 02-19-2018 Episodic Other aftercare (1 source) Other fdc (current) drug therapy; Translations: [Medication management] Onset: [...] CNOV Office Visit (INTMWS ) JAMAAL MICHAEL ([id number]) 1965 F Date Time Provider Department 02/12/24 [...] 4 weeks, compression socks, and naproxen without ad terminal makeup operator improvement. REVIEW OF SYSTEMS See HPI PAST [...] bilaterally. Pul (more content not included)... Normal [facility] CNTHERAPYon 02-05-2024 CNTHERAPY OT/PT/Speech Visit ( PTWS) JAMAAL MICHAEL ([id number]) 1965 F Date Time Provider Department 02/05/24 2:15 PM SHAHEED ESTRADA PTWS Date Time Provider Department Center 02/05/2024 2:15 PM [id number], COLIN PTWS Frankie Romo Reason for Visit: [...] mouth every 4 hours as needed. Normal [facility] CNTHERAPYon 01-29-2024 CNTHERAPY OT/PT/Speech Visit ( PTWS) JAMAAL MICHAEL ([id number]) 1965 F Date Time Provider Department 01/29/24 2:15 PM SHAHEED ESTRADA PTWS Date Time Provider Department Center 01/29/2024 2:15 PM [id number], COLIN PTWS Frankie Krish Reason for Visit: [...] by mouth every 4 hours as needed. Painter Maintenance: Therapy (PT/OT/Speech/Resp) ID: [id number] 01/29/2024 2:34 PM Author: SHAHEED ESTRADA Signed by SHAHEED ESTRADA PT on 01/29/2024 at 2:34 PM Document text: Program_ID:[id number] Access Code: [email or web address] URL: [email or web address]/ Date: 01-29-2024 Prepared By: Shaheed Estrada Program Notes Exercises - Supine Piriformis Stretch with Foot on Ground - 2-3 x daily - 5-7 x weekly - 2-3 sets - reps Normal [facility] THERAPY NTon 01-29-2024 THERAPY NT HNO ID: [id number] Author: SHAHEED ESTRADA PT Service: ? Author Type: Physical Therapist Type: Therapy (PT/OT/Speech/Resp) Filed: 01/29/2024 14:34 Note Text: Program_ID:[id number] Access Code: [email or web address] URL: [email or web address]/ Date: 01-29-2024 Prepared By: Shaheed Estrada Program Notes Exercises - Supine Piriformis Stretch with Foot on Ground - 2-3 x daily - 5-7 x weekly - 2-3 sets - reps Normal [facility] CNTHERAPYon 01-22-2024 CNTHERAPY OT/PT/Speech Visit ( PTWS) JAMAAL MICHAEL ([id number]) 1965 F Date Time Provider Department 01/22/24 2:15 PM SHAHEED ESTRADA PTWS Date Time Provider Department Center 01/22/2024 2:15 PM [id number], COLIN PTWS Frankie Romo Reason for Visit: [...] mouth every 4 hours as needed. Normal [facility] CNTHERAPYon 01-15-2024 CNTHERAPY OT/PT/Speech Visit ( PTWS) JAMAAL MICHAEL ([id number]) 1965 F Date Time Provider Department 01/15/24 2:15 PM SHAHEED ESTRADA PTWS Date Time Provider Department Center 01/15/2024 2:15 PM [id number], COLIN PTWS Frankie Romo Reason for Visit: [...] by mouth every 4 hours as needed. Painter Maintenance: Addendum Therapy (PT/OT/Speech/Resp) ID: [id number] 01/15/2024 2:34 PM Author: SHAHEED ESTRADA Signed by SHAHEED ESTRADA PT on 01/15/2024 at 2:34 PM * * * This document replaces document [id number] * * * Document text: Program_ID:[id number] Access Code: [email or web address] URL: [email or web address]/ Date: 01-15-2024 Prepared By: Shaheed Estrada Program [...] - 2-3 sets - 8-12 reps Normal [facility] THERAPY NTon 01-15-2024 THERAPY NT HNO ID: [id number] Author: SHAHEED ESTRADA, PT Service: ? Author Type: Physical Therapist Type: Therapy (PT/OT/Speech/Resp) Filed: 01/15/2024 14:34 Note Text: Program_ID:[id number] Access Code: [email or web address] URL: [email or web address] Date: 01-15-2024 Prepared By: Shaheed Estrada Program [...] - 2-3 sets - 8-12 reps Normal [facility] CNTHERAPYon 12-30-2023 CNTHERAPY OT/PT/Speech Visit ( PTWS) JAMAAL MICHAEL ([id number]) 1965 F Date Time Provider Department 12/30/23 4:30 PM SHAHEED ESTRADA PTWS Date Time Provider Department Center 12/30/2023 4:30 PM [id number], COLIN PTWS Frankie Romo Reason for Visit: [...] by mouth every 4 hours as needed. Painter Maintenance: Therapy (PT/OT/Speech/Resp) ID: [id number] 12/30/2023 5:09 PM Author: SHAHEED ESTRADA Signed by SHAHEED ESTRADA PT on 12/30/2023 at 5:09 PM Document text: Program_ID:[id number] Access Code: [email or web address] URL: [email or web address]/ Date: 12-30-2023 Prepared By: Shaheed Estrada Program [...] sets - 10 reps Therapy (PT/OT/Speech/Resp) ID: [id number] 12/30/2023 5:07 PM Author: SHAHEED ESTRADA Signed by SHAHEED ESTRADA PT on 12/30/2023 at 5:07 PM Document text: Program_ID:[id number] Access Code: [email or web address] URL: [email or web address]/ Date: 12-30-2023 Prepared By: Shaheed Estrada Program [...] - 2 sets - 8-12 reps Normal [facility] THERAPY NTon 12-30-2023 THERAPY NT HNO ID: [id number] Author: SHAHEED ESTRADA PT Service: ? Author Type: Physical Therapist Type: Therapy (PT/OT/Speech/Resp) Filed: 12/30/2023 17:09 Note Text: Program_ID:[id number] Access Code: [email or web address] URL: [email or web address] [email or web address]/ Date: 12-30-2023 Prepared By: Shaheed Estrada Program [...] - 2-3 sets - 10 reps Normal [facility] THERAPY NT HNO ID: [id number] Author: SHAHEED ESTRADA PT Service: ? Author Type: Physical Therapist Type: Therapy (PT/OT/Speech/Resp) Filed: 12/30/2023 17:07 Note Text: Program_ID:[id number] Access Code: [email or web address] URL: [email or web address]/ Date: 12-30-2023 Prepared By: Shaheed Estrada Program [...] - 2 sets - 8-12 reps Normal [facility] CNOVon 12-27-2023 CNOV Office Visit (SPMEST ) JAMAAL MICHAEL ([id number]) 1965 F Date Time Provider Department 12/27/23 [...] intact bilatera (more content not included)... Normal [facility] XR CERVICAL 4V AP/LAT/OBLon 12-27-2023 XR CERVICAL [...] within normal limits. IMPRESSION: Stable mild spondylosis. Kiln Firer Helper: [facility] Transcribe Date/Time: Dec 29 2023 9:11P Dictated by : JEFFREY LEBLANC MD This examination was interpreted and the report reviewed and electronically signed by: JEFFREY LEBLANC MD on Dec 29 2023 9:12PM EST [id number] Normal [facility] XR PELVIS 1V APon 12-27-2023 XR PELVIS [...] sacroiliitis an MRI would be more sensitive. Kiln Firer Helper: [facility] Transcribe Date/Time: Dec 29 2023 9:04P Dictated by : JOSE SWENSON MD This examination was interpreted and the report reviewed and electronically signed by: JOSE SWENSON MD on Dec 29 2023 9:06PM EST [id number] Normal [facility] CNTHERAPYon 12-20-2023 CNTHERAPY OT/PT/Speech Visit ( PTWS) ALECJAMAAL L ([id number]) 1965 F Date Time Provider Department 12/20/23 10:00 AM SHAHEED ESTRADA PTWS Date Time Provider Department Center 12/20/2023 10:00 AM [id number], COLIN PTWS [place] Reason for Visit: Physical Therapy [503] [...] mouth every 4 hours as needed. Normal [facility] CNOVon 12-19-2023 CNOV Office Visit (INTMWS ) JAMAAL MICHAEL ([id number]) 1965 F Date Time Provider Department 12/19/23 2:20 PM ROCHELLE ALCANTAR INTZOHAIB During your visit today, we recorded the following information about you: Pulse Respiration Blood pressure Weight 88/minute 16/minute 126/78 94.8 kg Rochelle Alcantar APRN.[facility] 12/19/2023 3:10 PM Signed CC: Patient presents [...] to taking diflucan as ordered by her information technology instructor. EKG showed possible inferior [place] age undetermined which has been present on [...] mac 10/12/2015: ESOPHAGOGASTRODUODENOSCOPY TRANSORAL DIAGNOSTIC Comment: [place] [facility] [place] PAST SURGICAL HISTORY OF; Right Comment: [...] wheezing, r (more content not included)... Normal [facility] ECHOon 12-10-2023 Echocardiography Echocardiography Rep ort: Transthoracic Echo [facility] Date of service: 12/10/2023 2:50:51 PM ROLL OPERATOR Ordering physician: ROCHELLE ALCANTAR Indication: Abnormal ECG Technologist: Paige Crawford [facility] Interpreting physician: Sabi Alex MD PATIENT: Name: [...] * * Final * * * CC [employer] Medical Image : [id number] oDynamicsSISUID Normal [facility] CNTHERAPYon 12-05-2023 CNTHERAPY OT/PT/Speech Visit ( PTWS) JAMAAL MICHAEL ([id number]) 1965 F Date Time Provider Department 12/05/23 3:45 PM SHAHEED ESTRADA PTWS Date Time Provider Department Center 12/05/2023 3:45 PM [id number], COLIN PTWS Frankie Romo Reason for Visit: [...] by mouth every 4 hours as needed. Painter Maintenance: Therapy (PT/OT/Speech/Resp) ID: [id number] 12/05/2023 4:29 PM Author: SHAHEED ESTRADA Signed by SHAHEED ESTRADA PT on 12/05/2023 at 4:29 PM Document text: Program_ID:[id number] Access Code: [email or web address] URL: [email or web address]/ Date: 12-05-2023 Prepared By: Shaheed Estrada Program [...] sets - 8-12 reps Therapy (PT/OT/Speech/Resp) ID: [id number] 12/05/2023 4:28 PM Author: SHAHEED ESTRADA Signed by SHAHEED ESTRADA PT on 12/05/2023 at 4:28 PM Document text: Program_ID:[id number] Access Code: [email or web address] URL: [email or web address] [email or web address] Date: 12-05-2023 Prepared By: Shaheed Estrada Program [...] - 2 sets - 10 reps Normal [facility] THERAPY NTon 12-05-2023 THERAPY NT HNO ID: [id number] Author: SHAHEED ESTRADA, PT Service: ? Author Type: Physical Therapist Type: Therapy (PT/OT/Speech/Resp) Filed: 12/05/2023 16:29 Note Text: Program_ID:[id number] Access Code: [email or web address] URL: [email or web address]/ Date: 12-05-2023 Prepared By: Shaheed Estrada Program [...] - 2 sets - 8-12 reps Normal [facility] THERAPY NT HNO ID: [id number] Author: SHAHEED ESTRADA, PT Service: ? Author Type: Physical Therapist Type: Therapy (PT/OT/Speech/Resp) Filed: 12/05/2023 16:28 Note Text: Program_ID:[id number] Access Code: [email or web address] URL: [email or web address]/ Date: 12-05-2023 Prepared By: Shaheed Estrada Program [...] - 2 sets - 10 reps Normal [facility] EXERCISE STRESS ECG (WITHOUT IMAGING)on 11-26-2023 Stress Legal Secretary Report: Exercise Stress ECG (without Imaging) [facility] Date of service: 11/26/2023 8:49:37 AM Supervising physician: Mira Walter MD PATIENT: Name: MRS. JAMAAL MICHAEL Age: 58 years Gender: F The supervising physician was in the department and immediately available. Final Stress ECG Report: Exercise Stress ECG (without Imaging) [facility] Date of service: 11/26/2023 8:49:37 AM Ordering physician: ROCHELLE ALCANTAR human resources specialist: Marielos Pimentel Color Making Supervisor: Gayla Lamar Interpreting physician: Shirley Aquino MD [...] 188/90 mmHg. The double product achieved was 95526. Medications: Last Used PRILOSEC NAPROXEN COZAAR LEVOTHYROXINE [...] +---+---+-- -+ Stage Time (min) HR SYS BASSME +------+ +---+---+-- -+ 1 1.0 129 178 [...] (HRR): 21 bpm Rate Pressure Product (RPP): 41005 Ibrahim Treadmill Score: 8.5 Stress Exercise Observations: [...] equation for determining estimated MET values for [facility] stress tests changed. Comparison of test results before and after that date may show a change in estimated MET values for peak/max exercise despite a test duration that is similar in length. The validity of the new FRIEND equation for exercise METS is endorsed by the [place] [employer] Association. Carrillo P, Destiney LA, Jennifer R, Fabian J, Glen J. New Generalized Equation for Predicting Maximal Oxygen Uptake (from the Fitness Registry and the Importance of Exercise National Database). The [place] Journal of Cardiology. 2017;120(4):688-692). Final See Link below for Image [facility] EXERCISE STRESS ECG (WITHOUT IMAGING) Stress Legal Secretary Report: Exercise Stress ECG (without Imaging) [facility] Date of service: 11/26/2023 8:49:37 AM Supervising physician: Mira Walter MD PATIENT: Name: MRS. JAMAAL MICHAEL Age: 58 years Gender: F The supervising physician was in the department and immediately available. Final Stress ECG Report: Exercise Stress ECG (without Imaging) [facility] Date of service: 11/26/2023 8:49:37 AM Ordering physician: ROCHELLE ALCANTAR human resources specialist: Marielos Pimentel Color Making Supervisor: Gayla Lamar Interpreting physician: Shirley Aquino MD [...] 188/90 mmHg. The double product achieved was 94097. Medications: Last Used PRILOSEC NAPROXEN COZAAR LEVOTHYROXINE [...] (HRR): 21 bpm Rate Pressure Product (RPP): 57178 Ibrahim Treadmill Score: 8.5 Stress Exercise Observations: [...] equation for determining estimated MET values for [facility] stress tests changed. Comparison of test results before and after that date may show a change in estimated MET values for peak/max exercise despite a test duration that is similar in length. The validity of the new FRIEND equation for exercise METS is endorsed by the [place] Heart Association. Carrillo P, Destiney LA, Jennifer R, Fabian J, Glen J. New Generalized Equation for Predicting Maximal Oxygen Uptake (from the Fitness Registry and the Importance of Exercise National Database). The [place] Journal of Cardiology. 2017;120(4):688-692). Final CC [employer] Medical Image : [id number] ngoDynamicsSISUID See Link below for Image Normal [facility] 11-25-2023 [facility] Telephone (CDLBME) JAMAAL MICHAEL ([id number]) 1965 F Date Time Provider Department 11/25/23 [...] Fully Assessed Reason for Visit: Reminder Call [6299] Prescriptions as of 11/25/2023 - omeprazole (PRILOSEC) [...] Encounter Status:Closed by GAYLA LAMAR on 11/25/23 [facility] Basic metabolic 2000 panelon 11-13-2023 Anion gap [Moles/Vol] 8 mmol/L Normal 8-15 [facility] Comment on above: Order Comment: Speci men Type: BLOOD SPECIMENOrdering Facility: [facility] Address: [address] [place] [address] Performed By: #### 2 4321-2, 3015-06, ####[facility] LABIA [id number] [place] [address] [place] Calcium [Mass/Vol] 10.0 mg/dL Normal 8.5-10.2 [facility] Comment on above: Order Comment: Speci men Type: BLOOD SPECIMENOrdering Facility: [facility] Address: [address] [place] [address] Performed By: #### 2 4321-2, 3, ####[facility] LABCLIA [id number] [address] [address] [place] Chloride [Moles/Vol] 106 mmol/L Normal 98-107 [facility] Comment on above: Order Comment: Speci men Type: BLOOD SPECIMENOrdering Facility: [facility] Address: [address] [place] [address] Performed By: #### 2 4321-2, 3, ####[facility] LABCLIA [id number] [address] [address] [place] CO2 [Moles/Vol] 25 mmol/L Normal 22-30 [facility] Comment on above: Order Comment: Speci men Type: BLOOD SPECIMENOrdering Facility: [facility] Address: [address] [place] [address] Performed By: #### 2 4321-2, 3, ####[facility] LABCLIA [id number] [place] [address] [place] Creatinine [Mass/Vol] 0.87 mg/dL Normal 0.58-0.96 [facility] Comment on above: Order Comment: Speci men Type: BLOOD SPECIMENOrdering Facility: [facility] Address: [address] [place] [address] Performed By: #### 2 4321-2, 3, ####[facility] LABCLIA [id number] [place] [address] [place] Creatinine and Glomerular filtration rate.predicted panel (S/P/Bld) 77 mL/min/1.73m??? Normal >=60 [facility] Comment on above: Order Comment: Speci men Type: BLOOD SPECIMENOrdering Facility: [facility] Address: [address] [place] [address] Result Comment: Bethany mated Glomerular Filtration Rate [...] GFR. Performed By: #### 2 4321-2, 6-3, ####[facility] LABCLIA [id number] [address] [address] [place] Glucose [Mass/Vol] 95 mg/dL Normal 74-99 [facility] Comment on above: Order Comment: Speci men Type: BLOOD SPECIMENOrdering Facility: [facility] Address: [address] [place], [place] [id number] Result Comment: The [place] Diabetes Association (ADA) provides guidance for cutoff [...] Standards of Medical Care in Diabetes 2016, [place] Diabetes Association. Diabetes Care. 2016.39(Suppl 1). Performed By: #### 2 4321-2, 3015-3, ####[facility] LABCLIA [id number] [address] [address] [place] Potassium [Moles/Vol] 4.6 mmol/L Normal 3.7-5.1 [facility] Comment on above: Order Comment: Speci men Type: BLOOD SPECIMENOrdering Facility: [facility] Address: [address] [place] [address] Performed By: #### 2 4321-2, 3015-3, ####[facility] LABIA [id number] [address] [address] [place] Sodium [Moles/Vol] 139 mmol/L Normal 136-144 [facility] Comment on above: Order Comment: Speci men Type: BLOOD SPECIMENOrdering Facility: [facility] Address: [address] [place] [address] Performed By: #### 2 4321-2, 6-3, ####[facility] LABCLIA [id number] [address] [address] [place] Urea nitrogen [Mass/Vol] 15 mg/dL Normal 7-21 [facility] Comment on above: Order Comment: Speci men Type: BLOOD SPECIMENOrdering Facility: [facility] Address: [address] [facility] [place] [id number] Performed By: #### 2 4321-2, 6-3, ####[facility] LABCLIA [id number] [place] [id number] [place] CBC W Auto Differential pane l (Bld)on 11-13-2023 Basophils (Bld) [#/Vol] 0.06 10*3/uL [facility] Basophils/100 WBC (Bld) 0.8 % [facility] Differential cell count method Nom (Bld) Auto [facility] Eosinophils (Bld) [#/Vol] 0.21 10*3/uL [facility] Eosinophils/100 WBC (Bld) 2.7 % [facility] Erythrocyte distribution width (RBC) [Ratio] 12.1 % 11.5 - 15.0 % [facility] Hematocrit (Bld) [Volume fraction] 41.7 % 36.0 - 46.0 % [facility] Hemoglobin (Bld) [Mass/Vol] 14.6 g/dL 11.5 - 15.5 g/dL [facility] Immature granulocytes (Bld) [#/Vol] [facility] Immature granulocytes/100 WBC (Bld) 0.3 % [facility] Lymphocytes (Bld) [#/Vol] 1.74 10*3/uL [facility] Lymphocytes/100 WBC (Bld) 22.1 % [facility] MCH (RBC) [Entitic mass] 32.6 pg 26.0 - 34.0 pg [facility] MCHC (RBC) [Mass/Vol] 35.0 g/dL 30.5 - 36.0 g/dL [facility] MCV (RBC) [Entitic vol] 93.1 fL 80.0 - 100.0 fL [facility] Monocytes (Bld) [#/Vol] 0.72 10*3/uL NINF [facility] Monocytes/100 WBC (Bld) 9.1 % [facility] Neutrophils (Bld) [#/Vol] 5.13 10*3/uL [facility] Neutrophils/100 WBC (Bld) 65.0 % [facility] Nucleated RBC (Bld) [#/Vol] NINF [facility] Nucleated RBC/100 WBC (Bld) [Ratio] 0.0 % /100 WBC [facility] Platelet mean volume (Bld) [Entitic vol] 10.4 fL 9.0 - 12.7 fL [facility] Platelets (Bld) [#/Vol] 265 10*3/uL [facility] RBC (Bld) [#/Vol] 4.48 10*6/uL 3.90 - 5.2 0 m/uL [facility] WBC (Bld) [#/Vol] 7.88 10*3/uL [facility] Basophils (Bld) [#/Vol] 0.06 10*3/uL Normal <0.11 [facility] Comment on above: Order Comment: Speci men Type: BLOOD SPECIMENOrdering Facility: [facility] Address: [address] [place] [address] Performed By: #### 5 7021-8 ####[facility] LABIA [id number] [place] [address] [place] Basophils/100 WBC (Bld) 0.8 % Normal [facility] Comment on above: Order Comment: Speci men Type: BLOOD SPECIMENOrdering Facility: [facility] Address: [address] [place] [address] Performed By: #### 5 7021-8 ####[facility] LABIA [id number] [place] [address] [place] Differential cell count method Nom (Bld) Auto Normal [facility] Comment on above: Order Comment: Speci men Type: BLOOD SPECIMENOrdering Facility: [facility] Address: [address] [place] [address] Performed By: #### 5 7021-8 ####[facility] LABCLIA [id number] [place] [address] [place] Eosinophils (Bld) [#/Vol] 0.21 10*3/uL Normal <0.46 [facility] Comment on above: Order Comment: Speci men Type: BLOOD SPECIMENOrdering Facility: [facility] Address: [address] [place] [address] Performed By: #### 5 7021-8 ####[facility] LABCLIA [id number] [place] [address] [place] Eosinophils/100 WBC (Bld) 2.7 % Normal [facility] Comment on above: Order Comment: Speci men Type: BLOOD SPECIMENOrdering Facility: [facility] Address: [address] [place] [address] Performed By: #### 5 7021-8 ####[facility] LABCLIA [id number] [place] [address] [place] Erythrocyte distribution width (RBC) [Ratio] 12.1 % Normal 11.5-15.0 [facility] Comment on above: Order Comment: Speci men Type: BLOOD SPECIMENOrdering Facility: [facility] Address: [address] [place] [address] Performed By: #### 5 7021-8 ####[facility] LABCLIA [id number] [place] [address] [place] Hematocrit (Bld) [Volume fraction] 41.7 % Normal 36.0-46.0 [facility] Comment on above: Order Comment: Speci men Type: BLOOD SPECIMENOrdering Facility: [facility] Address: [address] [place] [address] Performed By: #### 5 7021-8 ####[facility] LABCLIA [id number] [place] [address] [place] Hemoglobin (Bld) [Mass/Vol] 14.6 g/dL Normal 11.5-15.5 [facility] Comment on above: Order Comment: Speci men Type: BLOOD SPECIMENOrdering Facility: [facility] Address: [address] [place] [address] Performed By: #### 5 7021-8 ####[facility] LABCLIA [id number] [place] [address] [place] Immature granulocytes (Bld) [#/Vol] 10*3/uL Normal <0.10 [facility] Comment on above: Order Comment: Speci men Type: BLOOD SPECIMENOrdering Facility: [facility] Address: [address] [place] [address] Performed By: #### 5 7021-8 ####[facility] LABCLIA [id number] [place] [address] [place] Immature granulocytes/100 WBC (Bld) 0.3 % Normal [facility] Center Comment on above: Order Comment: Speci men Type: BLOOD SPECIMENOrdering Facility: [facility] Address: [address] [place] [address] Performed By: #### 5 7021-8 ####[facility] LABCLIA [id number] [place] [address] [place] Lymphocytes (Bld) [#/Vol] 1.74 10*3/uL Normal 1.00-4.00 [facility] Comment on above: Order Comment: Speci men Type: BLOOD SPECIMENOrdering Facility: [facility] Address: [address] [place] [address] Performed By: #### 5 7021-8 ####[facility] LABCLIA [id number] [place] [address] [place] Lymphocytes/100 WBC (Bld) 22.1 % Normal [facility] Comment on above: Order Comment: Speci men Type: BLOOD SPECIMENOrdering Facility: [facility] Address: [address] [place] [address] Performed By: #### 5 7021-8 ####[facility] LABIA [id number] [place] [address] [place] MCH (RBC) [Entitic mass] 32.6 pg Normal 26.0-34.0 [facility] Comment on above: Order Comment: Speci men Type: BLOOD SPECIMENOrdering Facility: [facility] Address: [address] [place] [address] Performed By: #### 5 7021-8 ####[facility] LABIA [id number] [place] [address] [place] MCHC (RBC) [Mass/Vol] 35.0 g/dL Normal 30.5-36.0 [facility] Comment on above: Order Comment: Speci men Type: BLOOD SPECIMENOrdering Facility: [facility] Address: [address] [place] [address] Performed By: #### 5 7021-8 ####[facility] [id number] [place] [address] [place] MCV (RBC) [Entitic vol] 93.1 fL Normal 80.0-100.0 [facility] Comment on above: Order Comment: Speci men Type: BLOOD SPECIMENOrdering Facility: [facility] Address: [address] [place] [address] Performed By: #### 5 7021-8 ####[facility] LABIA [id number] [place] [address] [place] Monocytes (Bld) [#/Vol] 0.72 10*3/uL Normal <0.87 [facility] Comment on above: Order Comment: Speci men Type: BLOOD SPECIMENOrdering Facility: [facility] Address: [address] [place] [address] Performed By: #### 5 7021-8 ####[facility] [id number] [place] [address] [place] Monocytes/100 WBC (Bld) 9.1 % Normal [facility] Comment on above: Order Comment: Speci men Type: BLOOD SPECIMENOrdering Facility: [facility] Address: [address] [place] [address] Performed By: #### 5 7021-8 ####[facility] LABCLIA [id number] [place] [address] [place] Neutrophils (Bld) [#/Vol] 5.13 10*3/uL Normal 1.45-7.50 [facility] Comment on above: Order Comment: Speci men Type: BLOOD SPECIMENOrdering Facility: [facility] Address: [address] [place] [address] Performed By: #### 5 7021-8 ####[facility] LABCLIA [id number] [place] [address] [place] Neutrophils/100 WBC (Bld) 65.0 % Normal [facility] Comment on above: Order Comment: Speci men Type: BLOOD SPECIMENOrdering Facility: [facility] Address: [address] [place] [address] Performed By: #### 5 7021-8 ####[facility] LABCLIA [id number] [place] [address] [place] Nucleated RBC (Bld) [#/Vol] 10*3/uL Normal <0.01 [facility] Comment on above: Order Comment: Speci men Type: BLOOD SPECIMENOrdering Facility: [facility] Address: [address] [place] [address] Performed By: #### 5 7021-8 ####[facility] LABCLIA [id number] [place] [address] [place] Nucleated RBC/100 WBC (Bld) [Ratio] 0.0 /100 WBC Normal [facility] Comment on above: Order Comment: Speci men Type: BLOOD SPECIMENOrdering Facility: [facility] Address: [address] [place] [address] Performed By: #### 5 7021-8 ####[facility] LABCLIA [id number] [place] [address] [place] Platelet mean volume (Bld) [Entitic vol] 10.4 fL Normal 9.0-12.7 [facility] Comment on above: Order Comment: Speci men Type: BLOOD SPECIMENOrdering Facility: [facility] Address: [address] [place] [address] Performed By: #### 5 7021-8 ####[facility] LABCLIA [id number] [place] [address] [place] Platelets (Bld) [#/Vol] 265 10*3/uL Normal 150-400 [facility] Comment on above: Order Comment: Speci men Type: BLOOD SPECIMENOrdering Facility: [facility] Address: [address] [place] [address] Performed By: #### 5 7021-8 ####[facility] LABCLIA [id number] [place] [address] [place] RBC (Bld) [#/Vol] 4.48 10*6/uL Normal 3.90-5.20 [facility] Comment on above: Order Comment: Speci men Type: BLOOD SPECIMENOrdering Facility: [facility] Address: [address] [place] [address] Performed By: #### 5 7021-8 ####[facility] LABCLIA [id number] [place] [address] [place] WBC (Bld) [#/Vol] 7.88 10*3/uL Normal 3.70-11.00 [facility] Comment on above: Order Comment: Speci men Type: BLOOD SPECIMENOrdering Facility: [facility] Address: [address] [place] [address] Performed By: #### 5 7021-8 ####[facility] LABCLIA [id number] [address] [address] [place] CNOVon 11-13-2023 CNOV Office Visit (INTMWS ) JAMAAL MICHAEL ([id number]) 1965 F Date Time Provider Department 11/13/23 2:40 PM ROCHELLE ALCANTAR INTZOHAIB During your visit today, we recorded the following information about you: Pulse Respiration Blood pressure Weight 80/minute 16/minute 138/86 94.8 kg Rochelle Alcantar APRN.KILN FIRER HELPER 11/13/2023 3:14 PM Signed CC: Patient presents [...] General Appearance: (more content not included)... Normal [facility] [id number] 11-13-2023 ECG01 Ventricular Rate : 8 1 BPM Atrial Rate : 81 BPM P-R Interval : 194 ms QRS Duration : 84 ms Q-T Interval : 400 ms QTC Calculation(Bazett) : 464 ms Calculated P [place] : 38 degrees Calculated R [place] : 19 degrees Calculated T [place] : 24 degrees NORMAL SINUS RHYTHM POSSIBLE INFERIOR MYOCARDIAL INFARCTION , AGE UNDETERMINED ABNORMAL ECG Confirmed by ANDRIY GUTIERREZ DO ([id number]) on 11/14/2023 5:17:14 PM NAME : JAMAAL MICHAEL PID : [id number] : 1965 Gender : Female Race : ORD : Procedure Date : Nov 13 2023 13:43:39 Edit Date : Nov 14 2023 17:17:20 Diagnosis: NORMAL SINUS RHYTHM POSSIBLE INFERIOR MYOCARDIAL INFARCTION , AGE UNDETERMINED ABNORMAL ECG Confirmed by ANDRIY GUTIERREZ DO ([id number]) on 11/14/2023 5:17:14 PM Test Reason : Location : [facility] : [facility] Overread By : ANDRIY GUTIERREZ DO Edited By : ANDRIY GUTIERREZ DO Referred By : ROCHELLE ALCANTAR Acquired by : , Normal [facility] ECG01 Ventricular Rate : 8 1 BPM Atrial Rate : 81 BPM P-R Interval : 194 ms QRS Duration : 84 ms Q-T Interval : 400 ms QTC Calculation(Bazett) : 464 ms Calculated P [place] : 38 degrees Calculated R [place] : 19 degrees Calculated T [place] : 24 degrees NORMAL SINUS RHYTHM POSSIBLE INFERIOR MYOCARDIAL INFARCTION , AGE UNDETERMINED ABNORMAL ECG Confirmed by ANDRIY GUTIERREZ DO ([id number]) on 11/14/2023 5:17:10 PM NAME : JAMAAL MICHAEL PID : [id number] : 1965 Gender : Female Race : ORD : Procedure Date : Nov 13 2023 13:43:39 Edit Date : Nov 14 2023 17:17:12 Diagnosis: NORMAL SINUS RHYTHM POSSIBLE INFERIOR MYOCARDIAL INFARCTION , AGE UNDETERMINED ABNORMAL ECG Confirmed by ANDRIY GUTIERREZ DO ([id number]) on 11/14/2023 5:17:10 PM Test Reason : Location : 185 : [facility] Overread By : ANDRIY GUTIERREZ DO Edited By : ANDRIY GUTIERREZ DO Referred By : ROCHELLE ALCANTAR Acquired by : , Normal [facility] Magnesium SerPl-mCncon 11-12 Magnesium [Mass/Vol] 2.1 mg/dL Normal 1.7-2.3 [facility] Comment on above: Order Comment: Hudson doherty Type: BLOOD SPECIMENOrdering Facility: [facility] Address: [address] [place] [address] Performed By: #### 2 4321-2, 3016-3, 85283-4 ####[facility] LABIA [id number] [place] [address] [place] TSH SerPl-aCncon 11-13-2023 TSH Qn 1.220 m[IU]/L Normal 0.270-4.200 [facility] Comment on above: Order Comment: Hudson doherty Type: BLOOD SPECIMENOrdering Facility: [facility] Address: [address] [place] [address] Performed By: #### 2 4321-2, 3016-3, ####[facility] LABIA [id number] [place] [id number] [place] CNOVon 10-16-2023 CNOV Office Visit (OBGYWM ) JAMAAL MICHAEL ([id number]) 1965 F Date Time Provider Department 10/16/23 10:30 AM MARIANO HERNANDEZ During your visit today, we recorded the following information about you: Blood pressure Weight Height 138/82 96.2 kg 1.664 m Mariano Hernandez MD 10/16/2023 11:37 AM Signed Placement Coordinator offered: Patient accepts, visit chaperoned by Jamaal [...] 1 adopted son and 1 biological daughter Geriatric Case Manager History LMP: 08/17/2016 (Approximate), Postmenopausal Age at Menarche: Age at First : Age at Menopause: Geriatric Case Manager History Comments: Sexual Activity: Yes; Male [...] no masses PELVIC: normal Bartholin's glands, urethra, Van Vleck's glands, no cervical lesions, good vaginal support, [...] for brandon (more content not included)... Normal [facility] HIGH RISK HUMAN PAPILLOMA JER (HPV), PCR FOR DETECTION AND GENOTYPINGon 10-16-2023 HPV 16 Ag Ql (Unsp spec) Not detected Normal Not detected [facility] Comment on above: Order Comment: Speci men Type: FLUID SPECIMENOrdering Facility: [facility] Address: [address] [place] [address] Performed By: #### H PVHRT, [id number] ####[facility] LABCLIA [id number] [place] [address] [place] HPV 18 Ag Ql (Unsp spec) Not detected Normal Not detected [facility] Comment on above: Order Comment: Speci men Type: FLUID SPECIMENOrdering Facility: [facility] Address: [address] [place] [address] Performed By: #### H PVHRT, [id number] ####[facility] LABCLIA [id number] [place] [address] [place] HPV 31+33+35+39+45+51+5 2+56+58+59+66+68 DNA FELICITAS+probe Ql (Cvx) Not detected Normal Not detected [facility] Comment on above: Order Comment: Speci men Type: FLUID SPECIMENOrdering Facility: [facility] Address: [address] [place] [address] Result Comment: High Risk HPV Other Type includes HPV types 31, 33, 35, 39, 45, 51, 52, 56, 58, 59, 66 and 68. Performed By: #### H PVHRT, [id number] ####[facility] LABCLIA [id number] [place] [address] [place] PAP TESTon 10-16-2023 ADEQUACY Satisfactory for interpretation. Normal [facility] Comment on above: Order Comment: Speci men Type: FLUID SPECIMENOrdering Facility: [facility] Address: [address] [place] [address] Performed By: #### H PVHRT, [id number] ####[facility] LABCLIA [id number] [place] [address] [place] CASE REPORT Normal [facility] Comment on above: Order Comment: Speci men Type: FLUID SPECIMENOrdering Facility: [facility] Address: [address] [place] [address] Result Comment: Gyne cologic Cytology Report Case: [id number] Authorizing Provider: Mariano Hernandez MD Collected: 10/16/2023 11:58 AM Ordering Location: OB/Gynecology Received: 10/16/2023 12:55 PM First Screen: Gmitro, Lalo, CT, ASCP Rescreen: Clapacs, Bernadette Specimen: Pap Test, ThinPrep, Cervix Performed By: #### H PVHRT, [id number] ####[facility] LABCLIA [id number] [place] [address] [place] CLINICAL HISTORY, CYTOLOGY, SENIOR MICROSOFT CONSULTANT Routine Exam Normal [facility] Comment on above: Order Comment: Speci men Type: FLUID SPECIMENOrdering Facility: [facility] Address: [address] [place] [address] Result Comment: Prev ious ASCUS No Menses, Other (Specify) postmenopausal Performed By: #### H PVHRT, [id number] ####[facility] LABCLIA [id number] [place] [address] [place] FINAL PERFORMING LAB Normal [facility] Comment on above: Order Comment: Speci men Type: FLUID SPECIMENOrdering Facility: [facility] Address: [address] [place] [address] Result Comment: Tech nical component, customer support executive screening performed at [facility], [address] [place] [address] CLIA# [id number] Diagnostic interpretation performed at [facility], [address] [place] [address] CLIA# [id number] Insurance Clerk: Bhavin Quinteros M.D. Performed By: #### H PVHRT, [id number] ####[facility] LABCLIA [id number] [address] [address] [place] HPV REFLEX Yes HPV Normal [facility] Comment on above: Order Comment: Speci men Type: FLUID SPECIMENOrdering Facility: [facility] Address: [address] [place] [address] Performed By: #### H PVHRT, [id number] ####[facility] LABCLIA [id number] [address] [address] [place] INTERPRETATION, CYTOLOGY, SENIOR MICROSOFT CONSULTANT Normal [facility] Comment on above: Order Comment: Speci men Type: FLUID SPECIMENOrdering Facility: [facility] Address: [address] [place] [address] Result Comment: Nega tive for intraepithelial lesion or malignancy. Performed By: #### H PVHRT, [id number] ####[facility] LABCLIA [id number] [place] [address] [place] LMP Normal [facility] Comment on above: Order Comment: Speci men Type: FLUID SPECIMENOrdering Facility: [facility] Address: [address] [place] [address] Performed By: #### H PVHRT, [id number] ####[facility] LABCLIA [id number] [address] [address] [place] PAP DISCLAIMER COMMENT The Pap Smear is a screening test for cervical cancer. False negative results occur with all screening tests, emphasizing the need for rescreening at recommended intervals, and clinical correlation. Normal [facility] Comment on above: Order Comment: Speci men Type: FLUID SPECIMENOrdering Facility: [facility] Address: [address] [place] [address] Performed By: #### H PVHRT, [id number] ####[facility] LABCLIA [id number] [address] PAP SUSTAINABLE DEVELOPMENT POLICY ANALYST COMMENT This specimen has be en analyzed by the ThinPrep Imaging System, an automated imaging and review system, which assists the laboratory in evaluating cells on ThinPrep Pap tests. Following automated imaging, selected qiu from every slide are reviewed by a customer support executive. Normal [facility] Comment on above: Order Comment: Speci men Type: FLUID SPECIMENOrdering Facility: [facility] Address: [address] [place] [address] [place] [address] Performed By: #### H PVHRT, [id number] ####[facility] LABCLIA [id number] [address] 10-07-2023 [facility] HNO ID: [id number] Author: COORDINATOR, MAMMOGRAPHY, ? Service: ? Author Type: Physician Type: Letter Filed: 10/07/2023 14:05 Note Text: October 07, 2023 PID: [id number] Jamaal Michael [address] [place] [address] Dear Ms. Michael, We are pleased to [...] report will be kept on file at [facility] as part of your permanent medical record and are available for your continuing care. Thank you for allowing us to help in meeting your health care needs. Sincerely, Dr. Gonzalez Interpreting Radiologist [facility] (Normal over 40) Normal [facility] ANA SCREENING W TOMOon 10-03 ANA SCREENING W GUNNER * * *Final Report* * * DATE OF EXAM: Oct 04 2023 2:44PM [id number] - ANA SCREENING W GUNNER / PROCEDURE REASON: multiple diagnoses * * * * Physician Interpretation * * * * RESULT: #[id number] - ANA SCREENING W GUNNER BILATERAL DIGITAL [...] mammogram, 04/10/2019 mammogram, and 02/28/2018 mammogram - [facility]. There are scattered areas of fibroglandular density. No significant masses, calcifications, or other findings are seen in either breast. There has been no significant interval change. IMPRESSION: NEGATIVE There is no mammographic evidence of malignancy. A 1 year screening mammogram is recommended. Libra soria/lea:10/07/2023 14:05:58 Plate Glass Installer Helper(s): Rocío Abraham, [facility] letter sent: Normal over 40 Mammogram BI-RADS: [...] Health, Family Medicine, and Medical/Surgical Oncology, the [facility] has carefully reviewed the data and reached [...] their providers when to stop screening mammograms. Kiln Firer Helper: Lea Transcribe Date/Time: Oct 04 2023 2:25P Dictated by: LIBRA GONZALEZ MD This examination was interpreted and the report reviewed and electronically signed by: LIBRA GONZALEZ MD on Oct 07 2023 2:05PM EST [id number] Normal [facility] 25(OH)D3 [facility] 25-hydroxyvitamin D3 [Mass/Vol] 70.8 ng/mL Normal 31.0-80.0 [facility] Comment on above: Order Comment: Speci men Type: BLOOD SPECIMENOrdering Facility: [facility] Address: [address] [place] [address] Result Comment: Clas sification of 25 [place] Vitamin D status: Deficiency/Insufficiency: < or = 30 ng/ml. Sufficiency/Optimal Levels: 31-80 ng/mL Toxicity: > 100 ng/mL. Test performed by chemiluminescent immunoassay. Performed By: #### 1 989-3 ####[facility] LABCLIA [id number] [place] [address] [place] Hepatic function 2000 panelo n 07-17-2023 Albumin [Mass/Vol] 4.4 g/dL Normal 3.9-4.9 [facility] Comment on above: Order Comment: Speci men Type: BLOOD SPECIMENOrdering Facility: [facility] Address: [address] [place] [address] Performed By: #### 2 4325-3 ####[facility]ITALJONYA [id number] [place] [address] [place] [facility] LABCLIA [id number] [place] [address] [place] ALP [Catalytic activity/Vol] 75 U/L Normal 34-123 [facility] Comment on above: Order Comment: Speci men Type: BLOOD SPECIMENOrdering Facility: [facility] Address: [address] [place] [address] Performed By: #### 2 4325-3 ####[facility]ITALNCLIA [id number] [place] [address] [place] [facility] LABCLIA [id number] [place] [address] [place] ALT [Catalytic activity/Vol] 33 U/L Normal 7-38 [facility] Comment on above: Order Comment: Speci men Type: BLOOD SPECIMENOrdering Facility: [facility] Address: [address] [place] [address] Performed By: #### 2 4325-3 ####[facility] MILLTOWNCLIA [id number] [address] OF [facility] LABCLIA [id number] [place] [address] [place] AST [Catalytic activity/Vol] 18 U/L Normal 13-35 [facility] Comment on above: Order Comment: Speci men Type: BLOOD SPECIMENOrdering Facility: [facility] Address: [address] [place] [address] Performed By: #### 2 4325-3 ####[facility]ENTERWNCLIA [id number] [address] STATES OF [facility] LABCLIA [id number] [place] [address] [place] Bilirubin [Mass/Vol] 0.6 mg/dL Normal 0.2-1.3 [facility] Comment on above: Order Comment: Speci men Type: BLOOD SPECIMENOrdering Facility: [facility] Address: [address] [place] [address] Performed By: #### 2 4325-3 ####[facility] HOSPITALTOWNCLIA [id number] [address] STATES OF [facility] LABCLIA [id number] [place] [address] [place] Bilirubin.conjugate d [Mass/Vol] mg/dL Normal <0.2 [facility] Comment on above: Order Comment: Speci men Type: BLOOD SPECIMENOrdering Facility: [facility] Address: [address] [place] [address] Performed By: #### 2 4325-3 ####[facility] MILLTOWNCLIA [id number] [address] LABCLIA [id number] [place] [address] [place] Protein [Mass/Vol] 8.0 g/dL Normal 6.3-8.0 [facility] Comment on above: Order Comment: Speci men Type: BLOOD SPECIMENOrdering Facility: [facility] Address: [address] [place] [address] Performed By: #### 2 4325-3 ####[facility]A [id number] [address] LABCLIA [id number] [place] [address] [place] Lipid 1996 panelon 4 Cholesterol [Mass/Vol] 179 mg/dL Normal <200 [facility] Comment on above: Order Comment: Speci men Type: BLOOD SPECIMENOrdering Facility: [facility] Address: [address] [place] [address] Result Comment: <200 mg/dL, Desirable 200-239 mg/dL, Borderline high >239 mg/dL, High Performed By: #### 2 132-9 ####[facility] LABCLIA [id number] [place] [address] [place]#### 17386-1 ####[facility] LABCLIA [id number] [address] [id number] [address] [place] Cholesterol in HDL [Mass/Vol] 52 mg/dL Normal >39 [facility] Comment on above: Order Comment: Speci men Type: BLOOD SPECIMENOrdering Facility: [facility] Address: [address] [place] [address] Result Comment: 40-5 9 mg/dL, Acceptable >59 mg/dL, High: Negative risk factor for coronary heart disease <40 mg/dL, Low: Positive risk factor for coronary heart disease Performed By: #### 2 132-9 ####[facility] LABCLIA [id number] [place] [address] [place]#### 79671-7 ####[facility] LABCLIA [id number] [place] [address] [place] [facility] [id number] [place] [address] [place] Cholesterol in LDL [Mass/Vol] 106 mg/dL High <100 [facility] Comment on above: Order Comment: Speci men Type: BLOOD SPECIMENOrdering Facility: [facility] Address: [address] [place] [address] Result Comment: <100 mg/dL, Optimal 100-129 mg/dL, Near optimal/above optimal 130-159 mg/dL, Borderline high 160-189 mg/dL, High >189 mg/dL, Very high Secondary prevention optimal LDL Cholesterol levels are recommended to be < 70 mg/dL Performed By: #### 2 132-9 ####[facility] LABCLIA [id number] [place] [address] [place]#### 32602-4 ####[facility] LABCLIA [id number] [place] [id number] [place] [facility] [id number] [place] [address] [place] Cholesterol in LDL/Cholesterol in HDL [Mass ratio] 2.04 {ratio} Normal <2.54 [facility] Comment on above: Order Comment: Speci men Type: BLOOD SPECIMENOrdering Facility: [facility] Address: [address] [place] [address] Result Comment: Refe rence: 1. National Cholesterol Education Program ATP III Guideline At-A-Glance Quick Desk Reference: National Heart, Lung, and Blood [place]. National Institutes of Health. 2001: NIH Publication No. 01-3305. 2. An International Atherosclerosis Society position paper: global recommendations for the management of dyslipidemia: executive summary, Atherosclerosis. 2014: 232(2):410-413. Performed By: #### 2 132-9 ####[facility] LABCLIA [id number] [address] [place]#### [address]77[address]-5 ####[facility] LABCLIA [id number] [id number] [place] [address] [place] Cholesterol in VLDL [Mass/Vol] 21 mg/dL Normal <30 [facility] Comment on above: Order Comment: Speci men Type: BLOOD SPECIMENOrdering Facility: [facility] Address: [address] [place] [address] Performed By: #### 2 132-9 ####[facility] LABCLIA [id number] [address] [place]#### 9[address]60-8 ####[facility] LABCLIA [id number] [address] [id number] [address] [place] Cholesterol non HDL [Mass/Vol] 127 mg/dL Normal <130 [facility] Comment on above: Order Comment: Speci men Type: BLOOD SPECIMENOrdering Facility: [facility] Address: [address] [place] [address] Result Comment: <130 mg/dL, Optimal 130-159 mg/dL, Near optimal/above optimal 160-189 mg/dL, Borderline high 190-219 mg/dL, High >219 mg/dL, Very high Secondary prevention optimal non HDL Cholesterol levels are recommended to be <100 mg/dL Performed By: #### 2 132-9 ####[facility] LABCLIA [id number] [place] [address] [place]#### 28274-9 ####[facility] LABCLIA [id number] [place] [id number] [facility] [id number] [place] [address] [place] Cholesterol.total/C holesterol in HDL [Mass ratio] 3.44 {ratio} Normal <5.10 [facility] Comment on above: Order Comment: Speci men Type: BLOOD SPECIMENOrdering Facility: [facility] Address: [address] [place] [address] Performed By: #### 2 132-9 ####[facility] LABCLIA [id number] [place] [address] [place]#### 03286-9 ####[facility] LABCLIA [id number] [id number] [place] [address] [place] FASTING TIME 12 hrs Normal [facility] Comment on above: Order Comment: Speci men Type: BLOOD SPECIMENOrdering Facility: [facility] Address: [address] [place], [place] [address] Performed By: #### 2 132-9 ####[facility] LABCLIA [id number] [place] [address] [place]#### 22340-2 ####[facility] LABCLIA [id number] [place] [id number] [place] [facility] [id number] [place] [address] [place] Triglyceride [Mass/Vol] 107 mg/dL Normal <150 [facility] Comment on above: Order Comment: Speci men Type: BLOOD SPECIMENOrdering Facility: [facility] Address: [address] [place] [address] Result Comment: <150 mg/dL, Normal 150-199 mg/dL, Borderline high 200-499 mg/dL, High >499 mg/dL, Very high Performed By: #### 2 132-9 ####[facility] LABCLIA [id number] [place] [address] [place]#### 61309-3 ####[facility] LABCLIA [id number] [address] [id number] [place] [address] [place] Vit [facility]12 [facility] Cobalamin (Vitamin B12) [Mass/Vol] 375 pg/mL Normal 232-1245 [facility] Comment on above: Order Comment: Speci men Type: BLOOD SPECIMENOrdering Facility: [facility] Address: [address] [place] [address] Performed By: #### 2 132-9 ####[facility] LABCLIA [id number] [place] [address] [place]#### 27619-0 ####[facility] LABCLIA [id number] [address] [id number] [address] [place] CNOVon 07-12-2023 CNOV Office Visit (INTMWS ) JAMAAL MICHAEL ([id number]) 1965 F Date Time Provider Department 07/12/23 7:40 AM ROCHELLE ALCANTAR During your visit today, we recorded the following information about you: Pulse Respiration Blood pressure Weight 74/minute 16/minute 136/79 98 kg Height 1.643 m Rochelle Alcantar APRN.[facility] 07/12/2023 11:21 AM Signed CC: Patient presents [...] Substance Use (more content not included)... Normal [facility] Basic metabolic 2000 panelon 07-09-2023 Anion gap [Moles/Vol] 8 mmol/L Low -18 [facility] Comment on above: Order Comment: Speci men Type: BLOOD SPECIMENOrdering Facility: [facility] Address: [address] [place] [address] Performed By: #### 2 4321-2 ####[facility] [id number] [place] [address] [place] Calcium [Mass/Vol] 9.7 mg/dL Normal 8.5-10.2 [facility] Comment on above: Order Comment: Speci men Type: BLOOD SPECIMENOrdering Facility: [facility] Address: [address] [place] [address] Performed By: #### 2 4321-2 ####[facility] [id number] [place] [address] [place] Chloride [Moles/Vol] 108 mmol/L High 97-105 [facility] Comment on above: Order Comment: Speci men Type: BLOOD SPECIMENOrdering Facility: [facility] Address: [address] [place] [address] Performed By: #### 2 4321-2 ####[facility]ITAL[facility]CL[facility] [id number] [place] [address] [place] CO2 [Moles/Vol] 25 mmol/L Normal 22-30 [facility] Comment on above: Order Comment: Speci men Type: BLOOD SPECIMENOrdering Facility: [facility] Address: [address] [place] [address] Performed By: #### 2 4321-2 ####[facility] [id number] [place] [address] [place] Creatinine [Mass/Vol] 0.74 mg/dL Normal 0.58-0.96 [facility] Comment on above: Order Comment: Spectobi men Type: BLOOD SPECIMENOrdering Facility: [facility] Address: [address] [place], [place] [address] [address] Performed By: #### 2 4321-2 ####[facility] [id number] [place] [address] [place] Creatinine and Glomerular filtration rate.predicted panel (S/P/Bld) 94 mL/min/1.73m??? Normal >=60 [facility] Comment on above: Order Comment: Hudson doherty Type: BLOOD SPECIMENOrdering Facility: [facility] Address: [address] [place] [address] Result Comment: Bethany mated Glomerular Filtration Rate [...] actual GFR. Performed By: #### 2 4321-2 ####[facility] [id number] [place] [address] [place] Glucose [Mass/Vol] 97 mg/dL Normal 74-99 [facility] Comment on above: Order Comment: Hudson doherty Type: BLOOD SPECIMENOrdering Facility: [facility] Address: [address] [place] [address] Result Comment: The [place] Diabetes Association (ADA) provides guidance for cutoff [...] Standards of Medical Care in Diabetes 2016, [place] Diabetes Association. Diabetes Care. 2016.39(Suppl 1). Performed By: #### 2 4321-2 ####[facility]ENTERWJONYLIA [id number] [place] [address] [place] Potassium [Moles/Vol] 3.9 mmol/L Normal 3.7-5.1 [facility] Comment on above: Order Comment: Hudson doherty Type: BLOOD SPECIMENOrdering Facility: [facility] Address: [address] [place] [address] Performed By: #### 2 4321-2 ####[facility] HOSPITALJesus Manuel [id number] [place] [address] [place] Sodium [Moles/Vol] 141 mmol/L Normal 136-144 [facility] Comment on above: Order Comment: Hudson doherty Type: BLOOD SPECIMENOrdering Facility: [facility] Address: [address] [place] [address] Performed By: #### 2 4321-2 ####[facility]OSPITALLIJesus Manuel [id number] [place] [address] [place] Urea nitrogen [Mass/Vol] 14 mg/dL Normal 7-21 [facility] Comment on above: Order Comment: Hudson men Type: BLOOD SPECIMENOrdering Facility: [facility] Address: [address] [place] [address] Performed By: #### 2 4321-2 ####[facility]ITALLIA [id number] [place] [address] [place] HbA1c (Bld)on 07-09-2023 Average glucose Estimated from glycated hemoglobin (Bld) [Mass/Vol] 103 mg/dL Normal [facility] Comment on above: Order Comment: Hudson doherty Type: BLOOD SPECIMENOrdering Facility: [facility] Address: [address] [place] [address] Result Comment: eAG: (Estimated average glucose) is a calculated value from HgbA1c and is patient admitting representative of the average blood glucose level in the last 2-3 month period. Performed By: #### 5 5454-3 ####[facility] LABCLIA [id number] [place] [address] [place] [facility] HbA1c (Bld) [Mass fraction] 5.2 % Normal 4.3-5.6 [facility] Comment on above: Order Comment: Hudson doherty Type: BLOOD SPECIMENOrdering Facility: [facility] Address: [address] [place] [address] Result Comment: Amer [place] Diabetes Association guidelines indicate that patients with HgbA1c in the range 5.7-6.4% are at increased risk for development of diabetes, and intervention by lifestyle modification may be beneficial. HgbA1c greater or equal to 6.5% is considered diagnostic of diabetes. Performed By: #### 5 5454-3 ####[facility] LABIA [id number] [place] [address] [place] TSH SerPl-aCncon 07-09-2023 TSH Qn 2.070 m[IU]/L Normal 0.270-4.200 [facility] Comment on above: Order Comment: Hudson doherty Type: BLOOD SPECIMENOrdering Facility: [facility] Address: [address] [place] [address] Performed By: #### 3 016-3 ####[facility] LABIA [id number] [place] [address] [place] ANA SCREENING W TOMOon 09-04 [facility] No Panel Informationon 09-04 [facility] ANA SCREENING W TOMOon 07-21 [facility] No Panel Informationon 09-20 -2021 Radiology Study observation (narrative) [facility] XR Cervical spine AP and Lat eralon 01-09-2021 IMPRESSION: No acute osseous abnormality. Mild degenerative changes, as described. Kiln Firer Helper: [facility] Transcribe Date/Time: Jan 09 2021 2:45P Dictated by : GAGAN MA MD This examination was interpreted and the report reviewed and electronically signed by: GAGAN MA MD on Jan 09 2021 2:47PM [facility] DIVISION OF RADIOLOGY * * *Final Report* [...] limits. DIVISION OF RADIOLOGY Provider, Jimmie mcgregor [place] - 01/09/2021 * * *Final Report* * [...] osseous abnormality. Mild degenerative changes, as described. Kiln Firer Helper: [facility] Transcribe Date/Time: Jan 09 2021 2:45P Dictated by : GAGAN MA MD This examination was interpreted and the report reviewed and electronically signed by: GAGAN MA MD on Jan 09 2021 2:47PM EST [facility] XR Cervical spine AP and Lat eralOrdered By: Ccf Provider on 01-09-2021 [facility] XR Lumbar spine 3 Viewson IMPRESSION: Lumbar s pine degenerative changes as described above. Kiln Firer Helper: [facility] Transcribe Date/Time: Jan 09 2021 2:48P Dictated by : RUBEN PIMENTEL MD This examination was interpreted and the report reviewed and electronically signed by: RUBEN PIMENTEL MD on Jan 09 2021 2:50PM [facility] DIVISION OF RADIOLOGY * * *Final Report* [...] spine are presented. FINDINGS: There are five peh-dbb-cpunasv lumbar vertebrae. No acute fractures seen. There [...] spine are presented. FINDINGS: There are five unp-lol-shsjjxw lumbar vertebrae. No acute fractures seen. There appears be minimal L3 on L4 retrolisthesis. L1-2 and L2-3 mild disc space narrowing cannot be excluded. There is moderate osteophyte formation, with facet arthrosis in the lower lumbar spine. Kissing spine seen on lateral view. IMPRESSION IMPRESSION: Lumbar spine degenerative changes as described above. Kiln Firer Helper: JOY Transcribe Date/Time: Jan 09 2021 2:48P Dictated by : RUBEN PIMENTEL MD This examination was interpreted and the report reviewed and electronically signed by: RUBEN PIMENTEL MD on Jan 09 2021 2:50PM [facility] Vital Signs Date Time Vital Sign Value Performing Clinician Teodora lowry 02-12-2024 11:15-0400 Body mass index (BMI) [Ratio] 34.95 kg/m2 JulN.KILN FIRER HELPER Work Phone: [facility] 02-12-2024 11:15-0400 Body weight 95.25 kg JulN.KILN FIRER HELPER Work Phone: [facility] 02-12-2024 11:15-0400 Diastolic blood pressure 78 mm[Hg] RADIOPHONE OPERATOR.KILN FIRER HELPER Work Phone: [facility] 02-12-2024 11:15-0400 Heart rate 84 /min RADIOPHONE OPERATOR.KILN FIRER HELPER Work Phone: [facility] 02-12-2024 11:15-0400 Respiratory rate 16 /min RADIOPHONE OPERATOR.KILN FIRER HELPER Work Phone: [facility] 02-12-2024 11:15-0400 SaO2% (BldA) [Mass fraction] 98 % Rochelle Older RADIOPHONE OPERATOR.KILN FIRER HELPER Work Phone: [facility] 02-12-2024 11:15-0400 Systolic blood pressure 136 mm[Hg] Rochelle Older RADIOPHONE OPERATOR.KILN FIRER HELPER Work Phone: [facility] 12-27-2023 09:59-0400 Body height 165.1 cm Mehul Workman DO Work Phone: [facility] 12-27-2023 09:59-0400 Body mass index (BMI) [Ratio] 34.78 kg/m2 Mehul Workman DO Work Phone: [facility] 12-27-2023 09:59-0400 Body weight 94.8 kg Mehul Workman DO Work Phone: [facility] 12-19-2023 14:13-0400 Body mass index (BMI) [Ratio] 34.25 kg/m2 Rochelle Older RADIOPHONE OPERATOR.KILN FIRER HELPER Work Phone: [facility] 12-19-2023 14:13-0400 Body weight 94.8 kg Rochelle Older RADIOPHONE OPERATOR.KILN FIRER HELPER Work Phone: [facility] 12-19-2023 14:13-0400 Diastolic blood pressure 78 mm[Hg] Rochelle Older RADIOPHONE OPERATOR.KILN FIRER HELPER Work Phone: [facility] 12-19-2023 14:13-0400 Heart rate 88 /min Rochelle Older RADIOPHONE OPERATOR.KILN FIRER HELPER Work Phone: [facility] 12-19-2023 14:13-0400 Respiratory rate 16 /min Rochelle Older RADIOPHONE OPERATOR.KILN FIRER HELPER Work Phone: [facility] 12-19-2023 14:13-0400 SaO2% (BldA) [Mass fraction] 98 % Rochelle Older RADIOPHONE OPERATOR.KILN FIRER HELPER Work Phone: [facility] 12-19-2023 14:13-0400 Systolic blood pressure 126 mm[Hg] Rochelle Older RADIOPHONE OPERATOR.KILN FIRER HELPER Work Phone: [facility] 11-13-2023 14:19-0400 Body mass index (BMI) [Ratio] 34.25 kg/m2 Rochelle Older RADIOPHONE OPERATOR.KILN FIRER HELPER Work Phone: [facility] 11-13-2023 14:19-0400 Body weight 94.8 kg Rochelle Older RADIOPHONE OPERATOR.KILN FIRER HELPER Work Phone: [facility] 11-13-2023 14:19-0400 Diastolic blood pressure 86 mm[Hg] Rochelle Older RADIOPHONE OPERATOR.KILN FIRER HELPER Work Phone: [facility] 11-13-2023 14:19-0400 Heart rate 80 /min Rochelle Older RADIOPHONE OPERATOR.KILN FIRER HELPER Work Phone: [facility] 11-13-2023 14:19-0400 Respiratory rate 16 /min Rochelle Older RADIOPHONE OPERATOR.KILN FIRER HELPER Work Phone: [facility] 11-13-2023 14:19-0400 SaO2% (BldA) [Mass fraction] 98 % Rochelle Older RADIOPHONE OPERATOR.KILN FIRER HELPER Work Phone: [facility] 11-13-2023 14:19-0400 Systolic blood pressure 138 mm[Hg] Rochelle Older RADIOPHONE OPERATOR.KILN FIRER HELPER Work Phone: [facility] 10-16-2023 [id number] Body height 166.4 cm Mariano Hernandez MD Work Phone: [facility] 10-16-2023 10:28-0400 Body mass index (BMI) [Ratio] 34.74 kg/m2 Mariano Hernandez MD Work Phone: [facility] 10-16-2023 [id number] Body weight 96.16 kg Mariano Hernandez MD Work Phone: [facility] 10-16-2023 10:28-0400 Diastolic blood pressure 82 mm[Hg] Mariano Hernandez MD Work Phone: [facility] 10-16-2023 10:28-0400 Systolic blood pressure 138 mm[Hg] Mariano Hernandez MD Work Phone: [facility] 07-12-2023 08:36-0400 Diastolic blood pressure 79 mm[Hg] Rochelle Older RADIOPHONE OPERATOR.KILN FIRER HELPER Work Phone: [facility] 07-12-2023 08:36-0400 Systolic blood pressure 136 mm[Hg] Rochelle Older RADIOPHONE OPERATOR.KILN FIRER HELPER Work Phone: [facility] 07-12-2023 07:47-0400 Body height 164.3 cm Rochelle Older RADIOPHONE OPERATOR.KILN FIRER HELPER Work Phone: [facility] 07-12-2023 07:47-0400 Body weight 97.98 kg Rochelle Older RADIOPHONE OPERATOR.KILN FIRER HELPER Work Phone: [facility] 07-12-2023 07:47-0400 Heart rate 74 /min Rochelle Older RADIOPHONE OPERATOR.KILN FIRER HELPER Work Phone: [facility] 07-12-2023 07:47-0400 Respiratory rate 16 /min Rochelle Older RADIOPHONE OPERATOR.KILN FIRER HELPER Work Phone: [facility] 07-12-2023 07:47-0400 SaO2% (BldA) [Mass fraction] 99 % Rochelle Older RADIOPHONE OPERATOR.KILN FIRER HELPER Work Phone: [facility] 03-16-2022 08:45-0500 Body height 165.1 cm Fer Donohue MD Work Phone: [facility] 03-16-2022 08:45-0500 Body temperature 97.59 [degF] Fer Donohue MD Work Phone: [facility] 03-16-2022 08:45-0500 Body weight 96.16 kg Fer Donohue MD Work Phone: [facility] 03-16-2022 08:45-0500 Diastolic blood pressure 62 mm[Hg] Fer Donohue MD Work Phone: [facility] 03-16-2022 08:45-0500 Heart rate 72 /min Fer Donohue MD Work Phone: [facility] 03-16-2022 08:45-0500 Respiratory rate 12 /min Fer Donohue MD Work Phone: [facility] 03-16-2022 08:45-0500 SaO2% (BldA) [Mass fraction] 98 % Fer Donohue MD Work Phone: [facility] 03-16-2022 08:45-0500 Systolic blood pressure 112 mm[Hg] Fer Donohue MD Work Phone: [facility] 10-27-2021 08:07-0400 Body height 165.1 cm Mehul Workman DO Work Phone: [facility] 10-27-2021 08:07-0400 Body weight 98.88 kg Mehul Francisry DO Work Phone: [facility] 10-27-2021 08:07-0400 Respiratory rate 12 /min Mehul Francisry DO Work Phone: [facility] 09-14-2021 10:38-0400 Body weight 99.7 kg Jennifer Murphy MD Work Phone: [facility] 09-14-2021 10:38-0400 Diastolic blood pressure 72 mm[Hg] Jennifer Murphy MD Work Phone: [facility] 09-14-2021 10:38-0400 Systolic blood pressure 104 mm[Hg] Jennifer Murphy MD Work Phone: [facility] 09-04-2021 09:03-0400 Body height 165.1 cm Rojas Degroot MD Work Phone: [facility] 09-04-2021 09:03-0400 Body weight 95.25 kg Rojas Degroot MD Work Phone: [facility] 08-03-2021 15:03-0400 Body weight 98.88 kg Jennifer Murphy MD Work Phone: [facility] 08-03-2021 15:03-0400 Diastolic blood pressure 80 mm[Hg] Jennifer Murphy MD Work Phone: [facility] 08-03-2021 15:03-0400 Systolic blood pressure 112 mm[Hg] Jennifer Murphy MD Work Phone: [facility] 07-27-2021 15:20-0400 Body height 165.1 cm Jennifer Murphy MD Work Phone: [facility] 07-27-2021 15:20-0400 Body weight 99.61 kg Jennifer Murphy MD Work Phone: [facility] 07-27-2021 15:20-0400 Diastolic blood pressure 80 mm[Hg] Jennifer Murphy MD Work Phone: [facility] 07-27-2021 15:20-0400 Systolic blood pressure 124 mm[Hg] Jennifer Murphy MD Work Phone: [facility] Encounters Encounter Date Encounter Type Care Provider Facility Start: 02-13-2024 End: 02-13-2024 Orders Only Mehul Dhara Nathanael DO Work Phone: [facility] [place] Comment on above: Cervical spondylosis without myelopathy (Primary Dx); Degeneration of intervertebral disc of lumbar region with discogenic back pain and lower extremity pain; Cervicalgia; Low back pain with sciatica, sciatica laterality unspecified, unspecified back pain laterality, unspecified chronicity Start: 02-12-2024 End: 02-12-2024 Subsequent hospital visit by physician [facility] Frankie Work Phone: Radiology Comment on above: Acute pain of left k nee [M25.562] Start: 02-12-2024 End: 02-12-2024 ambulatory ROCHELLE ALCANTAR Facility:[facility] Start: 02-12-2024 End: 02-12-2024 Patient encounter procedure Rochelle Alcantar APRN.KILN FIRER HELPER Work Phone: [facility] [place] Comment on above: Acute pain of left k nee (Primary Dx) Start: 02-05-2024 End: 02-05-2024 ambulatory Shaheed Natalie PT Work Phone: [facility] Comment on above: Cervical spondylosis without myelopathy (Primary Dx) Start: 01-29-2024 End: 01-29-2024 ambulatory Shaheed Natalie PT Work Phone: [facility] Comment on above: Cervical spondylosis without myelopathy (Primary Dx) Start: 01-22-2024 End: 01-22-2024 ambulatory Shahede Natalie PT Work Phone: [facility] Comment on above: Degeneration of inte rvertebral disc of lumbar region, unspecified whether pain present (Primary Dx); Cervical spondylosis without myelopathy Start: 01-15-2024 End: 01-15-2024 ambulatory Shaheed Estrada PT Work Phone: [facility] Comment on above: DDD (degenerative di sc disease), lumbar (Primary Dx); Cervical spondylosis without myelopathy Start: 12-30-2023 End: 12-30-2023 ambulatory Shaheed Estrada PT Work Phone: [facility] Comment on above: DDD (degenerative di sc disease), lumbar (Primary Dx); Cervical spondylosis without myelopathy Start: 12-27-2023 End: 12-27-2023 Subsequent hospital visit by physician Noé [facility] Work Phone: Radiology Comment on above: Cervical spondylosis without myelopathy [M47.812] Start: 12-27-2023 End: 12-27-2023 ambulatory MEHUL WORKMAN Facility:[facility] Start: 12-27-2023 End: 12-27-2023 Patient encounter procedure Mehul Workman DO Work Phone: [facility] [place] Comment on above: Kissing spine of lum bar region (Primary Dx); Inflammatory arthritis; Cervical spondylosis without myelopathy; Fibromyalgia Start: 12-20-2023 End: 12-20-2023 ambulatory Shaheed Estrada PT Work Phone: [facility] Comment on above: DDD (degenerative di sc disease), lumbar (Primary Dx); Cervical spondylosis without myelopathy Start: 12-19-2023 End: 12-19-2023 Patient encounter procedure Rochelle Alcantar APRN.KILN FIRER HELPER Work Phone: [facility] [place] Comment on above: Chest pain, unspecif ied type (Primary Dx); Dyspnea on exertion; Gastroesophageal reflux disease without esophagitis Start: 12-19-2023 End: 12-19-2023 ambulatory [facility] Facility:[facility] Start: 12-10-2023 End: 12-10-2023 [facility] Start: 12-06-2023 Refill Rochelle Alcantar APRN, .CNP Work Phone: [facility] [place] Comment on above: Med Change Request Start: 12-05-2023 End: 12-05-2023 ambulatory Shaheed Natalie PT Work Phone: [place] [facility] Comment on above: DDD (degenerative di sc disease), lumbar (Primary Dx); Cervical spondylosis without myelopathy Start: 11-26-2023 [facility] Facility:[facility] Start: 11-26-2023 Patient encounter procedure Mariano Hernandez MD Work Phone: OB/Gynecology Comment on above: Referral to Dermatol ogist Start: 11-26-2023 End: 11-26-2023 Subsequent hospital visit by physician [facility] Work Phone: Cardiology Lab Comment on above: Chest pain, unspecif ied type [R07.9] Start: 11-25-2023 Telephone encounter Gayla sosa RN Cardiology Lab Comment on above: Reminder Call Start: 11-13-2023 End: 11-13-2023 [facility] Start: 11-13-2023 End: 11-13-2023 Patient encounter procedure Rochelle Alcantar APRN.CNP Work Phone: [facility] [place] Comment on above: Chest pain, unspecif ied type (Primary Dx); Dyspnea on exertion; Abnormal EKG; DDD (degenerative disc disease), lumbar; Cervical spondylosis without myelopathy; Essential hypertension; Headaches Start: 10-16-2023 End: 10-16-2023 [facility] Start: 10-16-2023 End: 10-16-2023 Patient encounter procedure [...] encounter status Mariano Hernandez MD Work Phone: [facility] Start: 10-07-2023 Documentation procedure Mammog frederic Coordinator [facility] Department Start: 10-07-2023 Letter encounter Mammography Coordinator [facility] Start: 10-05-2023 Refill Jennifer Hernandes Work Phone: OB/Gynecology Comment on above: Refill Request Start: 10-04-2023 End: 10-04-2023 ambulatory [facility] Facility:[facility] Start: 10-04-2023 End: 10-04-2023 Subsequent hospital visit by physician Screen Mammo [facility] Mammogram Comment on above: Encounter for screen ing mammogram for malignant neoplasm of breast [Z12.31] Start: 07-17-2023 End: 07-17-2023 [facility] Facility:[facility] Start: 07-17-2023 Patient encounter procedure SHAHEED ESTRADA [facility] Start: 07-12-2023 End: 07-12-2023 [facility] Facility:[facility] Start: 07-12-2023 End: 07-12-2023 Patient encounter procedure Rochelle Alcantar APRN.CNP Work Phone: Internal Medicine [place] Comment on above: Annual physical exam (Primary Dx); Essential hypertension; Acquired hypothyroidism; Vitamin D deficiency; Tingling; Disorder of vestibular function, unspecified laterality; Tremor; Encounter for immunization Start: 07-09-2023 End: 07-09-2023 [facility] Facility:[facility] Start: 06-25-2023 Refill Fer Hernandes Work Phone: Internal Medicine [place] Comment on above: Refill Request Start: 11-17-2022 Refill Jennifer Hernandes Work Phone: OB/Gynecology Comment on above: Refill Request Start: 09-04-2022 End: 09-04-2022 Subsequent hospital visit by physician Screen Mammo [facility] Mammogram Comment on above: Encounter for screen ing mammogram for breast cancer [Z12.31] Start: 08-22-2022 ambulatory Fer Hernandes Work Phone: Internal Medicine [facility] Start: 03-16-2022 End: 03-16-2022 Patient encounter procedure Fer Donohue MD Work Phone: [facility] Comment on above: Essential hypertensi on (Primary Dx); Acquired hypothyroidism; Vitamin D deficiency; Screening for HIV (human immunodeficiency virus); DDD (degenerative disc disease), lumbar Start: 02-06-2022 ambulatory Fer Hernandes Work Phone: Internal [facility] Start: 12-19-2021 End: 12-19-2021 ambulatory Vickgeraldine Lieberman [facility] Comment on above: DDD (degenerative di sc disease), lumbar (Primary Dx); Right-sided low back pain with right-sided sciatica, unspecified chronicity; Kissing spine of lumbar region; Meralgia paresthetica of right side; Cervical spondylosis without myelopathy Start: 11-30-2021 End: 11-30-2021 ambulatory Vickgeraldine Lieberman [facility] Comment on above: DDD (degenerative di sc disease), lumbar (Primary Dx); Right-sided low back pain with right-sided sciatica, unspecified chronicity; Kissing spine of lumbar region; Meralgia paresthetica of right side; Cervical spondylosis without myelopathy Start: 11-28-2021 End: 11-28-2021 ambulatory Vickgeraldine Lieberman [facility] Comment on above: DDD (degenerative di sc disease), lumbar (Primary Dx); Right-sided low back pain with right-sided sciatica, unspecified chronicity; Kissing spine of lumbar region; Meralgia paresthetica of right side; Cervical spondylosis without myelopathy Start: 11-24-2021 End: 11-24-2021 ambulatory Vickgeraldine Lieberman [facility] Comment on above: DDD (degenerative di sc disease), lumbar (Primary Dx); Right-sided low back pain with right-sided sciatica, unspecified chronicity; Kissing spine of lumbar region; Meralgia paresthetica of right side; Cervical spondylosis without myelopathy Start: 11-16-2021 End: 11-16-2021 ambulatory Vickgeraldine Lieberman [facility] Comment on above: DDD (degenerative di sc disease), lumbar; Right-sided low back pain with right-sided sciatica, unspecified chronicity; Kissing spine of lumbar region; Meralgia paresthetica of right side; Cervical spondylosis without myelopathy Start: 10-27-2021 End: 10-27-2021 Patient encounter procedure Mehul Workman DO Work Phone: [facility] [place] Comment on above: Meralgia paresthetic a of [...] 09-04-2021 Subsequent hospital visit by physician Noé [facility] Frankie Austin Work Phone: Radiology Comment on above: Bilateral shoulder p ain, unspecified chronicity [M25.511, M25.512] Start: 09-01-2021 ambulatory Fer Hernandes Work Phone: [facility] [place] Start: 09-01-2021 Patient encounter procedure Fer Donohue MD Work Phone: Internal Medicine [place] Comment on above: Referral for Spine E [...] OB/Gynecology Start: 07-26-2021 ambulatory No Pcp [employer] [email or web address] Start: 07-21-2021 Documentation procedure Mammog frederic Coordinator [facility] Start: 07-21-2021 Letter encounter Mammography Coordinator [facility] Department Start: 07-21-2021 End: 07-21-2021 Subsequent hospital visit by physician Screen Mammo [facility] Mammogram Comment on above: Encounter for screen ing mammogram for breast cancer [Z12.31] Start: 01-09-2021 End: 01-09-2021 Subsequent hospital visit by physician Xr [facility] [place] Work Phone: Radiology Comment on above: Cervicalgia [M54.2] Procedures Date Procedure Procedure Detail Performing Clinician Start: 11-26-2023 Cv strs tst xers&/or rx cont ecg trcg only Rochelle Older RADIOPHONE OPERATOR.KILN FIRER HELPER Work Phone: Start: 07-17-2023 Lipid 1996 panel - S yancy or Plasma Screen Wstr Start: 09-04-2022 End: 09-04-2022 Mammography Bulk Order Provider Start: 10-21-2021 Adult depression scr eening assessment Mehul Workman DO Work Phone: Start: 09-04-2021 Radex shoulder compl ete minimum 2 views Rojas Degroot MD Work Phone: Start: 07-21-2021 ANA SCREENING W GUNNER Bu lk Order Provider Start: 07-21-2021 Mammography Screen Wst r Start: 06-27-2021 Adult depression scr eening assessment Screen [facility] Start: 01-09-2021 Radex spine cervical 2 or 3 views Pat Yeung NICOLE.CHARTER COACH DRIVER Work Phone: Start: 01-07-2021 Lipid 1996 panel - S yancy or Plasma Screen Wstr Start: 10-12-2015 Colonoscopy Screen Wst r Plan of Treatment Date Care Activity Detail Author Start: 07-11-2033 Urine microalbumin profile DTaP,Tdap,Td Vaccine (3 - Td or Tdap) [facility] Start: 07-16-2028 Lipid panel Lipid Screening [facility] Start: 11-12-2026 Diabetes Screening Diabetes Screening [facility] Start: 07-27-2026 HPV TESTING HPV TESTING [facility] Start: 07-27-2026 PAP TESTING PAP TESTING [facility] Start: 07-27-2026 Screening for malignant neoplasm of cervix [facility] Start: 07-08-2026 Diabetes Screening Diabetes Screening [facility] Start: 01-07-2026 Lipid 1996 panel - Serum or Plasma Lipid Screening [facility] Start: 01-07-2026 Lipid panel Lipid Screening [facility] Start: 01-07-2026 LIPID SCREEN LIPID SCREEN [facility] Start: 10-11-2025 Colonoscopy COLONOSCOPY [facility] Start: 10-11-2025 COLORECTAL CANCER SCREENING COLORECTAL CANCER SCREENING [facility] Start: 10-11-2025 Screening for malignant neoplasm of colon [facility] Start: 03-07-2025 DIABETES SCREEN DIABETES SCREEN [facility] Start: 03-07-2025 Diabetes Screening Diabetes Screening [facility] Start: 02-11-2025 Annual PCP Team Chronic Disease Visit Annual PCP Team Chronic Disease Visit [facility] Start: 02-11-2025 Covid-19 Vaccine ( season) Covid-19 Vaccine () [facility] Comment on above: Postponed from 12/22/2023 (Declined at t his time) Start: 12-18-2024 Annual PCP Team Chronic Disease Visit Annual PCP Team Chronic Disease Visit [facility] Start: 12-18-2024 BP Controlled (<130/80) BP Controlled (<130/80) [facility] Start: 11-12-2024 Annual PCP Team Chronic Disease Visit Annual PCP Team Chronic Disease Visit [facility] Start: 10-19-2024 Influenza vaccination Influenza Vaccine (#1) [facility] Comment on above: Postponed from 12/22/2023 (Declined at t his time) Start: 10-19-2024 End: 10-19-2024 Patient encounter procedure 10/19/2024 10:30 AM EDT Office Visit OB/Gynecology [address] [place] [address] Mariano Hernandez MD [address] [place] [address] Annual OB/Gynecology Comment on above: Annual Start: 10-15-2024 Screening for malignant neoplasm of cervix Cervical Cancer Screening [facility] Start: 10-05-2024 End: 10-05-2024 Patient encounter procedure 10/05/2024 2:30 PM EDT Appointment Mammogram [address] [place] [address] Encounter for gynecological examination (general) (routine) without abnormal findings [Z01.419]; Encounter for screening mammogram for breast cancer [Z12.31] Mammogram Comment on above: Encounter for gynecological examination (general) (routine) without abnormal findings [Z01.419]; Encounter for screening mammogram for breast cancer [Z12.31] Start: 10-03-2024 Screening for malignant neoplasm of breast Mammogram Screening [facility] Start: 08-12-2024 End: 08-12-2024 Patient encounter procedure 08/12/2024 12:00 PM EDT Office Visit Rheumatology [address] [place] [address] [place] [address] [place] [address] [facility] Comment on above: [facility] Start: 07-11-2024 Annual PCP Team Chronic Disease Visit Annual PCP Team Chronic Disease Visit [facility] Start: 07-11-2024 Covid-19 Vaccine ( season) Covid-19 Vaccine ( season) [facility] Comment on above: Postponed from 12/21/2022 (Declined at t his time) Start: 07-11-2024 Hepatitis B Vaccine (1 of 3 - 19+ 3-dose series) Hepatitis B Vaccine (1 of 3 - 19+ 3-dose series) [facility] Comment on above: Postponed from 1984 (Declined at t his time) Start: 07-11-2024 Shingrix Vaccine (1 of 2) Shingrix Vaccine (1 of 2) [facility] Comment on above: Postponed from 2015 (Declined at t his time) Start: 06-19-2024 End: 06-19-2024 Patient encounter procedure 06/19/2024 1:20 PM EST Office Visit Internal [facility] [place] [address] [place], [place] [address] Rochelle Alcantar APRN.KILN FIRER HELPER [address] [place], [place] [phone] 6 month follow up [facility] [place] Comment on above: 6 month follow up Start: 02-05-2024 End: 02-05-2024 ambulatory 02/05/2024 2:15 PM EDT OT/PT/Speech Visit [facility] [address], [place] [phone] Shaheed Estrada, PT [address] [place], [place] [phone] DDD (degenerative disc disease), lumbar [M51.36 (ICD-10-CM)]; Cervical spondylosis without myelopathy [M47.812 (ICD-10-CM)] [facility] Comment on above: DDD (degenerative disc disease), lumbar [M51.36 (ICD-10-CM)]; Cervical spondylosis without myelopathy [M47.812 (ICD-10-CM)] Start: 01-29-2024 End: 01-29-2024 ambulatory 01/29/2024 2:15 PM EDT OT/PT/Speech Visit [facility] [address], [place] [id number] Shaheed Estrada, PT [address] [place], [place] [phone] DDD (degenerative disc disease), lumbar [M51.36 (ICD-10-CM)]; Cervical spondylosis without myelopathy [M47.812 (ICD-10-CM)] [facility] Comment on above: DDD (degenerative disc disease), lumbar [M51.36 (ICD-10-CM)]; Cervical spondylosis without myelopathy [M47.812 (ICD-10-CM)] Start: 01-22-2024 End: 01-22-2024 ambulatory 01/22/2024 2:15 PM EDT OT/PT/Speech Visit [facility] [address], [place] [id number] Shaheed Estrada, PT [address] [place], [place] [phone] DDD (degenerative disc disease), lumbar [M51.36 (ICD-10-CM)]; Cervical spondylosis without myelopathy [M47.812 (ICD-10-CM)] [facility] Comment on above: DDD (degenerative disc disease), lumbar [M51.36 (ICD-10-CM)]; Cervical spondylosis without myelopathy [M47.812 (ICD-10-CM)] Start: 01-15-2024 End: 01-15-2024 ambulatory 01/15/2024 2:15 PM EDT OT/PT/Speech Visit [facility] [address] [facility] [place] [phone] Shaheed Estrada, PT [address] [place], [place] [phone] DDD (degenerative disc disease), lumbar [M51.36 (ICD-10-CM)]; Cervical spondylosis without myelopathy [M47.812 (ICD-10-CM)] [facility] Comment on above: DDD (degenerative disc disease), lumbar [M51.36 (ICD-10-CM)]; Cervical spondylosis without myelopathy [M47.812 (ICD-10-CM)] Start: 01-08-2024 DIABETES SCREEN DIABETES SCREEN [facility] Start: 12-30-2023 End: 12-30-2023 ambulatory 12/30/2023 4:30 PM EDT OT/PT/Speech Visit [facility] [address] [place], [place] [address] Shaheed Estrada, PT [address] [place] [address] DDD (degenerative disc disease), lumbar [M51.36 (ICD-10-CM)]; Cervical spondylosis without myelopathy [M47.812 (ICD-10-CM)] [facility] Comment on above: DDD (degenerative disc disease), lumbar [M51.36 (ICD-10-CM)]; Cervical spondylosis without myelopathy [M47.812 (ICD-10-CM)] Start: 12-27-2023 End: 12-27-2023 Patient encounter procedure 12/27/2023 9:40 AM EDT Office Visit [facility] [place] [id number] [place] [id number] [place] [address] [place], [place] [phone] neck issues and lower back pain/weakness [facility] [place] Comment on above: neck issues and lower back pain/weakness Start: 12-22-2023 Covid-19 Vaccine ( season) Covid-19 Vaccine ( season) [facility] Start: 12-22-2023 Covid-19 Vaccine ( season) Covid-19 Vaccine ( season) [facility] Start: 12-22-2023 Influenza vaccination [facility] Start: 12-20-2023 End: 12-20-2023 ambulatory 12/20/2023 10:00 AM EDT OT/PT/Speech Visit [facility] [address] [place] [address] Shaheed Estrada PT [address] [facility] [place] [address] DDD (degenerative disc disease), lumbar [M51.36 (ICD-10-CM)]; Cervical spondylosis without myelopathy [M47.812 (ICD-10-CM)] [facility] Comment on above: DDD (degenerative disc disease), lumbar [M51.36 (ICD-10-CM)]; Cervical spondylosis without myelopathy [M47.812 (ICD-10-CM)] Start: 12-19-2023 End: 12-19-2023 Patient encounter procedure 12/19/2023 2:20 PM EDT Office Visit [facility] [place] [address] [facility] [place] [address] Rochelle Alcantar APRN.KILN FIRER HELPER [address] [place] [address] 4 week follow up [facility] [place] Comment on above: 4 week follow up Start: 12-16-2023 End: 12-16-2023 Patient encounter procedure 12/16/2023 3:00 PM EDT Office Visit [facility] [place] [address] [place] [address] Rochelle Alcantar, RADIOPHONE OPERATOR.KILN FIRER HELPER [address] [facility] [place] [address] 4 week follow up [facility] [place] Comment on above: 4 week follow up Start: 12-10-2023 End: 12-10-2023 Patient encounter procedure 12/10/2023 2:40 PM EDT Office Visit Cardiology [address] [facility] [place] [address] Chest pain, unspecified type [R07.9] Cardiology Comment on above: Chest pain, unspecified type [R07.9] Start: 12-05-2023 End: 12-05-2023 ambulatory 12/05/2023 3:45 PM EDT OT/PT/Speech Visit [facility] [address] [place] [address] Shaheed Estrada, PT [address] [place] [address] DDD (degenerative disc disease), lumbar [M51.36] [facility] Comment on above: DDD (degenerative disc disease), lumbar [M51.36] Start: 12-02-2023 End: 12-02-2023 Patient encounter procedure 12/02/2023 2:40 PM EDT Office Visit Cardiology [address] [place] [address] Chest pain, unspecified type [R07.9] Cardiology Comment on above: Chest pain, unspecified type [R07.9] Start: 11-26-2023 End: 11-26-2023 Patient encounter procedure 11/26/2023 8:00 AM EDT Appointment Cardiology Lab [address] [place] [address] Chest pain, unspecified type [R07.9] Cardiology Lab Comment on above: Chest pain, unspecified type [R07.9] Start: 11-26-2023 Subsequent hospital visit by physician 11/26/2023 8:00 AM EDT Hospital Encounter [facility]iology [facility] [address] [place] [address] Chest pain, unspecified type [R07.9] Cardiology Lab Comment on above: Chest pain, unspecified type [R07.9] Start: 11-13-2023 End: 11-13-2023 Patient encounter procedure 11/13/2023 2:40 PM EDT Office Visit [facility] [place] [address] [place] [address] Rochelle Alacntar APRN.KILN FIRER HELPER [address] [place] [address] follow up visit [facility] [place] Comment on above: follow up visit Start: 11-13-2023 End: 02-12-2024 Basic metabolic 2000 panel - Serum or Plasma [facility] Comment on above: Expected: 11/13/2023, Expires: Start: 11-13-2023 End: 02-12-2024 Magnesium [Mass/volume] in Serum or Plasma [facility] Comment on above: Expected: 11/13/2023, Expires: Start: 11-13-2023 End: 02-12-2024 Thyrotropin [Units/volume] in Serum or Plasma [facility] Comment on above: Expected: 11/13/2023, Expires: Start: 10-20-2023 Influenza [facility] Comment on above: [facility] from 12/21/2022 (Declined at t his time) Start: 10-16-2023 End: 10-16-2023 Patient encounter procedure 10/16/2023 10:30 AM EDT Office Visit OB/Gynecology [address] [place] [address] Mariano Hernandez MD [address] [place] [address] annual OB/Gynecology Comment on above: annual Start: 10-11-2023 End: 10-11-2023 Patient encounter procedure 10/11/2023 8:00 AM EDT Office Visit [facility] [place] [address] [place] [address] Rochelle Alcantar APRN.KILN FIRER HELPER [address] [place] [address] 3 month follow up [facility] [place] Comment on above: 3 month follow up Start: 09-07-2023 BP CONTROLLED (<130/80) BP CONTROLLED (<130/80) [facility] Start: 09-05-2023 Mammography [facility] Start: 09-05-2023 Screening for malignant neoplasm of breast Mammogram Screening [facility] Start: 07-12-2023 End: 10-11-2023 25-hydroxyvitamin D3 [Mass/volume] in Serum or Plasma VITAMIN D 25 HYDROXY Lab Routine Vitamin D deficiency Expected: 07/12/2023, Expires: 10/11/2023 [facility] Work Phone: Comment on above: Expected: 07/12/2023, Expires: Start: 07-12-2023 End: 10-11-2023 Cobalamin (Vitamin B12) [Mass/volume] in Serum or Plasma VITAMIN B12 BLOOD Lab Routine Tingling Expected: 07/12/2023, Expires: 10/11/2023 [facility] Work Phone: Comment on above: Expected: 07/12/2023, Expires: Start: 07-12-2023 End: 10-11-2023 Hepatic function 2000 panel - Serum or Plasma HEPATIC FUNCTION PNL Lab Routine Tingling Annual physical exam Expected: 07/12/2023, Expires: 10/11/2023 [facility] Work Phone: Comment on above: Expected: 07/12/2023, Expires: Start: 07-12-2023 End: 10-11-2023 Lipid 1996 panel - Serum or Plasma LIPID PANEL BASIC Lab Routine Annual physical exam Expected: 07/12/2023, Expires: 10/11/2023 [facility] Work Phone: Comment on above: Expected: 07/12/2023, Expires: Start: 06-25-2023 End: 09-24-2023 Basic metabolic 2000 panel - Serum or Plasma BASIC METABOLIC PNL Lab Routine Essential hypertension Expected: 06/25/2023, Expires: 09/24/2023 [facility] Work Phone: Comment on above: Expected: 06/25/2023, Expires: Start: 06-25-2023 End: 09-24-2023 Hemoglobin A1c in Blood HGB A1C Lab Routine Medication management Expected: 06/25/2023, Expires: 09/24/2023 [facility] Work Phone: Comment on above: Expected: 06/25/2023, Expires: Start: 06-25-2023 End: 09-24-2023 Thyrotropin [Units/volume] in Serum or Plasma TSH BLD Lab Routine Hypothyroid Expected: 06/25/2023, Expires: 09/24/2023 [facility] Work Phone: Comment on above: Expected: 06/25/2023, Expires: 4 Start: 04-22-2023 Depression Assessment Depression Assessment [facility] Start: 03-20-2023 HPV TESTING HPV TESTING [facility] Start: 03-20-2023 PAP TESTING PAP TESTING [facility] Start: 03-16-2023 ANNUAL PCP TEAM CHRONIC DISEASE VISIT ANNUAL PCP TEAM CHRONIC DISEASE VISIT [facility] Start: 03-16-2023 BP CONTROLLED (<130/80) BP CONTROLLED (<130/80) [facility] Start: 12-21-2022 Covid-19 Vaccine () Covid-19 Vaccine () [facility] Start: 12-21-2022 Influenza vaccination [facility] Start: 10-21-2022 Adult depression screening assessment DEPRESSION SCREENING [facility] Start: 09-14-2022 BP CONTROLLED (<130/80) BP CONTROLLED (<130/80) [facility] Start: 07-27-2022 Screening for malignant neoplasm of cervix Cervical Cancer Screening [facility] Start: 07-21-2022 Mammography MAMMOGRAM [facility] Start: 07-10-2022 ANNUAL PCP TEAM CHRONIC DISEASE VISIT ANNUAL PCP TEAM CHRONIC DISEASE VISIT [facility] Start: 07-10-2022 BP CONTROLLED (<130/80) BP CONTROLLED (<130/80) [facility] Start: 06-27-2022 Adult depression screening assessment DEPRESSION SCREENING [facility] Start: 04-22-2022 DEPRESSION ASSESSMENT DEPRESSION ASSESSMENT [facility] Start: 03-16-2022 End: 05-16-2022 HIV 1+2 Ab [Presence] in Serum or Plasma by Immunoassay HIV 1 2 COMBO(AG/AB),WITH REFLEX TO DIFFERENTIATION Lab Routine Screening for HIV (human immunodeficiency virus) Expected: 03/16/2022, Expires: 05/16/2022 [facility] Work Phone: Comment on above: Expected: 03/16/2022, Expires: 3 Start: 02-06-2022 End: 04-08-2022 Basic metabolic 2000 panel - Serum or Plasma BASIC METABOLIC PNL Lab Routine Essential hypertension Expected: 02/06/2022, Expires: 04/08/2022 [facility] Work Phone: Comment on above: Expected: 02/06/2022, Expires: 2 Start: 02-06-2022 End: 04-08-2022 SCHEDULE LAB TESTING SCHEDULE LAB TESTING Lab Routine Expected: 02/06/2022, Expires: 04/08/2022 [facility] Work Phone: Comment on above: Expected: 02/06/2022, Expires: 2 Start: 02-06-2022 End: 04-08-2022 Thyrotropin [Units/volume] in Serum or Plasma TSH BLD Lab Routine Hypothyroid Expected: 02/06/2022, Expires: 04/08/2022 [facility] Work Phone: Comment on above: Expected: 02/06/2022, Expires: 2 Start: 01-09-2022 BP CONTROLLED (<130/80) BP CONTROLLED (<130/80) [facility] Start: 12-21-2021 Influenza vaccination [facility] Start: 11-28-2021 End: 01-28-2022 Basic metabolic 2000 panel - Serum or Plasma BASIC METABOLIC PNL Lab Routine Essential hypertension Expected: 11/28/2021, Expires: 01/28/2022 [facility] Work Phone: Comment on above: Expected: 11/28/2021, Expires: 2 Start: 11-28-2021 End: 01-28-2022 SCHEDULE LAB TESTING SCHEDULE LAB TESTING Lab Routine Expected: 11/28/2021, Expires: 01/28/2022 [facility] Work Phone: Comment on above: Expected: 11/28/2021, Expires: 2 Start: 11-28-2021 End: 01-28-2022 Thyrotropin [Units/volume] in Serum or Plasma TSH BLD Lab Routine Hypothyroid Expected: 11/28/2021, Expires: 01/28/2022 [facility] Work Phone: Comment on above: Expected: 11/28/2021, Expires: Start: 04-22-2021 DEPRESSION ASSESSMENT DEPRESSION ASSESSMENT [facility] Start: 03-08-2021 COVID-19 VACCINE (3 - Booster for Pfizer series) COVID-19 VACCINE (3 - Booster for Pfizer series) [facility] Start: 12-01-2020 COVID-19 VACCINE (3 - Booster for Pfizer series) COVID-19 VACCINE (3 - Booster for Pfizer series) [facility] Start: 12-01-2020 COVID-19 VACCINE (3 - Pfizer series) COVID-19 VACCINE (3 - Pfizer series) [facility] Start: 03-27-2017 Urine microalbumin profile [facility] Start: 2015 SHINGRIX VACCINE (1 of 2) SHINGRIX VACCINE (1 of 2) [facility] Start: 2010 COLOGUARD (FIT-DNA) COLOGUARD (FIT-DNA) [facility] Start: [address] COLONOGRAPHY [facility] Start: 2010 FECAL OCCULT BLOOD FECAL OCCULT BLOOD [facility] Start: 2010 Screening for malignant neoplasm of colon [facility] Start: 2010 SIGMOIDOSCOPY SIGMOIDOSCOPY [facility] Start: 1983 Anxiety Screening Anxiety Screening [facility] Start: 1983 Depression Screening Depression Screening [facility] Start: 1983 HIV SCREENING HIV SCREENING [facility] Start: 1983 HIV screening HIV Screening [facility] Start: 1965 HEPATITIS B (1 of 3 - 3-dose series) HEPATITIS B (1 of 3 - 3-dose series) [facility] Start: 1965 Hepatitis B Vaccine (1 of 3 - 3-dose series) Hepatitis B Vaccine (1 of 3 - 3-dose series) [facility] DBT Breast - bilater al screening ANA SCREENING W [facility] Radiology Routine Encounter for screening mammogram for malignant neoplasm of breast Dense breasts 10/04/2023 2:44 PM EDT [facility] Work Phone: End: 11-14-2024 DBT Breast - bilateral screening ANA SCREENING W [facility] Radiology Routine Encounter for gynecological examination (general) (routine) without abnormal findings Encounter for screening mammogram for breast cancer 1 Occurrences starting 10/16/2023 until 11/14/2024 [facility] Work Phone: Comment on above: 1 Occurrences starting 10/16/2023 until 11/14/2024 End: 11-12-2024 Echocardiography ECHO Cardiology Routine Chest pain, unspecified type Dyspnea on exertion Abnormal EKG 1 Occurrences starting 11/13/2023 until 11/12/2024 [facility] Work Phone: Comment on above: 1 Occurrences starting 11/13/2023 until 11/12/2024 End: 11-12-2024 EXERCISE STRESS ECG (WITHOUT IMAGING) EXERCISE STRESS ECG (WITHOUT IMAGING) Cardiology Routine Chest pain, unspecified type Dyspnea on exertion Abnormal EKG 1 Occurrences starting 11/13/2023 until 11/12/2024 [facility] Comment on above: 1 Occurrences starting 11/13/2023 until 11/12/2024 End: 08-26-2022 ANA SCREENING W GUNNER ANA SCREENING W [facility] Radiology Routine Encounter for screening mammogram for malignant neoplasm of breast Dense breasts 1 Occurrences starting 07/27/2021 until 08/26/2022 [facility] Work Phone: Comment on above: 1 Occurrences starting 07/27/2021 until 08/26/2022 End: 09-21-2023 ANA SCREENING W [facility]NER ANA SCREENING W [facility] Radiology Routine Encounter for screening mammogram for breast cancer 1 Occurrences starting 08/22/2022 until 09/21/2023 [facility] Work Phone: Comment on above: 1 Occurrences starting 08/22/2022 until 09/21/2023 End: 03-15-2025 MR Cervical spine WO contrast MRI CERVICAL SPINE WO IVCON Radiology Routine Cervical spondylosis without myelopathy Cervicalgia 1 Occurrences starting 02/13/2024 until 03/15/2025 [facility] Work Phone: Comment on above: 1 Occurrences starting 02/13/2024 until 03/15/2025 End: 03-14-2025 MR Lumbar spine WO contrast MRI LUMBAR SPINE WO IVCON Radiology Routine Degeneration of intervertebral disc of lumbar region with discogenic back pain and lower extremity pain Low back pain with sciatica, sciatica laterality unspecified, unspecified back pain laterality, unspecified chronicity 1 Occurrences starting 02/13/2024 until 03/14/2025 [facility] Comment on above: 1 Occurrences starting 02/13/2024 until 03/14/2025 PAP FLUID CERVICAL SCREENING PAP FLUID CERVICAL SCREENING Lab Routine Encounter for screening for malignant neoplasm of cervix Special screening examination for human papillomavirus (HPV) 07/27/2021 4:01 PM EDT [facility] Work Phone: PAP TEST PAP TEST Lab Rou gina Encounter for screening for human papillomavirus (HPV) Pap smear for cervical cancer screening 10/16/2023 11:58 AM EDT [facility] SURGICAL PATHOLOGY SURGICAL PATH OLOGY Lab Routine Vulvar itching 08/03/2021 3:56 PM EDT [facility] Work Phone: End: 01-25-2025 XR Cervical spine AP and Lateral and oblique XR CERV OTHER 4V AP/LAT/OBL Radiology Routine Cervical spondylosis without myelopathy 1 Occurrences starting 12/27/2023 until 01/25/2025 [facility] Work Phone: Comment on above: 1 Occurrences starting 12/27/2023 until 01/25/2025 XR Cervical spine AP and Lateral and oblique XR CERV OTHER 4V AP/LAT/OBL Radiology Routine Cervical spondylosis without myelopathy 12/27/2023 11:08 AM EDT [facility] End: 03-13-2025 XR Knee - left 4 Views XR KNEE GENERAL 4V AP BOTH/PA BOTH/LAT/MERC LEFT Radiology Routine Acute pain of left knee 1 Occurrences starting 02/12/2024 until 03/13/2025 [facility] Work Phone: Comment on above: 1 Occurrences starting 02/12/2024 until 03/13/2025 XR Knee - left 4 Views XR KNEE G ENERAL 4V AP BOTH/PA BOTH/LAT/MERC LEFT Radiology Routine Acute pain of left knee 02/12/2024 12:02 PM EDT [facility] End: 01-25-2025 XR Pelvis AP XR PELVIS 1V AP Radiology Routine Inflammatory arthritis 1 Occurrences starting 12/27/2023 until 01/25/2025 [facility] Comment on above: 1 Occurrences starting 12/27/2023 until 01/25/2025 XR Pelvis AP XR PELVIS 1V AP Radiology Routine Inflammatory arthritis 12/27/2023 11:08 AM EDT [facility] End: 09-28-2022 XR SHOULDER GENERAL 3V OR MORE AP/TRUE AP/OTHER LEFT XR SHOULDER GENERAL 3V OR MORE AP/TRUE AP/OTHER LEFT Radiology Routine Bilateral shoulder pain, unspecified chronicity 1 Occurrences starting 08/29/2021 until 09/28/2022 [facility] Work Phone: Comment on above: 1 Occurrences starting 08/29/2021 until 09/28/2022 End: 09-28-2022 XR SHOULDER GENERAL 3V OR MORE AP/TRUE AP/OTHER RIGHT XR SHOULDER GENERAL 3V OR MORE AP/TRUE AP/OTHER RIGHT Radiology Routine Bilateral shoulder pain, unspecified chronicity 1 Occurrences starting 08/29/2021 until 09/28/2022 [facility] Work Phone: Comment on above: 1 Occurrences starting 08/29/2021 until 09/28/2022 [facility] Immunizations Immunization Date Immunization Notes Care Provider Gisella morin 07-12-2023 tetanus toxoid, redu mae diphtheria toxoid, and acellular pertussis vaccine, adsorbed Rochelle Alcantar RADIOPHONE OPERATOR.KILN FIRER HELPER Work Phone: [facility] 01-09-2021 diphtheria, tetanus toxoids and acellular pertussis vaccine, unspecified formulation Xr Frankie Work Phone: [facility] 01-09-2021 zoster vaccine, recombinant, adjuvanted, (SHINGRIX, PF,) 50 mcg/0.5 mL injection Xr Ravenna Work Phone: [facility] Work Phone: 02-19-2018 influenza virus vaccine, unspecified formulation Screen [facility] 03-25-2017 influenza, injectabl e, quadrivalent, contains preservative Screen [facility] 03-26-2011 influenza virus vaccine, unspecified formulation Screen [facility] 03-27-2007 influenza virus vaccine, unspecified formulation Screen [facility] Work Phone: 03-27-2007 tetanus toxoid, redu mae diphtheria toxoid, and acellular pertussis vaccine, adsorbed Screen [facility] Work Phone: 03-12-2006 influenza virus vaccine, unspecified formulation Screen [facility] Work Phone: Payers Date Payer Category Payer Private Health Insurance [employer] OAP [id number] 2021-Present [phone] [address] [place] [address] Open Access [id number] 2021 Private Health Insurance [id number] 2021 Private Health Insurance [id number] 2018 Unknown [employer] PPO [id number] 2018-2021 [address] [place] [address] PPO [id number] Social History Date Type Detail Facility Tobacco smoking stat [facility] Never smoked tobacco [facility] Work Phone: Start: 07-10-2021 End: 12-27-2023 Alcohol intake Current non-drinker of alcohol (finding) [facility] Start: 01-07-2021 End: 03-13-2022 History SDOH Alcohol Frequency 1 [facility] Start: 03-30-2019 End: 03-13-2022 History SDOH Alcohol Std Drinks 98 [facility] Start: 01-07-2021 End: 03-13-2022 History SDOH Social Connections Phone 4 [facility] Start: 01-07-2021 End: 03-13-2022 History SDOH Social Connections Get Together 2 [facility] Start: 01-07-2021 End: 03-13-2022 History SDOH Social Connections Living 3 [facility] Start: 01-07-2021 End: 03-13-2022 History SDOH Physical Activity DPW 5 [facility] Start: 03-30-2019 Education 18 [facility] Start: 1965 Sex Assigned At Female [facility] Start: 12-10-2020 End: 03-16-2022 Exposure to SARS-CoV-2 (event) Not sure [facility] Start: 03-13-2022 History SDOH Alcohol Std Drinks 0 [facility] Start: 03-13-2022 End: 09-04-2022 History of Social function [facility] Start: 03-13-2022 End: 09-04-2022 Social connection and isolation panel [facility] How often do you att end jainism or spiritism services? Patient refused [facility] Do you belong to any clubs or organizations such as jainism groups, unions, fraXopik or athletic groups, or school groups? No [facility] Are you now , , , , never or living with a partner? [facility] How often to you hav e a drink containing alcohol? Monthly or less [facility] How often do you hav e 6 or more drinks on 1 occasion? Never [facility] Do you feel stress - tense, restless, nervous, or anxious, or unable to sleep at night because your mind is troubled all the time - these days [OSQ] To some extent [facility] (I/We) worried wheth er (my/our) food would run out before (I/we) got money to buy more. Never true [facility] Start: 06-27-2021 Gender identity Identifies as female gender (finding) [facility] Start: 01-07-2021 Sexual orientation Choose not to dis close [facility] Do you feel stress - tense, restless, nervous, or anxious, or unable to sleep at night because your mind is troubled all the time - these days [OSQ] Only a little [facility] Clinical Notes 06-15-2014 to 02-12-2024 Elie Ulloa, RT(R) - 02/12/2024 11:50 AM Rochelle Lopez APRN.KILN FIRER HELPER - 02/12/2024 11:19 AM Shaheed Meija, PT - 02/05/2024 2:02 PM Shaheed Mejia, [...] PATIENT PRESENTS WITH AN IMPLANTABLE OR ATTACHED ENAMEL SPRAYER: No RADIOLOGY DEPARTMENT: General X-ray: Exam(s) Completed: Lower Extremity X-Ray(s): Knee, AP / Lat / Tunne / Merchant Left PERIPHERAL IV DATA: Not applicable SIGNED BY: RT Kirstie(R) February 12, 2024 11:47 AM documented in this encounter [facility] 02-12-2024 Note HNO ID: [id number] Author: ELIE ULLOA RT(Ad) Service: ? Author Type: Mental Health Coordinator Type: Progress Notes Filed: 02/12/2024 12:01 Note [...] PATIENT PRESENTS WITH AN IMPLANTABLE OR ATTACHED ENAMEL SPRAYER: No RADIOLOGY DEPARTMENT: General X-ray: Exam(s) Completed: Lower Extremity X-Ray(s): Knee, AP / Lat / Tunne / Merchant Left PERIPHERAL IV DATA: Not applicable SIGNED BY: Elie Ulloa RT(R) February 12, 2024 11:47 AM [facility] 02-12-2024 Note HNO ID: [id number] Author: ROCHELLE ALCANTAR APRN.KILN FIRER HELPER Service: ? Author Type: Nurse Practitioner Type: [...] 4 weeks, compression socks, and naproxen without ad terminal makeup operator improvement. REVIEW OF SYSTEMS See HPI PAST [...] Covid-19 Vaccine(3 - (more content not included)... [facility] 02-12-2024 History of Present illness Narrative CC: [...] 4 weeks, compression socks, and naproxen without ad terminal makeup operator improvement. REVIEW OF SYSTEMS See HPI PAST [...] 4 - Moderate documented in this encounter [facility] 02-05-2024 Note HNO ID: [id number] Author: SHAHEED ESTRADA PT Service: ? Author [...] treatment included: Therapeutic exercise, Manual therapy, and Self-mcc management. Updated 02/05/24. Goals for Episode of Care: created on 12/05/23 through 02/05/24 Patient reported outcome of physical function and self-efficacy will increase T-score by a minimum 5 points. (NOT MET) [place] in home exercise program. (Goal Met) Patient [...] Stop Time : 1443 Shaheed Estrada PT [facility] 02-05-2024 History of Present illness Narrative Images [...] treatment included: Therapeutic exercise, Manual therapy, and Self-mcc management. Updated 02/05/24. Goals for Episode of Care: created on 12/05/23 through 02/05/24 Patient reported outcome of physical function and self-efficacy will increase T-score by a minimum 5 points. (NOT MET) [place] in home exercise program. (Goal Met) Patient [...] Shaheed Estrada PT documented in this encounter [facility] 01-29-2024 History of Present illness Narrative Program_ID:[id number] Access Code: [email or web address] URL: [email or web address] m/ Date: 01-29-2024 Prepared By: Shaheed Estrada [...] Completed Bilaterally, Pull to tolerance. 2: Long [place] Distraction: Completed Bilaterally, Pull to tolerance. 3: Indriect Distraction: Long [place] Distraction: Completed Bilaterally, Pull to tolerance. Skilled [...] Shaheed Estrada PT documented in this encounter [facility] 01-29-2024 Note HNO ID: [id number] Author: SHAHEED ESTRADA PT Service: ? Author [...] Completed Bilaterally, Pull to tolerance. 2: [place] Distraction: Completed Bilaterally, Pull to tolerance. 3: Indriect Distraction: [place] Distraction: Completed Bilaterally, Pull to tolerance. Skilled [...] Stop Time : 1450 Shaheed Estrada PT [facility] 01-22-2024 Note HNO ID: [id number] Author: SHAHEED ESTRADA PT Service: ? Author [...] Completed Bilaterally, Pull to tolerance. 2: [place] Distraction: Completed Bilaterally, Pull to tolerance. 3: Indriect Distraction: [place] Distraction: Completed Bilaterally, Pull to tolerance. 4: [...] 1413 Session Stop Time : 1452 Shaheed Estraad PT [facility] 01-22-2024 History of Present illness Narrative Episode [...] Completed Bilaterally, Pull to tolerance. 2: [place] Distraction: Completed Bilaterally, Pull to tolerance. 3: Indriect Distraction: [place] Distraction: Completed Bilaterally, Pull to tolerance. 4: [...] Shaheed Estrada PT documented in this encounter [facility] 01-15-2024 History of Present illness Narrative Program_ID:[id number] Access Code: [email or web address] URL: [email or web address] m/ Date: 01-15-2024 Prepared By: Shaheed Estrada [...] Shaheed Estrada PT documented in this encounter [facility] 01-15-2024 Note HNO ID: [id number] Author: SHAHEED ESTRADA PT Service: ? Author [...] Stop Time : 1454 Shaheed Estrada, VIDA [facility] 12-30-2023 History of Present illness Narrative Program_ID:[id number] Access Code: [email or web address] URL: [email or web address] m/ Date: 12-30-2023 Prepared By: Shaheed Estrada [...] weekly - 2-3 sets - 10 reps Program_ID:[id number] Access Code: [email or web address] URL: [email or web address] m/ Date: 12-30-2023 Prepared By: Shaheed Estrada [...] Shaheed Estrada PT documented in this encounter [facility] 12-30-2023 Note HNO ID: [id number] Author: SHAHEED ESTRADA PT Service: ? Author [...] Stop Time : 1710 Shaheed Estrada PT [facility] 12-27-2023 Note HNO ID: [id number] Author: MEHUL WORKMAN, DO Service: ? Author [...] mac 10/12/2015: ESOPHAGOGASTRODUODENOSCOPY TRANSORAL DIAGNOSTIC Comment[place] [facility] [place] PAST SURGICAL HISTORY OF; Right Comment: [...] muscles Sacroiliac join (more content not included)... [facility] 12-27-2023 History of Present illness Narrative Follow-up [...] mac 10/12/2015: ESOPHAGOGASTRODUODENOSCOPY TRANSORAL DIAGNOSTIC Comment: [place] [facility] [place]: PAST SURGICAL HISTORY OF; Right Comment: [...] that escaped review. documented in this encounter [facility] 12-20-2023 Note HNO ID: [id number] Author: SHAHEED ESTRADA, PT Service: ? Author [...] and assessment of patient's response to intervention. [facility] Management: 1: Discussed the purpose of STM [...] Stop Time : 1045 Shaheed Estrada PT [facility] 12-20-2023 History of Present illness Narrative Episode [...] and assessment of patient's response to intervention. [facility] Management: 1: Discussed the purpose of STM [...] Shaheed Estrada PT documented in this encounter [facility] 12-19-2023 Note HNO ID: [id number] Author: ROCHELLE ALCANTAR APRN.KILN FIRER HELPER Service: ? Author Type: Nurse Practitioner Type: [...] to taking diflucan as ordered by her information technology instructor. EKG showed possible inferior [place] age undetermined which has been present on [...] on 01/09/2022 Hepatiti (more content not included)... [facility] 12-19-2023 History of Present illness Narrative CC: [...] to taking diflucan as ordered by her information technology instructor. EKG showed possible inferior [place] age undetermined which has been present on [...] Rochelle Alcantar APRN.CNP documented in this encounter [facility] 12-05-2023 History of Present illness Narrative Program_ID:[id number] Access Code: [email or web address] URL: [email or web address] m/ Date: 12-05-2023 Prepared By: Shaheed Estrada [...] weekly - 2 sets - 8-12 reps Program_ID:[id number] Access Code: [email or web address] URL: [email or web address] m/ Date: 12-05-2023 Prepared By: Shaheed Estrada [...] increase T-score by a minimum 5 points. [place] in home exercise program. Patient will decrease [...] Planned: 6 Planned Treatment Interventions: Therapeutic exercise (72225), Neuromuscular re-education (67855), Manual therapy (00660), Self-mcc management (81811), Patient/Family/Caregiver Education, Therapeutic activities (31698) PLAN FOR NEXT VISIT: Assess response to [...] States/Identifies TREATMENT: PT Treatment Interventions: Therapeutic Exercise, [facility] Management Evaluation Therapeutic Exercise: 1: SKC: 1x30 [...] program to facilitate proper performance and compliance. [facility] Management: 1: *Education and explanation of previous [...] Estrada PT, DPT. documented in this encounter [facility] 12-05-2023 Note HNO ID: [id number] Author: SHAHEED ESTRADA PT Service: ? Author [...] increase T-score by a minimum 5 points. [place] in home exercise program. Patient will decrease [...] Planned: 6 Planned Treatment Interventions: Therapeutic exercise (76313), Neuromuscular re-education (06366), Manual therapy (29913), Self-mcc management (11087), Patient/Family/Caregiver Education, Therapeutic activities (35770) PLAN FOR NEXT VISIT: Assess response to [...] Neck, Back Sym (more content not included)... [facility] 11-26-2023 Telephone encounter Note Consult order and most recent OV faxed to [facility] at [phone]. Jazlyn Medina RN [facility] 11-26-2023 Miscellaneous Notes Consult order and most recent OV faxed to [facility] at [phone]. Jazlyn Medina RN documented in this encounter [facility] 11-25-2023 Telephone encounter Note Left message regarding reminder for stress test tomorrow and given instructions. [facility] 11-25-2023 Miscellaneous Notes Left message regarding reminder for stress test tomorrow and given instructions. documented in this encounter [facility] 11-13-2023 Note HNO ID: [id number] Author: ROCHELLE ALCANTAR APRN.KILN FIRER HELPER Service: ? Author Type: Nurse Practitioner Type: [...] without palpable nodules (more content not included)... [facility] 11-13-2023 History of Present illness Narrative CC: [...] age undetermined AXIS: Normal axis INTERVALS: Normal IA interval QRS COMPLEX: Normal QT INTERVAL: Normal [...] Rochelle Alcantar APRN.CNP documented in this encounter [facility] 10-16-2023 Note HNO ID: [id number] Author: MARIANO HERNANDEZ MD Service: ? Author Type: Physician Type: Progress Notes Filed: 10/16/2023 11:37 Note Text: Placement Coordinator offered: Patient accepts, visit chaperoned by Jamaal [...] 1 adopted son and 1 biological daughter Geriatric Case Manager History LMP: 08/17/2016 (Approximate), Postmenopausal Age at Menarche: Age at First : Age at Menopause: Geriatric Case Manager History Comments: Sexual Activity: Yes; Male [...] no masses PELVIC: normal Bartholin's glands, urethra, Van Vleck's glands, no cervical lesions, good vaginal support, [...] derm referral to Dr. Giovanny Hernandez MD [facility] 10-16-2023 History of Present illness Narrative Placement Coordinator offered: Patient accepts, visit chaperoned by ma. [...] 1 adopted son and 1 biological daughter Geriatric Case Manager History LMP: 08/17/2016 (Approximate), Postmenopausal Age at Menarche: Age at First : Age at Menopause: Geriatric Case Manager History Comments: Sexual Activity: Yes; Male [...] no masses PELVIC: normal Bartholin's glands, urethra, Van Vleck's glands, no cervical lesions, good vaginal support, [...] Giovanny Hernandez MD documented in this encounter [facility] 10-07-2023 Note Formatting of this n ote might be different from the original. October 07, 2023 PID: [id number] Jamaal Michael [address] [place] [id number] Dear Ms. Michael, We are pleased to [...] report will be kept on file at [facility] as part of your permanent medical record and are available for your continuing care. Thank you for allowing us to help in meeting your health care needs. Sincerely, Dr. Gonzalez Interpreting Radiologist [facility] (Normal over 40) [facility] 10-07-2023 Miscellaneous Notes October 07, 2023 PID: [id number] Jamaal Michael [address] [place] [address] Dear Ms. Michael, We are pleased to [...] report will be kept on file at [facility] as part of your permanent medical record and are available for your continuing care. Thank you for allowing us to help in meeting your health care needs. Sincerely, Dr. Gonzalez Interpreting Radiologist [facility] (Normal over 40) documented in this encounter [facility] 10-07-2023 Telephone encounter Note I called patient and let her know that she was due for annual exam. She states she will make appointment through MyChart as she need to check family schedule. Please file extension if in agreement of triamcinolone [facility] 10-07-2023 Miscellaneous Notes I called patient and let her know that she was due for annual exam. She states she will make appointment through MyChart as she need to check family schedule. Please file extension if in agreement of triamcinolone documented in this encounter [facility] 10-04-2023 History of Present illness Narrative Radiology [...] PATIENT PRESENTS WITH AN IMPLANTABLE OR ATTACHED ENAMEL SPRAYER: No RADIOLOGY DEPARTMENT: Mammography PERIPHERAL IV DATA: Not applicable SIGNED BY: RT Cam(Ad) October 04, 2023 2:25 PM documented in this encounter [facility] 10-04-2023 Note HNO ID: [id number] Author: ROCÍO ABRAHAM RT(R) Service: ? Author [...] PATIENT PRESENTS WITH AN IMPLANTABLE OR ATTACHED ENAMEL SPRAYER: No RADIOLOGY DEPARTMENT: Mammography PERIPHERAL IV DATA: Not applicable SIGNED BY: RT Cam(R) October 04, 2023 2:25 PM [facility] 07-12-2023 Instructions Rochelle Alcantar APRN.CNP - 07/12/2023 8:23 AM EDT Wave gliding feeling: ladders, activity, sinus issues, supplements, water Tremor: start neck and shoulder exercise documented in this encounter [facility] 07-12-2023 Note HNO ID: [id number] Author: ROCHELLE ALCANTAR APRN.CNP Service: ? Author [...] alert Pysch: mood (more content not included)... [facility] 07-12-2023 History of Present illness Narrative CC: [...] diet of 1000 mg/day for under 50, 4727-4931 mg/day for 50+ - Discussed need and [...] Rochelle Alcantar APRN.CNP documented in this encounter [facility] 06-25-2023 Miscellaneous Notes Patient has an appt with Rochelle Alcantar on 07/12/23. She needs refills, but isn't sure if the scripts will remain the same after her visit. Therefore, she is asking for short term refills to be sent to [facility] to get her to her appt. [...] you. Jamaal Lemos. documented in this encounter [facility] 06-25-2023 Note Patient Outreach (IN [facility]) ---- JAMAAL MICHAEL ([id number]) 1965 F Date Time Provider Department 06/25/23 [...] [E03.9] Order(s):BASIC METABOLIC PNL [SQBMP] Order #: [id number] FUTURE HGB A1C [YOWCV5F] Order #: [id number] FUTURE TSH BLD [SQTSH] Order #: [id number] FUTURE Prescriptions as of 06/28/2023 - triamcinolone [...] Encounter Status:Closed by EPIC, PRODUSER on 06/28/23 [facility] 09-04-2022 History of Present illness Narrative Radiology [...] 2022 1:55 PM documented in this encounter [facility] 03-16-2022 History of Present illness Narrative Reason [...] seen pain management, Physical Therapy, othro and outside parts sales. She may need an updated mri. With [...] Fer Donohue MD documented in this encounter [facility] 12-19-2021 History of Present illness Narrative Episode [...] in 8 weeks or less - Progressed [place] in home exercise program.- MET Patient Goals: [...] was facilitated with verbal and visual cuing. [facility] Management: 1: Discussed ways to improve pain [...] Total Treatment Time Minutes (timed/untimed): 38 Vick Lieebrman PT documented in this encounter [facility] 11-30-2021 History of Present illness Narrative Episode [...] Vick Lieberman PT documented in this encounter [facility] 11-28-2021 History of Present illness Narrative Episode [...] Vick Lieberman PT documented in this encounter [facility] 11-24-2021 History of Present illness Narrative Episode [...] Vick Lieberman PT documented in this encounter [facility] 11-16-2021 History of Present illness Narrative Episode [...] bilat LEs in 8 weeks or less [place] in home exercise program. Patient Goals: Manage symptoms Planned Interventions, Frequency, and Duration: Current Frequency: 2x/week Duration: 4 weeks Total Number of Visits Planned: 8 Planned Treatment Interventions: Therapeutic exercise (94557);Neuromuscular re-education (51803);Manual therapy (94209);Self-mcc management (29292);Patient/Family/Caregiver Education PLAN FOR NEXT VISIT: Graded exercise. [...] Independent without limitations Relevant History Preferred Language: Azeri Intake Information: Prescription present Previous Treatment: Physical [...] States/Identifies;Return Demonstration TREATMENT: PT Treatment Interventions: Therapeutic Exercise;[facility] Management Evaluation Therapeutic Exercise: 1: Discussed therapy [...] was facilitated with verbal and visual cuing. [facility] Management: 1: Discussed stress management and proper [...] Vick Lieberman PT documented in this encounter [facility] 10-27-2021 Instructions Mehul Workman, - 10/27/2021 8:35 [...] TIME: 8:35 AM documented in this encounter [facility] 10-27-2021 History of Present illness Narrative Spine [...] 8:35 AM CC: Sent electronically Fer Donohue [address] [facility] [address] documented in this encounter [facility] 09-14-2021 Instructions Jennifer Murphy MD - 09/14/2021 10:56 AM EDT Vitamin A&D ointment - barrier documented in this encounter [facility] 09-14-2021 History of Present illness Narrative Jamaal Michael is a 56 year old female who presents for lichen planus. HPI: Patient is feeling much better and vulvar symptoms resolved on kenalog ointment. OB History T1 L1 SAB2 IAB0 Ectopic0 Multiple0 Live Births0 Comment: 1 adopted son and 1 biological daughter Geriatric Case Manager History LMP: 08/17/2016 (Approximate), Postmenopausal Age at Menarche: Age at First : Age at Menopause: Geriatric Case Manager History Comments: Sexual Activity: Yes; Male [...] Jennifer Murphy MD documented in this encounter [facility] 09-04-2021 History of Present illness Narrative Rojas Degroot MD Department of Orthopaedics Orthopaedics [address] [facility] [address] Dept: [phone] Dept September 04, 2021 Consultation requested by [...] nerve distribution IMAGING: IMPRESSION: Normal shoulder radiographs. Kiln Firer Helper: JOY Transcribe Date/Time: Sep 04 2021 10:04A [...] pain, unspecified chronicity.. TECHNIQUE: XR SHLDR >/=3V AP/DARIANNE AP/OTHR LT, XR SHLDR >/=3V AP/ADRIANNE AP/OTHR [...] mail or electronic medical record. Brittaney Newsome [address] [facility] [address] Fer Donohue MD [address] [facility] [address] Rojas Degroot MD documented in this encounter [facility] 09-04-2021 History of Present illness Narrative Radiology [...] IV DATA: Not applicable SIGNED BY: RT Oil(R) September 04, 2021 8:35 AM documented in this encounter [facility] 08-08-2021 Miscellaneous Notes Patient notified. Kyara Boudreaux RN The following approved medication requests have been transmitted electronically. Signed Prescriptions Disp Refills triamcinolone acetonide (KENALOG) 0.1 % ointment 80 g 1 Sig: Apply to affected area 2 times daily for 2 weeks. Then use daily. Authorizing Provider: JENNIFER MURPHY Pharmacy Information Pharmacy Address Telephone [facility]/pharmacy #[id number] [place], [place] [id number] Please make sure she doesn't use any [...] Jennifer Murphy MD documented in this encounter [facility] 08-03-2021 History of Present illness Narrative Jamaal [...] 2mL 1% lidocaine with 1:100,000 epi. 4mm Emelle punch used to biopsy region. HEMOSTASIS: Obtained with silver nitrate and pressure Procedure Summary: Patient tolerated procedure well. ASSESSMENT: Vulvar itching PLAN: Specimens labeled and sent to Pathology. Post-procedure instructions reviewed and written material given to the patient. Placement Coordinator offered: Patient accepts, visit chaperoned by Venice Fajardo MA. Jennifer Murphy MD documented in this encounter [facility] 07-27-2021 Instructions Jennifer Murphy MD - 07/27/2021 [...] scratching at night. documented in this encounter [facility] 07-27-2021 History of Present illness Narrative Jamaal [...] Live Births0 Comment: One adopted 1 son Geriatric Case Manager History LMP: 08/17/2016 (Approximate), Postmenopausal Age at Menarche: Age at First : Age at Menopause: Geriatric Case Manager History Comments: Sexual Activity: Yes; Male [...] Jennifer Murphy MD documented in this encounter [facility] 07-26-2021 History of Present illness Narrative POPULATION HEALTH NAVIGATION OUTREACH Action/FYI AI Consult order dated Pt identified by name and : NO Outreach Outcome/Action Unable to reach patient: Phone number not valid / voicemail full Snip2Code message sent Reason for Outreach Care Gap [...] 2021 9:10 AM documented in this encounter [facility] 07-21-2021 Miscellaneous Notes July 21, 2021 PID: [id number] Jamaal Michael [address] [place] [id number] Dear Ms. Michael, We are pleased to [...] report will be kept on file at [facility] as part of your permanent medical record and are available for your continuing care. Thank you for allowing us to help in meeting your health care needs. Sincerely, Dr. Garcia Interpreting Radiologist [facility] (Normal over 40) documented in this encounter [facility] 01-09-2021 History of Present illness Narrative Radiology [...] 2021 2:30 PM documented in this encounter [facility] 06-15-2014 History of Past i llness Narrative Problem Noted Date Resolved Date Other bursitis disorders 06/15/2014 018 Pain in joint, pelvic region and thigh 5 02/19/2018 Backache, unspecified 04/12/2010 02/19/2018 Chest pain, unspecified 03/27/2007 02/20/20 18 Esophageal reflux 03/27/2007 02/19/2018 Hypertension 09/16/2015 documented as of this encounter (statuses as of 07/22/2021) [facility] History of Past illness Narrative* Problem Noted Date Resolved Date Other bursitis disorders 06/15/2014 018 Pain in joint, pelvic region and thigh 5 02/19/2018 Backache, unspecified 04/12/2010 02/19/2018 Chest pain, unspecified 03/27/2007 02/20/20 18 Esophageal reflux 03/27/2007 02/19/2018 Hypertension 09/16/2015 documented as of this encounter (statuses as of 07/25/2021) [facility] History of Past illness Narrative* Problem Noted Date Resolved Date Other bursitis disorders 06/15/2014 018 Pain in joint, pelvic region and thigh 5 02/19/2018 Backache, unspecified 04/12/2010 02/19/2018 Chest pain, unspecified 03/27/2007 02/20/20 18 Esophageal reflux 03/27/2007 02/19/2018 Hypertension 09/16/2015 documented as of this encounter (statuses as of 07/26/2021) [facility] History of Past illness Narrative* Problem Noted Date Resolved Date Other bursitis disorders 06/15/2014 018 Pain in joint, pelvic region and thigh 5 02/19/2018 Backache, unspecified 04/12/2010 02/19/2018 Chest pain, unspecified 03/27/2007 02/20/20 18 Esophageal reflux 03/27/2007 02/19/2018 Hypertension 09/16/2015 documented as of this encounter (statuses as of 07/27/2021) [facility] History of Past illness Narrative* Problem Noted Date Resolved Date Other bursitis disorders 06/15/2014 018 Pain in joint, pelvic region and thigh 5 02/19/2018 Backache, unspecified 04/12/2010 02/19/2018 Chest pain, unspecified 03/27/2007 02/20/20 18 Esophageal reflux 03/27/2007 02/19/2018 Hypertension 09/16/2015 documented as of this encounter (statuses as of 08/03/2021) [facility] History of Past illness Narrative* Problem Noted Date Resolved Date Other bursitis disorders 06/15/2014 018 Pain in joint, pelvic region and thigh 5 02/19/2018 Backache, unspecified 04/12/2010 02/19/2018 Chest pain, unspecified 03/27/2007 02/20/20 18 Esophageal reflux 03/27/2007 02/19/2018 Hypertension 09/16/2015 documented as of this encounter (statuses as of 08/09/2021) [facility] History of Past illness Narrative* Problem Noted Date Resolved Date Other bursitis disorders 06/15/2014 018 Pain in joint, pelvic region and thigh 5 02/19/2018 Backache, unspecified 04/12/2010 02/19/2018 Chest pain, unspecified 03/27/2007 02/20/20 18 Esophageal reflux 03/27/2007 02/19/2018 Hypertension 09/16/2015 documented as of this encounter (statuses as of 08/29/2021) [facility] History of Past illness Narrative* Problem Noted Date Resolved Date Other bursitis disorders 06/15/2014 018 Pain in joint, pelvic region and thigh 5 02/19/2018 Backache, unspecified 04/12/2010 02/19/2018 Chest pain, unspecified 03/27/2007 02/20/20 18 Esophageal reflux 03/27/2007 02/19/2018 Hypertension 09/16/2015 documented as of this encounter (statuses as of 09/04/2021) [facility] History of Past illness Narrative* Problem Noted Date Resolved Date Other bursitis disorders 06/15/2014 018 Pain in joint, pelvic region and thigh 5 02/19/2018 Backache, unspecified 04/12/2010 02/19/2018 Chest pain, unspecified 03/27/2007 02/20/20 18 Esophageal reflux 03/27/2007 02/19/2018 Hypertension 09/16/2015 documented as of this encounter (statuses as of 09/05/2021) [facility] History of Past illness Narrative* Problem Noted Date Resolved Date Other bursitis disorders 06/15/2014 018 Pain in joint, pelvic region and thigh 5 02/19/2018 Backache, unspecified 04/12/2010 02/19/2018 Chest pain, unspecified 03/27/2007 02/20/20 18 Esophageal reflux 03/27/2007 02/19/2018 Hypertension 09/16/2015 documented as of this encounter (statuses as of 09/07/2021) [facility] History of Past illness Narrative* Problem Noted Date Resolved Date Other bursitis disorders 06/15/2014 018 Pain in joint, pelvic region and thigh 5 02/19/2018 Backache, unspecified 04/12/2010 02/19/2018 Chest pain, unspecified 03/27/2007 02/20/20 18 Esophageal reflux 03/27/2007 02/19/2018 Hypertension 09/16/2015 documented as of this encounter (statuses as of 09/14/2021) [facility] History of Past illness Narrative* Problem Noted Date Resolved Date Other bursitis disorders 06/15/2014 018 Pain in joint, pelvic region and thigh 5 02/19/2018 Backache, unspecified 04/12/2010 02/19/2018 Chest pain, unspecified 03/27/2007 02/20/20 18 Esophageal reflux 03/27/2007 02/19/2018 Hypertension 09/16/2015 documented as of this encounter (statuses as of 10/27/2021) [facility] History of Past illness Narrative* Problem Noted Date Resolved Date Other bursitis disorders 06/15/2014 018 Pain in joint, pelvic region and thigh 5 02/19/2018 Backache, unspecified 04/12/2010 02/19/2018 Chest pain, unspecified 03/27/2007 02/20/20 18 Esophageal reflux 03/27/2007 02/19/2018 Hypertension 09/16/2015 documented as of this encounter (statuses as of 11/16/2021) [facility] History of Past illness Narrative* Problem Noted Date Resolved Date Other bursitis disorders 06/15/2014 018 Pain in joint, pelvic region and thigh 5 02/19/2018 Backache, unspecified 04/12/2010 02/19/2018 Chest pain, unspecified 03/27/2007 02/20/20 18 Esophageal reflux 03/27/2007 02/19/2018 Hypertension 09/16/2015 documented as of this encounter (statuses as of 11/24/2021) [facility] History of Past illness Narrative* Problem Noted Date Resolved Date Other bursitis disorders 06/15/2014 018 Pain in joint, pelvic region and thigh 5 02/19/2018 Backache, unspecified 04/12/2010 02/19/2018 Chest pain, unspecified 03/27/2007 02/20/20 18 Esophageal reflux 03/27/2007 02/19/2018 Hypertension 09/16/2015 documented as of this encounter (statuses as of 11/28/2021) [facility] History of Past illness Narrative* Problem Noted Date Resolved Date Other bursitis disorders 06/15/2014 018 Pain in joint, pelvic region and thigh 5 02/19/2018 Backache, unspecified 04/12/2010 02/19/2018 Chest pain, unspecified 03/27/2007 02/20/20 18 Esophageal reflux 03/27/2007 02/19/2018 Hypertension 09/16/2015 documented as of this encounter (statuses as of 11/30/2021) [facility] History of Past illness Narrative* Problem Noted Date Resolved Date Other bursitis disorders 06/15/2014 018 Pain in joint, pelvic region and thigh 5 02/19/2018 Backache, unspecified 04/12/2010 02/19/2018 Chest pain, unspecified 03/27/2007 02/20/20 18 Esophageal reflux 03/27/2007 02/19/2018 Hypertension 09/16/2015 documented as of this encounter (statuses as of 12/01/2021) [facility] History of Past illness Narrative* Problem Noted Date Resolved Date Other bursitis disorders 06/15/2014 018 Pain in joint, pelvic region and thigh 5 02/19/2018 Backache, unspecified 04/12/2010 02/19/2018 Chest pain, unspecified 03/27/2007 02/20/20 18 Esophageal reflux 03/27/2007 02/19/2018 Hypertension 09/16/2015 documented as of this encounter (statuses as of 12/19/2021) [facility] History of Past illness Narrative* Problem Noted Date Resolved Date Other bursitis disorders 06/15/2014 018 Pain in joint, pelvic region and thigh 5 02/19/2018 Backache, unspecified 04/12/2010 02/19/2018 Chest pain, unspecified 03/27/2007 02/20/20 18 Esophageal reflux 03/27/2007 02/19/2018 Hypertension 09/16/2015 documented as of this encounter (statuses as of 02/09/2022) [address] History of Past illness Narrative* Problem Noted Date Resolved Date Other bursitis disorders 06/15/2014 018 Pain in joint, pelvic region and thigh 5 02/19/2018 Backache, unspecified 04/12/2010 02/19/2018 Chest pain, unspecified 03/27/2007 02/20/20 18 Esophageal reflux 03/27/2007 02/19/2018 Hypertension 09/16/2015 documented as of this encounter (statuses as of 03/16/2022) [facility] History of Past illness Narrative* Problem Noted Date Resolved Date Other bursitis disorders 06/15/2014 018 Pain in joint, pelvic region and thigh 5 02/19/2018 Backache, unspecified 04/12/2010 02/19/2018 Chest pain, unspecified 03/27/2007 02/20/20 18 Esophageal reflux 03/27/2007 02/19/2018 Hypertension 09/16/2015 documented as of this encounter (statuses as of 08/27/2022) [facility] History of Past illness Narrative* Problem Noted Date Diagnosed Date Resolved Date Other bursitis disorders 06/15/2014 Pain in joint, pelvic region and thigh 06/15/2014 02/19/2018 Backache, unspecified 04/12/20102017 Chest pain, unspecified 03/27/200701/22 Esophageal reflux 03/27/2007 02/19/2018 Hypertension 09/16/2015 documented as of this encounter (statuses as of 11/19/2022) [facility] History of Past illness Narrative* Problem Noted Date Diagnosed Date Resolved Date Other bursitis disorders 06/15/2014 Pain in joint, pelvic region and thigh 06/15/2014 02/19/2018 Backache, unspecified 04/12/20102017 Chest pain, unspecified 03/27/200701/22 Esophageal reflux 03/27/2007 02/19/2018 Hypertension 09/16/2015 documented as of this encounter (statuses as of 02/24/2023) [place] [address]-24-2015 History of Past illness Narrative* Problem Noted Date Diagnosed Date Resolved Date Other bursitis disorders 06/15/2014 Pain in joint, pelvic region and thigh 06/15/2014 02/19/2018 Backache, unspecified 04/12/20102017 Chest pain, unspecified 03/27/200701/22 Esophageal reflux 03/27/2007 02/19/2018 Hypertension 09/16/2015 documented as of this encounter (statuses as of 06/25/2023) [facility] History of Past illness Narrative* Problem Noted Date Diagnosed Date Resolved Date Other bursitis disorders 06/15/2014 Pain in joint, pelvic region and thigh 06/15/2014 02/19/2018 Backache, unspecified 04/12/20102017 Chest pain, unspecified 03/27/200701/22 Esophageal reflux 03/27/2007 02/19/2018 Hypertension 09/16/2015 documented as of this encounter (statuses as of 06/28/2023) [facility] History of Past illness Narrative* Problem Noted Date Diagnosed Date Resolved Date Other bursitis disorders 06/15/2014 Pain in joint, pelvic region and thigh 06/15/2014 02/19/2018 Backache, unspecified 04/12/20102017 Chest pain, unspecified 03/27/200701/22 Esophageal reflux 03/27/2007 02/19/2018 Hypertension 09/16/2015 documented as of this encounter (statuses as of 07/12/2023) [facility] Diagnosis Encounter for screening mammogram for breast cancer [facility] Diagnosis Encounter for gynecological examination without [...] of genital organs [facility] Diagnosis Vulvar itching- Primary Pruritus of genital organs Vulvar atrophy Atrophy of vulva [facility] Diagnosis Bilateral shoulder pain, unspecified chronicity- Primary [facility] Diagnosis Impingement syndrome of left shoulder- Primary Other affections of shoulder region, not elsewhere classified Chronic left shoulder pain Pain in joint, shoulder region Impingement syndrome of right shoulder Other affections of shoulder region, not elsewhere classified Chronic pain of both shoulders Pain in joint, shoulder region [facility] Diagnosis Bilateral shoulder pain, unspecified chronicity [facility] Diagnosis Lichen planus- Primary [facility] Diagnosis Meralgia paresthetica [...] spondylosis without myelopathy [facility]* Diagnosis DDD (degenerative disc disease), lumbar Degeneration of lumbar or lumbosacral intervertebral disc Right-sided low back pain with right-sided sciatica, unspecified chronicity Kissing spine of lumbar region Kissing spine Meralgia paresthetica of right side Meralgia paresthetica Cervical spondylosis without myelopathy [facility] Diagnosis DDD (degenerative disc disease), lumbar- Primary Degeneration of lumbar or lumbosacral intervertebral disc Right-sided low back pain with right-sided sciatica, unspecified chronicity Kissing spine of lumbar region Kissing spine Meralgia paresthetica of right side Meralgia paresthetica Cervical spondylosis without myelopathy [facility] Diagnosis DDD (degenerative disc disease), lumbar- Primary Degeneration of lumbar or lumbosacral intervertebral disc Right-sided low back pain with right-sided sciatica, unspecified chronicity Kissing spine of lumbar region Kissing spine Meralgia paresthetica of right side Meralgia paresthetica Cervical spondylosis without myelopathy [facility] Diagnosis Essential hypertension Unspecified essential hypertension Hypothyroid Unspecified hypothyroidism [facility] Diagnosis DDD (degenerative disc disease), lumbar- Primary Degeneration of lumbar or lumbosacral intervertebral disc Right-sided low back pain with right-sided sciatica, unspecified chronicity Kissing spine of lumbar region Kissing spine Meralgia paresthetica of right side Meralgia paresthetica Cervical spondylosis without myelopathy [facility] Diagnosis Essential hypertension Unspecified essential hypertension Hypothyroid Unspecified hypothyroidism [facility] Diagnosis Essential hypertension- Primary Unspecified essential hypertension Acquired hypothyroidism Unspecified hypothyroidism Vitamin D deficiency Unspecified vitamin D deficiency Screening for HIV (human immunodeficiency virus) Special screening examination for other specified viral diseases DDD (degenerative disc disease), lumbar Degeneration of lumbar or lumbosacral intervertebral disc [facility] Diagnosis Encounter for screening mammogram for breast cancer [facility] Diagnosis Encounter for screening mammogram for breast cancer [facility] Diagnosis Vitamin D deficiency Unspecified vitamin D deficiency Essential hypertension Unspecified essential hypertension Acquired hypothyroidism Unspecified hypothyroidism documented in this encounter [facility] note* Diagnosis Essential hypertension Unspecified essential hypertension Medication management Encounter for long-term (current) use of other medications Hypothyroid Unspecified hypothyroidism [facility] Diagnosis Annual [...] single bacterial disease [facility] Diagnosis Encounter for [...] spondylosis without myelopathy [facility] Diagnosis Cervicalgia Chronic bilateral low back pain with right-sided sciatica documented in this encounter [facility] note* Diagnosis Cervical spondylosis without myelopathy- Primary documented in this encounter [facility] note* Diagnosis Cervical spondylosis without myelopathy- Primary documented in this encounter [facility] note* Diagnosis Acute pain of left knee- Primary documented in this encounter [facility] note* Diagnosis Acute pain of left knee [facility] Diagnosis Cervical spondylosis without myelopathy- Primary Degeneration of intervertebral disc of lumbar region with discogenic back pain and lower extremity pain Cervicalgia Low back pain with sciatica, sciatica laterality unspecified, unspecified back pain laterality, unspecified chronicity documented in this encounter [facility] for referral (narrative)* Diagnostic Procedure Only (Routine) - Pending Review Specialty Diagnoses / Procedures Referred By Aruna marrero Referred To Contact BR IMAGING Diagnoses Encounter for screening mammogram for malignant neoplasm of breast Dense breasts Procedures ANA SCREENING W GUNNER SCREENING DIGITAL BREAST TOMOSYNTHESIS BI SCREENING MAMMOGRAPHY BI 2-VIEW BREAST INC CAD Jennifer Murphy MD [address] [place] [address] [facility] Imaging [address] [place] [address] Referral ID Status Reason Start Date Expiration Date Visits Requested Visits Authorized [id number] Pending Review Auto-Generat ed Referral 07/27/2021 08/26/2022 1 1 [facility] for referral (narrative)* Diagnostic Procedure Only (Routine) - Pending Review Specialty Diagnoses / Procedures Referred By Aruna marrero Referred To Contact XR IMAGING Diagnoses Bilateral shoulder pain, unspecified chronicity Procedures XR SHOULDER GENERAL 3V OR MORE AP/TRUE AP/OTHER RIGHT RADEX SHOULDER COMPLETE MINIMUM 2 VIEWS Rojas Degroot MD [address] [place] [address] Xr Imaging Referral ID Status Reason Start Date Expiration Date Visits Requested Visits Authorized [id number] Pending Review Auto-Generat ed Referral 08/29/2021 09/28/2022 1 1 * Diagnostic Procedure Only (Routine) - Pending Review Specialty Diagnoses / Procedures Referred By Contac t Referred To Contact XR IMAGING Diagnoses Bilateral shoulder pain, unspecified chronicity Procedures XR SHOULDER GENERAL 3V OR MORE AP/TRUE AP/OTHER LEFT RADEX SHOULDER COMPLETE MINIMUM 2 VIEWS Rojas Degroot MD [address] [place] [address] Xr Imaging Referral ID Status Reason Start Date Expiration Date Visits Requested Visits Authorized [id number] Pending Review Auto-Generat ed Referral 08/29/2021 09/28/2022 1 1 [facility] for referral (narrative)* Diagnostic Procedure Only (Routine) - Closed Specialty Diagnoses / Procedures Referred By Contac t Referred To Contact XR IMAGING Diagnoses Bilateral shoulder pain, unspecified chronicity Procedures XR SHOULDER GENERAL 3V OR MORE AP/TRUE AP/OTHER RIGHT RADEX SHOULDER COMPLETE MINIMUM 2 VIEWS Rojas Degroot MD [address] [place] [address] Xr Imaging Referral ID Status Reason Start Date Expiration Date V isits Requested Visits Authorized [id number] Closed Auto-Generate d Referral 08/29/2021 09/28/2022 1 1 * Diagnostic Procedure Only (Routine) - Closed Specialty Diagnoses / Procedures Referred By Contac t Referred To Contact XR IMAGING Diagnoses Bilateral shoulder pain, unspecified chronicity Procedures XR SHOULDER GENERAL 3V OR MORE AP/TRUE AP/OTHER LEFT RADEX SHOULDER COMPLETE MINIMUM 2 VIEWS Rojas Degroot MD [address] [place] [address] Xr Imaging Referral ID Status Reason Start Date Expiration Date V isits Requested Visits Authorized [id number] Closed Auto-Generate d Referral 08/29/2021 09/28/2022 1 1 [facility] for referral (narrative)* - Pending Review Specialty Diagnoses / Procedures Referred By Aruna marrero Referred To Contact Diagnoses DDD (degenerative disc disease), lumbar Right-sided low back pain with right-sided sciatica, unspecified chronicity Kissing spine of lumbar region Meralgia paresthetica of right side Cervical spondylosis without myelopathy Procedures CONSULT TO PHYSICAL THERAPY Mehul Workman, [address] [place] [id number] Referral ID Status Reason Start Date Expiration Date V isits Requested Visits Authorized [id number] Pending Review 10/27/2021 01/25/2022 1 1 T [facility] for referral (narrative)* Diagnostic Procedure Only (Routine) - Pending Review Specialty Diagnoses / Procedures Referred By Aruna marrero Referred To Contact BR IMAGING Diagnoses Encounter for screening mammogram for breast cancer Procedures ANA SCREENING W GUNNER SCREENING DIGITAL BREAST TOMOSYNTHESIS BI SCREENING MAMMOGRAPHY BI 2-VIEW BREAST INC Fer Okeefe MD [address] [place] [address] Br Imaging [address] [place] [address] Referral ID Status Reason Start Date Expiration Date Visits Requested Visits Authorized [id number] Pending Review Auto-Generat ed Referral 08/22/2022 09/21/2023 1 1 T [facility] for referral (narrative)* Diagnostic Procedure Only (Routine) - Closed Specialty Diagnoses / Procedures Referred By Aruna marrero Referred To Contact BR IMAGING Diagnoses Encounter for screening mammogram for breast cancer Procedures ANA SCREENING W GUNNER SCREENING DIGITAL BREAST TOMOSYNTHESIS BI SCREENING MAMMOGRAPHY BI 2-VIEW BREAST INC Fer Okeefe MD [address] [place] [address] Br Imaging [address] [place] [address] Referral ID Status Reason Start Date Expiration Date V isits Requested Visits Authorized [id number] Closed Auto-Generate d Referral 08/22/2022 09/21/2023 1 1 [facility] for referral (narrative)* Outpatient Procedure (Routine) - Closed Specialty Diagnoses / Procedures Referred By Contac t Referred To Contact [facility] Diagnoses Chest pain, unspecified type Dyspnea on exertion Abnormal EKG Procedures EXERCISE STRESS ECG (WITHOUT IMAGING) Rochelle Alcantar APRN.KILN FIRER HELPER [address] [place] [address] [facility] [place] [address], [place] [address] Referral ID Status Reason Start Date Expiration Date V isits Requested Visits Authorized [id number] Closed Auto-Generate d Referral 11/13/2023 11/12/2024 1 1 [facility] for referral (narrative)* Diagnostic Procedure Only (Routine) - Closed Specialty Diagnoses / Procedures Referred By Contac t Referred To Contact XR IMAGING Diagnoses Inflammatory arthritis Procedures XR PELVIS 1V AP RADIOLOGIC EXAMINATION PELVIS 1/2 [place] [address] [address] [id number] [place] [address] Referral ID Status Reason Start Date Expiration Date V isits Requested Visits Authorized [id number] Closed Auto-Generate d Referral 12/27/2023 01/25/2025 1 1 * Diagnostic Procedure Only (Routine) - Closed Specialty Diagnoses / Procedures Referred By Contac t Referred To Contact XR IMAGING Diagnoses Cervical spondylosis without myelopathy Procedures XR CERV OTHER 4V AP/LAT/OBL RADEX SPINE CERVICAL 4 [place] [address] [place] [address] [place] [address] Referral ID Status Reason Start Date Expiration Date V isits Requested Visits Authorized [id number] Closed Auto-Generate d Referral 12/27/2023 01/25/2025 1 1 [facility] for referral (narrative)* Diagnostic Procedure Only (Routine) - Closed Specialty Diagnoses / Procedures Referred By Contac t Referred To Contact XR IMAGING Diagnoses Chronic bilateral low back pain with right-sided sciatica Procedures XR LUMBAR GENERAL 3V AP/LAT/L5-S1 X-RAY L-S SPINE AP/LATERAL Pat Yeung APRN.CHARTER COACH DRIVER [address] [place] [address] [place] [address] Referral ID Status Reason Start Date Expiration Date V isits Requested Visits Authorized Closed Auto-Generate d Referral 01/09/2021 02/08/2022 1 1 * Diagnostic Procedure Only (Routine) - Closed Specialty Diagnoses / Procedures Referred By Contac t Referred To Contact XR IMAGING Diagnoses Cervicalgia Procedures XR CERV GENERAL 2V AP/LAT CERVICAL AP/LAT + ODONTOID/A21 Pat Yeung APRN.CHARTER COACH DRIVER [address] [place] [address] [place] [address] Referral ID Status Reason Start Date Expiration Date V isits Requested Visits Authorized Closed Auto-Generate d Referral 01/09/2021 01/09/2022 99 99 [facility] for referral (narrative)* Diagnostic Procedure Only (Routine) - Closed Specialty Diagnoses / Procedures Referred By Contac t Referred To Contact XR IMAGING Diagnoses Acute pain of left knee Procedures XR KNEE GENERAL 4V AP BOTH/PA BOTH/LAT/MERC LEFT RADIOLOGIC EXAM KNEE COMPLETE 4/MORE VIEWS Rochelle Alcantar APRN.KILN FIRER HELPER [address] [place] [address] [place] [address] Referral ID Status Reason Start Date Expiration Date V isits Requested Visits Authorized [id number] Closed Auto-Generate d Referral 02/12/2024 03/13/2025 1 1 [facility] for visit Narrative* Diagnostic Procedure Only (Routine) - Closed Specialty Diagnoses / Procedures Referred By Contac t Referred To Contact XR IMAGING Diagnoses Bilateral shoulder pain, unspecified chronicity Procedures XR SHOULDER GENERAL 3V OR MORE AP/TRUE AP/OTHER RIGHT RADEX SHOULDER COMPLETE MINIMUM 2 VIEWS Rojas Degroot MD [address] [place] [address] Xr Imaging Referral ID Status Reason Start Date Expiration Date V isits Requested Visits Authorized [id number] Closed Auto-Generate d Referral 08/29/2021 09/28/2022 1 1 [facility] for visit Narrative* Diagnostic Procedure Only (Routine) - Closed Specialty Diagnoses / Procedures Referred By Contac t Referred To Contact BR IMAGING Diagnoses Encounter for screening mammogram for breast cancer Procedures ANA SCREENING W GUNNER SCREENING DIGITAL BREAST TOMOSYNTHESIS BI SCREENING MAMMOGRAPHY BI 2-VIEW BREAST INC CAD Fer Donohue MD [address] [place] [address] Br Imaging [address] [place] [address] Referral ID Status Reason Start Date Expiration Date V isits Requested Visits Authorized [id number] Closed Auto-Generate d Referral 08/22/2022 09/21/2023 1 1 [facility] for visit Narrative* Diagnostic Procedure Only (Routine) - Closed Specialty Diagnoses / Procedures Referred By Contac t Referred To Contact BR IMAGING Diagnoses Encounter for screening mammogram for malignant neoplasm of breast Dense breasts Procedures ANA SCREENING W GUNNER SCREENING DIGITAL BREAST TOMOSYNTHESIS BI SCREENING MAMMOGRAPHY BI 2-VIEW BREAST INC CAD Jennifer Murphy MD [address] [place] [address] Br Imaging [address] [place] [address] Referral ID Status Reason Start Date Expiration Date V isits Requested Visits Authorized [id number] Closed Auto-Generate d Referral 09/06/2022 10/06/2023 1 1 [facility] for visit Narrative* Outpatient Procedure (Routine) - Closed Specialty Diagnoses / Procedures Referred By Contac t Referred To Contact [facility] Diagnoses Chest pain, unspecified type Dyspnea on exertion Abnormal EKG Procedures EXERCISE STRESS ECG (WITHOUT IMAGING) Rochelle Alcantar APRN.KILN FIRER HELPER [address] [place] [address] [facility] [place] [address] [place] [address] Referral ID Status Reason Start Date Expiration Date V isits Requested Visits Authorized [id number] Closed Auto-Generate d Referral 11/13/2023 11/12/2024 1 1 [facility] for visit Narrative* Diagnostic Procedure Only (Routine) - Closed Specialty Diagnoses / Procedures Referred By Contac t Referred To Contact XR IMAGING Diagnoses Cervicalgia Procedures XR CERV GENERAL 2V AP/LAT CERVICAL AP/LAT + ODONTOID/A21 Pat Yeung, RADIOPHONE OPERATOR.CHARTER COACH DRIVER [address] [place] [address] [place] [address] Referral ID Status Reason Start Date Expiration Date V isits Requested Visits Authorized [id number] Closed Auto-Generate d Referral 01/09/2021 01/09/2022 99 99 [facility] for visit Narrative* Diagnostic Procedure Only (Routine) - Closed Specialty Diagnoses / Procedures Referred By Contac t Referred To Contact XR IMAGING Diagnoses Acute pain of left knee Procedures XR KNEE GENERAL 4V AP BOTH/PA BOTH/LAT/MERC LEFT RADIOLOGIC EXAM KNEE COMPLETE 4/MORE VIEWS Rochelle Alcantar APRN.KILN FIRER HELPER [address] [place] [address] [place] [address] Referral ID Status Reason Start Date Expiration Date V isits Requested Visits Authorized [id number] Closed Auto-Generate d Referral 02/12/2024 03/13/2025 1 1 [facility] Advance Directives Documents on File Type Date Recorded Patient Edge Beader Expl 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 Advance Directive(s) 10/12/2015 7:49 AM Documents on File Type Date Recorded Patient 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 Expl 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 Advance Directive(s) 10/12/2015 7:49 AM Reason for Referral Specialty Diagnoses / Procedures Referred By Contac t Referred To Contact Dermatology Diagnoses Erosive lichen planus of vulva Procedures CONSULT TO DERMATOLOGY Tizzano, Mariano P, MD [address] [place] [address] Referral ID Status Reason Start Date Expiration Date Visits Requested Visits Authorized [id number] Ref Not Required PCP Requested Referral 10/16/2023 10/15/2024 1 1 Specialty Diagnoses / Procedures Referred By Contac t Referred To Contact BR IMAG[facility] Diagnoses Encounter for gynecological examination (general) (routine) without abnormal findings Encounter for screening mammogram for breast cancer Procedures ANA SCREENING W GUNNER SCREENING DIGITAL BREAST TOMOSYNTHESIS BI SCREENING MAMMOGRAPHY BI 2-VIEW BREAST INC CAD Mariano Hernandez MD [address] [place] [address] [facility] Imaging [address] [place] [address] Referral ID Status Reason Start Date Expiration Date Visits Requested Visits Authorized [id number] Authorized Auto-Generat ed Referral 10/16/2023 11/14/2024 1 1 Specialty Diagnoses / Procedures Referred By Contac t Referred To Contact [facility] Diagnoses DDD (degenerative disc disease), lumbar Cervical spondylosis without myelopathy Procedures CONSULT TO PHYSICAL THERAPY PHYSICAL THERAPY EVALUATION HIGH COMPLEX 45 MINS Rochelle Alcantar APRN.KILN FIRER HELPER [address] [place] [address] [facility] [place] [address] [place] [address] Referral ID Status Reason Start Date Expiration Date Visits Requested Visits Authorized [id number] Pending Review Auto-Generat ed Referral 11/13/2023 11/12/2024 1 1 Specialty Diagnoses / Procedures Referred By Contac t Referred To Contact [facility] Diagnoses Chest pain, unspecified type Dyspnea on exertion Abnormal EKG Procedures EXERCISE STRESS ECG (WITHOUT IMAGING) Rochlele Alcantar APRN.KILN FIRER HELPER [address] [place] [address] [facility] [place] [address] [place] [address] Referral ID Status Reason Start Date Expiration Date Visits Requested Visits Authorized [id number] Authorized Auto-Generat ed Referral 11/13/2023 11/12/2024 1 1 Specialty Diagnoses / Procedures Referred By Contac t Referred To Contact [facility] Diagnoses Chest pain, unspecified type Dyspnea on exertion Abnormal EKG Procedures ECHO ECHO TTHRC R-T 2D W/WOM-MODE COMPL SPEC&COLR D Older, Rochelle, RADIOPHONE OPERATOR.KILN FIRER HELPER [address] [place] [address] [facility] [place] [address] [place] [address] Referral ID Status Reason Start Date Expiration Date Visits Requested Visits Authorized [id number] Authorized Auto-Generat ed Referral 11/13/2023 11/12/2024 1 [...] LUMBAR W/[place] [address] [place] [address] Mr Imaging [facility] Referral ID Status Reason Start Date Expiration Date Visits Requested Visits Authorized [id number] New Request Auto-Generat ed Referral 03/14/2025 1 1 Specialty Diagnoses / Procedures Referred By Contac t Referred To Contact MR IMAGING Diagnoses Cervical spondylosis without myelopathy Cervicalgia Procedures MRI CERVICAL SPINE WO IVCON MRI SPINAL CANAL CERVICAL W/[place] [address] [address] [id number] Mr Imaging [facility] Referral ID Status Reason Start Date Expiration Date Visits Requested Visits Authorized [id number] New Request Auto-Generat ed Referral 03/14/2025 1 [...] or prosecute any alcohol or drug abuse patient.[facility] the event this information is protected by the Federal Confidentiality of Alcohol and Drug Abuse Patient Records regulations: The Federal rules restrict any use of the information to criminally investigate or prosecute any alcohol or drug abuse patient.[facility] Dayton[facility] the event this information is protected by the Federal Confidentiality of Alcohol and Drug Abuse Patient Records regulations: The Federal rules restrict any use of the information to criminally investigate or prosecute any alcohol or drug abuse patient.[facility] Dayton[facility] the event this information is protected by the Federal Confidentiality of Alcohol and Drug Abuse Patient Records regulations: The Federal rules restrict any use of the information to criminally investigate or prosecute any alcohol or drug abuse patient.[facility] Dayton[facility] the event this information is protected by the Federal Confidentiality of Alcohol and Drug Abuse Patient Records regulations: The Federal rules restrict any use of the information to criminally investigate or prosecute any alcohol or drug abuse patient.[facility] Dayton[facility] the event this information is protected by the Federal Confidentiality of Alcohol and Drug Abuse Patient Records regulations: The Federal rules restrict any use of the information to criminally investigate or prosecute any alcohol or drug abuse patient.[facility] Dayton[facility] the event this information is protected by the Federal Confidentiality of Alcohol and Drug Abuse Patient Records regulations: The Federal rules restrict any use of the information to criminally investigate or prosecute any alcohol or drug abuse patient.[facility] Dayton[facility] the event this information is protected by the Federal Confidentiality of Alcohol and Drug Abuse Patient Records regulations: The Federal rules restrict any use of the information to criminally investigate or prosecute any alcohol or drug abuse patient.[facility] Dayton[facility] the event this information is protected by the Federal Confidentiality of Alcohol and Drug Abuse Patient Records regulations: The Federal rules restrict any use of the information to criminally investigate or prosecute any alcohol or drug abuse patient.[facility] Dayton[facility] the event this information is protected by the Federal Confidentiality of Alcohol and Drug Abuse Patient Records regulations: The Federal rules restrict any use of the information to criminally investigate or prosecute any alcohol or drug abuse patient.[facility] Dayton[facility] the event this information is protected by the Federal Confidentiality of Alcohol and Drug Abuse Patient Records regulations: The Federal rules restrict any use of the information to criminally investigate or prosecute any alcohol or drug abuse patient.[facility] Dayton[facility] the event this information is protected by the Federal Confidentiality of Alcohol and Drug Abuse Patient Records regulations: The Federal rules restrict any use of the information to criminally investigate or prosecute any alcohol or drug abuse patient.[facility] Dayton[facility] the event this information is protected by the Federal Confidentiality of Alcohol and Drug Abuse Patient Records regulations: The Federal rules restrict any use of the information to criminally investigate or prosecute any alcohol or drug abuse patient.[facility] Dayton[facility] the event this information is protected by the Federal Confidentiality of Alcohol and Drug Abuse Patient Records regulations: The Federal rules restrict any use of the information to criminally investigate or prosecute any alcohol or drug abuse patient.[facility] Dayton[facility] the event this information is protected by the Federal Confidentiality of Alcohol and Drug Abuse Patient Records regulations: The Federal rules restrict any use of the information to criminally investigate or prosecute any alcohol or drug abuse patient.[facility] DaytonIn the event this information is protected by the Federal Confidentiality of Alcohol and Drug Abuse Patient Records regulations: The Federal rules restrict any use of the information to criminally investigate or prosecute any alcohol or drug abuse patient.[facility] Dayton[facility] the event this information is protected by the Federal Confidentiality of Alcohol and Drug Abuse Patient Records regulations: The Federal rules restrict any use of the information to criminally investigate or prosecute any alcohol or drug abuse patient.[facility] Dayton[facility] the event this information is protected by the Federal Confidentiality of Alcohol and Drug Abuse Patient Records regulations: The Federal rules restrict any use of the information to criminally investigate or prosecute any alcohol or drug abuse patient.[facility] DaytonIn the event this information is protected by the Federal Confidentiality of Alcohol and Drug Abuse Patient Records regulations: The Federal rules restrict any use of the information to criminally investigate or prosecute any alcohol or drug abuse patient.[facility] DaytonIn the event this information is protected by the Federal Confidentiality of Alcohol and Drug Abuse Patient Records regulations: The Federal rules restrict any use of the information to criminally investigate or prosecute any alcohol or drug abuse patient.[facility] DaytonIn the event this information is protected by the Federal Confidentiality of Alcohol and Drug Abuse Patient Records regulations: The Federal rules restrict any use of the information to criminally investigate or prosecute any alcohol or drug abuse patient.[facility] DaytonIn the event this information is protected by the Federal Confidentiality of Alcohol and Drug Abuse Patient Records regulations: The Federal rules restrict any use of the information to criminally investigate or prosecute any alcohol or drug abuse patient.[facility] DaytonIn the event this information is protected by the Federal Confidentiality of Alcohol and Drug Abuse Patient Records regulations: The Federal rules restrict any use of the information to criminally investigate or prosecute any alcohol or drug abuse patient.[facility] DaytonIn the event this information is protected by the Federal Confidentiality of Alcohol and Drug Abuse Patient Records regulations: The Federal rules restrict any use of the information to criminally investigate or prosecute any alcohol or drug abuse patient.[facility] DaytonIn the event this information is protected by the Federal Confidentiality of Alcohol and Drug Abuse Patient Records regulations: The Federal rules restrict any use of the information to criminally investigate or prosecute any alcohol or drug abuse patient.[facility] DaytonIn the event this information is protected by the Federal Confidentiality of Alcohol and Drug Abuse Patient Records regulations: The Federal rules restrict any use of the information to criminally investigate or prosecute any alcohol or drug abuse patient.[facility] DaytonIn the event this information is protected by the Federal Confidentiality of Alcohol and Drug Abuse Patient Records regulations: The Federal rules restrict any use of the information to criminally investigate or prosecute any alcohol or drug abuse patient.[facility] DaytonIn the event this information is protected by the Federal Confidentiality of Alcohol and Drug Abuse Patient Records regulations: The Federal rules restrict any use of the information to criminally investigate or prosecute any alcohol or drug abuse patient.[facility] DaytonIn the event this information is protected by the Federal Confidentiality of Alcohol and Drug Abuse Patient Records regulations: The Federal rules restrict any use of the information to criminally investigate or prosecute any alcohol or drug abuse patient.[facility] DaytonIn the event this information is protected by the Federal Confidentiality of Alcohol and Drug Abuse Patient Records regulations: The Federal rules restrict any use of the information to criminally investigate or prosecute any alcohol or drug abuse patient.[facility] DaytonIn the event this information is protected by the Federal Confidentiality of Alcohol and Drug Abuse Patient Records regulations: The Federal rules restrict any use of the information to criminally investigate or prosecute any alcohol or drug abuse patient.[facility] DaytonIn the event this information is protected by the Federal Confidentiality of Alcohol and Drug Abuse Patient Records regulations: The Federal rules restrict any use of the information to criminally investigate or prosecute any alcohol or drug abuse patient.[facility] DaytonIn the event this information is protected by the Federal Confidentiality of Alcohol and Drug Abuse Patient Records regulations: The Federal rules restrict any use of the information to criminally investigate or prosecute any alcohol or drug abuse patient.[facility] DaytonIn the event this information is protected by the Federal Confidentiality of Alcohol and Drug Abuse Patient Records regulations: The Federal rules restrict any use of the information to criminally investigate or prosecute any alcohol or drug abuse patient.[facility] DaytonIn the event this information is protected by the Federal Confidentiality of Alcohol and Drug Abuse Patient Records regulations: The Federal rules restrict any use of the information to criminally investigate or prosecute any alcohol or drug abuse patient.[facility] DaytonIn the event this information is protected by the Federal Confidentiality of Alcohol and Drug Abuse Patient Records regulations: The Federal rules restrict any use of the information to criminally investigate or prosecute any alcohol or drug abuse patient.[facility] DaytonIn the event this information is protected by the Federal Confidentiality of Alcohol and Drug Abuse Patient Records regulations: The Federal rules restrict any use of the information to criminally investigate or prosecute any alcohol or drug abuse patient.[facility] DaytonIn the event this information is protected by the Federal Confidentiality of Alcohol and Drug Abuse Patient Records regulations: The Federal rules restrict any use of the information to criminally investigate or prosecute any alcohol or drug abuse patient.[facility] DaytonIn the event this information is protected by the Federal Confidentiality of Alcohol and Drug Abuse Patient Records regulations: The Federal rules restrict any use of the information to criminally investigate or prosecute any alcohol or drug abuse patient.[facility] DaytonIn the event this information is protected by the Federal Confidentiality of Alcohol and Drug Abuse Patient Records regulations: The Federal rules restrict any use of the information to criminally investigate or prosecute any alcohol or drug abuse patient.[facility] DaytonIn the event this information is protected by the Federal Confidentiality of Alcohol and Drug Abuse Patient Records regulations: The Federal rules restrict any use of the information to criminally investigate or prosecute any alcohol or drug abuse patient.[facility] DaytonIn the event this information is protected by the Federal Confidentiality of Alcohol and Drug Abuse Patient Records regulations: The Federal rules restrict any use of the information to criminally investigate or prosecute any alcohol or drug abuse patient.[facility] DaytonIn the event this information is protected by the Federal Confidentiality of Alcohol and Drug Abuse Patient Records regulations: The Federal rules restrict any use of the information to criminally investigate or prosecute any alcohol or drug abuse patient.[facility] DaytonIn the event this information is protected by the Federal Confidentiality of Alcohol and Drug Abuse Patient Records regulations: The Federal rules restrict any use of the information to criminally investigate or prosecute any alcohol or drug abuse patient.[facility] DaytonIn the event this information is protected by the Federal Confidentiality of Alcohol and Drug Abuse Patient Records regulations: The Federal rules restrict any use of the information to criminally investigate or prosecute any alcohol or drug abuse patient.[facility] DaytonIn the event this information is protected by the Federal Confidentiality of Alcohol and Drug Abuse Patient Records regulations: The Federal rules restrict any use of the information to criminally investigate or prosecute any alcohol or drug abuse patient.[facility] DaytonIn the event this information is protected by the Federal Confidentiality of Alcohol and Drug Abuse Patient Records regulations: The Federal rules restrict any use of the information to criminally investigate or prosecute any alcohol or drug abuse patient.[facility] DaytonIn the event this information is protected by the [facility] Confidentiality of Alcohol and Drug Abuse Patient Records regulations: The Federal rules restrict any use of the information to criminally investigate or prosecute any alcohol or drug abuse patient.[facility] DaytonIn the event this information is protected by the Federal Confidentiality of Alcohol and Drug Abuse Patient Records regulations: The Federal rules restrict any use of the information to criminally investigate or prosecute any alcohol or drug abuse patient.[facility] Care Teams (unrecognized sec tion and content) Dining Room Captain Relationship Specialty Start Date End Date Fer Donohue MD [address] [place], [place] [id number] PCP - General Internal Medicine 04/06/19 Dining Room Captain Relationship Specialty Start Date End Date Fer Donohue MD [address] [place], [place] [id number] PCP - General Internal Medicine 04/06/19 Dining Room Captain Relationship Specialty Start Date End Date Fer Donohue MD [address] [place], [place] [id number] PCP - General Internal Medicine 04/06/19 Dining Room Captain Relationship Specialty Start Date End Date Fer Donohue MD [address] [place] [address] PCP - General Internal Medicine 04/06/19 Dining Room Captain Relationship Specialty Start Date End Date Fer Donohue MD [address] [place] [address] PCP - General Internal Medicine 04/06/19 Dining Room Captain Relationship Specialty Start Date End Date Fer Donohue MD [address] [place] [address] PCP - General Internal Medicine 04/06/19 Dining Room Captain Relationship Specialty Start Date End Date Fer Donohue MD [address] [place] [address] PCP - General Internal Medicine 04/06/19 Dining Room Captain Relationship Specialty Start Date End Date Fer Donohue MD [address] [place] [address] PCP - General Internal Medicine 04/06/19 Dining Room Captain Relationship Specialty Start Date End Date Fer Donohue MD [address] [place] [address] PCP - General Internal Medicine 04/06/19 Dining Room Captain Relationship Specialty Start Date End Date Fer Donohue MD [address] [place] [address] PCP - General Internal Medicine 04/06/19 Dining Room Captain Relationship Specialty Start Date End Date Fer Donohue MD [address] [place] [address] PCP - General Internal Medicine 04/06/19 Dining Room Captain Relationship Specialty Start Date End Date Fer Donohue MD [address] [place] [address] PCP - General Internal Medicine 04/06/19 Dining Room Captain Relationship Specialty Start Date End Date Fer Donohue MD [address] [place] [address] PCP - General Internal Medicine 04/06/19 Dining Room Captain Relationship Specialty Start Date End Date Fer Donohue MD [address] [place] [address] PCP - General Internal Medicine 04/06/19 Dining Room Captain Relationship Specialty Start Date End Date Fer Donohue MD [address] [facility] [place] [address] PCP - General Internal Medicine 04/06/19 Dining Room Captain Relationship Specialty Start Date End Date Fer Donohue MD [address] [facility] [place] [address] PCP - General Internal Medicine 04/06/19 Dining Room Captain Relationship Specialty Start Date End Date Fer Donohue MD [address] [facility] [place] [address] PCP - General Internal Medicine 04/06/19 Dining Room Captain Relationship Specialty Start Date End Date Fer Donohue MD [address] [facility] [place] [address] PCP - General Internal Medicine 04/06/19 Dining Room Captain Relationship Specialty Start Date End Date Fer Donohue MD [address] [facility] [place] [address] PCP - General Internal Medicine 04/06/19 Dining Room Captain Relationship Specialty Start Date End Date Fer Donohue MD [address] [facility] [place] [address] PCP - General Internal Medicine 04/06/19 Dining Room Captain Relationship Specialty Start Date End Date Fer Donohue MD [address] [facility] [place] [id number] PCP - General Internal Medicine 04/06/19 Dining Room Captain Relationship Specialty Start Date End Date Fer Donohue MD [address] [facility] [place] [id number] PCP - General Internal Medicine 04/06/19 Dining Room Captain Relationship Specialty Start Date End Date Fer Donohue MD [address] [facility] [place] [id number] PCP - General Internal Medicine 04/06/19 Dining Room Captain Relationship Specialty Start Date End Date Fer Donohue MD [address] [facility] [place] [address] PCP - General Internal Medicine 04/06/19 Dining Room Captain Relationship Specialty Start Date End Date Fer Donohue MD [address] [facility] [place] [address] PCP - General Internal Medicine 04/06/19 Dining Room Captain Relationship Specialty Start Date End Date Fer Donohue MD [address] [facility] [place] [address] PCP - General Internal Medicine 04/06/19 Dining Room Captain Relationship Specialty Start Date End Date Fer Donohue MD [address] [facility] [place] [address] PCP - General Internal Medicine 04/06/19 Dining Room Captain Relationship Specialty Start Date End Date Fer Donohue MD [address] [facility] [place] [address] PCP - General Internal Medicine 04/06/19 Dining Room Captain Relationship Specialty Start Date End Date Fer Donohue MD [address] [place] [address] PCP - General Internal Medicine 04/06/19 Dining Room Captain Relationship Specialty Start Date End Date Fer Donohue MD [address] [place] [address] PCP - General Internal Medicine 04/06/19 Dining Room Captain Relationship Specialty Start Date End Date Fer Donohue MD [address] [place] [address] PCP - General Internal Medicine 04/06/19 Dining Room Captain Relationship Specialty Start Date End Date Fer Donohue MD [address] [place] [address] PCP - General Internal Medicine 04/06/19 Dining Room Captain Relationship Specialty Start Date End Date Fer Donohue MD [address] [place] [address] PCP - General Internal Medicine 04/06/19 Dining Room Captain Relationship Specialty Start Date End Date Fer Donohue MD [address] [place] [address] PCP - General Internal Medicine 04/06/19 Dining Room Captain Relationship Specialty Start Date End Date Fer Donohue MD [address] [place] [address] PCP - General Internal Medicine 04/06/19 Dining Room Captain Relationship Specialty Start Date End Date Fer Donohue MD [address] [place] [address] PCP - General Internal Medicine 04/06/19 Dining Room Captain Relationship Specialty Start Date End Date Fer Donohue MD [address] [place], [place] [address] PCP - General Internal Medicine 04/06/19 Dining Room Captain Relationship Specialty Start Date End Date Fer Donohue MD [address] [place], [place] [address] PCP - General Internal Medicine 04/06/19 Dining Room Captain Relationship Specialty Start Date End Date Fer Donohue MD [address] [place] [address] PCP - General Internal Medicine 04/06/19 Dining Room Captain Relationship Specialty Start Date End Date Fer Donohue MD [address] [place] [address] PCP - General Internal Medicine 04/06/19 Dining Room Captain Relationship Specialty Start Date End Date Fer Donohue MD [address] [place], [place] [address] PCP - General Internal Medicine 04/06/19 Reason for Visit (unrecogniz ed section and content) Reason Comments PT Discharge Specialty Diagnoses / Procedures Referred By Aruna t Referred To Contact [facility] Diagnoses DDD (degenerative disc disease), lumbar Cervical spondylosis without myelopathy Procedures CONSULT TO PHYSICAL THERAPY PHYSICAL THERAPY EVALUATION HIGH COMPLEX 45 MINS Older, NICOLE Byrd.KILN FIRER HELPER [address] [place] [address] [facility] [place] [address] [place] [address] Referral ID Status Reason Start Date Expiration Date Visits Requested Visits Authorized [id number] Authorized Auto-Generat ed Referral 04/22/2023 04/21/2024 60 [...] CONSULT [place] [address] [place] [address] Pt [facility]ly [facility] [address] [place] [address] Referral ID Status Reason Start Date Expiration Date V isits Requested Visits Authorized [id number] Authorized 04/22/2021 04/21/2022 60 60 Reason Onset Date Comments Yearly Exam 07/27/2021 Reason Comments Vulvar Biopsy Reason Comments Results Reason Comments Xray Results New Pain Specialty Diagnoses / Procedures Referred By Contac t Referred To Contact Orthopedics Diagnoses Chronic left shoulder pain Procedures CONSULT PANEL TO ORTHOPAEDICS OFFICE/OUTPATIENT [facility] 60-74 MINUTES Brittaney Newsome APRN.KILN FIRER HELPER, DNP [address] [place] [address] Referral ID Status Reason Start Date Expiration Date V isits Requested Visits Authorized [id number] Closed PCP Requested Referral 07/04/2021 07/04/2022 1 [...] region Procedures CONSULT TO SPINE SURGERY OFFICE/OUTPATIENT [facility] 60-74 MINUTES Fer Donohue MD [address] [place] [address] Referral ID Status Reason Start Date Expiration Date V isits Requested Visits Authorized [id number] Closed PCP Requested Referral 07/10/2021 07/10/2022 1 [...] Service Pr ogress NotePATIENT NAME: Jamaal MichaelMRN: [id number] OF SERVICE: December 27, 2023TIME: 11:09 AMPATIENT [...] RADIOLOGIC EXAMINATION PELVIS 1/2 VIEWS Mehul Workman, [address] [place] [address] [facility] Referral ID Status Reason Start Date Expiration Date V isits Requested Visits Authorized [id number] Closed Auto-Generate d Referral 12/27/2023 01/25/2025 1 1 Reason Comments Knee Pain L knee pain x severa l weeks INFORMATION SOURCE (unrecogn ized section and content) DATE CREATED AUTHOR 11/27/2023 [facility] DATE CREATED AUTHOR AUTHOR'S ORGANIZ ATION 02/14/2024 [facility] FOR RECORDS PERTAINING TO PATIENTS WHO ARE [...] BE BASED ON THE PRIMARY CLINICAL RECORDS. [facility]. provides no warranty or guarantee of the accuracy or completeness of information in this document.
--- NOTE | 2024-02-16 12:17 | VDLE_ITS ---
Reason For Study: LLE Pain RIGHT LEFT CFV is compressible, spontaneous, phasic, GSV is normal. competent and demonstrates normal CFV is compressible, spontaneous, phasic, augmentation. competent, and demonstrates normal Procedure augmentation. This is a venous duplex using B-mode, color FV is compressible, spontaneous, phasic, flow and spectral Doppler. competent and demonstrates normal Exam performed in department. augmentation. A preliminary report was called and/or faxed POP V is compressible, spontaneous, phasic, to ED. competent and demonstrates normal augmentation. T/P Trunk is compressible. PTV is compressible. LT PerV is compressible. VL/Venous Duplex US, Unilateral Interpretation Summary Deep veins of the left lower extremity are patent and compressible segmentally. There is no evidence of left lower extremity deep vein thrombosis. The left great saphenous vein eulogio ears patent and compressible segmentally. Ordering Physician: Frandy Grimm Referring Physician: Feli Germain Performed By: Laurel Conner, ABIGAIL, RVT
== END 2024-02-16 | disposition home or self-care (01) ==
LOC: ED 02-16 00:46 → US 02-16 11:55 → VL 02-16 12:47
PROVIDERS: Emergency Provider Emergency Medicine; PCP Internal Medicine; Visit Provider Emergency Medicine
DX: M79.605 Pain in left leg (principal)
CPT/HCPCS: 93971; 99282

== ENCOUNTER 2024-10-15 12:59 | Emergency (ER) | payer BC, SELFPAY ==
[2024-10-15 13:00] VITALS: BP 136/77; PULSE 122; RESP 20; TEMP 36.6; O2SAT 99; BMI 34.4
--- NOTE | 2024-10-15 13:37 | RAD_ITS ---
EXAM: XR Chest, 2 Views CLINICAL INDICATION: BACK PAIN TECHNIQUE: Frontal and lateral views of the chest. COMPARISON: No relevant prior studies available. FINDINGS: LUNGS AND PLEURAL SPACES: Unremarkable. No consolidation. No pneumothorax. HEART: Unremarkable. No cardiomegaly. MEDIASTINUM: Unremarkable. Normal mediastinal contour. BONES/JOINTS: Unremarkable. No acute fracture. RAD/Chest PA and Lateral IMPRESSION: No acute cardiopulmonary process. Reading Location: [facility]
--- NOTE | 2024-10-15 13:50 | CT_ITS ---
EXAM: CT Head Without Intravenous Contrast CLINICAL INDICATION: HEADACHE TECHNIQUE: Axial computed tomography images of the head/brain without intravenous contrast. This CT exam was performed using one or more of the following dose reduction techniques: automated exposure control, adjustment of the mA and/or kV according to patient size, and/or use of iterative reconstruction technique. COMPARISON: No relevant prior studies available. FINDINGS: BRAIN AND EXTRA-AXIAL SPACES: No acute intracranial hemorrhage, midline shift or mass effect. If symptoms persist, further evaluation with MRI is recommended. No significant white matter disease. BONES/JOINTS: Unremarkable. No acute fracture. SOFT TISSUES: Unremarkable. SINUSES: Unremarkable as visualized. No acute sinusitis. MASTOID AIR CELLS: Unremarkable as visualized. No mastoid effusion. CT/Brain/Head without Contrast IMPRESSION: No acute intracranial hemorrhage, midline shift or mass effect. If symptoms per sist, further evaluation with MRI is recommended. Reading Location: [id number]
[2024-10-15 14:01] VITALS: BP 132/76; PULSE 108; RESP 24; TEMP 38.1; O2SAT 98
[2024-10-15] MEDS: 0.9% Normal Saline (1000mL) 1,000 ML 999 ML IV ×3 (14:21→16:34)
[2024-10-15] MEDS: Metoclopramide 10 MG/2 ML Vial IV (14:22)
[2024-10-15 14:26] LABS: Absolute Lymphocyte Count 0.51 X10^3/uL (0.83-4.51); Absolute Neutrophil Count 5.5 X10^3/uL (2.0-7.7); Basophil# 0.03 X10^3/uL; Basophil% 0.5 % (0-1); Hematocrit 40.3 % (37-47); Hemoglobin 14.5 g/dL (12.0-15.0); Lymphocyte # 0.51 X10^3/ul (0.83-4.51); Lymphocyte % 7.9 % (19-41); Mean Corpuscular Hgb 31.6 pg (27.0-32.0); Mean Corpuscular Volume 87.8 fL (81-99); Mean Platelet Vol. 9.5 fl (6.2-12.0); Monocyte# 0.41 X10^3/uL; Monocyte% 6.3 % (0-10); NRBC Flagged by Analyzer 0 % (0-5); POSITIVE DIFFERENTIAL YES; Platelet Count 182 K/mm3 (150-450); RBC Distribution Width CV 11.8 % (11.6-14.6); RBC Distribution Width SD 37.4 fl (35.1-43.9); Red Blood Count 4.59 M/mm3 (4.2-5.4); White Blood Count 6.5 K/mm3 (4.4-11.0)
[2024-10-15 14:48] LABS: International Normalized Ratio 1.1; Prothrombin Time (Protime)PT. 14.3 SECONDS (11.7-14.9)
[2024-10-15 14:49] LABS: Partial Thromboplast Time 34.2 Seconds (24.1-36.2)
[2024-10-15 14:54] LABS: Bacteria 0 SEEN /hpf (None Seen); Mucous, Urine 0 SEEN /hpf (<or=2+)
[2024-10-15 15:00] VITALS: BP 142/90; PULSE 109; RESP 19; TEMP 39.1; O2SAT 97
[2024-10-15 15:08] LABS: Lactic Acid < 1.0 mmol/L (0.0-2.0)
[2024-10-15 15:14] LABS: ALB/GLOB Ratio 1.1 RATIO (0.9-2.4); AST(SGOT) 49 U/L (<=31); Alanine Aminotransfer ALT/SGPT 66 U/L (<=34); Albumin, Serum 4.3 g/dL (3.5-5.0); Alkaline Phosphatase 82 U/L (35-104); Anion Gap 12 (5-15); BUN 9 mg/dL (4-19); BUN/Creat Ratio 9.5 RATIO (10-20); Calcium,Total 9.3 mg/dL (7.6-11.0); Carbon Dioxide 22.9 mmol/L (21.0-32.0); Chloride 96 mmol/L (98-108); Creatinine, Serum 0.95 mg/dL (0.70-1.20); EST Glomerular Filtration Rate 69 (>60); Estimated Creatinine Clearance 72.23 ml/min (50-250); Free T3 1.5 pg/mL (2.18-3.98); Globulin 3.9 g/dL (2.2-4.2); Glucose 100 mg/dL (70-99); Potassium 3.8 mmol/L (3.3-5.1); Protein, Total 8.1 g/dL (5.9-8.4); Sodium Level 131 mmol/L (133-145); Total Bilirubin 0.98 mg/dL (0.00-1.30)
[2024-10-15] MEDS: Acetaminophen 500 MG Tablet 1000 MG PO (15:27)
--- NOTE | 2024-10-15 15:49 | EX.ED.DYSGE1 ---
HPI History of Present Illness Chief Complaint: Flank Pain Narrative Narrative: Patient is a 59-year-old female with past medical history of hypertension, GERD, fibromyalgia, lichen sclerosus, Sheryl thyroiditis who presents to the emergency department with a chief complaint of diffuse bodyaches bilateral flank pain headache and not feeling well overall. Patient states that she has not been feeling well for several days and notes that she was recently started on new medication for rheumatoid arthritis and states that she took 1 dose of this but stopped this on Saturday thinking that she was have a reaction to this. She states that despite stopping this her symptoms have not changed and overall is feeling unwell prompting her to come to the emergency department to be further evaluated. Patient denies any recent sick contacts. Patient states that she has been taking Tylenol for headaches. [facility] Medical History Oral lichen planus Lichen sclerosus HTN (hypertension) GERD (gastroesophageal reflux disease) Fibromyalgia Sheryl thyroiditis Home Medications ?Medication ?Instructions ?Recorded ?Last Taken ?Type levothyroxine 100 mcg tablet 100 mcg PO DAILY 06/03/15 10/14/24 History naproxen sodium 220 mg tablet 500 mg PO BID 06/03/15 Unknown History (Aleve) losartan 25 mg tablet 25 mg PO DAILY 02/15/24 10/15/24 History omeprazole 20 mg capsule,delayed 20 mg PO DAILY 02/15/24 10/15/24 History release acetaminophen 325 mg tablet 650 mg PO Q4H PRN fever or pain 10/15/24 10/15/24 History cholecalciferol (vitamin D3) 1,250 1,250 mcg PO QWEEK 10/15/24 10/11/24 History mcg (50,000 unit) capsule clobetasol 0.05 % topical ointment 1 applic topical BID 10/15/24 10/11/24 History econazole nitrate 1 % topical cream 1 applic topical BID 10/15/24 Unknown History ondansetron 4 mg disintegrating 4 mg PO Q6H PRN nausea and 10/15/24 Unknown Rx tablet vomiting #30 tabs prednisolone acetate 1 % eye 1 drp ophthalmic (eye) 4X/DAY PRN 10/15/24 Unknown History drops,suspension eye irritation Allergy/AdvReac Type Severity Reaction Status Date / Time sulfasalazine Allergy Intermediate weakness Verified 10/15/24 13:02 Social History Smoking Status: Never smoker ROS ROS ED ROS Narrative Constitutional: Complains of whole body aches, chills headaches Eyes: Denies change in vision double vision blurry vision Cardiovascular: Denies chest pain or palpitations Respiratory: Denies coughing wheezing shortness of breath Abdomen: Denies abdominal pain nausea vomit diarrhea : Denies any urinary symptoms Neurological: Denies numbness, weakness, tingling Musculoskeletal: Complains of bilateral flank pain as noted above Skin: Denies any rashes or lesions EXAM Physical Exam Narrative Exam Narrative: General: Patient lying in bed rest comfortably did not appear to be acute distress Head: Atraumatic, normocephalic Eyes: PERRL bilateral, EOMI blood, no conjunctival injection noted Neck: Soft, supple, trachea midline. Patient has full range of motion without any difficulty no pain elicited she is able to touch her chin to her chest without any elevation of her legs off the bed no concern for meningitis Cardiovascular: Patient tachycardic with a regular rhythm no murmurs gallops rubs noted Respiratory: Clear to auscultation bilaterally Abdomen: Soft, nondistended, nontender to palpation Extremities: +5/5 strength noted in the bilateral upper and lower extremities, radial pulses +2/4 in the biextremities, no pedal edema no exam Neurological: Patient following commands knew that she was at [facility] year is 2024 NIH of 0 GCS 15 Skin: Warm, dry, tact no rashes or lesions noted Const Vital Signs: 10/15/24 13:00 10/15/24 14:01 10/15/24 14:27 Temperature 97.8 F 100.6 F H Temperature Source Temporal Oral Pulse Rate 122 H 108 H Respiratory Rate 20 H 24 H Blood Pressure 136/77 H 132/76 H Blood Pressure Mean 96 94 Pulse Ox 99 98 Oxygen Delivery Method Room Air Room Air Room Air 10/15/24 15:00 10/15/24 16:00 10/15/24 17:00 Temperature 102.4 F H 99.4 F H 99 F Temperature Source Oral Oral Oral Pulse Rate 109 H 94 8 L Respiratory Rate 19 H 19 H 19 H Blood Pressure 142/90 H 114/72 137/88 H Blood Pressure Mean 107 86 104 Pulse Ox 97 95 97 Oxygen Delivery Method Room Air Room Air Room Air MDM MDM MDM Narrative Medical decision making narrative: Patient is a 59-year-old female who presents to the emergency department chief complaint fever, chills, diffuse bodyaches and not feeling well overall. On the differential diagnosis includes but not limited to viral gastroenteritis, upper respiratory tract infection secondary viral etiology, UTI, pyelonephritis. Once workup is obtained reviewed she will be reevaluated. Patient became febrile here in the emergency department therefore she was given a gram of Tylenol she was given Reglan and fluids as well. No concern for meningitis. Patient's CBC was reviewed and showed no evidence leukocytosis white blood count normal 6.5, he was 14.5, platelet count was noted be 182. Patient's INR 1.1, PT of 14.3. Patient sodium was 131, potassium normal at 3.8, creatinine normal at 0.95. Patient lactic acid less than 1 AST and ALT are 49 and 66 respectively total bilirubin normal at 0.98. Patient's thyroid normal TSH normal at 1.68 Free T4 and T3 were 1 and 1.5 respectively. Patient's urinalysis showed 500 leukocyte esterase negative nitrates 5-10 white cells with no bacteria. Patient's CT head brain without contrast is still pending. Patient chest x-ray reviewed and showed no acute cardiopulmonary processes. Patient EKG reviewed showed sinus tachycardia with a rate of 108 bpm. QTc was 444. Repeat abdominal exam at 5:33 PM patient has no abdominal pain. Patient CT head brain without contrast will be signed out to oncoming provider. Pending this is normal the patient will be discharged home. She will be advised to return with worsening symptoms or any concerns. She will be advised to continue supportive care. See oncoming provider's note for ultimate details of disposition. Lab Data Labs: Laboratory Results - last 24 hr 10/15/24 10/15/24 13:24 14:00 WBC 6.5 RBC 4.59 Hgb 14.5 Hct 40.3 MCV 87.8 MCH 31.6 MCHC 36.0 RDW Std Deviation 37.4 RDW Coeff of [place] 11.8 Plt Count 182 MPV 9.5 Immature Gran % (Auto) 0.300 Neut % (Auto) 85.0 H Lymph % (Auto) 7.9 L [place] % (Auto) 6.3 Eos % (Auto) 0.0 Baso % (Auto) 0.5 Absolute Neuts (auto) 5.5 Absolute Lymphs (auto) 0.51 L Nucleated RBC % 0 PT 14.3 INR 1.1 APTT 34.2 Sodium 131 L Potassium 3.8 Chloride 96 L Carbon Dioxide 22.9 Anion Gap 12 BUN 9 Creatinine 0.95 Estim Creat Clear Calc 72.23 Est GFR (MDRD) Non-Af 69 BUN/Creatinine Ratio 9.5 L Glucose 100 H Lactic Acid < 1.0 Calcium 9.3 Total Bilirubin 0.98 AST 49 H ALT 66 H Alkaline Phosphatase 82 Total Protein 8.1 Albumin 4.3 Globulin 3.9 Albumin/Globulin Ratio 1.1 TSH 1.680 Free T4 1.00 Free T3 pg/dL 1.5 L Urine Color Yellow Urine Clarity Clear Urine pH 6.0 Ur Specific [place] 1.010 Urine Protein 30 H Urine Glucose (UA) Normal Urine Ketones Negative Urine Occult Blood 10 H Urine Nitrite Negative Urine Bilirubin Negative Urine Urobilinogen 1 H Ur Leukocyte Esterase 500 H Urine RBC 0-5 SEEN Urine WBC 5-10 SEEN Ur Squamous Epith Cells 5-10 SEEN Ur Transition Epith Cell 0-5 SEEN Urine Bacteria 0 SEEN Urine Mucus 0 SEEN Radiography Diagnostic Testing: Clinical Impression(s) from Imaging Studies Chest X-Ray 10/15/24 13:37 IMPRESSION: No acute cardiopulmonary process. Reading Location: [facility] Discharge Plan Triage Chief Complaint: Flank Pain Other Complaint: Headache ED Provider: Talib Gomez Dx/Rx/DC Orders Clinical Impression: Fever, Body aches, Chills Prescriptions: New ondansetron 4 mg tablet,disintegrating 4 mg PO Q6H PRN (Reason: nausea and vomiting) Qty: 30 0RF No Action levothyroxine 100 MCG tablet 100 mcg PO DAILY Patient Comments: PT TAKES AT BEDTIME. naproxen sodium [Aleve] 220 MG tablet 500 mg PO BID Patient Comments: PT HAS NOT BEEN TAKING THE LAST FEW MONTHS. clobetasol 0.05 % ointment 1 applic topical BID Patient Comments: APPLIES ON SATURDAY AND SATURDAY. Rx Instructions: APPLY BID WEEKLY cholecalciferol (vitamin D3) 1,250 mcg (50,000 unit) capsule 1,250 mcg PO QWEEK Patient Comments: PT TAKES ON SUNDAYS econazole nitrate 1 % cream 1 applic topical BID Patient Comments: PT USES NEEDED. prednisolone acetate 1 % drops,suspension 1 drp ophthalmic (eye) 4X/DAY PRN (Reason: eye irritation) Patient Comments: PT HAS NOT USED IN 3 WEEKS. acetaminophen 325 mg tablet 650 mg PO Q4H PRN (Reason: fever or pain) losartan 25 mg tablet 25 mg PO DAILY omeprazole 20 mg capsule,delayed release(DR/EC) 20 mg PO DAILY Primary Care Provider: Feli Germain Referrals: Feli Germain MD [Primary Care Provider] - Activity Restrictions/Additional Instructions: Continue supportive care follow-up your doctor in outpatient setting. Rotate Tylenol and ibuprofen [id number] when you do this you can take something every 3 hours. Max dose of Tylenol in 24 hours 4000 mg. Max dose of ibuprofen in 24 hours 3200 mg. Return with worsening symptoms and concerns. Print Language: [place]
[2024-10-15 16:00] VITALS: BP 114/72; PULSE 94; RESP 19; TEMP 37.4; O2SAT 95
[2024-10-15 16:26] LABS: Color, Urine Yellow (Yellow); Glucose, Dipstick Normal (Normal); Ketone-Dipstick Negative (Negative); Leukocyte Esterase-Dipstick 500 /ul (Negative); Nitrite-Dipstick Negative (Negative); Occult Blood-Urine 10 /ul (Negative); Protein-Dipstick 30 mg/dl (Negative); Urine Bilirubin Dipstick Negative (Negative); Urine Clarity Clear (Clear); Urine Urobilinogen 1 mg/dl (Normal)
[2024-10-15 17:00] VITALS: BP 137/88; PULSE 8; RESP 19; TEMP 37.2; O2SAT 97
[2024-10-15 17:22] LABS: White Blood Cells 5-10 SEEN /hpf (0-5)
[2024-10-15 17:23] LABS: Red Blood Cells-Urine 0-5 SEEN /hpf (0-5); Squamous Epithelial Cells - UA 5-10 SEEN /hpf (5-10); Transitional Epithelial - Ur 0-5 SEEN /hpf (0-5)
[2024-10-15 18:35] VITALS: BP 119/68; PULSE 86; RESP 17; TEMP 37.2; O2SAT 96
== END 2024-10-15 18:37 | disposition home or self-care (01) ==
PROVIDERS: Emergency Provider Emergency Medicine; PCP Internal Medicine; Visit Provider Emergency Medicine
DX: R10.9 Unspecified abdominal pain (principal); R50.9 Fever, unspecified; R51.9 Headache, unspecified; I10 Essential (primary) hypertension; E06.3 Autoimmune thyroiditis; Z79.899 Other long term (current) drug therapy; K21.9 Gastro-esophageal reflux disease without esophagitis
CPT/HCPCS: 70450; 71046; 80053; 81001; 83605; 84439; 84443; 84481; 85025; 85610; 85730; 87040; 87086; 87088; 87631; 93005; 96361; 96374; 99285; A4216